=== PATIENT | female | born 1955 | race Caucasian/White ===

== ENCOUNTER 2020-05-01 12:24 | Day surgery (SDC) | payer OTHER, SELFPAY ==
--- NOTE | 2020-04-30 14:04 | HO.ANESPROP2 ---
Documented by User: Shagufta Balderas 04/30/20 14:28 HPI - Anesthesia Eval Consult details Narrative: 65yo F for EBUS: QIAN Small Cell Lung CA S/P Chemo/Rad PMFSH Past Medical History Medical History Arthritis COPD (chronic obstructive pulmonary disease) Depression Encounter for colonoscopy due to history of colonic polyp History of diverticulitis of colon History of hepatitis Hypertension Hypothyroidism Traumatic brain injury Surgical History Surgical History H/O section Hx of breast reduction, elective S/P bronchoscopy with biopsy Social History Social History Smoking Status: Former smoker Smoking Quit Date: 3yrs Use of substances other than those prescribed or required for medical reasons: Yes Substance Use Type Other:: edibles Substance Use Frequency: Daily Advance Directives: Yes Advance Directives on File: Yes Advance Directives Date on File: 05/01/20 Meds Allergies Allergy/AdvReac Type Severity Reaction Status Date / Time iodine [IODINE] Allergy Unknown ANAPHYLAXIS Verified 04/10/20 08:34 penicillin V Allergy Unknown Unknown Verified 04/10/20 08:34 Penicillins [PCN] Allergy Unknown HIVES Verified 04/10/20 08:34 shellfish derived Allergy Unknown UNKNOWN Verified 04/10/20 08:34 [SHELLFISH DERIVED] Home Medications Medication Instructions Recorded Confirmed Type Calcium + Vitamin D 250 mg PO DAILY 04/10/20 04/10/20 History albuterol sulfate 1.25 mg INHALATION Q4-6H PRN 04/10/20 04/10/20 History atenolol 25 mg PO DAILY 04/10/20 04/10/20 History budesonide-formoterol 2 puff INHALATION BID 04/10/20 04/10/20 History bupropion HCl 200 mg PO DAILY 04/10/20 04/11/20 History docusate sodium [Stool Softener] 100 mg PO DAILY 04/10/20 04/10/20 History duloxetine 30 mg PO DAILY 04/10/20 04/10/20 History levothyroxine 137 mcg PO DAILY 04/10/20 04/10/20 History levothyroxine 274 mcg PO DAILY 04/10/20 04/10/20 History meloxicam 15 mg PO BEDTIME 04/10/20 04/10/20 History multivitamin with minerals 1 tab PO DAILY 04/10/20 04/10/20 History nortriptyline 20 mg PO BEDTIME 04/10/20 04/10/20 History ondansetron 4 mg PO Q6H PRN 04/10/20 04/10/20 History tiotropium bromide 1 cap INHALATION DAILY 04/10/20 04/10/20 History omeprazole [Prilosec] 20 mg PO DAILY 05/01/20 05/01/20 History Exam Exam Date and Time: April 30, 2020 1404 Pertinent Lab Results Pertinent Lab Results: Laboratory Tests 04/11/20 04/11/20 12:17 12:17 WBC 5.8 Hgb 12.5 Hct 37.0 Plt Count 264 Sodium 140 Potassium 4.7 Chloride 104 Carbon Dioxide 31 H BUN 21 H Creatinine 1.09 Narrative Narrative: ECHO 04/2019: nml study Documented by User: Luis Tony 05/01/20 13:35 PMFSH Past Medical History Medical History Arthritis COPD (chronic obstructive pulmonary disease) Depression Encounter for colonoscopy due to history of colonic polyp History of diverticulitis of colon History of hepatitis Hypertension Hypothyroidism Traumatic brain injury Surgical History Surgical History H/O section Hx of breast reduction, elective S/P bronchoscopy with biopsy Social History Social History Smoking Status: Former smoker Smoking Quit Date: 3yrs Use of substances other than those prescribed or required for medical reasons: Yes Substance Use Type Other:: edibles Substance Use Frequency: Daily Advance Directives: Yes Advance Directives on File: Yes Advance Directives Date on File: 05/01/20 Meds Allergies Allergy/AdvReac Type Severity Reaction Status Date / Time iodine [IODINE] Allergy Unknown ANAPHYLAXIS Verified 04/10/20 08:34 penicillin V Allergy Unknown Unknown Verified 04/10/20 08:34 Penicillins [PCN] Allergy Unknown HIVES Verified 04/10/20 08:34 shellfish derived Allergy Unknown UNKNOWN Verified 04/10/20 08:34 [SHELLFISH DERIVED] Home Medications Medication Instructions Recorded Confirmed Type Calcium + Vitamin D 250 mg PO DAILY 04/10/20 04/10/20 History albuterol sulfate 1.25 mg INHALATION Q4-6H PRN 04/10/20 04/10/20 History atenolol 25 mg PO DAILY 04/10/20 04/10/20 History budesonide-formoterol 2 puff INHALATION BID 04/10/20 04/10/20 History bupropion HCl 200 mg PO DAILY 04/10/20 04/11/20 History docusate sodium [Stool Softener] 100 mg PO DAILY 04/10/20 04/10/20 History duloxetine 30 mg PO DAILY 04/10/20 04/10/20 History levothyroxine 137 mcg PO DAILY 04/10/20 04/10/20 History levothyroxine 274 mcg PO DAILY 04/10/20 04/10/20 History meloxicam 15 mg PO BEDTIME 04/10/20 04/10/20 History multivitamin with minerals 1 tab PO DAILY 04/10/20 04/10/20 History nortriptyline 20 mg PO BEDTIME 04/10/20 04/10/20 History ondansetron 4 mg PO Q6H PRN 04/10/20 04/10/20 History tiotropium bromide 1 cap INHALATION DAILY 04/10/20 04/10/20 History omeprazole [Prilosec] 20 mg PO DAILY 05/01/20 05/01/20 History Exam Airway Mallampati Class: II TM Dist: >3cm Neck ROM: Full Loose/Missing/Broken Teeth: Yes (Overbite) Heart: RRR Assessment and Plan Assessment Anesthesia Assessment: Anesthesia Plan Discussed Final Anesthetic Review NPO: Yes ASA Class: III Final Preanesthetic Review: Consent Obtained/Reviewed Anesthetic Plan Anesthetic Plan: GA Disposition: Standard PACU
--- NOTE | 2020-05-01 12:53 | MHC.SHP ---
Pre-Procedural Eval Section B Chief Complaint: endo bronch ultrasound Details of Present Illness: 65-year-old lady, former approximately 40+ pack-year smoker, quit 4 years prior with underlying history of COPD, small cell lung cancer under care of Dr. Saunders. Re-referred for evaluation of new left paramediastinal lesion with increased PET uptake in mediastinal lymph nodes. Patient has been using Symbicort and Spiriva to her underlying dyspnea with suboptimal control. Relevant Family History (Specify if Yes): No Relevant Social History: Tobacco Use Present Medications: see Short Stay Collaborative assessment Medical History: Significant History ( as per HPI) History of Previous Operations: No relevant previous surgery Allergies: Allergies Allergy/AdvReac Type Severity Reaction Status Date / Time iodine [IODINE] Allergy Unknown ANAPHYLAXIS Verified 04/10/20 08:34 penicillin V Allergy Unknown Unknown Verified 04/10/20 08:34 Penicillins [PCN] Allergy Unknown HIVES Verified 04/10/20 08:34 shellfish derived Allergy Unknown UNKNOWN Verified 04/10/20 08:34 [SHELLFISH DERIVED] Review of Systems Sugical H&P ROS: Negative: Constitution, Cardiovascular, Respiratory, Neurological, Psychiatric, Hem-Onc, Allergic/Immunologic, Gastrointestinal, Genitourinary, Musculoskeletal, Integumentary, Endocrine and Eyes/Ears/Nose/Throat Exam Surgical H&P Exam: Normal: HEENT, Normal: Heart, Normal: Lungs, Normal: Extremities, Normal: Abdomen, Normal: Skin and Normal: Neurological Plan Diagnosis/Plan: Unchanged Patient has been examined and remains a candidate for the planned procedure
[2020-05-01 13:03] VITALS: BP 154/75; PULSE 83; RESP 18; TEMP 36.5; O2SAT 97; BMI 46.3
[2020-05-01] MEDS: Lactated Ringers 1,000 ML 100 ML IVCONT (13:23)
[2020-05-01] MEDS: Albuterol Sulfate (0.083%) 2.5 MG/3 ML VIAL.NEB INHALE (13:43)
--- NOTE | 2020-05-01 15:10 | PM.OP ---
Brief Operative Note Date of procedure: 05/01/20 Pre-op diagnosis: lung cancer Post-op diagnosis: same Procedure: Initially, flexible bronchoscopy performed through the endotracheal tube with patient intubated for procedure with bronchoscope advanced through the tracheobronchial tree. Approximately 50% narrowing of left upper lobe apical segment bronchus noted. Also, left mainstem bronchus endobronchial nodule noted on the medial surface and biopsied with transbronchial needle with aspirated material sent for pathological review. Thereafter, bronchoscope was changed to endobronchial ultrasound 1 and station 7 lymph node aspirated under EBUS guidance with rapid on-site cytology showing cells consistent with small cell lung cancer. Aspirate material sent for further pathological review. No immediate complications of the procedure. Patient tolerated the procedure well. Patient returned to PACU extubated. Surgeon: Francois Casey MD Anesthesia: GETCarley Estimated blood loss (mL): 0 Condition: stable Disposition: PACU
[2020-05-01 15:15] VITALS: BP 111/52; PULSE 74; RESP 18; TEMP 36.4; O2SAT 99
[2020-05-01 15:20] VITALS: BP 108/77; PULSE 74; RESP 14; O2SAT 98
[2020-05-01 15:25] VITALS: BP 116/80; PULSE 72; RESP 14; O2SAT 98
[2020-05-01 15:30] VITALS: BP 122/73; PULSE 72; RESP 16; O2SAT 97
[2020-05-01 15:45] VITALS: BP 136/67; PULSE 70; RESP 16; TEMP 36; O2SAT 97
== END 2020-05-01 16:30 | disposition home or self-care (01) ==
PROVIDERS: PCP Family Medicine; Visit Provider Internal Medicine Pulmonary Disease
PROC: (CPT 31625; principal; 2020-05-01 14:00)
DX: C34.82 Malignant neoplasm of overlapping sites of left bronchus and lung (principal); C77.1 Secondary and unspecified malignant neoplasm of intrathoracic lymph nodes; J44.9 Chronic obstructive pulmonary disease, unspecified; I10 Essential (primary) hypertension; F32.9 Major depressive disorder, single episode, unspecified; Z87.891 Personal history of nicotine dependence; Z79.51 Long term (current) use of inhaled steroids; Z79.899 Other long term (current) drug therapy; Z87.820 Personal history of traumatic brain injury; Z88.0 Allergy status to penicillin
CPT/HCPCS: 31625; 31652; 88172; 88173; 88305; 88341; 88342; 94640; J0171; J0330; J1100; J2250; J2405

== ENCOUNTER 2020-05-09 10:43 | Outpatient (REF) | payer OTHER, SELFPAY | END 2020-05-09 10:44 | disposition home or self-care (01) | LOC: HO.XRAY 10:43 | PROVIDERS: Visit Provider Internal Medicine | DX: Z13.89 Encounter for screening for other disorder (principal) | CPT/HCPCS: Q9967 ==

== ENCOUNTER → 2020-06-02 10:48 | Outpatient (BNVA) | payer OTHER, SELFPAY | PROVIDERS: PCP Family Medicine; Referring Provider Family Medicine; Visit Provider Internal Medicine Pulmonary Disease | DX: J44.9 Chronic obstructive pulmonary disease, unspecified (principal); C34.90 Malignant neoplasm of unspecified part of unspecified bronchus or lung; Z99.81 Dependence on supplemental oxygen | CPT/HCPCS: 99212 ==

== ENCOUNTER 2020-06-08 19:00 | Inpatient (IN) | payer OTHER, SELFPAY ==
[2020-06-08] VITALS (7 sets, daily range): BP systolic 109–117; BP diastolic 58–84; PULSE 102–106; RESP 20–26; TEMP 36.7–37; O2SAT 90–97; BMI 44.9
--- NOTE | 2020-06-08 19:13 | ECG_ITS ---
Test Reason : ABDONMIAL PAIN Blood Pressure : / mmHG Vent. Rate : 103 BPM Atrial Rate : 103 BPM P-R Int : 128 ms QRS Dur : 082 ms QT Int : 340 ms P-R-T Axes : 078 055 089 degrees QTc Int : [address] & T wave abnormality, consider anterolateral ischemia Abnormal ECG When compared with ECG of 07-MAY-2019 14:04, Premature atrial complexes are no longer Present T wave inversion now evident in Anterior leads Referred By: Danelle Reyes Electronically Signed By:JOSE MANUEL MD
--- NOTE | 2020-06-08 19:13 | CT_ITS ---
EXAMINATION: CT ABDOMEN AND PELVIS WITHOUT CONTRAST CLINICAL INFORMATION: Lower abdominal pain. COMPARISON: Prior CT abdomen and pelvis April 2019. TECHNIQUE: Multidetector volumetric imaging was performed from the superior aspect of the liver through the pubic symphysis. Sagittal and coronal reformatted images were obtained on the technologist's workstation. This CT examination was performed using dose optimization techniques as appropriate, variously including the following: *Automated exposure control. *Adjustment of mA and/or kV according to patient size (this includes techniques or standardized protocols for targeted exams where dose is matched to indication/reason for exam; i.e. extremities or head). *Use of iterative reconstruction technique. DLP: 1180 mGy-cm FINDINGS: LUNG BASES: The visualized lung bases are unremarkable. LIVER, GALLBLADDER, AND BILIARY TREE: The liver is normal in size, shape, and attenuation. No focal hepatic lesion or biliary ductal dilatation is present. The gallbladder is unremarkable with no evidence of radiopaque gallstones, gallbladder wall thickening, or obvious pericholecystic inflammatory changes. PANCREAS: Unremarkable. SPLEEN: Unremarkable. ADRENAL GLANDS: Unremarkable. KIDNEYS AND URETERS: The kidneys are normal in size, shape, and attenuation. No hydronephrosis, hydroureter, or calculi seen. No perinephric stranding. BLADDER: Unremarkable. GASTROINTESTINAL TRACT: There is scattered diverticulosis most evident in the distal descending colon and sigmoid colon. Beginning at the splenic flexure there is bowel wall thickening and pericolonic stranding compatible with an inflammatory process of the bowel. This likely reflects colitis or diverticulitis. This extends over a length of approximately 10 cm. ABDOMINAL WALL: No significant hernia is appreciated. LYMPH NODES: Normal. VASCULAR: Moderate calcific atherosclerotic disease throughout. PELVIC VISCERA: There is calcification measuring approximately 12 mm in the posterior fundus compatible with partially calcified fibroid. This is unchanged. OSSEOUS STRUCTURES: Multilevel spondylosis of the lumbosacral spine with severe degenerative disc changes at L4-L5 and L5-S1. There is grade 1 anterolisthesis at L4-L5 secondary to degenerative changes. Severe bilateral facet arthrosis noted at this level. CT/CT abdomen pelvis wo con IMPRESSION: Inflammatory/infectious process of the proximal descending colon compatible with diverticulitis or colitis.
--- NOTE | 2020-06-08 19:13 | XR_ITS ---
EXAMINATION: XR CHEST CLINICAL INFORMATION: Possible sepsis COMPARISON: Chest CT March 2020. TECHNIQUE: Frontal view of the chest was obtained. FINDINGS: There is persistent increased opacity left AP window and hilar region unchanged. The lungs are otherwise clear. Central venous catheter is noted with the tip in the SVC region. Cardiac silhouette normal. Spondylosis of the dorsal spine. XR/XR chest 1V IMPRESSION: Soft tissue fullness in the left hilar region superior mediastinum probably not changed compared with recent CT. This could reflect posttreatment changes, pneumonia, or mass.
[2020-06-08] MEDS: 0.9 % Sodium Chloride 1,000 ML 999 ML IVCONT ×2 (19:48→22:07)
[2020-06-08] MEDS: Morphine Sulfate 4 MG/ML CARTRIDGE IVPUSH (20:08)
[2020-06-08 20:14] LABS: Alanine Aminotransferase 42 U/L (0-31); Albumin Level 3.8 g/dL (3.5-5.0); Alkaline Phosphatase 68 U/L (39-117); Anion Gap 16 (12-20); Aspartate Amino Transferase 35 U/L (5-31); Bilirubin Direct 0.3 mg/dL (0.0-0.5); Bilirubin Total 0.7 mg/dL (0.0-1.0); Blood Urea Nitrogen 12 mg/dL (9-16); Calcium 8.3 mg/dL (8.4-10.2); Carbon Dioxide 24 mmol/L (22-29); Chloride 98 mmol/L (96-108); Creatinine Clr Calc Pharmacy 85.5; Estimated Glomerular Filt Rate > 60; Glucose Random 120 mg/dL (60-115); Lipase 8 U/L (8-78); Potassium 3.7 mmol/l (3.3-5.1); Sodium 134 mmol/L (135-145); Total Protein 6.1 g/dL (6.5-8.0)
[2020-06-08 20:15] LABS: Lactic Acid 2.5 mmol/L (0.5-2.0)
[2020-06-08 20:18] LABS: Hematocrit 23.9 % (37-47); Hemoglobin 8.6 g/dl (12.0-16.0); Mean Corpuscular Hemoglobin 33.7 pg (27.0-33.0); Mean Corpuscular Volume 93.7 fL (80-98); Mean Platelet Volume 10.7 fL (9.4-12.3); Red Blood Count 2.55 X10*6/uL (4.20-5.50); Red Cell Distribution Width 11.6 % (11.0-16.0)
[2020-06-08 20:19] LABS: Troponin-I High Sensitivity 7.8 ng/L (<3.5-17.0)
[2020-06-08 20:40] LABS: NRBC Pct Auto 2.4 /100WBC (0.0-0.2); Platelet Count 44 X10*3/uL (160-400); WBC ABN SCTR FOR CBC 1
[2020-06-08 20:52] LABS: White Blood Count 0.8 X10*3/uL (4.8-10.8)
[2020-06-08] MEDS: HYDROmorphone HCl 1 MG/ML SYRINGE IVPUSH (21:40)
[2020-06-08] MEDS: levoFLOXacin/D5W 500 MG/100 ML PIGGYBACK 100 MG IV (21:41)
[2020-06-08 21:50] LABS: Reflex Lactate? Lactic Acid Added
[2020-06-08 22:04] LABS: Atypical Lymphs Percent Manual 2 % (0-6); Band Neutrophils Percent 9 % (3-5); Basophils Percent Manual 1 % (0-1); Lymphocytes Absolute Manual 0.4 X10*3/uL (0.6-4.8); Lymphocytes Percent Manual 45 % (20-40); Monocytes Absolute Manual 0.1 X10*3/uL (0.0-1.2); Monocytes Percent Manual 16 % (2-11); Neutrophils Absolute Manual 0.3 X10*3/uL (2.2-7.9); Neutrophils Percent Manual 27 % (45-73)
[2020-06-08 22:07] LABS: Hypochromasia 1+; Polychromasia 1+; RBC Morphology NOTED; Tear Drop Cells 1+
[2020-06-08 22:09] LABS: Large Platelet PRESENT; Platelet Estimate DECREASED (NORMAL); Platelet Morphology Comment NORMAL
[2020-06-08 22:12] LABS: Dohle Bodies PRESENT; Toxic Vacuolation PRESENT
[2020-06-08 22:51] LABS: Glucose Urine UA NEG (NEG); Leukocyte Esterase Urine NEG (NEG); Nitrite Urine NEG (NEG); PH 5.5 (5.0-8.0); Specific Gravity - Urine 1.015 (1.005-1.025); Urine Blood 2+ (NEG); Urine Ketones NEG (NEG); Urine Protein NEG (NEG-TRACE)
[2020-06-08 22:55] LABS: Appearance Urine CLEAR; Color Urine YELLOW
[2020-06-08 23:06] LABS: WBC Urine 0 /HPF (0-4)
[2020-06-08] MEDS: HYDROmorphone HCl 2 MG/ML VIAL IVPUSH (23:51)
--- NOTE | 2020-06-08 23:51 | ED_ITS ---
HPI - Abdominal Pain General Chief Complaint: Abdominal Pain Stated Complaint: dizzy, nausea Time Seen by Provider: 06/08/20 19:05 Source: patient Mode of arrival: EMS Limitations: no limitations History of Present Illness HPI narrative: patient comes emergency room complaining of diffuse abdominal pain. Patient states it started this morning. Patient has history of colitis and states it feels about the same. Patient also feeling weak, and lightheaded. Patient is known to have lung cancer, she is followed by Dr. Saunders, had chemotherapy 1 week ago MD elicited complaint: abdominal pain Related Data Home Medications Medication Instructions Recorded Confirmed Calcium + Vitamin D 250 mg PO DAILY 04/10/20 06/02/20 albuterol sulfate 1.25 mg INHALATION Q4-6H PRN 04/10/20 06/02/20 atenolol 25 mg PO DAILY 04/10/20 06/02/20 budesonide-formoterol 2 puff INHALATION BID 04/10/20 06/02/20 bupropion HCl 200 mg PO DAILY 04/10/20 06/02/20 docusate sodium [Stool Softener] 100 mg PO DAILY 04/10/20 06/02/20 duloxetine 30 mg PO DAILY 04/10/20 06/02/20 levothyroxine 137 mcg PO DAILY 04/10/20 06/02/20 levothyroxine 274 mcg PO DAILY 04/10/20 06/02/20 meloxicam 15 mg PO BEDTIME 04/10/20 06/02/20 multivitamin with minerals 1 tab PO DAILY 04/10/20 06/02/20 nortriptyline 20 mg PO BEDTIME 04/10/20 06/02/20 ondansetron 4 mg PO Q6H PRN 04/10/20 06/02/20 tiotropium bromide 1 cap INHALATION DAILY 04/10/20 06/02/20 omeprazole [Prilosec] 20 mg PO DAILY 05/01/20 06/02/20 Previous Rx's Medication Instructions Recorded dexamethasone 4 mg PO BID #30 tab 05/02/20 ondansetron HCl [Zofran] 4 mg PO Q6H PRN #30 tab 05/09/20 Allergies Allergy/AdvReac Type Severity Reaction Status Date / Time iodine [IODINE] Allergy Unknown ANAPHYLAXIS Verified 06/02/20 10:59 penicillin V Allergy Unknown Unknown Verified 06/02/20 10:59 Penicillins [PCN] Allergy Unknown HIVES Verified 06/02/20 10:59 shellfish derived Allergy Unknown UNKNOWN Verified 06/02/20 10:59 [SHELLFISH DERIVED] Review of Systems Review of Systems Constitutional : complaining of fatigue, weakness, no fever ENT/Mouth : No Hearing loss, No Ear Pain, No Nasal Congestion, No Sinus Pain, No Hoarseness, No sore throat, No Rhinorrhea, No Swallowing Difficulty Eyes: No Eye Pain, No Swelling, No Redness, No Foreign Body, No Discharge, No Vision Changes Cardiovascular : No Chest Pain, No SOB, No Dyspnea on Exertion, No Orthopnea, No Edema, No Palpitations Respiratory : No Cough, No Sputum, No Wheezing, No Smoke Exposure, No Dyspnea Gastrointestinal : patient complaining diffuse abdominal pain, no vomiting or diarrhea Genitourinary : no irregular bleeding, No Dysuria, No Urinary Frequency, No Hematuria, No Urinary Incontinence, No Urgency, No Flank Pain, No Urinary Flow Changes, No Hesitancy Musculoskeletal : No joint pain, No Myalgias, No Joint Swelling Skin : No Skin Lesions, No rash Neuro : No Weakness, No Numbness, No Paresthesias, No Loss of Consciousness, complaining of mild Dizziness, No Headache Psych : No Anxiety/Panic, No Depression, No SI/HI/AH/VH, No Social Issues, Heme/Lymph: No Bruising, No Bleeding,No Lymphadenopathy Endocrine : No Polyuria, No Polydipsia, No Temperature Intolerance Physical Exam Vital Signs: Vital Signs: Last Vital Signs Temp 98.2 F 06/08/20 23:33 Pulse 102 H 06/09/20 00:00 Resp 20 06/09/20 00:00 BP 108/76 06/09/20 00:00 Pulse Ox 97 06/09/20 00:00 Body Mass Index 44.9 Appearance: Alert. Oriented X3. No acute distress. Eyes: Pupils equal, round and reactive to light. ENT: Pharynx normal. Neck: Normal inspection. Neck supple. No lymph nodes noted. No crepitus CVS: Normal heart rate and rhythm. Pulses normal. Normal S1 and S2 Respiratory: No respiratory distress. Breath sounds normal. No Wheezing. No rales Abdomen: Soft tender to palpation in all quadrants, no rebound Skin: Skin warm and dry. pale color. Normal skin turgor. Extremities: No lower extremity edema. No lower extremity edema. No Lacerations. No Rash Neuro: Oriented X 3. No motor deficit. No sensory deficit. Moving all extermities. No slurred speech. Course Course Course Narrative: patient has colitis versus diverticulitis, and also neutropenic. I discussed the above-mentioned with the patient, patient being admitted. I discussed the patient with our hospitalist Dr. Duque, patient admitted patient's EKG showed some ST segment changes, due to system failure, prior EKGs are not available to be seen and for comparison MDM - Abdominal Pain Lab Data Result diagrams: 06/08/20 19:47 06/08/20 19:47 Labs: Lab Results 06/08/20 06/08/20 06/08/20 Range/Units 19:47 19:47 19:47 WBC 0.8 L* (4.8-10.8) X10*3/uL RBC 2.55 L D (4.20-5.50) X10*6/uL Hgb 8.6 L D (12.0-16.0) g/dl Hct 23.9 L D (37-47) % MCV 93.7 (80-98) fL MCH 33.7 H (27.0-33.0) pg MCHC 36.0 H (31.0-35.0) g/dl RDW 11.6 (11.0-16.0) % Plt Count 44 L D (160-400) X10*3/uL MPV 10.7 (9.4-12.3) fL Immature Gran % (Auto) Cancelled Neut % (Auto) Cancelled Lymph % (Auto) Cancelled Chambers % (Auto) Cancelled Eos % (Auto) Cancelled Baso % (Auto) Cancelled Lymph # (Auto) Cancelled Chambers # (Auto) Cancelled Eos # (Auto) Cancelled Baso # (Auto) Cancelled Abs Immat Gran (auto) Cancelled Absolute Neuts (auto) Cancelled Absolute Nucleated RBC 0.020 H (0.0-0.012) X10*3/uL Nucleated RBC % (auto) 2.4 H (0.0-0.2) /100WBC Neutrophils % (Manual) 27 L (45-73) % Band Neutrophils % 9 H (3-5) % Lymphocytes % (Manual) 45 H (20-40) % Atypical Lymphs % (Man) 2 (0-6) % Monocytes % (Manual) 16 H (2-11) % Basophils % (Manual) 1 (0-1) % Abs Neuts (Manual) 0.3 L (2.2-7.9) X10*3/uL Lymphocytes # (Manual) 0.4 L (0.6-4.8) X10*3/uL Monocytes # (Manual) 0.1 (0.0-1.2) X10*3/uL Toxic Vacuolation PRESENT Dohle Bodies PRESENT Platelet Estimate DECREASED (NORMAL) Large Platelets PRESENT Plt Morphology Comment NORMAL RBC Morphology NOTED Polychromasia 1+ Hypochromasia 1+ Tear Drop Cells 1+ Sodium 134 L (135-145) mmol/L Potassium 3.7 (3.3-5.1) mmol/l Chloride 98 (96-108) mmol/L Carbon Dioxide 24 (22-29) mmol/L Anion Gap 16 (12-20) BUN 12 (9-16) mg/dL Creatinine 0.82 (0.5-1.4) mg/dL Estim Creat Clear Calc 85.5 Estimated GFR > 60 Random Glucose 120 H (60-115) mg/dL Lactic Acid 2.5 H* (0.5-2.0) mmol/L Lactic Acid Fup @ 2Hr (0.5-2.0) mmol/L Calcium 8.3 L D (8.4-10.2) mg/dL Total Bilirubin 0.7 (0.0-1.0) mg/dL Direct Bilirubin 0.3 (0.0-0.5) mg/dL AST 35 H D (5-31) U/L ALT 42 H (0-31) U/L Alkaline Phosphatase 68 (39-117) U/L Troponin I High Sens (<3.5-17.0) ng/L Total Protein 6.1 L (6.5-8.0) g/dL Albumin 3.8 (3.5-5.0) g/dL Lipase 8 (8-78) U/L Urine Color Urine Appearance Urine pH (5.0-8.0) Ur Specific Blackstock (1.005-1.025) Urine Protein (NEG-TRACE) MG/DL Urine Glucose (UA) (NEG) MG/DL Urine Ketones (NEG) MG/DL Urine Blood (NEG) Urine Nitrite (NEG) Ur Leukocyte Esterase (NEG) Urine RBC (0) /HPF Urine WBC (0-4) /HPF Ur Squamous Epith Cells /LPF Urine Bacteria /LPF 06/08/20 06/08/20 06/08/20 Range/Units 19:47 22:40 23:29 WBC (4.8-10.8) X10*3/uL RBC (4.20-5.50) X10*6/uL Hgb (12.0-16.0) g/dl Hct (37-47) % MCV (80-98) fL MCH (27.0-33.0) pg MCHC (31.0-35.0) g/dl RDW (11.0-16.0) % Plt Count (160-400) X10*3/uL MPV (9.4-12.3) fL Immature Gran % (Auto) Neut % (Auto) Lymph % (Auto) Chambers % (Auto) Eos % (Auto) Baso % (Auto) Lymph # (Auto) Chambers # (Auto) Eos # (Auto) Baso # (Auto) Abs Immat Gran (auto) Absolute Neuts (auto) Absolute Nucleated RBC (0.0-0.012) X10*3/uL Nucleated RBC % (auto) (0.0-0.2) /100WBC Neutrophils % (Manual) (45-73) % Band Neutrophils % (3-5) % Lymphocytes % (Manual) (20-40) % Atypical Lymphs % (Man) (0-6) % Monocytes % (Manual) (2-11) % Basophils % (Manual) (0-1) % Abs Neuts (Manual) (2.2-7.9) X10*3/uL Lymphocytes # (Manual) (0.6-4.8) X10*3/uL Monocytes # (Manual) (0.0-1.2) X10*3/uL Toxic Vacuolation Dohle Bodies Platelet Estimate (NORMAL) Large Platelets Plt Morphology Comment RBC Morphology Polychromasia Hypochromasia Tear Drop Cells Sodium (135-145) mmol/L Potassium (3.3-5.1) mmol/l Chloride (96-108) mmol/L Carbon Dioxide (22-29) mmol/L Anion Gap (12-20) BUN (9-16) mg/dL Creatinine (0.5-1.4) mg/dL Estim Creat Clear Calc Estimated GFR Random Glucose (60-115) mg/dL Lactic Acid (0.5-2.0) mmol/L Lactic Acid Fup @ 2Hr 4.2 H* (0.5-2.0) mmol/L Calcium (8.4-10.2) mg/dL Total Bilirubin (0.0-1.0) mg/dL Direct Bilirubin (0.0-0.5) mg/dL AST (5-31) U/L ALT (0-31) U/L Alkaline Phosphatase (39-117) U/L Troponin I High Sens 7.8 (<3.5-17.0) ng/L Total Protein (6.5-8.0) g/dL Albumin (3.5-5.0) g/dL Lipase (8-78) U/L Urine Color YELLOW Urine Appearance CLEAR Urine pH 5.5 (5.0-8.0) Ur Specific Blackstock 1.015 (1.005-1.025) Urine Protein NEG (NEG-TRACE) MG/DL Urine Glucose (UA) NEG (NEG) MG/DL Urine Ketones NEG (NEG) MG/DL Urine Blood 2+ H (NEG) Urine Nitrite NEG (NEG) Ur Leukocyte Esterase NEG (NEG) Urine RBC 5-9 H (0) /HPF Urine WBC 0 (0-4) /HPF Ur Squamous Epith Cells NONE /LPF Urine Bacteria NONE /LPF Imaging Data CT scan - abdomen: Radiologist's impression: LUNG BASES: The visualized lung bases are unremarkable. LIVER, GALLBLADDER, AND BILIARY TREE: The liver is normal in size, shape, and attenuation. No focal hepatic lesion or biliary ductal dilatation is present. The gallbladder is unremarkable with no evidence of radiopaque gallstones, gallbladder wall thickening, or obvious pericholecystic inflammatory changes. PANCREAS: Unremarkable. SPLEEN: Unremarkable. ADRENAL GLANDS: Unremarkable. KIDNEYS AND URETERS: The kidneys are normal in size, shape, and attenuation. No hydronephrosis, hydroureter, or calculi seen. No perinephric stranding. BLADDER: Unremarkable. GASTROINTESTINAL TRACT: There is scattered diverticulosis most evident in the distal descending colon and sigmoid colon. Beginning at the splenic flexure there is bowel wall thickening and pericolonic stranding compatible with an inflammatory process of the bowel. This likely reflects colitis or diverticulitis. This extends over a length of approximately 10 cm. ABDOMINAL WALL: No significant hernia is appreciated. LYMPH NODES: Normal. VASCULAR: Moderate calcific atherosclerotic disease throughout. PELVIC VISCERA: There is calcification measuring approximately 12 mm in the posterior fundus compatible with partially calcified fibroid. This is unchanged. OSSEOUS STRUCTURES: Multilevel spondylosis of the lumbosacral spine with severe degenerative disc changes at L4-L5 and L5-S1. There is grade 1 anterolisthesis at L4-L5 secondary to degenerative changes. Severe bilateral facet arthrosis noted at this level. ECG Data Attestation: I personally reviewed and interpreted this ECG as follows: ( sinus rhythm, ST segment depression in leads V3 through V5, QTC 445) Discharge Plan Discharge Clinical Impression: Colitis, Acquired neutropenia Abdominal pain Qualifiers: Abdominal location: generalized Qualified Code(s): R10.84 - Generalized abdominal pain Patient Disposition: Admitted As Inpatient [facility] Past Medical History Medical History (Updated 06/09/20 @ 01:11 by Gilberto Wilson MD) Arthritis COPD (chronic obstructive pulmonary disease) Depression Encounter for colonoscopy due to history of colonic polyp History of diverticulitis of colon History of hepatitis Hypertension Hypothyroidism Traumatic brain injury Surgical History H/O section Hx of breast reduction, elective S/P bronchoscopy with biopsy Social History Social History Alcohol intake: never Smoking Status: Never smoker Packs Per Day: 1 Years Smoked: 53 Use of substances other than those prescribed or required for medical reasons: No Advance Directives: Yes Advance Directives on File: Yes Advance Directives Date on File: 05/01/20
[2020-06-08 23:55] LABS: ~Lactic Acid-LAB USE ONLY 4.2 mmol/L (0.5-2.0)
[2020-06-09] VITALS (10 sets, daily range): BP systolic 91–138; BP diastolic 56–90; PULSE 86–102; RESP 19–20; TEMP 36.5–37; O2SAT 92–100; BMI 44.9
--- NOTE | 2020-06-09 | US_ITS ---
EXAMINATION: US ABDOMEN COMPLETE CLINICAL INFORMATION: History of hepatitis and lung cancer. Abdominal pain.. COMPARISON: Previous CT of the abdomen and pelvis from yesterday TECHNIQUE: Real-time imaging of the abdominal viscera. Grayscale and color imaging of the portal and hepatic veins, splenic vein and hepatic artery including waveform spectral analysis. FINDINGS: PANCREAS: Not visualized due to bowel gas. ABDOMINAL AORTA: Not well visualized due to bowel gas. INFERIOR VENA CAVA: Visualized portions are normal. LIVER: Liver echotexture is increased probably representing fatty infiltration. No focal liver lesion is seen. There is no biliary duct dilatation. GALLBLADDER: Not well visualized but appears unremarkable. No gallstones are seen. COMMON BILE DUCT: Normal in caliber measuring 0.7 cm in diameter. RIGHT KIDNEY: Normal. No hydronephrosis. No renal calculi or focal parenchymal lesions. The kidney measures 9.5 cm in maximum dimension. LEFT KIDNEY: Normal. No hydronephrosis. No renal calculi or focal parenchymal lesions. The kidney measures 10.8 cm in maximum dimension. SPLEEN: Normal. The spleen measures 8.5 cm in maximum dimension. FREE FLUID: None. Doppler exam: The extrahepatic portal vein, main portal vein, and right and left portal veins are patent with appropriate hepatopedal flow. The hepatic veins are patent with normal waveform. The IVC is patent with normal waveform. The splenic vein is patent with hepatopedal flow. The main hepatic artery is patent. This demonstrates normal peak systolic velocity of 65 cm/s. The right hepatic artery is not seen. The left hepatic artery is patent. US/US abdomen complete IMPRESSION: Limited exam. Echogenic liver probably representing fatty infiltration. Limited visualization of the pancreas, gallbladder, aorta and IVC. Normal Doppler exam.
[2020-06-09] MEDS: Clindamycin Phosphate/D5W 600 MG/50 ML PIGGYBACK 100 MG IV (00:18)
[2020-06-09] MEDS: metroNIDAZOLE/NS 500 MG/100 ML PIGGYBACK 100 MG IV (00:19)
--- NOTE | 2020-06-09 00:55 | P.HPHOSP_ITS ---
History of Present Illness Date of Service: 06/09/20 Chief Complaint: abdominal pain 65 y/o female with an extensive PMHX who presented from home c/o abdominal pain. Patient is a very poor historian but reports that for the past week has been having constant pain in her abdomen, sharp like, diffuse but more located in the left quadrant, associated with nausea/vomiting but no episodes of diarrhea. Reports occasional blood in the stool one in a while. On presentation to the ED patient was noted to be tachycardic 102, tachypneic, BP stable. WBc of 0.8, Hgb of 8.6 (baseline of 10.8), platelet of 44, Lactate of 2.5 which worsened to 4.2, LFT's mildly increased. Patient received a total of 2 liters per ED, one dose of clinda, flagyl and levaquin. Imaging done of the abdomen is consistent with possible colitis vs diverticulitis of the descending colon. Imaging of the chest shows left hilar region fullness which may represent mass not changed from prior CT. Decision for admission given. Patient seen and examined at the bedside, laying down in bed in no acute distress. ROS as above otherwise negative. Physical exam positive for diffuse tenderness more prominent in LLQ, no masses palpated on exam. Patient has been following up with Dr Saunders for hx of small cell lung cancer on chemo. PAST MEDICAL HISTORY: 1. HTN (hypertension) 2. Hypothyroidism 3. Depression 4. Arthritis 5. TBI (traumatic brain injury) 6. Small Cell Lung Cancer PAST SURGICAL HISTORY: 1. 2. Breast reduction FAMILY HISTORY: Father-possible colon cancer Toxic habits: Quit smoking, denies alcohol or illicit drug use. Review of Systems Gastrointestinal: Gastrointestinal: Reports abdominal pain, Reports nausea and Reports vomiting [facility] Medical History (Updated 06/09/20 @ 01:54 by Gilberto Wilson MD) Arthritis COPD (chronic obstructive pulmonary disease) Depression Encounter for colonoscopy due to history of colonic polyp History of diverticulitis of colon History of hepatitis Hypertension Hypothyroidism Traumatic brain injury Surgical History H/O section Hx of breast reduction, elective S/P bronchoscopy with biopsy Social History Alcohol intake: never Smoking Status: Never smoker Packs Per Day: 1 Years Smoked: 53 Use of substances other than those prescribed or required for medical reasons: No Advance Directives: Yes Advance Directives on File: Yes Advance Directives Date on File: 05/01/20 Meds Allergies Allergy/AdvReac Type Severity Reaction Status Date / Time iodine [IODINE] Allergy Unknown ANAPHYLAXIS Verified 06/02/20 10:59 penicillin V Allergy Unknown Unknown Verified 06/02/20 10:59 Penicillins [PCN] Allergy Unknown HIVES Verified 06/02/20 10:59 shellfish derived Allergy Unknown UNKNOWN Verified 06/02/20 10:59 [SHELLFISH DERIVED] Home Medications Medication Instructions Recorded Confirmed Type Calcium + Vitamin D 250 mg PO DAILY 04/10/20 06/09/20 History albuterol sulfate 1.25 mg INHALATION Q4-6H PRN 04/10/20 06/09/20 History atenolol 25 mg PO DAILY 04/10/20 06/09/20 History budesonide-formoterol 2 puff INHALATION BID 04/10/20 06/09/20 History bupropion HCl 200 mg PO DAILY 04/10/20 06/09/20 History docusate sodium [Stool Softener] 100 mg PO DAILY 04/10/20 06/09/20 History duloxetine 30 mg PO DAILY 04/10/20 06/09/20 History levothyroxine 137 mcg PO DAILY 04/10/20 06/09/20 History levothyroxine 274 mcg PO DAILY 04/10/20 06/09/20 History meloxicam 15 mg PO BEDTIME 04/10/20 06/09/20 History multivitamin with minerals 1 tab PO DAILY 04/10/20 06/09/20 History nortriptyline 20 mg PO BEDTIME 04/10/20 06/09/20 History ondansetron 8 mg PO Q6H PRN 04/10/20 06/09/20 History tiotropium bromide 1 cap INHALATION DAILY 04/10/20 06/09/20 History omeprazole [Prilosec] 20 mg PO DAILY 05/01/20 06/09/20 History olodaterol 2 inh INHALATION Q24H 06/09/20 06/09/20 History Physical Exam Vital Signs and Narrative: Vital Signs: Last Vital Signs Temp 98.2 F 06/08/20 23:33 Pulse 102 H 06/09/20 00:00 Resp 20 06/09/20 00:00 BP 108/76 06/09/20 00:00 Pulse Ox 97 06/09/20 00:00 Body Mass Index 44.9 Const: General: cooperative, comfortable and no acute distress Orientation/consciousness: oriented to person, oriented to place and oriented to time HENMT: Head: Yes normal to inspection Eyes: General: appearance normal, both eyes and all related structures Neck: Yes normal visual inspection Chest: Chest palpation & inspection: normal inspection of the chest Resp: Effort & Inspection: normal respiratory effort Auscultation: clear to auscultation bilaterally Cardio: Jugular venous distension: no JVD Rate: regular rate Rhythm: regular rhythm Heart sounds: S1 normal heart sound present and S2 normal heart sound present GI: Inspection: Yes normal to inspection Palpation (GI): Other GI palpation findings present (tenderness mainly at the LLQ) Skin: General skin exam: no rashes or lesions noted Neuro: General: oriented to person, oriented to place and oriented to time Cognition (Neuro): normal cognition Psych: Appearance: grossly normal Results Labs CBC and Chem 7: 06/08/20 19:47 06/08/20 19:47 Labs: Laboratory Results - last 24 hr 06/08/20 06/08/20 06/08/20 19:47 19:47 19:47 MCV 93.7 MCH 33.7 H MCHC 36.0 H RDW 11.6 Plt Count 44 L D MPV 10.7 Immature Gran % (Auto) Cancelled Neut % (Auto) Cancelled Lymph % (Auto) Cancelled [place] % (Auto) Cancelled Eos % (Auto) Cancelled Baso % (Auto) Cancelled Lymph # (Auto) Cancelled [place] # (Auto) Cancelled Eos # (Auto) Cancelled Baso # (Auto) Cancelled Abs Immat Gran (auto) Cancelled Absolute Neuts (auto) Cancelled Absolute Nucleated RBC 0.020 H Nucleated RBC % (auto) 2.4 H Neutrophils % (Manual) 27 L Band Neutrophils % 9 H Lymphocytes % (Manual) 45 H Atypical Lymphs % (Man) 2 Monocytes % (Manual) 16 H Basophils % (Manual) 1 Abs Neuts (Manual) 0.3 L Lymphocytes # (Manual) 0.4 L Monocytes # (Manual) 0.1 Toxic Vacuolation PRESENT Dohle Bodies PRESENT Platelet Estimate DECREASED Large Platelets PRESENT Plt Morphology Comment NORMAL RBC Morphology NOTED Polychromasia 1+ Hypochromasia 1+ Tear Drop Cells 1+ Anion Gap 16 Estim Creat Clear Calc 85.5 Estimated GFR > 60 Random Glucose 120 H Lactic Acid 2.5 H* Lactic Acid Fup @ 2Hr Calcium 8.3 L D Total Bilirubin 0.7 Direct Bilirubin 0.3 AST 35 H D ALT 42 H Alkaline Phosphatase 68 Troponin I High Sens Total Protein 6.1 L Albumin 3.8 Lipase 8 Urine Color Urine Appearance Urine pH Ur Specific [place] Urine Protein Urine Glucose (UA) Urine Ketones Urine Blood Urine Nitrite Ur Leukocyte Esterase Urine RBC Urine WBC Ur Squamous Epith Cells Urine Bacteria 06/08/20 06/08/20 06/08/20 19:47 22:40 23:29 MCV MCH MCHC RDW Plt Count MPV Immature Gran % (Auto) Neut % (Auto) Lymph % (Auto) [place] % (Auto) Eos % (Auto) Baso % (Auto) Lymph # (Auto) [place] # (Auto) Eos # (Auto) Baso # (Auto) Abs Immat Gran (auto) Absolute Neuts (auto) Absolute Nucleated RBC Nucleated RBC % (auto) Neutrophils % (Manual) Band Neutrophils % Lymphocytes % (Manual) Atypical Lymphs % (Man) Monocytes % (Manual) Basophils % (Manual) Abs Neuts (Manual) Lymphocytes # (Manual) Monocytes # (Manual) Toxic Vacuolation Dohle Bodies Platelet Estimate Large Platelets Plt Morphology Comment RBC Morphology Polychromasia Hypochromasia Tear Drop Cells Anion Gap Estim Creat Clear Calc Estimated GFR Random Glucose Lactic Acid Lactic Acid Fup @ 2Hr 4.2 H* Calcium Total Bilirubin Direct Bilirubin AST ALT Alkaline Phosphatase Troponin I High Sens 7.8 Total Protein Albumin Lipase Urine Color YELLOW Urine Appearance CLEAR Urine pH 5.5 Ur Specific [place] 1.015 Urine Protein NEG Urine Glucose (UA) NEG Urine Ketones NEG Urine Blood 2+ H Urine Nitrite NEG Ur Leukocyte Esterase NEG Urine RBC 5-9 H Urine WBC 0 Ur Squamous Epith Cells NONE Urine Bacteria NONE Imaging Radiologist's Impressions: Impressions Abdomen/Pelvis CT 06/08/20 19:13 IMPRESSION: Inflammatory/infectious process of the proximal descending colon compatible with diverticulitis or colitis. Chest X-Ray 06/08/20 19:13 IMPRESSION: Soft tissue fullness in the left hilar region superior mediastinum probably not changed compared with recent CT. This could reflect posttreatment changes, pneumonia, or mass. Assessment and Plan (1) Sepsis: Status: Acute Continue with aggressive IV hydration Trend lactate until it normalizes Follow up BCx and Ucx Continue with Levaquin for gram neg coverage Continue with flagyl for anaerobic coverage Keep MAP >65 mmHg Monitor Hgb Q4-6 hrs. Transfuse if Hgb <7 Chronic steroid therapy? continue with current dexamethasone dose and call outpatient pharmacy in am / PCP Infectious disease consult in the am (2) Colitis: Status: Acute as above (3) Acquired neutropenia: Status: Acute Isolation given severe neutropenia which is likely secondary to chemo therapy (4) Small cell lung cancer: Status: Acute Hematology/Oncology Dr Saunders on chemo (5) Hypertension: Status: Acute continue with atenolol home dose (6) Hypothyroidism: Status: Acute continue with levothyroxine home dose (7) Psychotic disorder: Status: Acute continue with bupropion home dose continue with nortriptiline home dose (8) Constipation: Status: Acute continue with colace home dose (9) Peripheral neuropathy: Status: Acute continue with duloxetine home dose (10) GERD (gastroesophageal reflux disease): Status: Acute continue with PPI home dose
[2020-06-09 01:20] LABS: COVID-19 Test Negative (Negative); IDNOW Serial# 9DD0AD1C
[2020-06-09 01:34] LABS: Reflex Lactate? 2 Y
[2020-06-09] MEDS: HYDROmorphone HCl 1 MG/ML SYRINGE IVPUSH ×2 (02:21→12:33)
[2020-06-09] MEDS: 0.9 % Sodium Chloride 500 ML 999 ML IVCONT (02:22)
[2020-06-09 02:37] LABS: Hematocrit 22.7 % (37-47); Hemoglobin 8.1 g/dl (12.0-16.0); Mean Corpuscular HGB Conc 35.7 g/dl (31.0-35.0); Mean Corpuscular Hemoglobin 33.3 pg (27.0-33.0); Mean Corpuscular Volume 93.4 fL (80-98); Mean Platelet Volume 9.9 fL (9.4-12.3); Red Blood Count 2.43 X10*6/uL (4.20-5.50); Red Cell Distribution Width 11.6 % (11.0-16.0)
[2020-06-09 02:49] LABS: Immature Retic Fraction 14.5 % (3.0-15.9); Retic HGB Equivalent 41.2 pg (30.0-35.0); Reticulocyte Percent 0.5 % (0.5-1.8); Reticulocytes Absolute 0.012 X10*6/uL (0.026-0.095)
[2020-06-09 02:56] LABS: ~Lactic Acid-LAB USE ONLY 2.7 mmol/L (0.5-2.0)
[2020-06-09 02:58] LABS: Iron 73 mcg/dL (30-160); Percent Iron Saturation 40 % (15-50); Total Iron Binding Capacity 181 mcg/dL (228-428); Unsaturated Iron Binding 108 ug/dL
[2020-06-09 03:01] LABS: Platelet Count 35 X10*3/uL (160-400); WBC ABN SCTR FOR CBC 1
[2020-06-09 03:02] LABS: White Blood Count 1.4 X10*3/uL (4.8-10.8)
[2020-06-09 03:18] LABS: Band Neutrophils Percent 18 % (3-5); Lymphocytes Absolute Manual 0.6 X10*3/uL (0.6-4.8); Lymphocytes Percent Manual 44 % (20-40); Monocytes Absolute Manual 0.2 X10*3/uL (0.0-1.2); Monocytes Percent Manual 13 % (2-11); Neutrophils Absolute Manual 0.6 X10*3/uL (2.2-7.9); Neutrophils Percent Manual 25 % (45-73)
[2020-06-09 03:18] LABS: Ferritin 1011 ng/mL (10-250)
[2020-06-09 03:21] LABS: Macrocytosis 1+
[2020-06-09 03:22] LABS: Dohle Bodies PRESENT; Platelet Estimate DECREASED (NORMAL); Platelet Morphology Comment NORMAL; Polychromasia 1+; Tear Drop Cells 1+; Toxic Vacuolation PRESENT
[2020-06-09 03:52] LABS: RBC Morphology NOTED
[2020-06-09] MEDS: 0.9 % Sodium Chloride 1,000 ML 100 ML IVCONT (04:44)
[2020-06-09] MEDS: Morphine Sulfate 2 MG/ML CARTRIDGE 1 MG IVPUSH (05:47)
[2020-06-09] MEDS: Levothyroxine Sodium 112 MCG TABLET PO (05:50)
[2020-06-09] MEDS: Levothyroxine Sodium 25 MCG TABLET PO (05:51)
[2020-06-09 06:47] LABS: Hematocrit 23.3 % (37-47); Hemoglobin 8.1 g/dl (12.0-16.0); Mean Corpuscular HGB Conc 34.8 g/dl (31.0-35.0); Mean Corpuscular Hemoglobin 33.1 pg (27.0-33.0); Mean Corpuscular Volume 95.1 fL (80-98); Mean Platelet Volume 10.3 fL (9.4-12.3); Red Blood Count 2.45 X10*6/uL (4.20-5.50); Red Cell Distribution Width 11.7 % (11.0-16.0)
[2020-06-09 07:03] LABS: Platelet Count 40 X10*3/uL (160-400); WBC ABN SCTR FOR CBC 1
[2020-06-09 08:19] LABS: Band Neutrophils Percent 36 % (3-5); Lymphocytes Percent Manual 29 % (20-40); Monocytes Percent Manual 11 % (2-11); Neutrophils Percent Manual 24 % (45-73)
[2020-06-09 08:23] LABS: Dohle Bodies PRESENT; Hypochromasia 1+; Polychromasia 1+
[2020-06-09 08:24] LABS: Macrocytosis 1+; Platelet Estimate DECREASED (NORMAL); RBC Morphology NOTED; Tear Drop Cells 1+
[2020-06-09 08:25] LABS: Platelet Morphology Comment NORMAL
[2020-06-09 08:26] LABS: Lymphocytes Absolute Manual 0.6 X10*3/uL (0.6-4.8); Monocytes Absolute Manual 0.2 X10*3/uL (0.0-1.2); Neutrophils Absolute Manual 1.3 X10*3/uL (2.2-7.9); White Blood Count 2.1 X10*3/uL (4.8-10.8)
[2020-06-09 08:31] LABS: Blood Urea Nitrogen 15 mg/dL (9-16); Calcium 7.9 mg/dL (8.4-10.2); Creatinine Clr Calc Pharmacy 72.3; Estimated Glomerular Filt Rate 57; Glucose Random 85 mg/dL (60-115)
[2020-06-09] MEDS: buPROPion HCl XL 150 MG TAB.ER.24H PO (08:32)
[2020-06-09] MEDS: Calcium + Vitamin D 250 MG TABLET PO (08:32)
[2020-06-09] MEDS: Multivitamin TABLET 1 TAB PO (08:32)
[2020-06-09] MEDS: dexAMETHasone 4 MG TABLET PO ×2 (08:32→19:45)
[2020-06-09] MEDS: Docusate Sodium 100 MG CAPSULE PO (08:32)
[2020-06-09] MEDS: Omeprazole 20 MG CAPSULE.DR PO (08:32)
[2020-06-09] MEDS: DULoxetine HCl 30 MG CAPSULE.DR PO (08:32)
[2020-06-09 08:39] LABS: Anion Gap 18 (12-20); Carbon Dioxide 23 mmol/L (22-29); Chloride 100 mmol/L (96-108); Potassium 4.7 mmol/l (3.3-5.1); Sodium 136 mmol/L (135-145)
[2020-06-09 09:04] LABS: Lactic Acid 4.1 mmol/L (0.5-2.0)
[2020-06-09] MEDS: 0.9 % Sodium Chloride Flush 3 ML SYRINGE IVFLUSH ×2 (09:33→17:37)
[2020-06-09] MEDS: HYDROmorphone HCl 2 MG TABLET 1 MG PO (09:33)
[2020-06-09 10:33] LABS: Reflex Lactate? Lactic Acid Added
[2020-06-09] MEDS: cefEPime HCl 2 GM in 0.9 % Sodium Chloride 50 ML IV ×3 (10:33→23:50)
[2020-06-09] MEDS: HYDROmorphone HCl 0.5 MG/0.5 ML SYRINGE IVPUSH (10:34)
[2020-06-09] MEDS: vancomycin HCL 1,000 MG in 0.9 % Sodium Chloride 250 ML 270 MG IV (11:44)
[2020-06-09 11:46] LABS: ~Lactic Acid-LAB USE ONLY 2.2 mmol/L (0.5-2.0)
--- NOTE | 2020-06-09 11:54 | HO.PM.IMPN ---
Subjective Subjective Date of Service: 06/09/20 Interval History: see and examined this AM complaints of L sided abdominal pain denies n/v reports poor appetite General - no fevers or chills Cardiovascular - no chest pain Respiratory - no shortness of breath or cough Abdominal- +abdominal pain Physical Exam Vital Signs: Vital Signs: Last Vital Signs Temp 97.9 F 06/09/20 11:30 Pulse 94 06/09/20 11:30 Resp 20 06/09/20 11:30 BP 127/61 06/09/20 11:30 Pulse Ox 100 06/09/20 11:30 Body Mass Index 44.9 General - no acute distress, appears comfortable Cardiovascular - regular rate and rhythm, S1-S2 Lungs - normal respiratory effort, clear to auscultation bilaterally, no wheezing Abdomen - left sided abdominal pain without rebound or guarding Extremities - no edema bilaterally Neuro - awake and alert, no focal deficits Objective Data Current Medications Generic Name Dose Route Start Last Admin Trade Name Freq PRN Reason Stop Dose Admin Albuterol Sulfate 1.25 mg 06/09/20 01:48 Albuterol Sulfate (0.042%) 1.25 Mg/3 Ml Vial.Neb INHALE Q4H PRN Shortness Of Breath Or Wheezing Bupropion HCl 150 mg 06/09/20 09:00 06/09/20 08:32 Bupropion Hcl Xl 150 Mg Tab.Er.24h PO 150 mg DAILY SAM Administration Calcium Carbonate/Cholecalciferol 250 mg 06/09/20 09:00 06/09/20 08:32 Calcium + Vitamin D 250 Mg Tablet PO 250 mg DAILY SAM Administration Dexamethasone 4 mg 06/09/20 09:00 06/09/20 08:32 Dexamethasone 4 Mg Tablet PO 4 mg BID SAM Administration Docusate Sodium 100 mg 06/09/20 09:00 06/09/20 08:32 Docusate Sodium 100 Mg Capsule PO 100 mg DAILY SAM Administration Duloxetine HCl 30 mg 06/09/20 09:00 06/09/20 08:32 Duloxetine Hcl 30 Mg Capsule.Dr PO 30 mg DAILY SAM Administration Hydromorphone HCl 0.5 mg 06/09/20 08:12 06/09/20 10:34 Hydromorphone Hcl 0.5 Mg/0.5 Ml Syringe IVPUSH 0.5 mg Q4H PRN Administration Pain, Severe (Pain Scale 7-10) Sodium Chloride 1,000 mls @ 100 mls/hr 06/09/20 04:09 06/09/20 04:44 Ns IVCONT 100 mls/hr .Q10H SAM Administration Cefepime HCl 2 gm/ Sodium 50 mls @ 100 mls/hr 06/09/20 09:00 06/09/20 11:05 Chloride IV Infused Q8H SAM Infusion Vancomycin HCl 1,000 mg/ 270 mls @ 270 mls/hr 06/09/20 09:00 06/09/20 11:44 Sodium Chloride IV 270 mls/hr Q12H SAM Administration Levothyroxine Sodium 112 mcg 06/09/20 06:00 06/09/20 05:50 Levothyroxine Sodium 112 Mcg Tablet PO 112 mcg DAILY@0600 SAM Administration Levothyroxine Sodium 25 mcg 06/09/20 06:00 06/09/20 05:51 Levothyroxine Sodium 25 Mcg Tablet PO 25 mcg DAILY@0600 SAM Administration Multivitamins/Vitamin C 1 tab 06/09/20 09:00 06/09/20 08:32 Multivitamin Tablet PO 1 tab DAILY SAM Administration Nortriptyline HCl 20 mg 06/09/20 21:00 Nortriptyline Hcl 10 Mg Capsule PO BEDTIME SAM Omeprazole 20 mg 06/09/20 09:00 06/09/20 08:32 Omeprazole 20 Mg Capsule.Dr PO 20 mg DAILY [facility] Administration Pharmacy Consult 1 each 06/09/20 00:59 Consult Rx Perform Med Rec MISCELLANE ONCE PRN Consult order Sodium Chloride 3 ml 06/09/20 08:00 06/09/20 09:33 0.9 % Sodium Chloride Flush 3 Ml Syringe IVFLUSH 3 ml QSHIFT [facility] Administration Tiotropium [place] 1 puff 06/09/20 09:00 06/09/20 07:35 Tiotropium [place] 18 Mcg Cap.W.Dev INHALE Not Given DAILY [facility] Labs CBC & Chem 7: 06/09/20 05:49 06/09/20 05:49 Microbiology Microbiology Results: Microbiology 06/08/20 19:47 Blood - Venous Blood Culture - Preliminary 06/08/20 21:37 Blood - Venous Blood Culture - Preliminary Assessment and Plan (1) Sepsis: Status: Acute Assessment and Plan: This is a 65 yo F with a history of small cell lung Ca who is admitted for: 1. Severe sepsis, POA bacteremia - gram variable rods suspected GI source - colitis vs diverticulitis stop levaquin/flagyl -- changed to cefepime + vancomycin for the time being. Renal function/vancomycin trough while in vanco consult ID 2. Abdominal pain colitis vs diverticulitis evaluate for ischemic colitis. Has reported allergy to contrast d/w GI -- will start with abdominal doppler and may need MRA. Lactate downtrending -- reassuring 3. Neutropenia improved hematology consult to see if she can benefit from Neulasta 4. HTN hold antihypertensives continue her chronic meds Full Code DVT pptx, mechanical due to severe anemia/thrombocytopenia
[2020-06-09] MEDS: Lactated Ringers 1,000 ML 999 ML IVCONT (12:00)
[2020-06-09 13:16] LABS: Reflex Lactate? 2 Y
--- NOTE | 2020-06-09 13:32 | MHC.CM.PN ---
PT REPORTS SHE LIVES ALONE BUT HER DAUGHTER LIVES NEXT DOOR. PT REPORTS SHE IS INDEPENDENT WITH CARE AND DOES NOT WANT ANY HOME SERVICES. PT SEES DR KEN AT [facility] FOR [facility] AND HAS A HCP ON FILE. PT REPORTS SHE DOES HAVE MEDICARE A AND HER [facility] BENEFITS COVER EVERYTHING ELSE. CURRENT DC PLAN IS HOME WITH NO SERVICES PT WILL SELF ARRANGE TRANSPORTATION AT DC
--- NOTE | 2020-06-09 13:42 | P.CNGI_ITS ---
History of Present Illness Data of Consult Service Date: 06/09/20 Requesting physician: Bobby Phan Primary Care Provider: Unknown Physician HPI Reason for consult: colitis 65 y/o female with a hx of recurrent small cell lung cancer (on chemo incl carboplatin/etoposide and atezolizumab with Neulasta support), HTN, hypothyroidism, depression who I am seeing for assessment for colitis. She noted worsening left sided abdominal pain for last 7 days, with intermittent episodes of small amounts of blood in stool, associated with nausea, and non bloody emesis, but no diarrhea. Appetite is poor, weight is stable, she denies fevers or chils, no chest pain. On presentation to the ED patient was noted to be tachycardic 102, tachypneic, BP stable. WBc of 0.8, Hgb of 8.6 (baseline of 10.8), platelet of 44, Lactate of 2.5 which worsened to 4.2, LFT's mildly increased. Patient received a total of 2 liters per ED, one dose of clinda, flagyl and levaquin. blood cultures with gram variable rods growing. CT imaging with inflammation, stranding around proximal descending colon. Review of Systems Review of Systems: Constitutional : complaining of fatigue, weakness, no fever ENT/Mouth : No Hearing loss, No Ear Pain, No Nasal Congestion, No Sinus Pain, No Hoarseness, No sore throat, No Rhinorrhea, No Swallowing Difficulty Eyes: No Eye Pain, No Swelling, No Redness, No Foreign Body, No Discharge, No Vision Changes Cardiovascular : No Chest Pain, No SOB, No Dyspnea on Exertion, No Orthopnea, No Edema, No Palpitations Respiratory : No Cough, No Sputum, No Wheezing, No Smoke Exposure, No Dyspnea Gastrointestinal : patient complaining diffuse abdominal pain, no vomiting or diarrhea Genitourinary : no irregular bleeding, No Dysuria, No Urinary Frequency, No Hematuria, No Urinary Incontinence, No Urgency, No Flank Pain, No Urinary Flow Changes, No Hesitancy Musculoskeletal : No joint pain, No Myalgias, No Joint Swelling Skin : No Skin Lesions, No rash Neuro : No Weakness, No Numbness, No Paresthesias, No Loss of Consciousness, complaining of mild Dizziness, No Headache Psych : No Anxiety/Panic, No Depression, No SI/HI/AH/VH, No Social Issues, Heme/Lymph: No Bruising, No Bleeding,No Lymphadenopathy Endocrine : No Polyuria, No Polydipsia, No Temperature Intolerance Yes all other systems are reviewed and are negative [facility] Past Medical History Medical History (Updated 06/09/20 @ 01:54 by Gilberto Wilson MD) Arthritis COPD (chronic obstructive pulmonary disease) Depression Encounter for colonoscopy due to history of colonic polyp History of diverticulitis of colon History of hepatitis Hypertension Hypothyroidism Traumatic brain injury Surgical History Surgical History H/O section Hx of breast reduction, elective S/P bronchoscopy with biopsy Social History Social History Household Members: Other Housing: House Do you presently have visiting nurse or other home services: No Alcohol intake: never Smoking Status: Never smoker Packs Per Day: 1 Years Smoked: 53 Second Hand Smoke Exposure: No Use of substances other than those prescribed or required for medical reasons: No Substance Use Type Other:: MEDICAL MARIJUANA Substance Use Frequency: Weekly Last Used Substance: Days (ago) Currently Displaying Signs/Symptoms of Drug Intoxication Withdrawal: No Any prior treatment program specific to substance use: No Have you been hit, kicked, punched, or otherwise hurt by someone within the past year? If so, by whom?: No Do you feel safe in your current relationship?: Yes Is there a partner from a previous relationship who is making you feel unsafe now?: No Are you made to feel afraid or neglected: No Advance Directives: Yes Advance Directives on File: Yes Advance Directives Date on File: 05/01/20 Do you have thoughts of harming others: None Do you have a plan to hurt others: No Plan Recently lost weight without trying: No service: Yes Current occupational status: retired Meds Allergies Allergy/AdvReac Type Severity Reaction Status Date / Time iodine [IODINE] Allergy Unknown ANAPHYLAXIS Verified 06/02/20 10:59 penicillin V Allergy Unknown Unknown Verified 06/02/20 10:59 Penicillins [PCN] Allergy Unknown HIVES Verified 06/02/20 10:59 shellfish derived Allergy Unknown UNKNOWN Verified 06/02/20 10:59 [SHELLFISH DERIVED] Home Medications Medication Instructions Recorded Confirmed Type Calcium + Vitamin D 250 mg PO DAILY 04/10/20 06/09/20 History albuterol sulfate 1.25 mg INHALATION Q4-6H PRN 04/10/20 06/09/20 History atenolol 25 mg PO DAILY 04/10/20 06/09/20 History budesonide-formoterol 2 puff INHALATION BID 04/10/20 06/09/20 History bupropion HCl 200 mg PO DAILY 04/10/20 06/09/20 History docusate sodium [Stool Softener] 100 mg PO DAILY 04/10/20 06/09/20 History duloxetine 30 mg PO DAILY 04/10/20 06/09/20 History levothyroxine 137 mcg PO DAILY 04/10/20 06/09/20 History levothyroxine 274 mcg PO DAILY 04/10/20 06/09/20 History meloxicam 15 mg PO BEDTIME 04/10/20 06/09/20 History multivitamin with minerals 1 tab PO DAILY 04/10/20 06/09/20 History nortriptyline 20 mg PO BEDTIME 04/10/20 06/09/20 History ondansetron 8 mg PO Q6H PRN 04/10/20 06/09/20 History tiotropium bromide 1 cap INHALATION DAILY 04/10/20 06/09/20 History omeprazole [Prilosec] 20 mg PO DAILY 05/01/20 06/09/20 History olodaterol 2 inh INHALATION Q24H 06/09/20 06/09/20 History Physical Exam Vital Signs: Vital Signs: Last Vital Signs Temp 97.9 F 06/09/20 11:30 Pulse 94 06/09/20 11:30 Resp 20 06/09/20 11:30 BP 127/61 06/09/20 11:30 Pulse Ox 100 06/09/20 11:30 Body Mass Index 44.9 Const: General: cooperative, comfortable and no acute distress Orientation/consciousness: oriented to person, oriented to place and oriented to time HENMT: Head: Yes normal to inspection Eyes: General: appearance normal, both eyes and all related structures Neck: Neck: Yes normal visual inspection Chest: Chest palpation & inspection: normal inspection of the chest Resp: Effort & Inspection: normal respiratory effort Auscultation: no wheezes and bronchial breath sounds Cardio: Jugular venous distension: no JVD Rate: regular rate Rhythm: regular rhythm Heart sounds: S1 normal heart sound present and S2 normal heart sound present GI: Inspection: Yes normal to inspection Palpation (GI): Other GI palpation findings present (tenderness mainly at the LLQ) Skin: General skin exam: no rashes or lesions noted Neuro: General: oriented to person, oriented to place and oriented to time Cognition (Neuro): normal cognition Psych: Appearance: grossly normal Results Labs CBC & Chem 7: 06/09/20 05:49 06/09/20 05:49 Labs: Short CBC 06/08/20 06/09/20 06/09/20 Range/Units 19:47 02:28 05:49 WBC 0.8 L* 1.4 L 2.1 L (4.8-10.8) X10*3/uL Hgb 8.6 L D 8.1 L 8.1 L (12.0-16.0) g/dl Hct 23.9 L D 22.7 L 23.3 L (37-47) % Plt Count 44 L D 35 L 40 L (160-400) X10*3/uL BMP 06/08/20 06/09/20 19:47 05:49 Sodium 134 L 136 Potassium 3.7 4.7 D Chloride 98 100 Carbon Dioxide 24 23 BUN 12 15 Creatinine 0.82 0.97 Calcium 8.3 L D 7.9 L Liver Function 06/08/20 Range/Units 19:47 Total Bilirubin 0.7 (0.0-1.0) mg/dL Direct Bilirubin 0.3 (0.0-0.5) mg/dL AST 35 H D (5-31) U/L ALT 42 H (0-31) U/L Alkaline Phosphatase 68 (39-117) U/L Albumin 3.8 (3.5-5.0) g/dL Urine 06/08/20 Range/Units 22:40 Urine Color YELLOW Urine Appearance CLEAR Urine pH 5.5 (5.0-8.0) Ur Specific [place] 1.015 (1.005-1.025) Urine Protein NEG (NEG-TRACE) MG/DL Urine Glucose (UA) NEG (NEG) MG/DL Microbiology Microbiology Results: Microbiology 06/08/20 19:47 Blood - Venous Blood Culture - Preliminary 06/08/20 21:37 Blood - Venous Blood Culture - Preliminary Assessment and Plan (1) Sepsis: Status: Acute (2) Abdominal pain: Qualifiers: Abdominal location: generalized Qualified Code(s): R10.84 - Generalized abdominal pain Status: Acute (3) Colitis: Status: Acute 1/ Abdominal pain with sigsn of sepsis syndrome with raised lactate in course of chemotherapy for small cell lung cancer with leucopenia. clinically could be infectious colitis given growth on cultures, vs diverticulitis or check point inhibitor related colitis with bacterial translocation or ischemic colitis. 2/ mild transaminase elevaton, prob 2/2 to meds, sepsis, prior pos hep C ab test pn file, dont; see PCR PLAN: 1/ agree with agressive treatment with antibiotics fluid resus for the meantime, await final culture results 2/ if worsening may need surgical input and repeat CT abdomen 3/ would hold on colonoscopy for the moment given she has bacteremia, but may be needed if no improvement alread receiving some steroid after getting chemo recently. 4/ recommed duplex to make sure blood flow is adequate to bowel and no ischemia 5/ check Hep C PCR if not been done elsewhere
[2020-06-09] MEDS: Lactated Ringers 1,000 ML 100 ML IVCONT ×2 (14:53→23:51)
--- NOTE | 2020-06-09 16:00 | W.PM.IDCN ---
History of Present Illness Data of Consult Service Date: 06/09/20 Requesting physician: Bobby Phan Primary Care Provider: Unknown Physician HPI Reason for consult: bacteremia She presents to hospital with discomfort lower abdomen for 2 days,02/17 to back She has had sepsis one year ago with diverticultis She has gram variable manjit in blood Review of Systems Review of Systems: Yes all other systems are reviewed and are negative PMFSH Past Medical History Medical History (Updated 06/09/20 @ 16:04 by Shantel Garrett MD) Arthritis COPD (chronic obstructive pulmonary disease) Depression Diverticulitis Encounter for colonoscopy due to history of colonic polyp History of diverticulitis of colon History of hepatitis Hypertension Hypothyroidism Traumatic brain injury Surgical History Surgical History H/O section Hx of breast reduction, elective S/P bronchoscopy with biopsy Social History Social History Household Members: Other Housing: House Do you presently have visiting nurse or other home services: No Alcohol intake: never Smoking Status: Never smoker Packs Per Day: 1 Years Smoked: 53 Second Hand Smoke Exposure: No Use of substances other than those prescribed or required for medical reasons: No Substance Use Type Other:: MEDICAL MARIJUANA Substance Use Frequency: Weekly Last Used Substance: Days (ago) Currently Displaying Signs/Symptoms of Drug Intoxication Withdrawal: No Any prior treatment program specific to substance use: No Have you been hit, kicked, punched, or otherwise hurt by someone within the past year? If so, by whom?: No Do you feel safe in your current relationship?: Yes Is there a partner from a previous relationship who is making you feel unsafe now?: No Are you made to feel afraid or neglected: No Advance Directives: Yes Advance Directives on File: Yes Advance Directives Date on File: 05/01/20 Do you have thoughts of harming others: None Do you have a plan to hurt others: No Plan Recently lost weight without trying: No service: Yes Current occupational status: retired Meds Allergies Allergy/AdvReac Type Severity Reaction Status Date / Time iodine [IODINE] Allergy Unknown ANAPHYLAXIS Verified 06/02/20 10:59 penicillin V Allergy Unknown Unknown Verified 06/02/20 10:59 Penicillins [PCN] Allergy Unknown HIVES Verified 06/02/20 10:59 shellfish derived Allergy Unknown UNKNOWN Verified 06/02/20 10:59 [SHELLFISH DERIVED] Home Medications Medication Instructions Recorded Confirmed Type Calcium + Vitamin D 250 mg PO DAILY 04/10/20 06/09/20 History albuterol sulfate 1.25 mg INHALATION Q4-6H PRN 04/10/20 06/09/20 History atenolol 25 mg PO DAILY 04/10/20 06/09/20 History budesonide-formoterol 2 puff INHALATION BID 04/10/20 06/09/20 History bupropion HCl 200 mg PO DAILY 04/10/20 06/09/20 History docusate sodium [Stool Softener] 100 mg PO DAILY 04/10/20 06/09/20 History duloxetine 30 mg PO DAILY 04/10/20 06/09/20 History levothyroxine 137 mcg PO DAILY 04/10/20 06/09/20 History levothyroxine 274 mcg PO DAILY 04/10/20 06/09/20 History meloxicam 15 mg PO BEDTIME 04/10/20 06/09/20 History multivitamin with minerals 1 tab PO DAILY 04/10/20 06/09/20 History nortriptyline 20 mg PO BEDTIME 04/10/20 06/09/20 History ondansetron 8 mg PO Q6H PRN 04/10/20 06/09/20 History tiotropium bromide 1 cap INHALATION DAILY 04/10/20 06/09/20 History omeprazole [Prilosec] 20 mg PO DAILY 05/01/20 06/09/20 History olodaterol 2 inh INHALATION Q24H 06/09/20 06/09/20 History Physical Exam Vital Signs: Vital Signs: Last Vital Signs Temp 97.7 F 06/09/20 15:52 Pulse 94 06/09/20 15:52 Resp 19 06/09/20 15:52 BP 133/90 H 06/09/20 15:52 Pulse Ox 92 06/09/20 15:52 Body Mass Index 44.9 Const: General: cooperative HENMT: Head: Yes normal to inspection Throat: Yes posterior oropharynx normal Resp: Effort & Inspection: normal respiratory effort Cardio: Rate: regular rate Rhythm: regular rhythm GI: Inspection: Yes normal to inspection Palpation (GI): Tenderness to palpation present (GI) in the LLQ : General: Yes no CVA tenderness Back/Spine/Pelvis: Back: no CVA tenderness Skin: General skin exam: no rashes or lesions noted Extrem: General: Yes normal to inspection Assessment and Plan (1) Diverticulitis: Problem details: She has bacteremia with diverticulitis She has been feeling better Status: Acute Would continue Cefepime alone Consider add Flagyl Await final blood cultures Results Labs CBC & Chem 7: 06/09/20 05:49 06/09/20 05:49 Labs: Short CBC 06/08/20 06/09/20 06/09/20 Range/Units 19:47 02:28 05:49 WBC 0.8 L* 1.4 L 2.1 L (4.8-10.8) X10*3/uL Hgb 8.6 L D 8.1 L 8.1 L (12.0-16.0) g/dl Hct 23.9 L D 22.7 L 23.3 L (37-47) % Plt Count 44 L D 35 L 40 L (160-400) X10*3/uL BMP 06/08/20 06/09/20 19:47 05:49 Sodium 134 L 136 Potassium 3.7 4.7 D Chloride 98 100 Carbon Dioxide 24 23 BUN 12 15 Creatinine 0.82 0.97 Calcium 8.3 L D 7.9 L Liver Function 06/08/20 Range/Units 19:47 Total Bilirubin 0.7 (0.0-1.0) mg/dL Direct Bilirubin 0.3 (0.0-0.5) mg/dL AST 35 H D (5-31) U/L ALT 42 H (0-31) U/L Alkaline Phosphatase 68 (39-117) U/L Albumin 3.8 (3.5-5.0) g/dL Urine 06/08/20 Range/Units 22:40 Urine Color YELLOW Urine Appearance CLEAR Urine pH 5.5 (5.0-8.0) Ur Specific [place] 1.015 (1.005-1.025) Urine Protein NEG (NEG-TRACE) MG/DL Urine Glucose (UA) NEG (NEG) MG/DL Microbiology Microbiology Results: Microbiology 06/08/20 19:47 Blood - Venous Blood Culture - Preliminary 06/08/20 21:37 Blood - Venous Blood Culture - Preliminary
[2020-06-09 16:14] LABS: ~Lactic Acid-LAB USE ONLY 3.5 mmol/L (0.5-2.0)
[2020-06-09] MEDS: HYDROmorphone HCl 0.5 MG/0.5 ML SYRINGE 1 MG IVPUSH ×2 (17:38→21:41)
--- NOTE | 2020-06-09 18:39 | PC.NURSE ---
Addendum entered by Camille Taylor RN 06/09/20 18:58: pt refusing high fall risk precautions and witnessed by staff turning bed alarm off. pt educated on the necessity to use call howell when she needs help. pt verbalized understanding of this conversation. Original Note: Pt A&O X 3, C/O 10/10 abdominal pain mostly in LUQ. Dilaudid 1 mg q4 hours prn effective for pain. lungs clear bilat. 100% on 2L 02 (wears at home). abd ultrasounds completed. lactic peaked at 4.1 this am, second set blood cultures positive. IV fluid bolus ordered, Cefepime and Vancomycin ordered. LR now running at 100 ml/hr as ordered. Appetite good, drinking fluids. Neutropenic precautions in place. SR on tele.
[2020-06-09] MEDS: Nortriptyline HCl 10 MG CAPSULE 20 MG PO (19:45)
--- NOTE | 2020-06-09 21:37 | MHC.PIE ---
Addendum entered by Abram Peña RN 06/09/20 21:49: p; voltaren only available in po i; pt notified; pt refusing unless cream e; will cont to monitor Original Note: p; pt asking for ticlofenac or voltaren for back pain i; dr mchugh notified e; will cont to monitor
[2020-06-10] VITALS (8 sets, daily range): BP systolic 110–155; BP diastolic 58–89; PULSE 89–101; RESP 18–20; TEMP 36.5–37.1; O2SAT 93–99
[2020-06-10] MEDS: Levothyroxine Sodium 25 MCG TABLET PO (05:07)
[2020-06-10] MEDS: Levothyroxine Sodium 112 MCG TABLET PO (05:07)
[2020-06-10 07:24] LABS: Hematocrit 23.7 % (37-47); Hemoglobin 8.1 g/dl (12.0-16.0); Mean Corpuscular HGB Conc 34.2 g/dl (31.0-35.0); Mean Corpuscular Hemoglobin 32.4 pg (27.0-33.0); Mean Corpuscular Volume 94.8 fL (80-98); Mean Platelet Volume 11.8 fL (9.4-12.3); Red Cell Distribution Width 12.1 % (11.0-16.0)
[2020-06-10 07:36] LABS: Platelet Count 24 X10*3/uL (160-400)
[2020-06-10 07:58] LABS: Anion Gap 16 (12-20); Blood Urea Nitrogen 19 mg/dL (9-16); Carbon Dioxide 22 mmol/L (22-29); Chloride 106 mmol/L (96-108); Creatinine Clr Calc Pharmacy 97.4; Estimated Glomerular Filt Rate > 60; Glucose Random 120 mg/dL (60-115); Potassium 4.4 mmol/l (3.3-5.1); Sodium 140 mmol/L (135-145)
[2020-06-10] MEDS: Omeprazole 20 MG CAPSULE.DR PO (08:21)
[2020-06-10] MEDS: dexAMETHasone 4 MG TABLET PO ×2 (08:21→22:18)
[2020-06-10] MEDS: 0.9 % Sodium Chloride Flush 3 ML SYRINGE IVFLUSH ×2 (08:21→22:17)
[2020-06-10] MEDS: DULoxetine HCl 30 MG CAPSULE.DR PO (08:21)
[2020-06-10] MEDS: Multivitamin TABLET 1 TAB PO (08:21)
[2020-06-10] MEDS: Calcium + Vitamin D 250 MG TABLET PO (08:21)
[2020-06-10] MEDS: buPROPion HCl XL 150 MG TAB.ER.24H PO (08:21)
[2020-06-10] MEDS: Docusate Sodium 100 MG CAPSULE PO (08:21)
[2020-06-10] MEDS: cefEPime HCl 2 GM in 0.9 % Sodium Chloride 50 ML IV ×2 (08:22→16:29)
[2020-06-10 09:26] LABS: Hematocrit 24.7 % (37-47); Hemoglobin 8.5 g/dl (12.0-16.0); Mean Corpuscular HGB Conc 34.4 g/dl (31.0-35.0); Mean Corpuscular Hemoglobin 32.8 pg (27.0-33.0); Mean Corpuscular Volume 95.4 fL (80-98); Mean Platelet Volume 10.8 fL (9.4-12.3); Red Blood Count 2.59 X10*6/uL (4.20-5.50); White Blood Count 5.3 X10*3/uL (4.8-10.8)
[2020-06-10 09:29] LABS: Platelet Count 25 X10*3/uL (160-400)
[2020-06-10] MEDS: HYDROmorphone HCl 0.5 MG/0.5 ML SYRINGE 1 MG IVPUSH ×3 (09:35→22:18)
[2020-06-10 09:48] LABS: Anion Gap 15 (12-20); Blood Urea Nitrogen 18 mg/dL (9-16); Calcium 8.3 mg/dL (8.4-10.2); Carbon Dioxide 23 mmol/L (22-29); Chloride 106 mmol/L (96-108); Creatinine Clr Calc Pharmacy 94.8; Estimated Glomerular Filt Rate > 60; Glucose Random 110 mg/dL (60-115); Potassium 3.8 mmol/l (3.3-5.1); Sodium 140 mmol/L (135-145)
[2020-06-10] MEDS: Lactated Ringers 1,000 ML 100 ML IVCONT ×2 (11:22→22:18)
--- NOTE | 2020-06-10 11:32 | PM.HEMONCCN ---
Subjective - Subjective Chief complaint: consult for small cell lung cancer. Consult date: 06/10/20 Requesting Physician: Sylvester. Primary Care Provider: Unknown Physician Medical Summary: DIAGNOSIS: SMALL CELL LUNG CANCER. HPI - Consult Narrative Reason for consult: CONSULT FOR NON-SMALL CELL LUNG CANCER Narrative: Maria Antonia Vazquez is a pleasant 65 year old lady, withh an extensive PMHX who presented with c/o abdominal pain. Patient is a very poor historian. She reported that for the past week has been having constant pain in her abdomen, sharp like, diffuse but more located in the left quadrant, associated with nausea/vomiting but no episodes of diarrhea. She reported occasional blood in the stool one in a while. On presentation, she was noted to be tachycardic 102, tachypneic, BP stable. WBC of 0.8, Hgb of 8.6 (baseline of 10.8), platelet of 44. Lactate of 2.5 which worsened to 4.2, LFT's mildly increased. Patient received a total of 2 liters, one dose of clinda, flagyl and levaquin. Imaging done of the abdomen is consistent with possible colitis vs diverticulitis of the descending colon. Imaging of the chest shows left hilar region fullness which may represent mass not changed from prior CT. Patient seen and examined at the bedside, laying down in bed in no acute distress. ROS as above otherwise negative. Physical exam positive for diffuse tenderness more prominent in LLQ, no masses palpated on exam. Patient has a hx of small cell lung cancer, currently on chemo. Review of Systems - Constitutional Reports system reviewed and no additional complaints, except as documented, Reports fatigue, Reports fever(s), Reports lack of energy - Eyes Reports system reviewed and no additional complaints, except as documented, Denies blurry vision - ENT Reports system reviewed and no additional complaints, except as documented - Cardiovascular Reports system reviewed and no additional complaints, except as documented, Denies chest pain at rest - Respiratory Reports no additional respiratory complaints, Denies change in phlegm color - Gastrointestinal Reports system reviewed and no additional complaints, except as documented, Reports change in bowel habits, Denies abdominal pain - Genitourinary Reports no additional female genitourinary complaints - Musculoskeletal Reports system reviewed and no additional complaints, except as documented - Integumentary/Breasts Skin/Breast: Reports no additional skin complaints - Neurologic Reports system reviewed and no additional complaints, except as documented - Psychiatric Reports system reviewed and no additional complaints, except as documented, Reports abnormal sleep pattern, Reports anxiety - Endocrine Reports no additional endocrine complaints, Reports excessive sweating, Denies rapid, pounding, or irregular heartbeat - Hematologic/Lymphatic Reports system reviewed and no additional complaints, except as documented, Denies easy bleeding - Allergic/Immunologic Reports system reviewed and no additional complaints, except as documented [facility] Medical History: Medical History (Last Updated 06/11/20 @ 14:54 by Bobby Phan MD) Arthritis COPD (chronic obstructive pulmonary disease) Depression Diverticulitis Encounter for colonoscopy due to history of colonic polyp History of diverticulitis of colon History of hepatitis Hypertension Hypothyroidism Traumatic brain injury Functional capacity: uses cane/walker Patient : No Surgical History: Surgical History (Last Reviewed 06/09/20 @ 16:02 by Shantel Garrett MD) H/O section Hx of breast reduction, elective S/P bronchoscopy with biopsy Smoking status: Never smoker Home Medications and Allergies Current Medications: Current Medications Generic Name Dose Route Start Last Admin Trade Name Freq PRN Reason Stop Dose Admin Albuterol Sulfate 1.25 mg 06/09/20 01:48 Albuterol Sulfate (0.042%) 1.25 Mg/3 Ml Vial.Neb INHALE Q4H PRN Shortness Of Breath Or Wheezing Bupropion HCl 150 mg 06/09/20 09:00 06/10/20 08:21 Bupropion Hcl Xl 150 Mg Tab.Er.24h PO 150 mg DAILY SAM Administration Calcium Carbonate/Cholecalciferol 250 mg 06/09/20 09:00 06/10/20 08:21 Calcium + Vitamin D 250 Mg Tablet PO 250 mg DAILY SAM Administration Dexamethasone 4 mg 06/09/20 09:00 06/10/20 08:21 Dexamethasone 4 Mg Tablet PO 4 mg BID SAM Administration Docusate Sodium 100 mg 06/09/20 09:00 06/10/20 08:21 Docusate Sodium 100 Mg Capsule PO 100 mg DAILY SAM Administration Duloxetine HCl 30 mg 06/09/20 09:00 06/10/20 08:21 Duloxetine Hcl 30 Mg Capsule.Dr PO 30 mg DAILY SAM Administration Hydromorphone HCl 1 mg 06/09/20 14:08 06/10/20 09:35 Hydromorphone Hcl 0.5 Mg/0.5 Ml Syringe IVPUSH 1 mg Q4H PRN Administration Pain, Severe (Pain Scale 7-10) Cefepime HCl 2 gm/ Sodium 50 mls @ 100 mls/hr 06/09/20 09:00 06/10/20 09:06 Chloride IV Infused Q8H SAM Infusion Lactated Ringer's 1,000 mls @ 100 mls/hr 06/09/20 12:15 06/10/20 11:22 Lr IVCONT 100 mls/hr .Q10H SAM Administration Levothyroxine Sodium 112 mcg 06/09/20 06:00 06/10/20 05:07 Levothyroxine Sodium 112 Mcg Tablet PO 112 mcg DAILY@0600 SAM Administration Levothyroxine Sodium 25 mcg 06/09/20 06:00 06/10/20 05:07 Levothyroxine Sodium 25 Mcg Tablet PO 25 mcg DAILY@0600 SAM Administration Multivitamins/Vitamin C 1 tab 06/09/20 09:00 06/10/20 08:21 Multivitamin Tablet PO 1 tab DAILY SAM Administration Nortriptyline HCl 20 mg 06/09/20 21:00 06/09/20 19:45 Nortriptyline Hcl 10 Mg Capsule PO 20 mg BEDTIME SAM Administration Omeprazole 20 mg 06/09/20 09:00 06/10/20 08:21 Omeprazole 20 Mg Capsule. PO 20 mg DAILY [facility] Administration Pharmacy Consult 1 each 06/09/20 00:59 Consult Rx Perform Med Rec MISCELLANE ONCE PRN Consult order Sodium Chloride 3 ml 06/09/20 08:00 06/10/20 08:21 0.9 % Sodium Chloride Flush 3 Ml Syringe IVFLUSH 3 ml QSHIFT [facility] Administration Tiotropium [place] 1 puff 06/09/20 09:00 06/10/20 09:26 Tiotropium [place] 18 Mcg Cap.W.Dev INHALE 1 puff DAILY [facility] Administration Home Medications Medication Instructions Recorded Confirmed Type Calcium + Vitamin D 250 mg PO DAILY 04/10/20 06/09/20 History albuterol sulfate 1.25 mg INHALATION Q4-6H PRN 04/10/20 06/09/20 History atenolol 25 mg PO DAILY 04/10/20 06/09/20 History budesonide-formoterol 2 puff INHALATION BID 04/10/20 06/09/20 History bupropion HCl 200 mg PO DAILY 04/10/20 06/09/20 History docusate sodium [Stool Softener] 100 mg PO DAILY 04/10/20 06/09/20 History duloxetine 30 mg PO DAILY 04/10/20 06/09/20 History levothyroxine 137 mcg PO DAILY 04/10/20 06/09/20 History levothyroxine 274 mcg PO DAILY 04/10/20 06/09/20 History meloxicam 15 mg PO BEDTIME 04/10/20 06/09/20 History multivitamin with minerals 1 tab PO DAILY 04/10/20 06/09/20 History nortriptyline 20 mg PO BEDTIME 04/10/20 06/09/20 History ondansetron 8 mg PO Q6H PRN 04/10/20 06/09/20 History tiotropium bromide 1 cap INHALATION DAILY 04/10/20 06/09/20 History omeprazole 20 mg PO DAILY 05/01/20 06/09/20 History olodaterol 2 inh INHALATION Q24H 06/09/20 06/09/20 History Allergies Allergy/AdvReac Type Severity Reaction Status Date / Time iodine [IODINE] Allergy Unknown ANAPHYLAXIS Verified 06/02/20 10:59 penicillin V Allergy Unknown Unknown Verified 06/02/20 10:59 Penicillins [PCN] Allergy Unknown HIVES Verified 06/02/20 10:59 shellfish derived Allergy Unknown UNKNOWN Verified 06/02/20 10:59 [SHELLFISH DERIVED] Physical Exam Vital signs: Vital Signs Temp 98.6 F 06/10/20 11:11 Pulse 91 06/10/20 11:11 Resp 20 06/10/20 11:11 BP 122/76 06/10/20 11:11 Pulse Ox 97 06/10/20 11:11 Intake & Output 06/09/20 06/10/20 06/10/20 18:59 06:59 18:59 Intake Total 1646.667 / 3015.001 1368.334 / 3015.001 1288.333 / 1288.333 Output Total 600 / 600 Balance 1046.667 / 2415.001 1368.334 / 2415.001 1288.333 / 1288.333 Urine Output (Average ml/kg/hr) 0.42 0.42 0.42 Intake: Intake, Oral Amount 420 / 420 240 / 240 Intake, IV Amount 1646.667 / 2595.001 948.334 / 2595.001 1048.333 / 1048.333 cefEPime HCl 2 gm In 0.9 % 100 / 150 50 / 150 50 / 50 Sodium Chloride 50 ml @ 100 mls /hr IV Q8H SAM Rx#:[id number] vancomycin HCL 1,000 mg In 0.9 270 / 270 % Sodium Chloride 250 ml @ 270 mls/hr IV Q12H SAM Rx#: [id number] 0.9 % Sodium Chloride 1,000 ml 276.667 / 276.667 @ 100 mls/hr IVCONT .Q10H SAM Rx#:[id number] Lactated Ringers 1,000 ml @ 100 1000 / 1898.334 898.334 / 1898.334 998.333 / 998.333 mls/hr IVCONT .Q10H SAM Rx#: [id number] Output: Output, Urine Amount 600 / 600 Other: Breakfast % Eaten 100% 100% Lunch % Eaten 100% Number of Unmeasured Voids 1 Urine Bathroom Weight 118.8 kg Weight 118.8 kg - Constitutional Present: mild distress - Routine HEENT Exam Head: Present: normal inspection ENT: Present: mucous membranes moist - Routine Neck Exam Present: supple - Routine Respiratory Exam Present: decreased breath sounds - Routine Cardiovascular Exam Cardiovascular: Present: RRR, S2 - Routine Abdominal Exam Present: tenderness - Routine Rectal Exam Patient deferred: digital exam - Routine Skin Exam Present: intact - Routine Neurological Exam Present: alert, oriented X3 - Detailed Neurological Exam: Coma Scale Eye Opening: Spontaneous (4) Verbal Response: Oriented (5) Motor Response: Obeys commands (6) Kathy Coma Scale Total: 15 - Routine Psychiatric Exam Present: depressed Hem/Onc Consult Result - Labs CBC & Chem 7: 06/11/20 09:25 06/10/20 09:14 Labs: Short CBC 06/10/20 06/10/20 Range/Units 06:10 09:14 WBC 4.0 L 5.3 (4.8-10.8) X10*3/uL Hgb 8.1 L 8.5 L (12.0-16.0) g/dl Hct 23.7 L 24.7 L (37-47) % Plt Count 24 L D 25 L (160-400) X10*3/uL BMP 06/10/20 06/10/20 06:10 09:14 Sodium 140 140 Potassium 4.4 3.8 Chloride 106 106 Carbon Dioxide 22 23 BUN 19 H 18 H Creatinine 0.72 0.74 Calcium 8.0 L 8.3 L Assessment and Plan (1) Small cell carcinoma of lung Status: Acute This is a pleasant 65-year-old lady with small-cell cancer of the Lung originating in the left upper lobe. Clinical stage T4 N0 M0, limited stage small cell cancer of the left upper lobe. Patient started systemic therapy with carboplatin/etoposide from 03/06/2019. She received concurrent adjuvant radiation therapy from 05/14/2019 to 07/23/19. She underwent prophylactic brain radiation at [facility], completed 11/26/2019. Unfortunately surveillance CT chest with contrast in February 2020 revealed new consolidation in the left upper lobe measuring 7.4 x 2.8 cm abutting aortic arch and extending into left superior pulmonary hilum. PET scan performed at [facility] on 04/01/2020 revealed hypermetabolic mass in the left upper lobe measuring 5.5 x 3.7 cm, SUV 11.7, increased size and hypermetabolism of 3 AP window lymph nodes measuring 1.1 cm, SUV 7.4 and 4.4, 5.2. No pleural effusion. No FDG avid malignancy outside the chest. It appeared that patient has had a local recurrence. No role of surgery or radiation. She was deemed a candidate for adjuvant systemic therapy. Recurrence occurred more than 6 months after completion of chemoradiation. She therefore was felt to have [place] sensitive disease. She was started on treatment with Carboplatin/Etoposide along with Atezolizumab, started on May 07. She received cycle 2 on May 28. She presented with c/o abdominal pain. She reported that for the past week has been having constant pain in her abdomen, sharp like, diffuse but more located in the left quadrant, associated with nausea/vomiting but no episodes of diarrhea. Reports occasional blood in the stool one in a while. On presentation she was noted to be tachycardic 102, tachypneic, BP stable. DATA BASE: WBC of 0.8, Hgb of 8.6 (baseline of 10.8), platelet of 44, Lactate of 2.5 which worsened to 4.2, LFT's mildly increased. She received a total of 2 liters of fluid, one dose of clinda, flagyl and levaquin, in the ER. Imaging done of the abdomen: consistent with possible colitis vs diverticulitis of the descending colon. Imaging of the chest shows left hilar region fullness which may represent mass not changed from prior CT. Physical exam positive for diffuse tenderness more prominent in LLQ, no masses palpated on exam. Impression: Severe sepsis secondary to diverticulitis/colitis. She has been started on broad spectrum IV antibiotics. Blood cultures: Positive for Clostridium septicum. Infectious Disease consultation: recommended continuation IV antibiotics. She has presented with neutropenic sepsis. She is on broad-spectrum antibiotics to cover enteric tram negative bugs. PLAN: To continue her on antibiotics. Will tailor treatment based upon C/S results. Continue supportive care. Can nudge WBC recovery with G-CSF. Once her cultures finalized and her condition improved patient was transitioned to oral cefuroxime and Flagyl to complete a 2 week course of antibiotics for her bacteremia. Thanks, Will follow, CC: Dr. Phan.
--- NOTE | 2020-06-10 13:37 | P.PNIM_ITS ---
Subjective Subjective Date of Service: 06/10/20 Interval History: see and examined this AM reports feeling much better today, pain still present in the LLQ but much less complaining of chronic back pain, would like something for that tolerated diet ROS General - no fevers or chills Cardiovascular - no chest pain Respiratory - no shortness of breath or cough Abdominal- +abdominal pain Physical Exam Vital Signs: Vital Signs: Last Vital Signs Temp 98.6 F 06/10/20 11:11 Pulse 91 06/10/20 11:11 Resp 20 06/10/20 11:11 BP 122/76 06/10/20 11:11 Pulse Ox 97 06/10/20 11:11 Body Mass Index 44.9 Const: Other: General - no acute distress, appears comfortable Cardiovascular - regular rate and rhythm, S1-S2 Lungs - normal respiratory effort, clear to auscultation bilaterally, no wheezing Abdomen - left sided abdominal pain without rebound or guarding Extremities - no edema bilaterally Neuro - awake and alert, no focal deficits Objective Data Current Medications Generic Name Dose Route Start Last Admin Trade Name Miladys PRN Reason Stop Dose Admin Albuterol Sulfate 1.25 mg 06/09/20 01:48 Albuterol Sulfate (0.042%) 1.25 Mg/3 Ml Vial.Neb INHALE Q4H PRN Shortness Of Breath Or Wheezing Bupropion HCl 150 mg 06/09/20 09:00 06/10/20 08:21 Bupropion Hcl Xl 150 Mg Tab.Er.24h PO 150 mg DAILY SAM Administration Calcium Carbonate/Cholecalciferol 250 mg 06/09/20 09:00 06/10/20 08:21 Calcium + Vitamin D 250 Mg Tablet PO 250 mg DAILY SAM Administration Dexamethasone 4 mg 06/09/20 09:00 06/10/20 08:21 Dexamethasone 4 Mg Tablet PO 4 mg BID SAM Administration Docusate Sodium 100 mg 06/09/20 09:00 06/10/20 08:21 Docusate Sodium 100 Mg Capsule PO 100 mg DAILY SAM Administration Duloxetine HCl 30 mg 06/09/20 09:00 06/10/20 08:21 Duloxetine Hcl 30 Mg Capsule.Dr PO 30 mg DAILY SAM Administration Hydromorphone HCl 1 mg 06/09/20 14:08 06/10/20 09:35 Hydromorphone Hcl 0.5 Mg/0.5 Ml Syringe IVPUSH 1 mg Q4H PRN Administration Pain, Severe (Pain Scale 7-10) Cefepime HCl 2 gm/ Sodium 50 mls @ 100 mls/hr 06/09/20 09:00 06/10/20 09:06 Chloride IV Infused Q8H SAM Infusion Lactated Ringer's 1,000 mls @ 100 mls/hr 06/09/20 12:15 06/10/20 11:22 Lr IVCONT 100 mls/hr .Q10H SAM Administration Levothyroxine Sodium 112 mcg 06/09/20 06:00 06/10/20 05:07 Levothyroxine Sodium 112 Mcg Tablet PO 112 mcg DAILY@0600 SAM Administration Levothyroxine Sodium 25 mcg 06/09/20 06:00 06/10/20 05:07 Levothyroxine Sodium 25 Mcg Tablet PO 25 mcg DAILY@0600 SAM Administration Multivitamins/Vitamin C 1 tab 06/09/20 09:00 06/10/20 08:21 Multivitamin Tablet PO 1 tab DAILY SAM Administration Nortriptyline HCl 20 mg 06/09/20 21:00 06/09/20 19:45 Nortriptyline Hcl 10 Mg Capsule PO 20 mg BEDTIME SAM Administration Omeprazole 20 mg 06/09/20 09:00 06/10/20 08:21 Omeprazole 20 Mg Capsule. PO 20 mg DAILY SAM Administration Pharmacy Consult 1 each 06/09/20 00:59 Consult Rx Perform Med Rec MISCELLANE ONCE PRN Consult order Sodium Chloride 3 ml 06/09/20 08:00 06/10/20 08:21 0.9 % Sodium Chloride Flush 3 Ml Syringe IVFLUSH 3 ml QSHIFT SAM Administration Tiotropium [place] 1 puff 06/09/20 09:00 06/10/20 09:26 Tiotropium [place] 18 Mcg Cap.W.Dev INHALE 1 puff DAILY SAM Administration Labs CBC & Chem 7: 06/10/20 09:14 06/10/20 09:14 Microbiology Microbiology Results: Microbiology 06/08/20 19:47 Blood - Venous Blood Culture - Preliminary 06/08/20 21:37 Blood - Venous Blood Culture - Preliminary Assessment and Plan (1) Small cell carcinoma of lung: Status: Acute Assessment and Plan: This is a 65 yo F with a history of small cell lung Ca who is admitted for: 1. Severe sepsis, POA sepsis resolving bacteremia - gram variable rods continue cefepime until cultures finalized ID consult appreciated 2. Abdominal pain improving colitis vs diverticulitis 3. Neutropenia likely 2/2 to sepsis improved as her sepsis improves 4. HTN continue holding antihypertensives 5. Thrombocytopenia 2/2 due to sepsis + ? cancer Rx continue her chronic meds Full Code DVT pptx, mechanical due to severe anemia/thrombocytopenia
[2020-06-10] MEDS: Lidocaine 4 % Patch ADH..PATCH 1 PATCH TRANSDERMA (14:17)
[2020-06-10] MEDS: Nortriptyline HCl 10 MG CAPSULE 20 MG PO (22:18)
[2020-06-11] MEDS: cefEPime HCl 2 GM in 0.9 % Sodium Chloride 50 ML IV ×2 (01:53→08:41)
[2020-06-11 03:47] VITALS: BP 115/71; PULSE 86; RESP 20; TEMP 36.7; O2SAT 96
[2020-06-11] MEDS: HYDROmorphone HCl 0.5 MG/0.5 ML SYRINGE 1 MG IVPUSH ×2 (04:03→08:52)
[2020-06-11] MEDS: Levothyroxine Sodium 112 MCG TABLET PO (05:26)
[2020-06-11] MEDS: Levothyroxine Sodium 25 MCG TABLET PO (05:26)
[2020-06-11 08:00] VITALS: BP 113/74; PULSE 88; RESP 18; TEMP 36.6; O2SAT 98
[2020-06-11] MEDS: Lidocaine 4 % Patch ADH..PATCH 1 PATCH TRANSDERMA (08:41)
[2020-06-11] MEDS: dexAMETHasone 4 MG TABLET PO (08:41)
[2020-06-11] MEDS: Calcium + Vitamin D 250 MG TABLET PO (08:41)
[2020-06-11] MEDS: Multivitamin TABLET 1 TAB PO (08:42)
[2020-06-11] MEDS: Omeprazole 20 MG CAPSULE.DR PO (08:42)
[2020-06-11] MEDS: 0.9 % Sodium Chloride Flush 3 ML SYRINGE IVFLUSH (08:42)
[2020-06-11] MEDS: Docusate Sodium 100 MG CAPSULE PO (08:42)
[2020-06-11] MEDS: DULoxetine HCl 30 MG CAPSULE.DR PO (08:42)
[2020-06-11] MEDS: buPROPion HCl XL 150 MG TAB.ER.24H PO (08:43)
[2020-06-11] MEDS: Lactated Ringers 1,000 ML 100 ML IVCONT (08:43)
[2020-06-11 09:32] VITALS: PULSE 99; O2SAT 96
[2020-06-11 09:50] LABS: Hematocrit 23.7 % (37-47); Hemoglobin 8.2 g/dl (12.0-16.0); Mean Corpuscular HGB Conc 34.6 g/dl (31.0-35.0); Mean Corpuscular Hemoglobin 33.1 pg (27.0-33.0); Mean Corpuscular Volume 95.6 fL (80-98); Red Blood Count 2.48 X10*6/uL (4.20-5.50); Red Cell Distribution Width 12.1 % (11.0-16.0); White Blood Count 8.5 X10*3/uL (4.8-10.8)
[2020-06-11 09:59] LABS: Platelet Count 27 X10*3/uL (160-400)
[2020-06-11 11:42] VITALS: BP 137/79; PULSE 88; RESP 18; TEMP 36.2; O2SAT 96
[2020-06-11] MEDS: metroNIDAZOLE 500 MG TABLET PO (13:45)
--- NOTE | 2020-06-11 14:19 | MHC.CM.PN ---
Patient is on IV Cefepime and IVF for colitis. Discharge plan is home no services. Patient will arrange own transport. CM will continue to follow for discharge needs.
--- NOTE | 2020-06-11 14:39 | MHC.CM.PN ---
Patient will be discharged home today no services. Patient will arrange own transport.
--- NOTE | 2020-06-11 14:47 | PM.DS ---
DS: Providers Provider Date of admission: 06/09/20 01:59 Primary care physician: Unknown Physician Consults: 06/09/20 02:01 Consult to Gastroenterology Routine Consulting Provider[place] [facility] Reason for consultation: GI bleed Has provider been notified: No 06/09/20 04:09 Consult to Infectious Diseases Routine Consulting Provider: Shantel Garrett Reason for consultation: sepsis Has provider been notified: No 06/09/20 08:09 Consult to Hematology / Oncology Routine Consulting Provider: Fernando Snell Reason for consultation: neutropenic sepsis/bacteremia, recent chemo, ? benefit from neulesta DS: Diagnosis Discharge Diagnosis (1) Severe sepsis: Status: Acute (2) Bacteremia: Status: Acute (3) Small cell carcinoma of lung: Status: Acute (4) Diverticulitis: Status: Acute DS: Medications Discharge Medications Home Medications: Home Medications Medication Instructions Recorded Confirmed Calcium + Vitamin D 250 mg PO DAILY 04/10/20 06/09/20 albuterol sulfate 1.25 mg INHALATION Q4-6H PRN 04/10/20 06/09/20 atenolol 25 mg PO DAILY 04/10/20 06/09/20 budesonide-formoterol 2 puff INHALATION BID 04/10/20 06/09/20 bupropion HCl 200 mg PO DAILY 04/10/20 06/09/20 docusate sodium [Stool Softener] 100 mg PO DAILY 04/10/20 06/09/20 duloxetine 30 mg PO DAILY 04/10/20 06/09/20 levothyroxine 137 mcg PO DAILY 04/10/20 06/09/20 levothyroxine 274 mcg PO DAILY 04/10/20 06/09/20 meloxicam 15 mg PO BEDTIME 04/10/20 06/09/20 multivitamin with minerals 1 tab PO DAILY 04/10/20 06/09/20 nortriptyline 20 mg PO BEDTIME 04/10/20 06/09/20 ondansetron 8 mg PO Q6H PRN 04/10/20 06/09/20 tiotropium bromide 1 cap INHALATION DAILY 04/10/20 06/09/20 omeprazole 20 mg PO DAILY 05/01/20 06/09/20 olodaterol 2 inh INHALATION Q24H 11/30/20 11/30/20 Previous Rx's Medication Instructions Recorded dexamethasone 4 mg PO BID #30 tab 05/02/20 cefuroxime axetil 500 mg PO Q12H #28 tab 06/11/20 hydromorphone [Dilaudid] 2 mg PO Q6H PRN #30 tab 06/11/20 metronidazole 500 mg PO Q8H #42 tab 06/11/20 DS: Summary Hospital Course Hospital Course: From the admission H&P: 65 y/o female with an extensive PMHX who presented from home c/o abdominal pain. Patient is a very poor historian but reports that for the past week has been having constant pain in her abdomen, sharp like, diffuse but more located in the left quadrant, associated with nausea/vomiting but no episodes of diarrhea. Reports occasional blood in the stool one in a while. On presentation to the ED patient was noted to be tachycardic 102, tachypneic, BP stable. WBc of 0.8, Hgb of 8.6 (baseline of 10.8), platelet of 44, Lactate of 2.5 which worsened to 4.2, LFT's mildly increased. Patient received a total of 2 liters per ED, one dose of clinda, flagyl and levaquin. Imaging done of the abdomen is consistent with possible colitis vs diverticulitis of the descending colon. Imaging of the chest shows left hilar region fullness which may represent mass not changed from prior CT. Decision for admission given. Patient seen and examined at the bedside, laying down in bed in no acute distress. ROS as above otherwise negative. Physical exam positive for diffuse tenderness more prominent in LLQ, no masses palpated on exam. Patient has been following up with Dr Saunders for hx of small cell lung cancer on chemo. HPI: Patient presented with abdominal pain and her workup in the ED was suggestive of severe sepsis secondary to diverticulitis/colitis. She was started on broad spectrum IV antibiotics. Patient's hospital course was further complicated by bacteremia which ultimately returned positive for Clostridium septicum. Infectious Disease was consulted and recommended continuation IV antibiotics. Once her cultures finalized and her condition improved patient was transitioned to oral cefuroxime and Flagyl to complete a 2 week course of antibiotics for her bacteremia. Time Spent with Patient Time attestation: Total time spent providing and/or coordinating discharge services: Physical Exam Vital Signs: Vital Signs: Last Vital Signs Temp 97.2 F 06/11/20 11:42 Pulse 88 06/11/20 11:42 Resp 18 06/11/20 11:42 BP 137/79 06/11/20 11:42 Pulse Ox 96 06/11/20 11:42 Body Mass Index 44.9 Const: Other: General - no acute distress, appears comfortable Cardiovascular - regular rate and rhythm, S1-S2 Lungs - normal respiratory effort, clear to auscultation bilaterally, no wheezing Abdomen - soft, nontender, no rebound or guarding Extremities - no edema bilaterally Neuro - awake and alert, no focal deficits DS: Data Data Completed and Pending Labs on day of discharge: Laboratory Last Values WBC 8.5 X10*3/uL (4.8-10.8) 06/11/20 09:25 RBC 2.48 X10*6/uL (4.20-5.50) L 06/11/20 09:25 Hgb 8.2 g/dl (12.0-16.0) L 06/11/20 09:25 Hct 23.7 % (37-47) L 06/11/20 09:25 MCV 95.6 fL (80-98) 06/11/20 09:25 MCH 33.1 pg (27.0-33.0) H 06/11/20 09:25 MCHC 34.6 g/dl (31.0-35.0) 06/11/20 09:25 RDW 12.1 % (11.0-16.0) 06/11/20 09:25 Plt Count 27 X10*3/uL (160-400) L 06/11/20 09:25 MPV 12.0 fL (9.4-12.3) 06/11/20 09:25 Immature Gran % (Auto) Cancelled 06/09/20 05:49 Neut % (Auto) Cancelled 06/09/20 05:49 Lymph % (Auto) Cancelled 06/09/20 05:49 [place] % (Auto) Cancelled 06/09/20 05:49 Eos % (Auto) Cancelled 06/09/20 05:49 Baso % (Auto) Cancelled 06/09/20 05:49 Lymph # (Auto) Cancelled 06/09/20 05:49 [place] # (Auto) Cancelled 06/09/20 05:49 Eos # (Auto) Cancelled 06/09/20 05:49 Baso # (Auto) Cancelled 06/09/20 05:49 Abs Immat Gran (auto) Cancelled 06/09/20 05:49 Absolute Neuts (auto) Cancelled 06/09/20 05:49 Absolute Nucleated RBC 0.000 X10*3/uL (0.0-0.012) 06/11/20 09:25 Nucleated RBC % (auto) 0.0 /100WBC (0.0-0.2) 06/11/20 09:25 Neutrophils % (Manual) 24 % (45-73) L 06/09/20 05:49 Band Neutrophils % 36 % (3-5) H 06/09/20 05:49 Lymphocytes % (Manual) 29 % (20-40) 06/09/20 05:49 Atypical Lymphs % (Man) 2 % (0-6) 06/08/20 19:47 Monocytes % (Manual) 11 % (2-11) 06/09/20 05:49 Basophils % (Manual) 1 % (0-1) 06/08/20 19:47 Abs Neuts (Manual) 1.3 X10*3/uL (2.2-7.9) L 06/09/20 05:49 Lymphocytes # (Manual) 0.6 X10*3/uL (0.6-4.8) 06/09/20 05:49 Monocytes # (Manual) 0.2 X10*3/uL (0.0-1.2) 06/09/20 05:49 Toxic Vacuolation PRESENT 06/09/20 02:28 Dohle Bodies PRESENT 06/09/20 05:49 Platelet Estimate DECREASED (NORMAL) 06/09/20 05:49 Large Platelets PRESENT 06/08/20 19:47 Plt Morphology Comment NORMAL 06/09/20 05:49 RBC Morphology NOTED 06/09/20 05:49 Polychromasia 1+ 06/09/20 05:49 Hypochromasia 1+ 06/09/20 05:49 Macrocytosis 1+ 06/09/20 05:49 Tear Drop Cells 1+ 06/09/20 05:49 Smear Path Review SEE NOTE 06/08/20 19:47 Absolute Retic 0.012 X10*6/uL (0.026-0.095) L 06/09/20 02:28 Percent Retic 0.5 % (0.5-1.8) 06/09/20 02:28 Immature Retic Fraction 14.5 % (3.0-15.9) 06/09/20 02:28 Retic Hgb Equivalent 41.2 pg (30.0-35.0) H 06/09/20 02:28 Sodium 140 mmol/L (135-145) 06/10/20 09:14 Potassium 3.8 mmol/l (3.3-5.1) 06/10/20 09:14 Chloride 106 mmol/L (96-108) 06/10/20 09:14 Carbon Dioxide 23 mmol/L (22-29) 06/10/20 09:14 Anion Gap 15 (-20) 06/10/20 09:14 BUN 18 mg/dL (9-16) H 06/10/20 09:14 Creatinine 0.74 mg/dL (0.5-1.4) 06/10/20 09:14 Estim Creat Clear Calc 94.8 06/10/20 09:14 Estimated GFR > 60 06/10/20 09:14 Random Glucose 110 mg/dL (60-115) 06/10/20 09:14 Lactic Acid 4.1 mmol/L (0.5-2.0) H* 06/09/20 08:29 Lactic Acid Fup @ 2Hr 2.2 mmol/L (0.5-2.0) H* 06/09/20 10:55 Lactic Acid Fup @ 4Hr 3.5 mmol/L (0.5-2.0) H* 06/09/20 15:10 Calcium 8.3 mg/dL (8.4-10.2) L 06/10/20 09:14 Iron 73 mcg/dL (30-160) 06/08/20 19:47 TIBC 181 mcg/dL (228-428) L 06/08/20 19:47 % Saturation 40 % (15-50) 06/08/20 19:47 Unsat Iron Binding 108 ug/dL 06/08/20 19:47 Ferritin 1011 ng/mL (10-250) H 06/08/20 19:47 Total Bilirubin 0.7 mg/dL (0.0-1.0) 06/08/20 19:47 Direct Bilirubin 0.3 mg/dL (0.0-0.5) 06/08/20 19:47 AST 35 U/L (5-31) H D 06/08/20 19:47 ALT 42 U/L (0-31) H 06/08/20 19:47 Alkaline Phosphatase 68 U/L (39-117) 06/08/20 19:47 Troponin I High Sens 7.8 ng/L (<3.5-17.0) 06/08/20 19:47 Total Protein 6.1 g/dL (6.5-8.0) L 06/08/20 19:47 Albumin 3.8 g/dL (3.5-5.0) 06/08/20 19:47 Lipase 8 U/L (8-78) 06/08/20 19:47 Urine Color YELLOW 06/08/20 22:40 Urine Appearance CLEAR 06/08/20 22:40 Urine pH 5.5 (5.0-8.0) 06/08/20 22:40 Ur Specific [place] 1.015 (1.005-1.025) 06/08/20 22:40 Urine Protein NEG MG/DL (NEG-TRACE) 06/08/20 22:40 Urine Glucose (UA) NEG MG/DL (NEG) 06/08/20 22:40 Urine Ketones NEG MG/DL (NEG) 06/08/20 22:40 Urine Blood 2+ (NEG) H 06/08/20 22:40 Urine Nitrite NEG (NEG) 06/08/20 22:40 Ur Leukocyte Esterase NEG (NEG) 06/08/20 22:40 Urine RBC 5-9 /HPF (0) H 06/08/20 22:40 Urine WBC 0 /HPF (0-4) 06/08/20 22:40 Ur Squamous Epith Cells NONE /LPF 06/08/20 22:40 Urine Bacteria NONE /LPF 06/08/20 22:40 COVID-19 (JANETT) Negative (Negative) 06/09/20 00:48 COVID-19 Clin Com See Note 06/09/20 00:48 Preliminary micro results at discharge 06/08/20 19:47 Blood Culture - Preliminary Blood - Venous Clostridium septicum 06/08/20 21:37 Blood Culture - Preliminary Blood - Venous Clostridium septicum Discharge Plan Discharge Patient Disposition: Home, Self-Care Referrals: Physician,Unknown [Primary Care Provider] - Discharge Medications: New cefuroxime axetil 500 mg tablet 500 mg PO Q12H Qty: 28 RF: 0 metronidazole 500 mg tablet 500 mg PO Q8H Qty: 42 RF: 0 hydromorphone [Dilaudid] 2 mg tablet 2 mg PO Q6H PRN (Reason: pain) Qty: 30 RF: 0 Continued ondansetron 4 mg Tablet,Disintegrating 8 mg PO Q6H PRN (Reason: Nausea) RF: 0 Calcium + Vitamin D 250 mg PO DAILY RF: 0 albuterol sulfate 1.25 mg/3 mL Solution For Nebulization 1.25 mg INHALATION Q4-6H PRN (Reason: Shortness Of Breath Or Wheezing) RF: 0 docusate sodium [Stool Softener] 100 mg Capsule 100 mg PO DAILY RF: 0 multivitamin with minerals Tablet 1 tab PO DAILY RF: 0 bupropion HCl 200 mg Tablet Sustained-Release 12 Hr 200 mg PO DAILY RF: 0 tiotropium bromide 18 mcg Capsule, W/Inhalation Device 1 cap INHALATION DAILY RF: 0 budesonide-formoterol 160-4.5 mcg/actuation Hfa Aerosol Inhaler 2 puff INHALATION BID RF: 0 levothyroxine 137 mcg Tablet 137 mcg PO DAILY RF: 0 levothyroxine 137 mcg Tablet 274 mcg PO DAILY RF: 0 meloxicam 15 mg Tablet 15 mg PO BEDTIME RF: 0 atenolol 25 mg Tablet 25 mg PO DAILY RF: 0 nortriptyline 10 mg Capsule 20 mg PO BEDTIME RF: 0 duloxetine 30 mg Capsule, Delayed Rel Sprinkle 30 mg PO DAILY RF: 0 omeprazole 20 mg Capsule,Delayed Release(Dr/Ec) 20 mg PO DAILY RF: 0 dexamethasone 4 mg Tablet 4 mg PO BID Qty: 30 RF: 3 olodaterol 2.5 mcg/actuation Mist 2 inh INHALATION Q24H RF: 0 Discharge Orders: Discharge Order (Routine); Ordered 06/11/20 Ordered By: Bobby Phan Diet: advance to usual diet and other Activity on Discharge: As tolerated Visit Report Forms: Patient Portal Discharge page Care Plan Goals: To stay healthy and out of the hospital. Health Concerns: Bacteremia / Diverticulitis Plan of Treatment: Take 2 weeks of Cefuroxime + Flagyl Follow up with primary care doctor.
== END 2020-06-11 15:44 | disposition home or self-care (01) | DRG 872 ==
LOC: HO.ED 23:56 → HO.IMC 06-09 03:23
PROVIDERS: Admitting Provider Internal Medicine; Emergency Provider Emergency Medicine; Visit Provider Family Medicine
DX: A41.4 Sepsis due to anaerobes (principal); C34.12 Malignant neoplasm of upper lobe, left bronchus or lung; K57.92 Diverticulitis of intestine, part unspecified, without perforation or abscess without bleeding; E03.9 Hypothyroidism, unspecified; F32.9 Major depressive disorder, single episode, unspecified; D70.1 Agranulocytosis secondary to cancer chemotherapy; T45.1X5A Adverse effect of antineoplastic and immunosuppressive drugs, initial encounter; Y92.9 Unspecified place or not applicable; F29 Unspecified psychosis not due to a substance or known physiological condition; G62.9 Polyneuropathy, unspecified; R65.20 Severe sepsis without septic shock; K59.00 Constipation, unspecified; K21.9 Gastro-esophageal reflux disease without esophagitis; Z20.828 Contact with and (suspected) exposure to other viral communicable diseases; Z87.820 Personal history of traumatic brain injury; Z88.0 Allergy status to penicillin; Z79.1 Long term (current) use of non-steroidal anti-inflammatories (NSAID); Z79.890 Hormone replacement therapy; Z79.899 Other long term (current) drug therapy
CPT/HCPCS: 36415; 71045; 74176; 76700; 80048; 80076; 81001; 82728; 83540; 83605; 83690; 84484; 85007; 85025; 85027; 85045; 85060; 87040; 87076; 87185; 87635; 93005; 94640; 96361; 96365; 96367; 96375; 96376; 99285; J0692; J1170; J1956; J2270; J3370; J8540

== ENCOUNTER 2020-06-23 12:39 | Outpatient (REF) | payer OTHER, SELFPAY ==
--- NOTE | 2020-06-23 12:42 | FL_ITS ---
EXAMINATION: FLUOROSCOPY-GUIDED PORT STUDY CLINICAL INFORMATION: No blood return. COMPARISON: Port placement 03/09/2019 TECHNIQUE: Following aseptic technique, the right chest wall port was accessed with a Baeza needle and contrast injected under fluoroscopy. FINDINGS: There is contrast visualized distal to the tip of of the port. There is soft tissue density irregularity seen along the distal catheter suggestive of thick fibrin tissue surrounding the catheter, hence no blood withdrawal seen. The catheter tip is otherwise in good position. The course of the catheter through the subcutaneous soft tissues is normal as well. There is slight craniad migration of catheter tip compared to exam 03/09/2019. FLUOROSCOPY TIME: 0.9 minutes DOSE AREA PRODUCT: 7.662 uGy-m2 (microgray-meter squared) FL/FL fluoroscopy <1hr IMPRESSION: The catheter tip appears slightly withdrawn from its original position from exam 03/09/2019. In addition, there is fibrin sheath surrounding the catheter tip which results in no blood withdraw. However, there is normal antegrade flow of contrast following injection through the port. No obstruction or kink seen in the catheter.
== END 2020-06-23 12:40 | disposition home or self-care (01) ==
LOC: HO.XRAY 12:39
PROVIDERS: Visit Provider Internal Medicine
DX: C34.90 Malignant neoplasm of unspecified part of unspecified bronchus or lung (principal)
CPT/HCPCS: 76000; J1642; Q9967

== ENCOUNTER 2020-09-10 22:30 | Emergency (ER) | payer OTHER, SELFPAY ==
[2020-09-10 22:48] VITALS: BP 120/80; PULSE 73; RESP 16; TEMP 36.6; O2SAT 97; BMI 45.4
[2020-09-11] MEDS: ondansetron HCL 4 MG/2 ML VIAL IVPUSH ×2 (01:53→03:21)
[2020-09-11] MEDS: 0.9 % Sodium Chloride 1,000 ML 999 ML IV (01:53)
[2020-09-11 02:07] LABS: Basophils Percent Auto 0.1 % (0-2); Eosinophils Percent Auto 0.1 % (0-4); Hematocrit 37.6 % (37-47); Hemoglobin 12.3 g/dl (12.0-16.0); Imm Gran Abs Auto 0.02 X10*3/uL (0.00-0.03); Imm Gran Pct Auto 0.2 % (0.0-0.4); Lymphocytes Percent Auto 11.3 % (20-40); MANUAL DIFF FLAG NO; Mean Corpuscular HGB Conc 32.7 g/dl (31.0-35.0); Mean Corpuscular Hemoglobin 34.5 pg (27.0-33.0); Mean Corpuscular Volume 105.3 fL (80-98); Mean Platelet Volume 9.3 fL (9.4-12.3); Monocytes Absolute Auto 0.5 X10*3/uL (0.1-1.2); Monocytes Percent Auto 5.6 % (2-11); Neutrophils Absolute Auto 7.6 X10*3/uL (2.0-8.3); Neutrophils Percent Auto 82.7 % (45-73); Platelet Count 219 X10*3/uL (160-400); Red Blood Count 3.57 X10*6/uL (4.20-5.50); Red Cell Distribution Width 12.9 % (11.0-16.0); White Blood Count 9.2 X10*3/uL (4.8-10.8)
--- NOTE | 2020-09-11 02:08 | ED_ITS ---
HPI - General Adult General Chief complaint: General Medical Stated complaint: AMS Time Seen by Provider: 09/11/20 01:18 Source: patient Mode of arrival: EMS Limitations: no limitations History of Present Illness HPI narrative: 65-year-old female who presents emergency department for evaluation altered level of consciousness and not feeling well. According to nursing notes, the daughter called EMS since the patient was complaining of not feeling well and she appeared to be altered. The patient does take nortri ptyline at night and takes edible marijuana as well as smokes marijuana at night to try to help her sleep. The patient tells me that she felt dizzy and had nausea. She states that these symptoms have been going on for 1 week. She states she gets intermittent headaches and intermittent chills. She states that she is chronically short of breath and takes home oxygen for her COPD. 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 According to the recent oncology progress note, the patient has had persistent dizziness with frequent falls and an MRI of the brain is ordered for this 09/13/2020 to evaluate for metastatic disease. Related Data Home Medications Medication Instructions Recorded Confirmed albuterol sulfate 1.25 mg INHALATION Q4-6H PRN 04/10/20 09/05/20 atenolol 25 mg PO DAILY 04/10/20 09/05/20 budesonide-formoterol 2 puff INHALATION BID 04/10/20 09/05/20 bupropion HCl 200 mg PO DAILY 04/10/20 09/05/20 docusate sodium [Stool Softener] 100 mg PO DAILY 04/10/20 09/05/20 duloxetine 30 mg PO DAILY 04/10/20 09/05/20 levothyroxine 137 mcg PO DAILY 04/10/20 09/05/20 levothyroxine 274 mcg PO DAILY 04/10/20 09/05/20 meloxicam 15 mg PO BEDTIME 04/10/20 09/05/20 multivitamin with minerals 1 tab PO DAILY 04/10/20 09/05/20 nortriptyline 20 mg PO BEDTIME 04/10/20 09/05/20 ondansetron 8 mg PO Q6H PRN 04/10/20 09/05/20 tiotropium bromide 1 cap INHALATION DAILY 04/10/20 09/05/20 omeprazole 20 mg PO DAILY 05/01/20 09/05/20 olodaterol 2 inh INHALATION Q24H 06/09/20 09/05/20 Allergies Allergy/AdvReac Type Severity Reaction Status Date / Time penicillin V Allergy Unknown Unknown Verified 06/02/20 10:59 Penicillins [PCN] Allergy Unknown HIVES Verified 06/02/20 10:59 shellfish derived Allergy Unknown UNKNOWN Verified 06/02/20 10:59 [SHELLFISH DERIVED] Review of Systems Review of Systems: Yes all other systems are reviewed and are negative Neurologic: Reports Abnormal speech present [facility] Past Medical History Medical History Arthritis COPD (chronic obstructive pulmonary disease) Depression Diverticulitis Encounter for colonoscopy due to history of colonic polyp History of diverticulitis of colon History of hepatitis Hypertension Hypothyroidism Traumatic brain injury Surgical History H/O section Hx of breast reduction, elective S/P bronchoscopy with biopsy Family History Family History Brother Diabetes Father Social History Social History Household Members: Other Housing: House Alcohol intake: never Smoking Status: Never smoker Packs Per Day: 1 Years Smoked: 53 Smoked in Last 30 Days: No Second Hand Smoke Exposure: No Advance Directives: Yes Advance Directives on File: Yes Advance Directives Date on File: 05/01/20 service: Yes Current occupational status: retired Physical Exam Vital Signs: Vital Signs: Last Vital Signs Temp 97.9 F 09/10/20 22:48 Pulse 74 09/11/20 03:02 Resp 16 09/11/20 03:02 BP 101/49 L 09/11/20 03:02 Pulse Ox 97 09/11/20 03:02 Body Mass Index 45.4 Const: General: cooperative Nutritional Appearance: overweight Orientation/consciousness: oriented to person and oriented to place Limitations: no limitations HENMT: Head: Yes normal to inspection, Yes normocephalic and Yes atraumatic Ears: external ears normal General nose exam: Normal external nose present Face and sinus: Yes normal facial exam Mouth: Normal oral and palatal mucosa present Throat: Yes posterior oropharynx normal Eyes: Periorbital: periorbital findings normal Eyelids: Yes eyelids normal Conjunctivae: conjunctivae normal Sclerae: sclerae normal Corneas: corneas normal Pupils: Equal, round and reactive pupils present Direct Ophthalmoscopy: normal light reflex Neck: Neck: Yes full ROM, Yes no lymphadenopathy, Yes no meningeal signs, Yes trachea midline and Yes supple Chest: Chest palpation & inspection: normal inspection of the chest and normal palpation of entire chest wall Resp: Effort & Inspection: normal respiratory effort and able to speak in complete sentences Auscultation: clear to auscultation bilaterally Cardio: Rate: regular rate Rhythm: regular rhythm Heart sounds: S1 normal heart sound present, S2 normal heart sound present and no murmurs GI: Inspection: Yes normal to inspection Palpation (GI): Soft to palpation, nontender, no guarding, not rigid and No hepatosplenomegaly present : General: Yes no CVA tenderness Back/Spine/Pelvis: Back: no CVA tenderness Cervical Spine: normal cervical lordosis Thoracic/Lumbar Spine: thoracic and lumbar spine normal to inspection Skin: Lesions: no lesions Rashes: no rashes Wounds: no wounds Neuro: General: oriented to person, oriented to place and no meningeal signs Cranial nerves: Yes CN's II-XII intact bilaterally and Yes Equal, round and reactive pupils present Cognition (Neuro): normal cognition Speech: Abnormal speech present Motor exam (neuro): 5/5 motor strength present throughout Extrem: General: Yes normal to inspection and Yes full ROM Psych: Appearance: well kempt Mental Status: mental status grossly normal Speech and movement: Normal speech and movement present Affect: normal affe ct Attitude: cooperative Thought process: Normal thought process present Thought content: Normal thought content present Course Course Course Narrative: 65-year-old female who presents emergency department for evaluation of altered level of consciousness, dizziness, nausea and general malaise. The patient states she is feeling better since she arrived in the emergency department but still has persistent nausea. Her examination was unremarkable. Did order laboratory evaluation on this patient. Patient was also ordered to get normal saline IV x1 L and Zofran 4 mg IV. The patient's oncologist is concerned about possible brain Mets and the patient is scheduled for an MRI in 3 days, therefore I do not think they need to get a CT scan of the brain at this time. 0447: Patient felt better after receiving the above treatment but her nausea did return and and she was given a 2nd dose of Zofran 4 mg IV. The patient's la boratory evaluation revealed a slight elevation of BUN of 21 with an elevated creatinine of 1.23. The patient's urinalysis revealed trace blood, negative nitrates and negative leukocyte esterase. The microscopic evaluation revealed 5-9 rbc's, 10-14 WBCs and 2+ bacteria. The patient is symptomatic with urinary frequency and fatigue therefore I will treat her for urinary tract infection with Macrobid b.i.d. x7 days. She was given her 1st dose here in the emergency department. She is feeling better after receiving 2 doses of Zofran IV. Medical Decision Making Lab Data Result diagrams: 09/11/20 02:03 09/11/20 02:03 Labs: Lab Results 09/11/20 09/11/20 09/11/20 Range/Units 02:03 02:03 03:11 WBC 9.2 (4.8-10.8) X10*3/uL RBC 3.57 L (4.20-5.50) X10*6/uL Hgb 12.3 (12.0-16.0) g/dl Hct 37.6 (37-47) % MCV 105.3 H (80-98) fL MCH 34.5 H (27.0-33.0) pg MCHC 32.7 (31.0-35.0) g/dl RDW 12.9 (11.0-16.0) % Plt Count 219 (160-400) X10*3/uL MPV 9.3 L (9.4-12.3) fL Immature Gran % (Auto) 0.2 (0.0-0.4) % Neut % (Auto) 82.7 H (45-73) % Lymph % (Auto) 11.3 L (20-40) % [place]min[place] % (Auto) 5.6 (2-11) % Eos % (Auto) 0.1 (0-4) % Baso % (Auto) 0.1 (0-2) % Lymph # (Auto) 1.0 L (1.2-4.9) X10*3/uL [place] # (Auto) 0.5 (0.1-1.2) X10*3/uL Eos # (Auto) 0.0 (0.0-0.4) X10*3/uL Baso # (Auto) 0.0 (0.0-0.2) X10*3/uL Abs Immat Gran (auto) 0.02 (0.00-0.03) X10*3/uL Absolute Neuts (auto) 7.6 (2.0-8.3) X10*3/uL Absolute Nucleated RBC 0.000 (0.0-0.012) X10*3/uL Nucleated RBC % (auto) 0.0 (0.0-0.2) /100WBC Sodium 139 (135-145) mmol/L Potassium 4.4 (3.3-5.1) mmol/L Chloride 105 (96-108) mmol/L Carbon Dioxide 23 (22-29) mmol/L Anion Gap 15 (12-20) BUN 21 H (9-16) mg/dL Creatinine 1.23 (0.5-1.4) mg/dL Estim Creat Clear Calc 57.5 Estimated GFR 44 Random Glucose 134 H (60-115) mg/dL Calcium 9.4 (8.4-10.2) mg/dL Total Bilirubin 0.5 (0.0-1.0) mg/dL AST 16 (5-31) U/L ALT 13 (0-31) U/L Alkaline Phosphatase 69 (39-117) U/L Total Protein 6.9 (6.5-8.0) g/dL Albumin 4.3 (3.5-5.0) g/dL Lipase 15 (8-78) U/L Urine Color DARK YELLOW Urine Appearance HAZY Urine pH 6.5 (5.0-8.0) Ur Specific [place] 1.025 (1.005-1.025) Urine Protein 1+ H (NEG-TRACE) MG/DL Urine Glucose (UA) NEG (NEG) MG/DL Urine Ketones 5 (NEG) MG/DL Urine Blood TRACE (NEG) Urine Nitrite NEG (NEG) Ur Leukocyte Esterase NEG (NEG) Urine RBC 5-9 H (0) /HPF Urine WBC 10-14 H (0-4) /HPF Ur Squamous Epith Cells 1+ /LPF Calcium Oxalate Crystal 1+ /LPF Urine Bacteria 2+ /LPF Hyaline Casts 15-29 /LPF Granular Casts 10-14 /LPF Urine Mucus 2+ /LPF Discharge Plan Discharge Clinical Impression: Urinary tract infection, Nausea, Fatigue Patient Disposition: Home, Self-Care Instructions: Urinary Tract Infection in Women (ED) Additional Instructions: Laboratory evaluation was unremarkable except for your urine which is consistent with a urinary tract infection. The urine will be cultured to see if we can grow bacteria on review urine as well. You were treated with Zofran 4 mg x 2, normal saline x1 L and Macrobid (an antibiotic). Take Macrobid 1 pill twice a day for 7 days. Make sure you keep your MRI appointment this Tuesday. Follow-up with your doctor in 2 days. Please return to the emergency department if your symptoms get worse or if you develop any symptoms that are concerning to you. Prescriptions: No Action ondansetron 4 mg Tablet,Disintegrating 8 mg PO Q6H PRN (Reason: Nausea) RF: 0 albuterol sulfate 1.25 mg/3 mL Solution For Nebulization 1.25 mg INHALATION Q4-6H PRN (Reason: Shortness Of Breath Or Wheezing) RF: 0 docusate sodium [Stool Softener] 100 mg Capsule 100 mg PO DAILY RF: 0 multivitamin with minerals Tablet 1 tab PO DAILY RF: 0 bupropion HCl 200 mg Tablet Sustained-Release 12 Hr 200 mg PO DAILY RF: 0 tiotropium bromide 18 mcg Capsule, W/Inhalation Device 1 cap INHALATION DAILY RF: 0 budesonide-formoterol 160-4.5 mcg/actuation Hfa Aerosol Inhaler 2 puff INHALATION BID RF: 0 levothyroxine 137 mcg Tablet 137 mcg PO DAILY RF: 0 levothyroxine 137 mcg Tablet 274 mcg PO DAILY RF: 0 meloxicam 15 mg Tablet 15 mg PO BEDTIME RF: 0 atenolol 25 mg Tablet 25 mg PO DAILY RF: 0 nortriptyline 10 mg Capsule 20 mg PO BEDTIME RF: 0 duloxetine 30 mg Capsule, Delayed Rel Sprinkle 30 mg PO DAILY RF: 0 omeprazole 20 mg Capsule,Delayed Release(Dr/Ec) 20 mg PO DAILY RF: 0 olodaterol 2.5 mcg/actuation Mist 2 inh INHALATION Q24H RF: 0
[2020-09-11 02:40] LABS: Alanine Aminotransferase 13 U/L (0-31); Albumin Level 4.3 g/dL (3.5-5.0); Alkaline Phosphatase 69 U/L (39-117); Anion Gap 15 (12-20); Aspartate Amino Transferase 16 U/L (5-31); Bilirubin Total 0.5 mg/dL (0.0-1.0); Blood Urea Nitrogen 21 mg/dL (9-16); Calcium 9.4 mg/dL (8.4-10.2); Carbon Dioxide 23 mmol/L (22-29); Chloride 105 mmol/L (96-108); Creatinine Clr Calc Pharmacy 57.5; Estimated Glomerular Filt Rate 44; Glucose Random 134 mg/dL (60-115); Lipase 15 U/L (8-78); Potassium 4.4 mmol/L (3.3-5.1); Sodium 139 mmol/L (135-145); Total Protein 6.9 g/dL (6.5-8.0)
[2020-09-11 03:02] VITALS: BP 101/49; PULSE 74; RESP 16; O2SAT 97
[2020-09-11 03:21] LABS: Appearance Urine HAZY; Color Urine DARK YELLOW; Glucose Urine UA NEG (NEG); Leukocyte Esterase Urine NEG (NEG); Nitrite Urine NEG (NEG); PH 6.5 (5.0-8.0); Specific Gravity - Urine 1.025 (1.005-1.025); Urine Blood TRACE (NEG); Urine Ketones 5 MG/DL (NEG); Urine Protein 1+ MG/DL (NEG-TRACE)
[2020-09-11 03:34] LABS: Bacteria Urine 2+ /LPF; Mucus Urine 2+ /LPF; Squamous Epithelial Cell Urine 1+ /LPF; UACC CULT YES
[2020-09-11 03:35] LABS: Calcium Oxalate Crystals Urine 1+ /LPF
[2020-09-11] MEDS: Nitrofurantoin Monohyd/M-Cryst 100 MG CAPSULE PO (05:54)
--- NOTE | 2020-09-12 14:35 | MHC.HEMONCSW ---
PATIENT SEEN IN ER YESTERDAY, DIAGNOSIS IS UTI. SPOKE WITH PATIENT VIA PHONE TODAY. [facility] WILL NOT ACCEPT SHAD CONTE RN [employer] AUTHORIZATION ALTHOUGH THEY HAVE A CONTRACT. I AM TRYING TO REACH SHAD. UPDATED DR. GUEVARA THAT UNTIL AUTH STRAIGHTENED OUT, BRAIN MRI IS ON HOLD.
== END 2020-09-11 07:50 | disposition home or self-care (01) ==
PROVIDERS: Emergency Provider Emergency Medicine Emergency Medical Services
DX: N39.0 Urinary tract infection, site not specified (principal); R11.0 Nausea; R53.83 Other fatigue; R29.6 Repeated falls; I10 Essential (primary) hypertension; Z87.820 Personal history of traumatic brain injury; F12.90 Cannabis use, unspecified, uncomplicated; C34.12 Malignant neoplasm of upper lobe, left bronchus or lung
CPT/HCPCS: 36415; 80053; 81001; 83690; 85025; 87086; 96360; 96361; 96374; 96375; 96376; 99284; J2405

== ENCOUNTER 2020-11-20 16:18 | Inpatient (IN) | payer OTHER, SELFPAY ==
--- NOTE | ~2020-11-20 | CT_ITS ---
EXAMINATION: CT CHEST, ABDOMEN AND PELVIS WITH CONTRAST. CLINICAL INFORMATION: Progressive cancer. COMPARISON: CT chest 03/18/[address] abdomen 06/08/2020. TECHNIQUE: 5 mm thin axial and reformatted 3 mm thin sagittal and coronal images of chest, abdomen and pelvis were obtained following IV 85 mL Omnipaque 350. DLP 806 mGy-cm. FINDINGS: CHEST: There is a large left upper lobe paramediastinal based mass which has increased in size. It measures 8.2 cm in AP length, 3.6 cm wide extending from the left hilar to suprahilar region to the medial apex. It measures 7.2 cm in craniocaudad length. No additional lung nodules or mass seen. There is a large right pretracheal lymph node measuring 3.6 x 2.10 cm. The mass insinuates between the left pulmonary artery and descending thoracic aorta to the left paratracheal space and left suprahilar region. There are small lymph nodes in the left para-aortic and prevascular space which are new since the previous study. There is subcarinal and left infrahilar lymphadenopathy as well. Thoracic aorta is of normal caliber. The pulmonary artery is well opacified with moderate narrowing of the left upper lobe pulmonary artery at the left hilum. It is best visualized on coronal image 66/5. No intraluminal filling defects seen. Small filling defects are seen in the left brachiocephalic vein on axial image 15/3 suspicious for clot. There is no pleural effusion, thickening or calcification. The axilla and chest wall appears unremarkable. There is a right central port with its tip proximal to SVC. ABDOMEN AND PELVIS: The liver is normal size, density and contour. No focal lesion or intrahepatic ductal dilatation seen. Visualized spleen and pancreas appear unremarkable. There are no radiopaque gallstones or wall thickening. The right adrenal gland appears normal. The left adrenal gland is enlarged. Both kidneys are normal size, shape and position. There are no radiopaque renal calculi, enhancing renal mass or hydronephrosis seen. An extrarenal right kidney pelvis is noted. Scattered gas and stool is seen in the colon without any distention. The small bowel loops are normal caliber. The stomach is distended with recently ingested food and oral contrast. Appendix is normal caliber. The abdominal wall appears unremarkable. Imaging through the pelvis reveals anteverted uterus with a calcified uterine fibroid in the posterior uterus. There is no free fluid. No abnormal pelvic or inguinal lymph nodes seen. Bone windows reveal degenerative disc changes with vacuum disc phenomena at L4-L5 and L5-S1 disc levels. There is grade 1 anterolisthesis L4 over L5. Moderate ventral spondylosis seen in lower dorsal spine. CT/CT abdomen pelvis w con IMPRESSION: Large left upper lobe para mediastinal mass with direct extension to the mediastinum involving the left hilum. There is moderate narrowing of upper lobe branch left pulmonary artery There is new large lymphadenopathy in the right pretracheal space, subcarinal space and infrahilar region. Small new lymph nodes are seen in the prevascular space as well. Mild filling defect in the left brachiocephalic vein suspicious of small thrombus. Right central port tip lies in the proximal SVC. Left adrenal enlargement suspicious for metastatic process. Mild constipation.
[2020-11-20 16:30] VITALS: BP 149/74; PULSE 83; RESP 18; TEMP 36.7; O2SAT 96; BMI 44.6
[2020-11-20 17:28] LABS: MANUAL DIFF FLAG NO
[2020-11-20 17:29] LABS: Basophils Percent Auto 0.3 % (0-2); Eosinophils Percent Auto 0.2 % (0-4); Hemoglobin 12.4 g/dl (12.0-16.0); Imm Gran Abs Auto 0.02 X10*3/uL (0.00-0.03); Imm Gran Pct Auto 0.3 % (0.0-0.4); Lymphocytes Percent Auto 30.7 % (20-40); Mean Corpuscular HGB Conc 33.5 g/dl (31.0-35.0); Mean Corpuscular Hemoglobin 31.6 pg (27.0-33.0); Mean Corpuscular Volume 94.4 fL (80-98); Mean Platelet Volume 9.2 fL (9.4-12.3); Monocytes Absolute Auto 0.6 X10*3/uL (0.1-1.2); Monocytes Percent Auto 9.4 % (2-11); Neutrophils Absolute Auto 3.8 X10*3/uL (2.0-8.3); Neutrophils Percent Auto 59.1 % (45-73); Platelet Count 238 X10*3/uL (160-400); Red Blood Count 3.92 X10*6/uL (4.20-5.50); Red Cell Distribution Width 13.3 % (11.0-16.0); White Blood Count 6.4 X10*3/uL (4.8-10.8)
[2020-11-20 17:36] LABS: INTERNATIONAL NORM RATIO 1.2 (0.9-1.1)
[2020-11-20 17:39] LABS: Partial Thromboplastin Time 27.1 SEC (24.1-38.0)
[2020-11-20 17:58] LABS: Alanine Aminotransferase 13 U/L (0-31); Albumin Level 4.1 g/dL (3.5-5.0); Alkaline Phosphatase 85 U/L (39-117); Anion Gap 14 (12-20); Aspartate Amino Transferase 22 U/L (5-31); Bilirubin Total 0.3 mg/dL (0.0-1.0); Blood Urea Nitrogen 15 mg/dL (9-16); COVID-19 Test Negative (Negative); Calcium 9.4 mg/dL (8.4-10.2); Carbon Dioxide 25 mmol/L (22-29); Chloride 103 mmol/L (96-108); Creatinine Clr Calc Pharmacy 86.3; Estimated Glomerular Filt Rate > 60; Glucose Random 100 mg/dL (60-115); Lipase 25 U/L (8-78); Sodium 138 mmol/L (135-145); Total Protein 6.9 g/dL (6.5-8.0)
[2020-11-20] MEDS: oxyCODONE HCl Immed Release 5 MG TABLET PO (19:06)
[2020-11-20 19:21] VITALS: BP 169/72; PULSE 85; RESP 15; TEMP 36.7; O2SAT 96
[2020-11-20 20:01] LABS: Appearance Urine CLEAR; Color Urine YELLOW; Glucose Urine UA NEG (NEG); Leukocyte Esterase Urine NEG (NEG); Nitrite Urine NEG (NEG); PH 7.5 (5.0-8.0); Specific Gravity - Urine 1.015 (1.005-1.025); Urine Blood 1+ (NEG); Urine Ketones NEG (NEG); Urine Protein NEG (NEG-TRACE)
[2020-11-20 20:05] LABS: UACC CULT NO
[2020-11-20 20:10] LABS: Calcium Oxalate Crystals Urine TRACE /LPF; Mucus Urine 1+ /LPF; Squamous Epithelial Cell Urine 1+ /LPF; WBC Urine 0 /HPF (0-4)
--- NOTE | 2020-11-20 20:24 | ED_ITS ---
HPI - General Adult General Chief complaint: General Medical Stated complaint: see stated Time Seen by Provider: 11/20/20 16:22 Source: patient and other Mode of arrival: ambulatory Limitations: no limitations History of Present Illness HPI narrative: 65-year-old female who was referred to the emergency department b y her oncologist, Dr. Snell for a new brain tumor with edema. 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 Patient states that she received chemotherapy and radiation to her lung and her brain. She states that over the last year she has been having intermittent headaches. She states the headache is located diffusely throughout her head, the headache as a pounding sensation which is worse at night and is 9/10. She states that she has also had persistent nausea. She states the headaches have gotten worse over the past month. The patient had an MRI of the brain today done at [facility] which revealed the following: There is a heterogeneous enhancing lobar mass in the left anterior frontal lobe measuring 3.0 x 1.9 x 1.7 cm. There is mild surrounding edema with minimal effacement of the left frontal horn and local sulcal effacement, but no midline shift or effacement of the basal cisterns. The lesion demonstrates internal restricted diffusion consistent with hyper cellularity. The mass is new from 2019. Related Data Home Medications Medication Instructions Recorded Confirmed budesonide-formoterol 2 puff INHALATION BID 04/10/20 11/20/20 bupropion HCl 200 mg PO DAILY 04/10/20 11/20/20 docusate sodium [Stool Softener] 100 mg PO DAILY 04/10/20 11/20/20 levothyroxine 137 mcg PO DAILY 04/10/20 11/20/20 nortriptyline 20 mg PO BEDTIME 04/10/20 11/20/20 omeprazole 20 mg PO DAILY 05/01/20 11/20/20 albuterol sulfate 2 puff INHALATION Q6H PRN 11/20/20 11/20/20 atenolol 25 mg PO DAILY 11/20/20 11/20/20 duloxetine 30 mg PO DAILY 11/20/20 11/20/20 meloxicam 15 mg PO BEDTIME 11/20/20 11/20/20 humxgnta-llk-umup-folic-vit K1 2 tab PO DAILY 11/20/20 11/20/20 [Centrum Chewables] tiotropium bromide [Spiriva 2 puff INHALATION DAILY 11/20/20 11/20/20 Respimat] Allergies Allergy/AdvReac Type Severity Reaction Status Date / Time penicillin V Allergy Unknown Unknown Verified 11/06/20 10:11 Penicillins [PCN] Allergy Unknown HIVES Verified 11/06/20 10:11 shellfish derived Allergy Unknown UNKNOWN Verified 11/06/20 10:11 [SHELLFISH DERIVED] Review of Systems Review of Systems: Yes all other systems are reviewed and are negative [facility] Past Medical History [facility] Narrative: The patient denies tobacco and alcohol use. She states that she uses marijuana edibles at night to help her sleep. Medical History Arthritis COPD (chronic obstructive pulmonary disease) Depression Diverticulitis Encounter for colonoscopy due to history of colonic polyp History of diverticulitis of colon History of hepatitis Hypertension Hypothyroidism Traumatic brain injury Surgical History H/O section Hx of breast reduction, elective S/P bronchoscopy with biopsy Family History Family History Brother Diabetes Father Social History Social History Household Members: Other Housing: House Alcohol intake: never Smoking Status: Former smoker Packs Per Day: 1 Years Smoked: 53 Smoked in Last 30 Days: No Second Hand Smoke Exposure: No Use of substances other than those prescribed or required for medical reasons: No Advance Directives: Yes Advance Directives on File: Yes Advance Directives Date on File: 05/01/20 service: Yes Current occupational status: retired Physical Exam Vital Signs: Vital Signs: Last Vital Signs Temp 98.1 F 11/20/20 19: Pulse 85 11/20/20 19: Resp 15 11/20/20 19:21 BP 169/72 H 11/20/20 19:21 Pulse Ox 96 11/20/20 19:21 Body Mass Index 44.6 Const: General: cooperative and healthy appearing Orientation/consciousness: oriented to person and oriented to place Limitations: no limitations HENMT: Head: Yes normal to inspection, Yes normocephalic and Yes atraumatic Ears: external ears normal General nose exam: Normal external nose present Face and sinus: Yes normal facial exam Mouth: Normal oral and palatal mucosa present Throat: Yes posterior oropharynx normal Eyes: Periorbital: periorbital findings normal Eyelids: Yes eyelids normal Conjunctivae: conjunctivae normal Sclerae: sclerae normal Corneas: corneas normal Pupils: Equal, round and reactive pupils present Direct Ophthalmoscopy: normal light reflex Neck: Neck: Yes full ROM, Yes no lymphadenopathy, Yes no meningeal signs, Yes trachea midline and Yes supple Chest: Chest palpation & inspection: normal inspection of the chest and normal palpation of entire chest wall Resp: Effort & Inspection: normal respiratory effort and able to speak in complete sentences Auscultation: clear to auscultation bilaterally Cardio: Rate: regular rate Rhythm: regular rhythm Heart sounds: S1 normal heart sound present, S2 normal heart sound present and no murmurs GI: Inspection: Yes normal to inspection Palpation (GI): Soft to palpation, nontender, no guarding, not rigid and No hepatosplenomegaly present : General: Yes no CVA tenderness Back/Spine/Pelvis: Back: no CVA tenderness Cervical Spine: normal cervical lordosis Thoracic/Lumbar Spine: thoracic and lumbar spine normal to inspection Skin: Lesions: no lesions Rashes: no rashes Wounds: no wounds Neuro: General: oriented to person, oriented to place and no meningeal signs Cranial nerves: Yes CN's II-XII intact bilaterally and Yes Equal, round and reactive pupils present Cognition (Neuro): normal cognition Motor exam (neuro): 5/5 motor strength present throughout Extrem: General: Yes normal to inspection and Yes full ROM Psych: Appearance: well kempt Mental Status: mental status grossly normal Speech and movement: Normal speech and movement present Affect: normal affect Attitude: cooperative Thought process: Normal thought process present Thought content: Normal thought content present Course Course Course Narrative: 65-year-old female who presents emergency department for evaluation a new brain lesion diagnosed on MRI which was done at [facility] on 11/18/2020. The masses in the left anterior frontal lobe measuring 3 0.0 x 1.9 x 1.7 cm with local edema and no evidence of midline shift. The patient's neurologic exam was unremarkable. Laboratory evaluation was unremarkable as well. I gave the patient dexamethasone 10 mg IV. I did discuss the patient's presentation with her oncologist, Dr. Snell. She recomme nded that the patient be admitted and that the patient that the patient received dexamethasone 4 mg every 6 hours. She states that she will arrange radiation treatment at [facility]. I did discuss the patient's presentation with the covering hospitalist, Dr. Alarcon who requested that the patient be placed on prophylactic anti epileptic medications. The patient was given Keppra 100 mg orally. The patient will be admitted for further management. Medical Decision Making Lab Data Result diagrams: 11/20/20 17:20 11/20/20 17:21 Labs: Lab Results 11/20/20 11/20/20 11/20/20 Range/Units 17: 17: 17:21 WBC 6.4 (4.8-10.8) X10*3/uL RBC 3.92 L (4.20-5.50) X10*6/uL Hgb 12.4 (12.0-16.0) g/dl Hct 37.0 (37-47) % MCV 94.4 (80-98) fL MCH 31.6 (27.0-33.0) pg MCHC 33.5 (31.0-35.0) g/dl RDW 13.3 (11.0-16.0) % Plt Count 238 (160-400) X10*3/uL MPV 9.2 L (9.4-12.3) fL Immature Gran % (Auto) 0.3 (0.0-0.4) % Neut % (Auto) 59.1 (45-73) % Lymph % (Auto) 30.7 (20-40) % [place] % (Auto) 9.4 (2-11) % Eos % (Auto) 0.2 (0-4) % Baso % (Auto) 0.3 (0-2) % Lymph # (Auto) 2.0 (1.2-4.9) X10*3/uL [place] # (Auto) 0.6 (0.1-1.2) X10*3/uL Eos # (Auto) 0.0 (0.0-0.4) X10*3/uL Baso # (Auto) 0.0 (0.0-0.2) X10*3/uL Abs Immat Gran (auto) 0.02 (0.00-0.03) X10*3/uL Absolute Neuts (auto) 3.8 (2.0-8.3) X10*3/uL Absolute Nucleated RBC 0.000 (0.0-0.012) X10*3/uL Nucleated RBC % (auto) 0.0 (0.0-0.2) /100WBC PT 14.0 H (10.8-13.0) SEC INR 1.2 H (0.9-1.1) APTT 27.1 (24.1-38.0) SEC Sodium 138 (135-145) mmol/L Potassium 4.0 (3.3-5.1) mmol/L Chloride 103 (96-108) mmol/L Carbon Dioxide 25 (22-29) mmol/L Anion Gap 14 (12-20) BUN 15 (9-16) mg/dL Creatinine 0.81 (0.5-1.4) mg/dL Estim Creat Clear Calc 86.3 Estimated GFR > 60 Random Glucose 100 (60-115) mg/dL Calcium 9.4 (8.4-10.2) mg/dL Total Bilirubin 0.3 (0.0-1.0) mg/dL AST 22 (5-31) U/L ALT 13 (0-31) U/L Alkaline Phosphatase 85 (39-117) U/L Total Protein 6.9 (6.5-8.0) g/dL Albumin 4.1 (3.5-5.0) g/dL Lipase 25 (8-78) U/L Urine Color Urine Appearance Urine pH (5.0-8.0) Ur Specific [place] (1.005-1.025) Urine Protein (NEG-TRACE) MG/DL Urine Glucose (UA) (NEG) MG/DL Urine Ketones (NEG) MG/DL Urine Blood (NEG) Urine Nitrite (NEG) Ur Leukocyte Esterase (NEG) Urine RBC (0) /HPF Urine WBC (0-4) /HPF Ur Squamous Epith Cells /LPF Calcium Oxalate Crystal /LPF Urine Bacteria /LPF Urine Mucus /LPF COVID-19 (JANETT) (Negative) COVID-19 Clin Com 11/20/20 11/20/20 Range/Units 17:21 19:54 WBC (4.8-10.8) X10*3/uL RBC (4.20-5.50) X10*6/uL Hgb (12.0-16.0) g/dl Hct (37-47) % MCV (80-98) fL MCH (27.0-33.0) pg MCHC (31.0-35.0) g/dl RDW (11.0-16.0) % Plt Count (160-400) X10*3/uL MPV (9.4-12.3) fL Immature Gran % (Auto) (0.0-0.4) % Neut % (Auto) (45-73) % Lymph % (Auto) (20-40) % [place] % (Auto) (2-11) % Eos % (Auto) (0-4) % Baso % (Auto) (0-2) % Lymph # (Auto) (1.2-4.9) X10*3/uL [place] # (Auto) (0.1-1.2) X10*3/uL Eos # (Auto) (0.0-0.4) X10*3/uL Baso # (Auto) (0.0-0.2) X10*3/uL Abs Immat Gran (auto) (0.00-0.03) X10*3/uL Absolute Neuts (auto) (2.0-8.3) X10*3/uL Absolute Nucleated RBC (0.0-0.012) X10*3/uL Nucleated RBC % (auto) (0.0-0.2) /100WBC PT (10.8-13.0) SEC INR (0.9-1.1) APTT (24.1-38.0) SEC Sodium (135-145) mmol/L Potassium (3.3-5.1) mmol/L Chloride (96-108) mmol/L Carbon Dioxide (22-29) mmol/L Anion Gap (12-20) BUN (9-16) mg/dL Creatinine (0.5-1.4) mg/dL Estim Creat Clear Calc Estimated GFR Random Glucose (60-115) mg/dL Calcium (8.4-10.2) mg/dL Total Bilirubin (0.0-1.0) mg/dL AST (5-31) U/L ALT (0-31) U/L Alkaline Phosphatase (39-117) U/L Total Protein (6.5-8.0) g/dL Albumin (3.5-5.0) g/dL Lipase (8-78) U/L Urine Color YELLOW Urine Appearance CLEAR Urine pH 7.5 (5.0-8.0) Ur Specific [place] 1.015 (1.005-1.025) Urine Protein NEG (NEG-TRACE) MG/DL Urine Glucose (UA) NEG (NEG) MG/DL Urine Ketones NEG (NEG) MG/DL Urine Blood 1+ H (NEG) Urine Nitrite NEG (NEG) Ur Leukocyte Esterase NEG (NEG) Urine RBC 5-9 H (0) /HPF Urine WBC 0 (0-4) /HPF Ur Squamous Epith Cells 1+ /LPF Calcium Oxalate Crystal TRACE /LPF Urine Bacteria NONE /LPF Urine Mucus 1+ /LPF COVID-19 (JANETT) Negative (Negative) COVID-19 Clin Com See Note Discharge Plan Discharge Clinical Impression: Brain malignant neoplasm Patient Disposition: Admitted As Inpatient Prescriptions: No Action docusate sodium [Stool Softener] 100 mg Capsule 100 mg PO DAILY RF: 0 bupropion HCl 200 mg Tablet Sustained-Release 12 Hr 200 mg PO DAILY RF: 0 budesonide-formoterol 160-4.5 mcg/actuation Hfa Aerosol Inhaler 2 puff INHALATION BID RF: 0 levothyroxine 137 mcg Tablet 137 mcg PO DAILY RF: 0 nortriptyline 10 mg Capsule 20 mg PO BEDTIME RF: 0 Spiriva Respimat 2.5 mcg/actuation Mist 2 puff INHALATION DAILY RF: 0 meloxicam 15 mg Tablet 15 mg PO BEDTIME RF: 0 atenolol 25 mg Tablet 25 mg PO DAILY RF: 0 duloxetine 30 mg Capsule,Delayed Release(Dr/Ec) 30 mg PO DAILY RF: 0 Centrum Chewables 8 mg-400 mcg- 10 mcg Tablet,Chewable 2 tab PO DAILY RF: 0 albuterol sulfate 90 mcg/actuation Hfa Aerosol Inhaler 2 puff INHALATION Q6H PRN (Reason: Shortness Of Breath) RF: 0 omeprazole 20 mg Capsule,Delayed Release(Dr/Ec) 20 mg PO DAILY RF: 0
[2020-11-20] MEDS: levETIRAcetam 1,000 MG TABLET 1000 MG PO (20:50)
--- NOTE | 2020-11-20 21:20 | PM.IMHP ---
History of Present Illness Date of Service: 11/20/20 Chief Complaint: Headache 65-year-old female with a past medical history of hypertension, hypothyroidism, depression, COPD, history of lung cancer diagnosed in 2019 status post chemotherapy radiotherapy and prophylactic brain radiotherapy presented to the hospital today with a chief complaint of headache. Patient reports he has been having headaches for some time but has been gradually worsening over the past 2 weeks. Associated with nausea. Denies any blurry vision. So patient had MRI of the brain done today at [facility]. Which showed brain Mets with edema. Sent to the ER by Dr. Willingham for admission. Patient denies any chest pain palpitations lightheadedness or dizziness. Patient denies any fever chills and cough. Review of all other systems is negative except mentioned above ER course: Per ER team patient's brain MRI showed heterogeneous enhancing liver mass in the left anterior frontal lobe measuring 3 in 2 1.9-1.7 cm. There is mild surrounding edema with minimal effacement of the left frontal horn and local sulcal effacement no midline shift or effacement of the basal cisterns. ER team spoke to Dr. Willingham who recommended Decadron and admission to the [facility]. [facility] Medical History Arthritis COPD (chronic obstructive pulmonary disease) Depression Diverticulitis Encounter for colonoscopy due to history of colonic polyp History of diverticulitis of colon History of hepatitis Hypertension Hypothyroidism Traumatic brain injury Family History Brother Diabetes Father Surgical History H/O section Hx of breast reduction, elective S/P bronchoscopy with biopsy Social History Household Members: None Housing: Apartment Do you presently have visiting nurse or other home services: No Alcohol intake: never Smoking Status: Former smoker Tobacco Type: Cigarette Packs Per Day: 1 Years Smoked: 53 Second Hand Smoke Exposure: No Substance Use Type: Marijuana Advance Directives Date on File: 05/01/20 service: Yes Current occupational status: retired Meds Allergies Allergy/AdvReac Type Severity Reaction Status Date / Time penicillin V Allergy Unknown Unknown Verified 11/06/20 10:11 Penicillins [PCN] Allergy Unknown HIVES Verified 11/06/20 10:11 shellfish derived Allergy Unknown UNKNOWN Verified 11/06/20 10:11 [SHELLFISH DERIVED] Active Medications: Current Medications Generic Name Dose Route Start Last Admin Trade Name Freq PRN Reason Stop Dose Admin Acetaminophen 650 mg 11/20/20 21:13 Acetaminophen 325 Mg Tablet PO Q6H PRN Pain, Mild (Pain Scale 1-3) Albuterol Sulfate 2 puff 11/20/20 21:16 Albuterol Sulfate 90 Mcg 8 Gm Inhaler INHALE Q6H PRN Shortness Of Breath Atenolol 25 mg 11/21/20 09:00 Atenolol 25 Mg Tablet PO DAILY [facility] Protocol Dexamethasone Sodium Phosphate 4 mg 11/21/20 09:00 Dexamethasone Sod Phosphate 4 Mg/Ml Vial IVPUSH QID [facility] Docusate Sodium 100 mg 11/21/20 09:00 Docusate Sodium 100 Mg Capsule PO BID [facility] Docusate Sodium 100 mg 11/21/20 09:00 Docusate Sodium 100 Mg Capsule PO DAILY [facility] Duloxetine HCl 30 mg 11/21/20 09:00 Duloxetine Hcl 30 Mg Capsule.Dr PO DAILY [facility] Famotidine 20 mg 11/21/20 09:00 Famotidine/Pf 20 Mg/2 Ml Vial IVPUSH BID [facility] Magnesium Hydroxide 30 ml 11/20/20 21:13 Milk Of Magnesia 30 Ml Oral.Susp PO DAILY PRN Constipation Non-Formulary Medication 2 puff 11/21/20 09:00 Budesonide-Formoterol INHALE BID [facility] Non-Formulary Medication 200 mg 11/21/20 09:00 Bupropion Hcl PO DAILY [facility] Non-Formulary Medication 137 mcg 11/21/20 09:00 Levothyroxine PO DAILY [facility] Nortriptyline HCl 20 mg 11/21/20 21:00 Nortriptyline Hcl 10 Mg Capsule PO BEDTIME [facility] Pharmacy Consult 1 each 11/20/20 18:11 Consult Rx Perform Med Rec MISCELLANE ONCE PRN Consult order Sodium Chloride 3 ml 11/21/20 00:00 0.9 % Sodium Chloride Flush 3 Ml Syringe IVFLUSH QSHIFT [facility] Home Medications Medication Instructions Recorded Confirmed Last Taken Type budesonide-formoterol 2 puff INHALATION BID 04/10/20 11/20/20 11/20/20 History bupropion HCl 200 mg PO DAILY 04/10/20 11/20/20 11/20/20 History docusate sodium [Stool Softener] 100 mg PO DAILY 04/10/20 11/20/20 11/20/20 History levothyroxine 137 mcg PO DAILY 04/10/20 11/20/20 11/20/20 History nortriptyline 20 mg PO BEDTIME 04/10/20 11/20/20 11/19/20 History omeprazole 20 mg PO DAILY 05/01/20 11/20/20 11/20/20 History Centrum Chewables 2 tab PO DAILY 11/20/20 11/20/20 11/20/20 History Spiriva Respimat 2 puff INHALATION DAILY 11/20/20 11/20/20 11/20/20 History albuterol sulfate 2 puff INHALATION Q6H PRN 11/20/20 11/20/20 Unknown History atenolol 25 mg PO DAILY 11/20/20 11/20/20 11/20/20 History duloxetine 30 mg PO DAILY 11/20/20 11/20/20 11/20/20 History meloxicam 15 mg PO BEDTIME 11/20/20 11/20/20 11/19/20 History Physical Exam Vital Signs and Narrative: Vital Signs: Last Vital Signs Temp 98.1 F 11/20/20 19: Pulse 85 11/20/20 19:21 Resp 15 11/20/20 19:21 BP 169/72 H 11/20/20 19:21 Pulse Ox 96 11/20/20 19:21 Body Mass Index 44.6 Gen: Appears be in no acute distress HEENT: NCAT, Moist mucosa. Pulmonary: Vesicular breath sounds, fair air entry CVS: Normal S1-S2 Abdomen: BS+, Soft, Nontender Extremities: Warm well perfused Neuro: Alert and awake. Grossly nonfocal Results Labs CBC and Chem 7: 11/21/20 05:53 11/21/20 05:53 Labs: Laboratory Results - last 24 hr 11/20/20 11/20/20 11/20/20 17:20 17:21 17:21 MCV 94.4 MCH 31.6 MCHC 33.5 RDW 13.3 Plt Count 238 MPV 9.2 L Immature Gran % (Auto) 0.3 Neut % (Auto) 59.1 Lymph % (Auto) 30.7 [place] % (Auto) 9.4 Eos % (Auto) 0.2 Baso % (Auto) 0.3 Lymph # (Auto) 2.0 [place] # (Auto) 0.6 Eos # (Auto) 0.0 Baso # (Auto) 0.0 Abs Immat Gran (auto) 0.02 Absolute Neuts (auto) 3.8 Absolute Nucleated RBC 0.000 Nucleated RBC % (auto) 0.0 PT 14.0 H INR 1.2 H APTT 27.1 Anion Gap 14 Estim Creat Clear Calc 86.3 Estimated GFR > 60 Random Glucose 100 Calcium 9.4 Total Bilirubin 0.3 AST 22 ALT 13 Alkaline Phosphatase 85 Total Protein 6.9 Albumin 4.1 Lipase 25 Urine Color Urine Appearance Urine pH Ur Specific [place] Urine Protein Urine Glucose (UA) Urine Ketones Urine Blood Urine Nitrite Ur Leukocyte Esterase Urine RBC Urine WBC Ur Squamous Epith Cells Calcium Oxalate Crystal Urine Bacteria Urine Mucus COVID-19 (JANETT) COVID-[employer] [place] 11/20/20 11/20/20 17:21 19:54 MCV MCH MCHC RDW Plt Count MPV Immature Gran % (Auto) Neut % (Auto) Lymph % (Auto) [place] % (Auto) Eos % (Auto) Baso % (Auto) Lymph # (Auto) [place] # (Auto) Eos # (Auto) Baso # (Auto) Abs Immat Gran (auto) Absolute Neuts (auto) Absolute Nucleated RBC Nucleated RBC % (auto) PT INR APTT Anion Gap Estim Creat Clear Calc Estimated GFR Random Glucose Calcium Total Bilirubin AST ALT Alkaline Phosphatase Total Protein Albumin Lipase Urine Color YELLOW Urine Appearance CLEAR Urine pH 7.5 Ur Specific [place] 1.015 Urine Protein NEG Urine Glucose (UA) NEG Urine Ketones NEG Urine Blood 1+ H Urine Nitrite NEG Ur Leukocyte Esterase NEG Urine RBC 5-9 H Urine WBC 0 Ur Squamous Epith Cells 1+ Calcium Oxalate Crystal TRACE Urine Bacteria NONE Urine Mucus 1+ COVID-19 (JANETT) Negative COVID-19 Clin Com See Note Assessment and Plan (1) Brain malignant neoplasm: Qualifiers: Malignant neoplasm of brain location: frontal lobe Qualified Code(s): C71.1 - Malignant neoplasm of frontal lobe Status: Acute 65-year-old female with a past medical history of COPD, hypothyroidism, depression, history of metastatic lung cancer status post chemotherapy, radiotherapy presented to the hospital today with a chief complaint of headache; MRI showed left frontal enhancing mass. Headache/lung cancer with brain metastasis: Neuro checks Neurology consult Continue Decadron 4 mg every 6 hours. Will keep the patient on Keppra prophylactically Spoke to Dr. Snell, as we do not have neurosurgery available; who recommended admission to the [facility] as patient is a less likely surgical candidate; mentioned that Dr. Dial will speak to [facility] for stereotactic radiotherapy. Aspiration precautions, seizure precautions COPD: Stable Hypertension/hyperlipidemia: Continue home medications DVT prophylaxis: SCD boots Code status: Full code
[2020-11-20 22:00] VITALS: BP 129/106; PULSE 86; RESP 20; TEMP 36.7; O2SAT 96
[2020-11-20 22:16] VITALS: BP 146/92; PULSE 97; RESP 16; TEMP 36; O2SAT 95
[2020-11-21] VITALS (9 sets, daily range): BP systolic 125–161; BP diastolic 60–78; PULSE 80–102; RESP 14–20; TEMP 35.8–36.6; O2SAT 94–99
--- NOTE | 2020-11-21 00:31 | PC.NURSE ---
pt upon admission to med surg floor is refusing bed alarms. Risk were explain to her, pt still does not want the alarms.
[2020-11-21] MEDS: 0.9 % Sodium Chloride Flush 3 ML SYRINGE IVFLUSH ×4 (01:08→21:38)
[2020-11-21] MEDS: oxyCODONE HCl Immed Release 5 MG TABLET PO ×3 (01:08→19:43)
[2020-11-21] MEDS: Levothyroxine Sodium 25 MCG TABLET 12.5 MCG PO (05:44)
[2020-11-21] MEDS: Levothyroxine Sodium 125 MCG TABLET PO (05:44)
[2020-11-21 06:25] LABS: MANUAL DIFF FLAG NO
[2020-11-21 06:38] LABS: Hematocrit 37.1 % (37-47); Hemoglobin 12.4 g/dl (12.0-16.0); Imm Gran Abs Auto 0.03 X10*3/uL (0.00-0.03); Imm Gran Pct Auto 0.5 % (0.0-0.4); Lymphocytes Percent Auto 14.7 % (20-40); Mean Corpuscular HGB Conc 33.4 g/dl (31.0-35.0); Mean Corpuscular Hemoglobin 31.6 pg (27.0-33.0); Mean Corpuscular Volume 94.6 fL (80-98); Mean Platelet Volume 9.5 fL (9.4-12.3); Monocytes Absolute Auto 0.3 X10*3/uL (0.1-1.2); Monocytes Percent Auto 4.2 % (2-11); Neutrophils Absolute Auto 5.2 X10*3/uL (2.0-8.3); Neutrophils Percent Auto 80.6 % (45-73); Platelet Count 261 X10*3/uL (160-400); Red Blood Count 3.92 X10*6/uL (4.20-5.50); White Blood Count 6.5 X10*3/uL (4.8-10.8)
[2020-11-21 07:29] LABS: Anion Gap 15 (12-20); Blood Urea Nitrogen 15 mg/dL (9-16); Calcium 9.4 mg/dL (8.4-10.2); Carbon Dioxide 24 mmol/L (22-29); Chloride 102 mmol/L (96-108); Creatinine Clr Calc Pharmacy 91.9; Estimated Glomerular Filt Rate > 60; Glucose Random 162 mg/dL (60-115); Potassium 4.4 mmol/L (3.3-5.1); Sodium 137 mmol/L (135-145)
[2020-11-21] MEDS: Fluticasone/Vilanterol 200/25 BLST.W.DEV 2 PUFF INHALE ×2 (08:47→20:04)
[2020-11-21] MEDS: atenoloL 25 MG TABLET PO (08:48)
[2020-11-21] MEDS: DULoxetine HCl 30 MG CAPSULE.DR PO (08:48)
[2020-11-21] MEDS: dexAMETHasone sod phosphate 4 MG/ML VIAL IVPUSH ×4 (08:49→21:38)
[2020-11-21] MEDS: buPROPion HCl XL 150 MG TAB.ER.24H PO (08:49)
[2020-11-21] MEDS: Famotidine/PF 20 MG/2 ML VIAL IVPUSH ×2 (08:49→21:38)
[2020-11-21] MEDS: Docusate Sodium 100 MG CAPSULE PO ×2 (08:49→21:37)
[2020-11-21] MEDS: levETIRAcetam 750 MG in 0.9 % Sodium Chloride 100 ML 400 MG IV ×2 (09:56→21:37)
--- NOTE | 2020-11-21 10:07 | P.PNIM_ITS ---
Subjective Subjective Date of Service: 11/21/20 Interval History: Patient complaining of persistent left-sided headache that is different from his chronic TBI headache, also complaining of mild nausea no vomiting denies fever chills.Is npo. General no fever, chills. CVS no chest pain, no palpitation. Respiratory no cough, no sob. Gastrointestinal + nausea, no vomiting, no abdominal pain Physical Exam Vital Signs: Vital Signs: Last Vital Signs Temp 97.5 F 11/21/20 07:43 Pulse 86 11/21/20 08:49 Resp 18 11/21/20 07:43 BP 161/78 H 11/21/20 08:48 Pulse Ox 97 11/21/20 07:43 Body Mass Index 44.6 General no acute distress. Neck supple no JVD. CVS regular rate rhythm, Respiratory lungs clear to auscultation, no respiratory distress, no wheeze, no rhonchi. Gastrointestinal abdomen soft, nontender, bowel sounds audible, no guarding , no rigidity. Extremities no clubbing cyanosis or edema. Neuro nonfocal ,speech clear. Skin no rash Objective Data Current Medications Generic Name Dose Route Start Last Admin Trade Name Freq PRN Reason Stop Dose Admin Acetaminophen 650 mg 11/20/20 21:13 Acetaminophen 325 Mg Tablet PO Q6H PRN Pain, Mild (Pain Scale 1-3) Albuterol Sulfate 2 puff 11/20/20 21:16 Albuterol Sulfate 90 Mcg 8 Gm Inhaler INHALE Q6H PRN Shortness Of Breath Atenolol 25 mg 11/21/20 09:00 11/21/20 08:48 Atenolol 25 Mg Tablet PO 25 mg DAILY SAM Administration Protocol Bupropion HCl 150 mg 11/21/20 09:00 11/21/20 08:49 Bupropion Hcl Xl 150 Mg Tab.Er.24h PO 150 mg DAILY SAM Administration Dexamethasone Sodium Phosphate 4 mg 11/21/20 09:00 11/21/20 08:49 Dexamethasone Sod Phosphate 4 Mg/Ml Vial IVPUSH 4 mg QID SAM Administration Docusate Sodium 100 mg 11/21/20 09:00 11/21/20 08:49 Docusate Sodium 100 Mg Capsule PO 100 mg BID SAM Administration Docusate Sodium 100 mg 11/21/20 09:00 11/21/20 08:49 Docusate Sodium 100 Mg Capsule PO Not Given DAILY SAM Duloxetine HCl 30 mg 11/21/20 09:00 11/21/20 08:48 Duloxetine Hcl 30 Mg Capsule.Dr PO 30 mg DAILY SAM Administration Famotidine 20 mg 11/21/20 09:00 11/21/20 08:49 Famotidine/Pf 20 Mg/2 Ml Vial IVPUSH 20 mg BID SAM Administration Fluticasone/Vilanterol 2 puff 11/21/20 09:00 11/21/20 08:47 Fluticasone/Vilanterol 200/25 Blst.W.Dev INHALE 2 puff BID SAM Administration Levetiracetam 750 mg/ Sodium 107.5 mls @ 400 mls/hr 11/21/20 09:30 11/21/20 09:56 Chloride IV 400 mls/hr Q12H SAM Administration Levothyroxine Sodium 12.5 mcg 11/21/20 06:00 11/21/20 05:44 Levothyroxine Sodium 25 Mcg Tablet PO 12.5 mcg DAILY@0600 SAM Administration Levothyroxine Sodium 125 mcg 11/21/20 06:00 11/21/20 05:44 Levothyroxine Sodium 125 Mcg Tablet PO 125 mcg DAILY@0600 [facility] Administration Magnesium Hydroxide 30 ml 11/20/20 21:13 Milk Of Magnesia 30 Ml Oral.Susp PO DAILY PRN Constipation Nortriptyline HCl 20 mg 11/21/20 21:00 Nortriptyline Hcl 10 Mg Capsule PO BEDTIME [facility] Oxycodone HCl 5 mg 11/21/20 00:28 11/21/20 10:06 Oxycodone Hcl Immed Release 5 Mg Tablet PO 5 mg Q6H PRN Administration [facility] Consult 1 each 11/20/20 18:11 Consult Rx Perform Med Rec MISCELLANE ONCE PRN Consult order Sodium Chloride 3 ml 11/21/20 00:00 11/21/20 08:49 0.9 % Sodium Chloride Flush 3 Ml Syringe IVFLUSH 3 ml QSHIFT SAM Administration Labs CBC & Chem 7: 11/21/20 05:53 11/21/20 05:53 Assessment and Plan (1) Headache: Status: Acute (2) Brain malignant neoplasm: Status: Acute (3) Small cell carcinoma of lung: Status: Acute (4) Hypertension: Status: Acute (5) Hypothyroidism: Status: Acute Assessment and Plan: 65-year-old female with a past medical history of COPD, hypothyroidism, depression, history of metastatic lung cancer status post chemotherapy, radiotherapy presented to the hospital today with a chief complaint of headache; MRI showed left frontal enhancing mass. Headache due to brain metastasis with underlying h/o small cell lung ca MRI done at [facility] for persistent headache worsening over last 2 weeks, MRI showed heterogeneous enhancing mass in the left anterior frontal lobe with mild surrounding edema with minimal effacement of the left frontal horn and local sulcal effacement no midline shift or effacement of the basal cisterns. Continue iv Decadron 4 mg every 6 hours. Will keep the patient on Keppra prophylactically, will change to by mouth Keppra 500 twice daily and will discuss with Neurology for further recommendation. Await Oncology input, patient primary oncologist is Dr. Saunders to decide about radiation treatment vs surgical options as outpatient. Continue seizure precautions. No neuro deficits noted Will place patient on regular diet since no procedure planned for today COPD: Stable Hypertension/hyperlipidemia: Continue home medications DVT prophylaxis: Add Lovenox Code status: Full code
--- NOTE | 2020-11-21 11:40 | P.CNHO_ITS ---
Subjective - Subjective Chief complaint: Chronic dizziness Patient: known to practice within the last 3 years Consult date: 11/21/20 Primary Care Provider: Unknown Physician HPI - Consult Narrative Reason for consult: New brain metastasis Narrative: Maria Antonia Vazquez is a 65 year old female with history of small cell lung cancer initially diagnosed in February 2019. She had a local recurrence in the chest for which she has been receiving chemo/immunotherapy. Her last PET-CT in October showed interval resolution of mediastinal disease and decrease in size of lung mass. She had received prophylactic whole-brain radiation therapy in November 2019. For the last few months she has been complaining of dizziness and a few falls. Brain MRI was ordered months ago, prior authorization from [place] where she has her medical insurance from, took several weeks to obtain. She finally had it done on 11/18/2020. Most of her symptoms are chronic. She has been started on Decadron. There is no midline shift, there is mild surrounding edema. Review of Systems - Constitutional Reports as per HPI, Reports no additional constitutional complaints - Cardiovascular Reports no additional cardiovascular complaints - Respiratory Reports no additional respiratory complaints - Gastrointestinal Reports no additional gastrointestinal complaints - Neurologic Denies abnormal speech, Reports vertigo, Reports dizziness, Reports frequent falls, Denies focal weakness PMFSH Medical History: Medical History (Last Reviewed 11/20/20 @ 20:27 by Richy Sams MD) Arthritis COPD (chronic obstructive pulmonary disease) Depression Diverticulitis Encounter for colonoscopy due to history of colonic polyp History of diverticulitis of colon History of hepatitis Hypertension Hypothyroidism Traumatic brain injury Family History: Family History (Last Reviewed 09/11/20 @ 02:24 by Richy Sams MD) Brother Diabetes Father Surgical History: Surgical History (Last Reviewed 11/20/20 @ 20:27 by Richy Sams MD) H/O section Hx of breast reduction, elective S/P bronchoscopy with biopsy Social History: Social History (Last Reviewed 09/11/20 @ 02:24 by Richy Sams MD) Living Situation History: Household Members: None Housing: Apartment Do you presently have visiting nurse or other home services: No Alcohol History: Alcohol intake: never Alcohol History Details: Alcohol intake frequency: does not drink Tobacco History: Smoking Status: Former smoker Tobacco Type: Cigarette Packs Per Day: 1 Smoked in Last 30 Days: No Patient Interested in Nicotine Replacement: No Patient Given Instructions on How to Stop Smoking: No Second Hand Smoke Exposure: No Substance Use History: Use of substances other than those prescribed or required for medical reasons : Yes Substance Use Type: Marijuana Substance Use Frequency: Occasionally Last Used Substance: Days (ago) Currently Displaying Signs/Symptoms of Drug Intoxication Withdrawal: No Any prior treatment program specific to substance use: No Domestic Abuse History: Have you been hit, kicked, punched, or otherwise hurt by someone within the past year? If so, by whom?: No Do you feel safe in your current relationship?: No Current Relationship Is there a partner from a previous relationship who is making you feel unsafe now?: No Are you made to feel afraid or neglected: No Advance Directives: Advance Directives: Yes Advance Directives on File: Yes Advance Directives Date on File: 05/01/20 Homicidal Assessment: Do you have thoughts of harming others: None Do you have a plan to hurt others: No Plan Nutrition Assessment: Recently lost weight without trying: No How much weight loss: Unsure Eating poorly because of decreased appetite: No Nutrition screen score: 2 Nutrition Risks: No Nutritional Risk Patient : No : No Poor oral hygiene: No Occupation Assessmet: service: Yes Current occupational status: retired Smoking status: Former smoker Home Medications and Allergies Current Medications: Current Medications Generic Name Dose Route Start Last Admin Trade Name Freq PRN Reason Stop Dose Admin Acetaminophen 650 mg 11/20/20 21:13 Acetaminophen 325 Mg Tablet PO Q6H PRN Pain, Mild (Pain Scale 1-3) Albuterol Sulfate 2 puff 11/20/20 21:16 Albuterol Sulfate 90 Mcg 8 Gm Inhaler INHALE Q6H PRN Shortness Of Breath Atenolol 25 mg 11/21/20 09:00 11/21/20 08:48 Atenolol 25 Mg Tablet PO 25 mg DAILY SAM Administration Protocol Bupropion HCl 150 mg 11/21/20 09:00 11/21/20 08:49 Bupropion Hcl Xl 150 Mg Tab.Er.24h PO 150 mg DAILY SAM Administration Dexamethasone Sodium Phosphate 4 mg 11/21/20 09:00 11/21/20 08:49 Dexamethasone Sod Phosphate 4 Mg/Ml Vial IVPUSH 4 mg QID SAM Administration Docusate Sodium 100 mg 11/21/20 09:00 11/21/20 08:49 Docusate Sodium 100 Mg Capsule PO 100 mg BID SAM Administration Docusate Sodium 100 mg 11/21/20 09:00 11/21/20 08:49 Docusate Sodium 100 Mg Capsule PO Not Given DAILY [facility] Duloxetine HCl 30 mg 11/21/20 09:00 11/21/20 08:48 Duloxetine Hcl 30 Mg Capsule.Dr PO 30 mg DAILY SAM Administration Famotidine 20 mg 11/21/20 09:00 11/21/20 08:49 Famotidine/Pf 20 Mg/2 Ml Vial IVPUSH 20 mg BID SAM Administration Fluticasone/Vilanterol 2 puff 11/21/20 09:00 11/21/20 08:47 Fluticasone/Vilanterol 200/25 Blst.W.Dev INHALE 2 puff BID SAM Administration Levetiracetam 750 mg/ Sodium 107.5 mls @ 400 mls/hr 11/21/20 09:30 11/21/20 10:37 Chloride IV Infused Q12H [facility] Infusion Levothyroxine Sodium 12.5 mcg 11/21/20 06:00 11/21/20 05:44 Levothyroxine Sodium 25 Mcg Tablet PO 12.5 mcg DAILY@0600 SAM Administration Levothyroxine Sodium 125 mcg 11/21/20 06:00 11/21/20 05:44 Levothyroxine Sodium 125 Mcg Tablet PO 125 mcg DAILY@0600 [facility] Administration Magnesium Hydroxide 30 ml 11/20/20 21:13 Milk Of Magnesia 30 Ml Oral.Susp PO DAILY PRN Constipation Nortriptyline HCl 20 mg 11/21/20 21:00 Nortriptyline Hcl 10 Mg Capsule PO BEDTIME [facility] Oxycodone HCl 5 mg 11/21/20 00:28 11/21/20 10:06 Oxycodone Hcl Immed Release 5 Mg Tablet PO 5 mg Q6H PRN Administration [facility] Consult 1 each 11/20/20 18:11 Consult Rx Perform Med Rec MISCELLANE ONCE PRN Consult order Sodium Chloride 3 ml 11/21/20 00:00 11/21/20 08:49 0.9 % Sodium Chloride Flush 3 Ml Syringe IVFLUSH 3 ml QSHIFT SAM Administration Home Medications Medication Instructions Recorded Confirmed Type budesonide-formoterol 2 puff INHALATION BID 04/10/20 11/20/20 History bupropion HCl 200 mg PO DAILY 04/10/20 11/20/20 History docusate sodium [Stool Softener] 100 mg PO DAILY 04/10/20 11/20/20 History levothyroxine 137 mcg PO DAILY 04/10/20 11/20/20 History nortriptyline 20 mg PO BEDTIME 04/10/20 11/20/20 History omeprazole 20 mg PO DAILY 05/01/20 11/20/20 History albuterol sulfate 2 puff INHALATION Q6H PRN 11/20/20 11/20/20 History atenolol 25 mg PO DAILY 11/20/20 11/20/20 History duloxetine 30 mg PO DAILY 11/20/20 11/20/20 History meloxicam 15 mg PO BEDTIME 11/20/20 11/20/20 History jkybrzru-[id number]-folic-vit K1 2 tab PO DAILY 11/20/20 11/20/20 History [Centrum Chewables] tiotropium bromide [Spiriva 2 puff INHALATION DAILY 11/20/20 11/20/20 History Respimat] Allergies Allergy/AdvReac Type Severity Reaction Status Date / Time penicillin V Allergy Unknown Unknown Verified 11/06/20 10:11 Penicillins [PCN] Allergy Unknown HIVES Verified 11/06/20 10:11 shellfish derived Allergy Unknown UNKNOWN Verified 11/06/20 10:11 [SHELLFISH DERIVED] Physical Exam Vital signs: Vital Signs Temp 97.5 F 11/21/20 07:43 Pulse 86 11/21/20 08:49 Resp 18 11/21/20 07:43 BP 161/78 H 11/21/20 08:48 Pulse Ox 97 11/21/20 07:43 Intake & Output 11/20/20 11/21/20 11/21/20 18:59 06:59 18:59 Intake Total 107.5 / 107.5 Balance 107.5 / 107.5 Intake: Intake, IV Amount 107.5 / 107.5 levETIRAcetam 750 mg In 0.9 % 107.5 / 107.5 Sodium Chloride 100 ml @ 400 mls/hr IV Q12H [facility] Rx#: [id number] Other: Number of Unmeasured Voids 1 Weight 117.934 kg Weight 117.934 kg - Constitutional Present: no acute distress - Routine HEENT Exam Head: Present: normal inspection Eye: Present: EOMI - Routine Neck Exam Present: supple. Absent: lymphadenopathy - Routine Respiratory Exam Present: CTAB - Routine Cardiovascular Exam Cardiovascular: Present: RRR, S1, S2 - Routine Extremities Exam Absent: pedal edema Hem/Onc Consult Result - Labs CBC & Chem 7: 11/21/20 05:53 11/21/20 05:53 Labs: Short CBC 11/20/20 11/21/20 Range/Units 17:20 05:53 WBC 6.4 6.5 (4.8-10.8) X10*3/uL Hgb 12.4 12.4 (12.0-16.0) g/dl Hct 37.0 37.1 (37-47) % Plt Count 238 261 (160-400) X10*3/uL BMP 11/20/20 11/21/20 17:21 05:53 Sodium 138 137 Potassium 4.0 4.4 Chloride 103 102 Carbon Dioxide 25 24 BUN 15 15 Creatinine 0.81 0.76 Calcium 9.4 9.4 Liver Function 11/20/20 Range/Units 17:21 Total Bilirubin 0.3 (0.0-1.0) mg/dL AST 22 (5-31) U/L ALT 13 (0-31) U/L Alkaline Phosphatase 85 (39-117) U/L Albumin 4.1 (3.5-5.0) g/dL Urine 11/20/20 Range/Units 19:54 Urine Color YELLOW Urine Appearance CLEAR Urine pH 7.5 (5.0-8.0) Ur Specific Enigma 1.015 (1.005-1.025) Urine Protein NEG (NEG-TRACE) MG/DL Urine Glucose (UA) NEG (NEG) MG/DL Assessment and Plan (1) Small cell carcinoma of lung Status: Acute 1. This is a 65-year-old woman with Small cell lung Cancer originating in the left upper lobe. Patient received systemic therapy with carboplatin/etoposide from 03/06/2019. Received concurrent adjuvant radiation therapy from 05/14/2019 to 07/23/19. She underwent prophylactic brain radiation in November 2019. She developed local recurrence in April 2020 and started back on systemic therapy /chemotherapy with carboplatin/etoposide and atezolizumab from 05/07/2020. PET-CT in August 2020 showed interval decrease in size of left upper lobe lung mass and resolution of disease in the mediastinum. Unfortunately she has now been diagnosed with new solitary brain metastasis in the left anterior frontal lobe measuring 3 x 1.9 x 1.7 cm. I have ordered CT chest/abdomen and pelvis with contrast to see if there is progressive cancer. Depending on that, recommendation for neuro surgical evaluation versus radiotherapy evaluation can be performed. Continue steroid, dexamethasone 4 mg p.o. b.i.d.. She can be discharged home. I will get in touch with neurosurgery and radiation oncologist at [facility]. I thank you for this consultation.
--- NOTE | 2020-11-21 11:55 | MHC.CM.PN ---
PT REPORTS SHE LIVES ALONE AND HER DAUGHTER LIVES NEARBY. PT REPORTS SHE DOES NOT HAVE ANY SERVICES AT HOME AND IS NOT INTERESTED IN [facility] SHE DOES NOT FEEL THEY ARE BENEFICIAL. PT REPORTS SHE HAS A CANE SHE USES FOR AMBULATING, SHE HAS OXYGEN AND A NEBULIZER SHE USES PRN. PT HAS A HCP ON FILE AND REPORTS HER PCP IS SCOTT TERRAZAS AT [facility]. PT CURRENT DC PLAN IS HOME WITH NO SERVICES PTS DAUGHTER WILL PROVIDE TRANSPORTATION PT WAS GIVEN BOTH [facility] AND MEDICARE RIGHTS.
--- NOTE | 2020-11-21 12:08 | P.CNNE_ITS ---
History of Present Illness Data of Consult Service Date: 11/21/20 Primary Care Provider: Unknown Physician 65 years old woman with underlying history of COPD and lung cancer diagnosed in 2019 treated with chemo surgery and whole brain radiation. She has been complaining of a headache for a while and that prompted imaging. Because of her insurance issues she could not have MRI in this hospital and that was done in [facility]. Consultation was requested after that. Review of Systems Review of Systems: She has been complaining of dizziness and headache. There was no recent cold or flu-like illness. No seizure-like episode was noted. [facility], [facility] Past Medical History Medical History Arthritis COPD (chronic obstructive pulmonary disease) Depression Diverticulitis Encounter for colonoscopy due to history of colonic polyp History of diverticulitis of colon History of hepatitis Hypertension Hypothyroidism Traumatic brain injury Family History Family History Brother Diabetes Father Surgical History Surgical History H/O section Hx of breast reduction, elective S/P bronchoscopy with biopsy Social History Social History Household Members: None Housing: Apartment Do you presently have visiting nurse or other home services: No Alcohol intake: never Smoking Status: Former smoker Tobacco Type: Cigarette Packs Per Day: 1 Years Smoked: 53 Smoked in Last 30 Days: No Patient Interested in Nicotine Replacement: No Patient Given Instructions on How to Stop Smoking: No Second Hand Smoke Exposure: No Use of substances other than those prescribed or required for medical reasons: Yes Substance Use Type: Marijuana Substance Use Frequency: Occasionally Last Used Substance: Days (ago) Currently Displaying Signs/Symptoms of Drug Intoxication Withdrawal: No Any prior treatment program specific to substance use: No Have you been hit, kicked, punched, or otherwise hurt by someone within the past year? If so, by whom?: No Do you feel safe in your current relationship?: No Current Relationship Is there a partner from a previous relationship who is making you feel unsafe now?: No Are you made to feel afraid or neglected: No Advance Directives: Yes Advance Directives on File: Yes Advance Directives Date on File: 05/01/20 Do you have thoughts of harming others: None Do you have a plan to hurt others: No Plan Recently lost weight without trying: No How much weight loss: Unsure Eating poorly because of decreased appetite: No Nutrition screen score: 2 Nutrition Risks: No Nutritional Risk Patient : No : No Poor oral hygiene: No service: Yes Current occupational status: retired Meds Allergies Allergy/AdvReac Type Severity Reaction Status Date / Time penicillin V Allergy Unknown Unknown Verified 11/06/20 10:11 Penicillins [PCN] Allergy Unknown HIVES Verified 11/06/20 10:11 shellfish derived Allergy Unknown UNKNOWN Verified 11/06/20 10:11 [SHELLFISH DERIVED] Active Medications: Current Medications Generic Name Dose Route Start Last Admin Trade Name Freq PRN Reason Stop Dose Admin Acetaminophen 650 mg 11/20/20 21:13 Acetaminophen 325 Mg Tablet PO Q6H PRN Pain, Mild (Pain Scale 1-3) Albuterol Sulfate 2 puff 11/20/20 21:16 Albuterol Sulfate 90 Mcg 8 Gm Inhaler INHALE Q6H PRN Shortness Of Breath Atenolol 25 mg 11/21/20 09:00 11/21/20 08:48 Atenolol 25 Mg Tablet PO 25 mg DAILY SAM Administration Protocol Bupropion HCl 150 mg 11/21/20 09:00 11/21/20 08:49 Bupropion Hcl Xl 150 Mg Tab.Er.24h PO 150 mg DAILY SAM Administration Dexamethasone Sodium Phosphate 4 mg 11/21/20 09:00 11/21/20 08:49 Dexamethasone Sod Phosphate 4 Mg/Ml Vial IVPUSH 4 mg QID SAM Administration Docusate Sodium 100 mg 11/21/20 09:00 11/21/20 08:49 Docusate Sodium 100 Mg Capsule PO 100 mg BID SAM Administration Docusate Sodium 100 mg 11/21/20 09:00 11/21/20 08:49 Docusate Sodium 100 Mg Capsule PO Not Given DAILY SAM Duloxetine HCl 30 mg 11/21/20 09:00 11/21/20 08:48 Duloxetine Hcl 30 Mg Capsule.Dr PO 30 mg DAILY SAM Administration Famotidine 20 mg 11/21/20 09:00 11/21/20 08:49 Famotidine/Pf 20 Mg/2 Ml Vial IVPUSH 20 mg BID SAM Administration Fluticasone/Vilanterol 2 puff 11/21/20 09:00 11/21/20 08:47 Fluticasone/Vilanterol 200/25 Blst.W.Dev INHALE 2 puff BID [facility] Administration Levetiracetam 750 mg/ Sodium 107.5 mls @ 400 mls/hr 11/21/20 09:30 11/21/20 10:37 Chloride IV Infused Q12H [facility] Infusion Levothyroxine Sodium 12.5 mcg 11/21/20 06:00 11/21/20 05:44 Levothyroxine Sodium 25 Mcg Tablet PO 12.5 mcg DAILY@0600 SAM Administration Levothyroxine Sodium 125 mcg 11/21/20 06:00 11/21/20 05:44 Levothyroxine Sodium 125 Mcg Tablet PO 125 mcg DAILY@0600 [facility] Administration Magnesium Hydroxide 30 ml 11/20/20 21:13 Milk Of Magnesia 30 Ml Oral.Susp PO DAILY PRN Constipation Nortriptyline HCl 20 mg 11/21/20 21:00 Nortriptyline Hcl 10 Mg Capsule PO BEDTIME [facility] Oxycodone HCl 5 mg 11/21/20 00:28 11/21/20 10:06 Oxycodone Hcl Immed Release 5 Mg Tablet PO 5 mg Q6H PRN Administration [facility] Consult 1 each 11/20/20 18:11 Consult Rx Perform Med Rec MISCELLANE ONCE PRN Consult order Sodium Chloride 3 ml 11/21/20 00:00 11/21/20 08:49 0.9 % Sodium Chloride Flush 3 Ml Syringe IVFLUSH 3 ml QSHIFT [facility] Administration Home Medications Medication Instructions Recorded Confirmed Last Taken Type budesonide-formoterol 2 puff INHALATION BID 04/10/20 11/20/20 11/20/20 History bupropion HCl 200 mg PO DAILY 04/10/20 11/20/20 11/20/20 History docusate sodium [Stool Softener] 100 mg PO DAILY 04/10/20 11/20/20 11/20/20 History levothyroxine 137 mcg PO DAILY 04/10/20 11/20/20 11/20/20 History nortriptyline 20 mg PO BEDTIME 04/10/20 11/20/20 11/19/20 History omeprazole 20 mg PO DAILY 05/01/20 11/20/2011/20/21 History albuterol sulfate 2 puff INHALATION Q6H PRN 11/20/20 11/20/20 Unknown History atenolol 25 mg PO DAILY 11/20/20 11/20/20 11/20/20 History duloxetine 30 mg PO DAILY 11/20/20 11/20/20 11/20/20 History meloxicam 15 mg PO BEDTIME 11/20/20 11/20/20 11/19/20 History vjqcmfsn-hnv-pcbb-folic-vit K1 2 tab PO DAILY 11/20/20 11/20/20 11/20/20 History [Centrum Chewables] tiotropium bromide [Spiriva 2 puff INHALATION DAILY 11/20/20 11/20/20 11/20/20 History Respimat] Physical Exam Vital Signs: Vital Signs: Last Vital Signs Temp 97.5 F 11/21/20 07:43 Pulse 86 11/21/20 08:49 Resp 18 11/21/20 07:43 BP 161/78 H 11/21/20 08:48 Pulse Ox 97 11/21/20 07:43 Body Mass Index 44.6 She was alert and awake with normal spontaneity of speech fluency comprehension and affect. Pupils were equal and reactive to light and extraocular muscles were intact. Visual hightower are full to confrontation. Face was symmetrical. There was no pronator drift. Fhtimd-cd-[id number] testing was normal. Deep tendon reflexes were trace to absent. Plantars were flexor. Results Labs CBC & Chem 7: 11/21/20 05:53 11/21/20 05:53 Labs: Short CBC 11/20/20 11/21/20 Range/Units 17:20 05:53 WBC 6.4 6.5 (4.8-10.8) X10*3/uL Hgb 12.4 12.4 (12.0-16.0) g/dl Hct 37.0 37.1 (37-47) % Plt Count 238 261 (160-400) X10*3/uL BMP 11/20/20 11/21/20 17:21 05:53 Sodium 138 137 Potassium 4.0 4.4 Chloride 103 102 Carbon Dioxide 25 24 BUN 15 15 Creatinine 0.81 0.76 Calcium 9.4 9.4 Liver Function 11/20/20 Range/Units 17:21 Total Bilirubin 0.3 (0.0-1.0) mg/dL AST 22 (5-31) U/L ALT 13 (0-31) U/L Alkaline Phosphatase 85 (39-117) U/L Albumin 4.1 (3.5-5.0) g/dL Urine 11/20/20 Range/Units 19:54 Urine Color YELLOW Urine Appearance CLEAR Urine pH 7.5 (5.0-8.0) Ur Specific Weinert 1.015 (1.005-1.025) Urine Protein NEG (NEG-TRACE) MG/DL Urine Glucose (UA) NEG (NEG) MG/DL She had a brain MRI done in [facility] that revealed a 3 cm left f rontal lesion that was suggestive of a metastatic lesion with surrounding edema. According to her oncologist a recent PET scan did not revealed worsening of disease but rather reveal resolution of previous lesions. Assessment and Plan (1) Brain malignant neoplasm: Qualifiers: Malignant neoplasm of brain location: frontal lobe Qualified Code(s): C71.1 - Malignant neoplasm of frontal lobe Status: Acute 65 years old woman with underlying history of lung cancer presented with a brain MRI revealing left frontal metastatic type lesion in complain of headache and dizziness. Her symptoms were going on for a while. There was no history of any seizure. At this time my recommendation is to not start her on antiepileptic, treat headache with p.r.n. Fioricet type of medicines, and consider a Neurooncology or neurosurgery consultation for possible surgical treatment of this lesion. In the meantime Decadron can also be tried.
[2020-11-21] MEDS: iohexoL 350 MG/ML 100 ML INFUS..BTL IV (17:11)
[2020-11-21] MEDS: Nortriptyline HCl 10 MG CAPSULE 20 MG PO (21:37)
[2020-11-22] VITALS (8 sets, daily range): BP systolic 142–183; BP diastolic 75–96; PULSE 60–84; RESP 18–20; TEMP 35.8–36.6; O2SAT 94–100
[2020-11-22] MEDS: Levothyroxine Sodium 125 MCG TABLET PO (06:02)
[2020-11-22] MEDS: Levothyroxine Sodium 25 MCG TABLET 12.5 MCG PO (06:02)
[2020-11-22] MEDS: Fluticasone/Vilanterol 200/25 BLST.W.DEV 2 PUFF INHALE (08:11)
[2020-11-22] MEDS: levETIRAcetam 750 MG in 0.9 % Sodium Chloride 100 ML 400 MG IV ×2 (10:01→20:52)
[2020-11-22] MEDS: Docusate Sodium 100 MG CAPSULE PO (10:02)
[2020-11-22] MEDS: dexAMETHasone sod phosphate 4 MG/ML VIAL IVPUSH ×4 (10:02→20:52)
[2020-11-22] MEDS: 0.9 % Sodium Chloride Flush 3 ML SYRINGE IVFLUSH ×3 (10:02→20:52)
[2020-11-22] MEDS: Famotidine/PF 20 MG/2 ML VIAL IVPUSH ×2 (10:02→20:52)
[2020-11-22] MEDS: DULoxetine HCl 30 MG CAPSULE.DR PO (10:02)
[2020-11-22] MEDS: atenoloL 25 MG TABLET PO (10:04)
[2020-11-22] MEDS: buPROPion HCl XL 150 MG TAB.ER.24H PO (10:04)
--- NOTE | 2020-11-22 12:41 | P.PNIM_ITS ---
Subjective Subjective Date of Service: 11/22/20 Interval History: She has no nause or vomiting and has no headache Review of Systems General no fever, chills. CVS no chest pain, no palpitation. Respiratory no cough, no sob. Gastrointestinal + nausea, no vomiting, no abdominal pain Neuro no focal finding Physical Exam Vital Signs: Vital Signs: Last Vital Signs Temp 97.8 F 11/22/20 11:47 Pulse 68 11/22/20 11:47 Resp 18 11/22/20 11:47 BP 183/92 H 11/22/20 11:47 Pulse Ox 100 11/22/20 11:47 Body Mass Index 44.6 Const: Other: General no acute distress. Neck supple no JVD. CVS regular rate rhythm, Respiratory lungs clear to auscultation, no respiratory distress, no wheeze, no rhonchi. Gastrointestinal abdomen soft, nontender, bowel sounds audible, no guarding , no rigidity. Extremities no clubbing cyanosis or edema. Neuro nonfocal ,speech clear. Skin no rash Objective Data Current Medications Generic Name Dose Route Start Last Admin Trade Name Freq PRN Reason Stop Dose Admin Acetaminophen 650 mg 11/20/20 21:13 Acetaminophen 325 Mg Tablet PO Q6H PRN Pain, Mild (Pain Scale 1-3) Albuterol Sulfate 2 puff 11/20/20 21:16 Albuterol Sulfate 90 Mcg 8 Gm Inhaler INHALE Q6H PRN Shortness Of Breath Atenolol 25 mg 11/21/20 09:00 11/22/20 10:04 Atenolol 25 Mg Tablet PO 25 mg DAILY SAM Administration Protocol Bupropion HCl 150 mg 11/21/20 09:00 11/22/20 10:04 Bupropion Hcl Xl 150 Mg Tab.Er.24h PO 150 mg DAILY SAM Administration Dexamethasone Sodium Phosphate 4 mg 11/21/20 09:00 11/22/20 10:02 Dexamethasone Sod Phosphate 4 Mg/Ml Vial IVPUSH 4 mg QID SAM Administration Docusate Sodium 100 mg 11/21/20 09:00 11/22/20 10:02 Docusate Sodium 100 Mg Capsule PO 100 mg BID SAM Administration Docusate Sodium 100 mg 11/21/20 09:00 11/22/20 10:03 Docusate Sodium 100 Mg Capsule PO Not Given DAILY SAM Duloxetine HCl 30 mg 11/21/20 09:00 11/22/20 10:02 Duloxetine Hcl 30 Mg Capsule.Dr PO 30 mg DAILY SAM Administration Famotidine 20 mg 11/21/20 09:00 11/22/20 10:02 Famotidine/Pf 20 Mg/2 Ml Vial IVPUSH 20 mg BID SAM Administration Fluticasone/Vilanterol 2 puff 11/21/20 09:00 11/22/20 08:11 Fluticasone/Vilanterol 200/25 Blst.W.Dev INHALE 2 puff BID SAM Administration Levetiracetam 750 mg/ Sodium 107.5 mls @ 400 mls/hr 11/21/20 09:30 11/22/20 10:27 Chloride IV Infused Q12H SAM Infusion Levothyroxine Sodium 12.5 mcg 11/21/20 06:00 11/22/20 06:02 Levothyroxine Sodium 25 Mcg Tablet PO 12.5 mcg DAILY@0600 SAM Administration Levothyroxine Sodium 125 mcg 11/21/20 06:00 11/22/20 06:02 Levothyroxine Sodium 125 Mcg Tablet PO 125 mcg DAILY@0600 SAM Administration Magnesium Hydroxide 30 ml 11/20/20 21:13 Milk Of Magnesia 30 Ml Oral.Susp PO DAILY PRN Constipation Nortriptyline HCl 20 mg 11/21/20 21:00 11/21/20 21:37 Nortriptyline Hcl 10 Mg Capsule PO 20 mg BEDTIME SAM Administration Oxycodone HCl 5 mg 11/21/20 00:28 11/21/20 19:43 Oxycodone Hcl Immed Release 5 Mg Tablet PO 5 mg Q6H PRN Administration [facility] Consult 1 each 11/20/20 18:11 Consult Rx Perform Med Rec MISCELLANE ONCE PRN Consult order Sodium Chloride 3 ml 11/21/20 00:00 11/22/20 10:02 0.9 % Sodium Chloride Flush 3 Ml Syringe IVFLUSH 3 ml QSHIFT SAM Administration Labs CBC & Chem 7: 11/21/20 05:53 11/21/20 05:53 Assessment and Plan (1) Headache: Status: Acute (2) Brain malignant neoplasm: Status: Acute (3) Small cell carcinoma of lung: Status: Acute (4) Hypertension: Status: Acute (5) Hypothyroidism: Status: Acute Assessment and Plan: 65-year-old female with a past medical history of COPD, hypothyroidism, depression, history of metastatic lung cancer status post chemotherapy, radiotherapy presented to the hospital today with a chief complaint of headache; MRI showed left frontal enhancing mass. Headache due to brain metastasis with underlying h/o small cell lung ca--better on decadron MRI done at [facility] for persistent headache worsening over last 2 weeks, MRI showed heterogeneous enhancing mass in the left anterior frontal lobe with mild surrounding edema with minimal effacement of the left frontal horn and local sulcal effacement no midline shift or effacement of the basal cisterns. Continue iv Decadron 4 mg every 6 hours. Will keep the patient on Keppra prophylactically, will change to by mouth Keppra 500 twice daily and will discuss with Neurology for further recommendation. Await Oncology input, patient primary oncologist is Dr. Saunders to arrange further management, outoatuebt XRT a Continue seizure precautions. No neuro deficits noted, neurology recommemend Keppra for seizure prophylaxis Lung CA--CT of abdomen and Pelvis, chest--shows extensive mediastinal disease--Oncology to decide on next step There is a question of clot left brachail cephalic vein will get US COPD: Stable Hypertension/hyperlipidemia: Continue home medications DVT prophylaxis: Add Lovenox Code status: Full code
[2020-11-22] MEDS: oxyCODONE HCl Immed Release 5 MG TABLET PO (19:47)
[2020-11-22] MEDS: Nortriptyline HCl 10 MG CAPSULE 20 MG PO (20:51)
[2020-11-23] MEDS: oxyCODONE HCl Immed Release 5 MG TABLET PO ×2 (01:06→10:21)
[2020-11-23 03:53] VITALS: RESP 18
[2020-11-23] MEDS: Levothyroxine Sodium 25 MCG TABLET 12.5 MCG PO (07:02)
[2020-11-23] MEDS: Levothyroxine Sodium 125 MCG TABLET PO (07:06)
[2020-11-23 07:38] VITALS: BP 144/81; PULSE 84; RESP 18; TEMP 36.2; O2SAT 98
--- NOTE | 2020-11-23 07:49 | P.EN_ITS ---
Images reviewed, she has progressive disease. She will be referred to radiation oncology at [facility] as out pt. Can LEONARD barone and send pt home on oral dexamethasone 2 mg bid. Thank you.
[2020-11-23] MEDS: Fluticasone/Vilanterol 200/25 BLST.W.DEV 2 PUFF INHALE (08:22)
[2020-11-23 08:23] VITALS: PULSE 92; O2SAT 97
--- NOTE | 2020-11-23 09:05 | PM.DS ---
DS: Providers Provider Date of Service: 11/23/20 Date of admission: 11/20/20 21:14 Primary care physician: Unknown Physician Consults: 11/20/20 21:19 Consult to Hematology / Oncology Routine Consulting Provider: Fernando Snell Reason for consultation: Lung ca with brain mets Consult to Neurology Routine Consulting Provider: [facility] Reason for consultation: brain mets; headache DS: Diagnosis Discharge Diagnosis (1) Headache: Status: Acute (2) Brain malignant neoplasm: Status: Acute (3) Small cell carcinoma of lung: Status: Acute (4) Hypertension: Status: Acute (5) Hypothyroidism: Status: Acute DS: Medications Discharge Medications Home Medications: Home Medications Medication Instructions Recorded Confirmed budesonide-formoterol 2 puff INHALATION BID 04/10/20 11/20/20 bupropion HCl 200 mg PO DAILY 04/10/20 11/20/20 docusate sodium [Stool Softener] 100 mg PO DAILY 04/10/20 11/20/20 levothyroxine 137 mcg PO DAILY 04/10/20 11/20/20 nortriptyline 20 mg PO BEDTIME 04/10/20 11/20/20 omeprazole 20 mg PO DAILY 05/01/20 11/20/20 Centrum Chewables 2 tab PO DAILY 11/20/20 11/20/20 Spiriva Respimat 2 puff INHALATION DAILY 11/20/20 11/20/20 albuterol sulfate 2 puff INHALATION Q6H PRN 11/20/20 11/20/20 atenolol 25 mg PO DAILY 11/20/20 11/20/20 duloxetine 30 mg PO DAILY 11/20/20 11/20/20 meloxicam 15 mg PO BEDTIME 11/20/20 11/20/20 Previous Rx's Medication Instructions Recorded dexamethasone [Decadron] 4 mg PO BID #20 tab 11/22/20 levetiracetam [Keppra] 750 mg PO Q12H #60 tab 11/22/20 oxycodone 5 mg PO Q6H PRN #28 tab 11/23/20 rivaroxaban [Xarelto] 15 mg PO BID 21 Days #41 tab 11/23/20 rivaroxaban [Xarelto] 20 mg PO QPM #30 tab 11/23/20 DS: Summary Hospital Course Hospital Course: 65-year-old female with a past medical history of COPD, hypothyroidism, depression, history of metastatic lung cancer status post chemotherapy, radiotherapy presented to the hospital today with a chief complaint of headache; MRI showed left frontal enhancing mass consistent with Mets that was seen on recent MRI that was done at [facility]. Paitient was admitted for pain control and dizziness--both symptoms are not new. She was evaluated by Neurology Dr. Barreto and started preventively on Keppra but at discharge discussed with Dr. Saunders and not indicated. Of Note she had CT of chest and abdomen which showed singificant disease progression in chest, addrenals as detailed below arge left upper lobe para mediastinal mass with direct extension to the mediastinum involving the left hilum. There is moderate narrowing of upper lobe branch left pulmonary artery There is new large lymphadenopathy in the right pretracheal space, subcarinal space and infrahilar region. Small new lymph nodes are seen in the prevascular space as well. Mild filling defect in the left brachiocephalic vein suspicious of small thrombus. Right central port tip lies in the proximal SVC. Left adrenal enlargement suspicious for metastatic process. As for possible brichiocephalic vein thrombus, patient says that this has been previously seen before and we discussed anticoagulation with Xarelto on oncology advised and she is agreable to take Xarelto. Dr. Saunders will arrange for outpatient follow-up for possible radiation therapy. COPD: Stable Hypertension/hyperlipidemia: Continue home medications Time Spent with Patient Time attestation: Total time spent providing and/or coordinating discharge services: Discharge coordination time: Greater than 30 minutes Quality: Stroke Does the patient have a stroke diagnosis?: No Physical Exam Vital Signs: Vital Signs: Last Vital Signs Temp 97.1 F 11/23/20 07:38 Pulse 92 11/23/20 08:23 Resp 18 11/23/20 07:38 BP 144/81 H 11/23/20 07:38 Pulse Ox 98 11/23/20 07:38 Body Mass Index 44.6 Discharge Plan Discharge Anticipated Discharge Date/Time: 11/22/20 10:51 Patient Disposition: Home, Self-Care Discharge Diagnosis: Brain met with headaches Referrals: Physician,Unknown [Primary Care Provider] - 1 Week Discharge Medications: New dexamethasone [Decadron] 4 mg tablet 4 mg PO BID Qty: 20 RF: 0 levetiracetam [Keppra] 750 mg tablet 750 mg PO Q12H Qty: 60 RF: 0 Xarelto 15 mg tablet 15 mg PO BID 21 Days Qty: 41 RF: 0 Xarelto 20 mg tablet 20 mg PO QPM Qty: 30 RF: 0 oxycodone 5 mg tablet 5 mg PO Q6H PRN (Reason: pain (scale score 7-10)) Qty: 28 RF: 0 Continued docusate sodium [Stool Softener] 100 mg Capsule 100 mg PO DAILY RF: 0 bupropion HCl 200 mg Tablet Sustained-Release 12 Hr 200 mg PO DAILY RF: 0 budesonide-formoterol 160-4.5 mcg/actuation Hfa Aerosol Inhaler 2 puff INHALATION BID RF: 0 levothyroxine 137 mcg Tablet 137 mcg PO DAILY RF: 0 nortriptyline 10 mg Capsule 20 mg PO BEDTIME RF: 0 Spiriva Respimat 2.5 mcg/actuation Mist 2 puff INHALATION DAILY RF: 0 meloxicam 15 mg Tablet 15 mg PO BEDTIME RF: 0 atenolol 25 mg Tablet 25 mg PO DAILY RF: 0 duloxetine 30 mg Capsule,Delayed Release(Dr/Ec) 30 mg PO DAILY RF: 0 Centrum Chewables 8 mg-400 mcg- 10 mcg Tablet,Chewable 2 tab PO DAILY RF: 0 albuterol sulfate 90 mcg/actuation Hfa Aerosol Inhaler 2 puff INHALATION Q6H PRN (Reason: Shortness Of Breath) RF: 0 omeprazole 20 mg Capsule,Delayed Release(Dr/Ec) 20 mg PO DAILY RF: 0 Discharge Orders: Discharge Order (Routine); Ordered 11/23/20 Ordered By: Bran Shoko Diet: advance to usual diet and low salt diet Activity on Discharge: As tolerated Stand Alone Forms: Patient Portal Discharge page Care Plan Goals: Headache from brain mets Health Concerns: Lung canceer with spread to brain Plan of Treatment: Take Decadron 4 mg twice a day and follow up with Dr. Saunders next week Take Xarelto as recommended (15 mg twice take a day for 21 days and then December 14, and start taking 20 mg of Xarelto daily starting December 15) Take oxycodone as directed for pain control Assessment: As above
[2020-11-23] MEDS: DULoxetine HCl 30 MG CAPSULE.DR PO (09:58)
[2020-11-23] MEDS: 0.9 % Sodium Chloride Flush 3 ML SYRINGE IVFLUSH (09:59)
[2020-11-23] MEDS: Docusate Sodium 100 MG CAPSULE PO (09:59)
[2020-11-23] MEDS: atenoloL 25 MG TABLET PO (09:59)
[2020-11-23] MEDS: buPROPion HCl XL 150 MG TAB.ER.24H PO (09:59)
[2020-11-23] MEDS: dexAMETHasone sod phosphate 4 MG/ML VIAL IVPUSH (09:59)
[2020-11-23] MEDS: Famotidine/PF 20 MG/2 ML VIAL IVPUSH (09:59)
[2020-11-23] MEDS: Rivaroxaban 15 MG TABLET PO (09:59)
[2020-11-25 23:16] LABS: Dexamethasone <20 ng/dL
== END 2020-11-23 10:30 | disposition home or self-care (01) | DRG 948 ==
LOC: HO.ED 20:33 → HO.EDOVER 21:30 → HO.S3 21:36
PROVIDERS: Admitting Provider Hospitalist; Emergency Provider Emergency Medicine Emergency Medical Services; Visit Provider Internal Medicine
DX: G89.3 Neoplasm related pain (acute) (chronic) (principal); C79.31 Secondary malignant neoplasm of brain; C34.12 Malignant neoplasm of upper lobe, left bronchus or lung; C78.1 Secondary malignant neoplasm of mediastinum; C79.72 Secondary malignant neoplasm of left adrenal gland; I82.291 Chronic embolism and thrombosis of other thoracic veins; E03.9 Hypothyroidism, unspecified; F32.9 Major depressive disorder, single episode, unspecified; I10 Essential (primary) hypertension; E78.5 Hyperlipidemia, unspecified; Z20.822 Contact with and (suspected) exposure to COVID-19; Z87.891 Personal history of nicotine dependence; Z88.0 Allergy status to penicillin; Z79.1 Long term (current) use of non-steroidal anti-inflammatories (NSAID); Z79.01 Long term (current) use of anticoagulants; Z79.890 Hormone replacement therapy; Z79.899 Other long term (current) drug therapy
CPT/HCPCS: 36415; 71260; 74177; 80048; 80053; 80299; 81001; 81003; 83690; 85025; 85610; 85730; 87635; 94640; 96374; 99285; J1100; J1953; Q9967

== ENCOUNTER 2021-01-25 12:18 | Inpatient (IN) | payer OTHER, SELFPAY ==
--- NOTE | ~2021-01-25 | XR_ITS ---
EXAMINATION: BILATERAL KNEE CLINICAL INFORMATION: Pain. COMPARISON: None TECHNIQUE: 3 views each knee. FINDINGS: RIGHT KNEE: There is moderate loss of medial and patellofemoral compartment joint space with periarticular spurring. There is moderate suprapatellar joint effusion. No loose bodies or bony erosive changes seen. No acute fracture or dislocation. LEFT KNEE: There is moderate loss of medial and patellofemoral compartment joint space with moderate periarticular spurring. Mild suprapatellar joint effusion seen. There is no loose bodies. No acute fracture or dislocation. XR/XR knee RT 3V IMPRESSION: Moderate degenerative arthritic changes with periarticular spurring medial and patellofemoral compartments of both knees. There is moderate right and mild left pleural effusion. No visible acute fracture or dislocation seen.
--- NOTE | ~2021-01-25 | XR_ITS ---
EXAMINATION: BILATERAL KNEE CLINICAL INFORMATION: Pain. COMPARISON: None TECHNIQUE: 3 views each knee. FINDINGS: RIGHT KNEE: There is moderate loss of medial and patellofemoral compartment joint space with periarticular spurring. There is moderate suprapatellar joint effusion. No loose bodies or bony erosive changes seen. No acute fracture or dislocation. LEFT KNEE: There is moderate loss of medial and patellofemoral compartment joint space with moderate periarticular spurring. Mild suprapatellar joint effusion seen. There is no loose bodies. No acute fracture or dislocation. XR/XR knee LT 3V IMPRESSION: Moderate degenerative arthritic changes with periarticular spurring medial and patellofemoral compartments of both knees. There is moderate right and mild left pleural effusion. No visible acute fracture or dislocation seen.
--- NOTE | ~2021-01-25 | CT_ITS ---
EXAMINATION: CT HEAD WITH CONTRAST CLINICAL INFORMATION: Frequent falls. Metastases. COMPARISON: MR brain dated 02/26/2019. TECHNIQUE: Contiguous axial imaging was performed from the skull base to vertex following the administration of 85 mL of Omnipaque [address] examination was performed using dose optimization techniques as appropriate, variously including the following: Automated exposure control. Adjustment of mA and/or kV according to patient size (this includes techniques or standardized protocols for targeted exams where dose is matched to indication/reason for exam; i.e. extremities or head). Use of iterative reconstruction technique. DLP: 753 mGy-cm FINDINGS: There is no evidence of acute intracranial hemorrhage or territorial infarction. No abnormal mass effect or midline shift is seen. León to white matter differentiation is well preserved. No extra-axial fluid collections are identified. There is no abnormal enhancement. The ventricles are normal in size. There is no abnormal attenuation within the brain parenchyma. The osseous structures and soft tissues are normal. The mastoid air cells and visualized portions of the paranasal sinuses are well aerated. CT/CT head/brain w con IMPRESSION: No acute intracranial hemorrhage or mass effect. No enhancing parenchymal lesion.
--- NOTE | ~2021-01-25 | XR_ITS ---
EXAMINATION: XR KNEE, RIGHT CLINICAL INFORMATION: Fall onto knees COMPARISON: 01/25/2021 TECHNIQUE: Four views of the right knee. FINDINGS: Osseous alignment is anatomic. There is tricompartmental joint space narrowing and spurring consistent with moderate to severe degenerative change, most prominently in the medial compartment. No acute fracture is seen. Small to moderate joint effusion is present. Patellar soft tissue swelling is noted. XR/XR knee RT 3V IMPRESSION: No fracture identified. Small to moderate effusion. Degenerative changes.
--- NOTE | ~2021-01-25 | CT_ITS ---
EXAMINATION: CT CHEST WITHOUT CONTRAST CLINICAL INFORMATION: Pleural effusion, shortness of breath COMPARISON: 11/21/2020 TECHNIQUE: Multidetector volumetric CT imaging of the chest was done. Axial MIP volume rendering provided. Sagittal and coronal reformatted images were obtained. This CT examination was performed using dose optimization techniques as appropriate, variously including the following: *Automated exposure control *Adjustment of mA and/or kV according to patient size (this includes techniques or standardized protocols for targeted exams where dose is matched to indication/reason for exam; i.e. extremities or head) *Use of iterative reconstruction technique DLP: 591 mGy-cm FINDINGS: LUNGS: Redemonstrated left upper lobe paramediastinal soft tissue mass which is not well delineated without intravenous contrast. Overall this appears grossly similar to 11/21/2020, extending for up to approximately 8 cm in AP direction in the axial plane. There is now surrounding mixed consolidation and groundglass opacity in the left upper lobe and adjacent lower lobe which is new from prior. There is moderate upper lobe predominant emphysema. Mild groundglass opacity is noted in the posterior right upper lobe. MEDIASTINUM: Suboptimally assessed without intravenous contrast. Enlarged right paratracheal lymph node measuring approximately 2.0 cm in short axis dimension is similar to prior. Subcarinal adenopathy may be increased from prior, though this is difficult to delineate without intravenous contrast. Cardiac size is within normal limits; no pericardial effusion. Scattered atherosclerotic calcifications are present. Mild coronary artery calcification. PLEURA: Small to moderate left pleural effusion, new from prior. No pneumothorax. AXILLA: No lymphadenopathy. UPPER ABDOMEN: Excreted contrast noted in the renal calyces. Somewhat thickened appearance of the left adrenal gland again noted. OSSEOUS STRUCTURES: There are degenerative changes in the bilateral glenohumeral joints. Degenerative changes are noted in the spine. CT/CT chest wo con IMPRESSION: 1. Redemonstrated left upper lobe paramediastinal mass. There is now adjacent consolidation and groundglass opacity in the left upper and lower lobes which is new from 11/21/2020. It is difficult to determine whether this represents tumor extension or superimposed pneumonia. In the proper clinical setting, posttreatment changes would also be a consideration. 2. Small to moderate left pleural effusion, new from 11/21/2020 3. Mild ground glass opacity in the posterior right upper lobe lobe, suggesting mild infectious/inflammatory etiology. 4. Subcarinal lymphadenopathy appears slightly increased since 11/21/2020. Stable right paratracheal lymphadenopathy.
--- NOTE | ~2021-01-25 | CT_ITS ---
EXAMINATION: NONCONTRAST HEAD CT NONCONTRAST CERVICAL SPINE CT INDICATION INFORMATION: Fall COMPARISON: 01/25/2021 TECHNIQUE: Separate noncontrast CT examinations of the head and cervical spine were performed. Coronal head CT images and coronal and sagittal cervical spine images were created at the technologist workstation. DLP: 2136 mGy-cm DOSE LOWERING TECHNIQUES: This CT examination was performed using dose optimization techniques as appropriate, variously including the following: - Automated exposure control - Adjustment of mA and/or kV according to patient size (this includes techniques or standardized protocols for targeted exams were dose is matched to indication/reason for exam; i.e. extremities or head) - Use of iterative reconstruction technique FINDINGS: Head: Partially limited evaluation in some regions due to motion artifact. There is no evidence of acute intracranial hemorrhage or territorial infarction. No abnormal mass-effect or midline shift is seen. León to white matter differentiation is well preserved. No extra-axial fluid collections are identified. The ventricles are normal in size. There is moderate periventricular white matter hypoattenuation consistent with chronic small vessel ischemic disease. Mild volume loss is noted. The osseous structures and soft tissues are normal. The mastoid air cells and visualized portions of the paranasal sinuses are well-aerated. Cervical spine: There is degenerative change at the atlantodens articulation. There is anatomic alignment of the vertebral bodies and posterior elements. Vertebral body heights are maintained. There is disc space narrowing most severe in the lower cervical spine. Extensive multilevel endplate osteophytes and facet arthropathy noted. No evidence of acute fracture. No prevertebral soft tissue swelling. There is partial visualization of left upper lobe paramediastinal mass and left pleural effusion. No apical pneumothorax. CT/CT cervical spine wo con IMPRESSION: 1. Head: No acute intracranial findings. Chronic small vessel ischemic disease and volume loss. 2. Cervical spine: No acute findings identified. Multilevel degenerative changes. 3. Partially visualized paramediastinal mass in the left upper lobe along with pleural effusion.
[2021-01-25 12:23] VITALS: BP 130/71; BP 160/80; PULSE 86; TEMP 37.2; O2SAT 95; BMI 46.8
--- NOTE | 2021-01-25 12:53 | ED.GENADULT ---
HPI - General Adult General Chief complaint: Fall Stated complaint: EARL KNEE PAIN,INCREASED LETHARGY,UNABLE AMBULATE Time Seen by Provider: 01/25/21 12:52 History of Present Illness HPI narrative: Patient undergoing treatment for lung cancer with metastases to the brain complains of frequent falls and loss of balance She fell yesterday onto both knees, could not get up and called her daughter who came right over and helped her back to bed, but today she is unable to bear weight on the knees She denies headache no shortness of breath no fever no loss of consciousness no fainting Related Data Home Medications Medication Instructions Recorded Confirmed budesonide-formoterol 2 puff INHALATION BID 04/10/20 01/22/21 bupropion HCl 200 mg PO DAILY 04/10/20 01/22/21 docusate sodium [Stool Softener] 100 mg PO DAILY 04/10/20 01/22/21 levothyroxine 137 mcg PO DAILY 04/10/20 01/22/21 nortriptyline 20 mg PO BEDTIME 04/10/20 01/22/21 omeprazole 20 mg PO DAILY 05/01/20 01/22/21 Centrum Chewables 2 tab PO DAILY 11/20/20 01/22/21 Spiriva Respimat 2 puff INHALATION DAILY 11/20/20 01/22/21 albuterol sulfate 2 puff INHALATION Q6H PRN 11/20/20 01/22/21 atenolol 25 mg PO DAILY 11/20/20 01/22/21 duloxetine 30 mg PO DAILY 11/20/20 01/22/21 Previous Rx's Medication Instructions Recorded oxycodone 5 mg PO Q6H PRN #28 tab 11/23/20 Hycamtin 4 mg PO DAILY #20 cap 01/13/21 oxycodone 10 mg PO Q4H PRN #120 cap 01/13/21 zolpidem [Ambien] 10 mg PO DAILY PRN #30 tab 01/23/21 Allergies Allergy/AdvReac Type Severity Reaction Status Date / Time penicillin V Allergy Unknown Unknown Verified 11/06/20 10:11 Penicillins [PCN] Allergy Unknown HIVES Verified 11/06/20 10:11 shellfish derived Allergy Unknown UNKNOWN Verified 11/06/20 10:11 [SHELLFISH DERIVED] Review of Systems Review of Systems: Positive for frequent falls and bilateral knee pain Negatives are no fever no chills no fainting no feeling faint no headache no neck pain no chest pain no shortness of breath no abdominal pain no nausea or vomiting no burning with urination no no skin rash Yes all other systems are reviewed and are negative [facility] Past Medical History Attestation statement: The following information was validated with the patient. [facility] Narrative: Patient had recent radiation for lung cancer metastases to the brain, she takes no last the for low white cells, she is undergoing chemotherapy, she had been on Xarelto but this was stopped out of concern for bleeding from the brain metastases Source: nursing notes reviewed Medical History Arthritis COPD (chronic obstructive pulmonary disease) Depression Diverticulitis Encounter for colonoscopy due to history of colonic polyp History of diverticulitis of colon History of hepatitis Hypertension Hypothyroidism Traumatic brain injury Surgical History H/O section Hx of breast reduction, elective S/P bronchoscopy with biopsy Family History Family History Brother Diabetes Father Social History Social History Household Members: None Housing: Apartment Do you presently have visiting nurse or other home services: No Alcohol intake: never Patient Tobacco Use Status: Former Tobacco user Cigarette Packs Per Day: 1 Years Smoked: 53 Second Hand Smoke Exposure: No Use of substances other than those prescribed or required for medical reasons: No Substance Use Type: Marijuana Advance Directives: Yes Advance Directives on File: Yes Advance Directives Date on File: 05/01/20 service: Yes Current occupational status: retired Physical Exam Vital Signs: Vital Signs: Last Vital Signs Temp 99 F 01/25/21 12:23 Pulse 83 01/25/21 15:44 BP 127/64 01/25/21 15:44 Pulse Ox 96 01/25/21 14:23 Oxygen Flow Rate 2 01/25/21 12:23 Body Mass Index 46.8 General appearance is no acute distress, patient is A&O x3 and interacts normally The head is normocephalic atraumatic pupils equal round reactive to light, extraocular motions are intact The neck is supple and nontender The chest had clear breath sounds, no adventitious sounds auscultated Heart no murmur Abdomen soft nontender Extremities the upper extremities have full range of motion The knee exam the right knee had tenderness over the patella, patient could do a straight leg raise there was no obvious swelling or deformity and neurovascular intact distal There was no calf swelling or tenderness, skin was intact The left knee had some tenderness less so than the right knee and tenderness again was over the patella, there is no laceration, skin was normal, no calf tenderness or swelling and neurovascular intact distal Skin no rash Neuro no gross motor or sensory deficit, patient is A&O x3, speech both expression and comprehension are normal Course Course Course Narrative: X-rays of both knees showed arthritis with small effusions but no evidence of fracture or any emergent traumatic condition No acute new lab abnormalities CT with IV contrast pending and case is signed out to physician pharmacist assistant bouchra to follow CT results and dispo patient who may be offered option of rehab placement if she cannot walk due to her knee pain Dr. Saunders also requested to be informed of results of today's workup Medical Decision Making Lab Data Lab results reviewed: Yes I reviewed the patient's lab results. Result diagrams: 01/25/21 13:22 01/25/21 13:22 Labs: Lab Results 01/25/21 01/25/21 01/25/21 Range/Units 13:22 13:22 14:52 WBC 1.4 L (4.8-10.8) X10*3/uL RBC 3.05 L (4.20-5.50) X10*6/uL Hgb 10.0 L (12.0-16.0) g/dl Hct 29.0 L (37-47) % MCV 95.1 (80-98) fL MCH 32.8 (27.0-33.0) pg MCHC 34.5 (31.0-35.0) g/dl RDW 12.6 (11.0-16.0) % Plt Count 83 L D (160-400) X10*3/uL MPV 9.5 (9.4-12.3) fL Immature Gran % (Auto) Cancelled Neut % (Auto) Cancelled Lymph % (Auto) Cancelled [place] % (Auto) Cancelled Eos % (Auto) Cancelled Baso % (Auto) Cancelled Lymph # (Auto) Cancelled [place] # (Auto) Cancelled Eos # (Auto) Cancelled Baso # (Auto) Cancelled Abs Immat Gran (auto) Cancelled Absolute Neuts (auto) Cancelled Absolute Nucleated RBC 0.000 (0.0-0.012) X10*3/uL Nucleated RBC % (auto) 0.0 (0.0-0.2) /100WBC Neutrophils % (Manual) 39 L (45-73) % Band Neutrophils % 8 H (3-5) % Lymphocytes % (Manual) 51 H (20-40) % Monocytes % (Manual) 2 (2-11) % Abs Neuts (Manual) 0.7 L (2.2-7.9) X10*3/uL Lymphocytes # (Manual) 0.7 (0.6-4.8) X10*3/uL Platelet Estimate SLIGHTLY DECREASED (NORMAL) Plt Morphology Comment NORMAL RBC Morphology NOTED Hypochromasia 1+ (5-14) /OIF Sodium 137 (135-145) mmol/L Potassium 3.8 (3.3-5.1) mmol/L Chloride 99 (96-108) mmol/L Carbon Dioxide 29 (22-29) mmol/L Anion Gap 13 (12-20) BUN 11 (9-16) mg/dL Creatinine 0.72 (0.5-1.4) mg/dL Estim Creat Clear Calc 99.9 Estimated GFR > 60 Random Glucose 121 H (60-115) mg/dL Calcium 9.0 (8.4-10.2) mg/dL Total Bilirubin 1.2 H (0.0-1.0) mg/dL Direct Bilirubin 0.4 (0.0-0.5) mg/dL AST 24 (5-31) U/L ALT 12 (0-31) U/L Alkaline Phosphatase 66 (39-117) U/L Total Protein 6.2 L (6.5-8.0) g/dL Albumin 3.8 (3.5-5.0) g/dL Urine Color YELLOW Urine Appearance CLEAR Urine pH 7.0 (5.0-8.0) Ur Specific Unity <= 1.005 (1.005-1.025) Urine Protein NEG (NEG-TRACE) MG/DL Urine Glucose (UA) NEG (NEG) MG/DL Urine Ketones NEG (NEG) MG/DL Urine Blood 1+ H (NEG) Urine Nitrite NEG (NEG) Ur Leukocyte Esterase NEG (NEG) Urine RBC 5-9 H (0) /HPF Urine WBC 0-2 (0-4) /HPF Ur Squamous Epith Cells 4+ /LPF Urine Bacteria 1+ /LPF Discharge Plan Discharge Prescriptions: No Action docusate sodium [Stool Softener] 100 mg Capsule 100 mg PO DAILY RF: 0 bupropion HCl 200 mg Tablet Sustained-Release 12 Hr 200 mg PO DAILY RF: 0 budesonide-formoterol 160-4.5 mcg/actuation Hfa Aerosol Inhaler 2 puff INHALATION BID RF: 0 levothyroxine 137 mcg Tablet 137 mcg PO DAILY RF: 0 nortriptyline 10 mg Capsule 20 mg PO BEDTIME RF: 0 oxycodone 5 mg Capsule 10 mg PO Q4H PRN (Reason: Chest Pain) Qty: 120 RF: 0 Hycamtin 1 mg Capsule 4 mg PO DAILY Qty: 20 RF: 3 zolpidem [Ambien] 10 mg Tablet 10 mg PO DAILY PRN (Reason: Insomnia) Qty: 30 RF: 0 Spiriva Respimat 2.5 mcg/actuation Mist 2 puff INHALATION DAILY RF: 0 atenolol 25 mg Tablet 25 mg PO DAILY RF: 0 duloxetine 30 mg Capsule,Delayed Release(Dr/Ec) 30 mg PO DAILY RF: 0 Centrum Chewables 8 mg-400 mcg- 10 mcg Tablet,Chewable 2 tab PO DAILY RF: 0 albuterol sulfate 90 mcg/actuation Hfa Aerosol Inhaler 2 puff INHALATION Q6H PRN (Reason: Shortness Of Breath) RF: 0 oxycodone 5 mg tablet 5 mg PO Q6H PRN (Reason: pain (scale score 7-10)) Qty: 28 RF: 0 omeprazole 20 mg Capsule,Delayed Release(Dr/Ec) 20 mg PO DAILY RF: 0
[2021-01-25 13:26] LABS: Mean Corpuscular HGB Conc 34.5 g/dl (31.0-35.0); Mean Corpuscular Hemoglobin 32.8 pg (27.0-33.0); Mean Corpuscular Volume 95.1 fL (80-98); Mean Platelet Volume 9.5 fL (9.4-12.3); Red Blood Count 3.05 X10*6/uL (4.20-5.50); Red Cell Distribution Width 12.6 % (11.0-16.0)
[2021-01-25] MEDS: dexAMETHasone sod phosphate 10 MG/ML VIAL IVPUSH (13:38)
[2021-01-25 13:44] LABS: WBC ABN SCTR FOR CBC 1
[2021-01-25 13:59] LABS: Band Neutrophils Percent 8 % (3-5); Lymphocytes Percent Manual 51 % (20-40); Monocytes Percent Manual 2 % (2-11); Neutrophils Percent Manual 39 % (45-73)
[2021-01-25 14:02] LABS: Hypochromasia 1+ (5-14) /OIF; RBC Morphology NOTED
[2021-01-25 14:03] LABS: Alanine Aminotransferase 12 U/L (0-31); Albumin Level 3.8 g/dL (3.5-5.0); Alkaline Phosphatase 66 U/L (39-117); Anion Gap 13 (12-20); Aspartate Amino Transferase 24 U/L (5-31); Bilirubin Direct 0.4 mg/dL (0.0-0.5); Bilirubin Total 1.2 mg/dL (0.0-1.0); Blood Urea Nitrogen 11 mg/dL (9-16); Carbon Dioxide 29 mmol/L (22-29); Chloride 99 mmol/L (96-108); Creatinine Clr Calc Pharmacy 99.9; Estimated Glomerular Filt Rate > 60; Glucose Random 121 mg/dL (60-115); Platelet Estimate SLIGHTLY DECREASED (NORMAL); Platelet Morphology Comment NORMAL; Potassium 3.8 mmol/L (3.3-5.1); Sodium 137 mmol/L (135-145); Total Protein 6.2 g/dL (6.5-8.0)
[2021-01-25 14:06] LABS: Lymphocytes Absolute Manual 0.7 X10*3/uL (0.6-4.8); Neutrophils Absolute Manual 0.7 X10*3/uL (2.2-7.9); Platelet Count 83 X10*3/uL (160-400); White Blood Count 1.4 X10*3/uL (4.8-10.8)
[2021-01-25 14:23] VITALS: PULSE 83; O2SAT 96
[2021-01-25 14:57] LABS: Glucose Urine UA NEG (NEG); Leukocyte Esterase Urine NEG (NEG); Nitrite Urine NEG (NEG); Specific Gravity - Urine <= 1.005 (1.005-1.025); Urine Blood 1+ (NEG); Urine Ketones NEG (NEG); Urine Protein NEG (NEG-TRACE)
[2021-01-25 14:59] LABS: Appearance Urine CLEAR; Color Urine YELLOW
[2021-01-25 15:16] LABS: Bacteria Urine 1+ /LPF; Squamous Epithelial Cell Urine 4+ /LPF; WBC Urine 0-2 /HPF (0-4)
[2021-01-25 15:44] VITALS: BP 127/64; PULSE 83
[2021-01-25] MEDS: oxyCODONE HCl Immed Release 5 MG TABLET PO (15:46)
[2021-01-25] MEDS: diphenhydrAMINE HCL 50 MG/ML VIAL 25 MG IVPUSH (16:40)
[2021-01-25] MEDS: iohexoL 350 MG/ML 100 ML INFUS..BTL IV (18:25)
--- NOTE | 2021-01-25 18:47 | PC.NURSE ---
patient was able to stand and pivot to commode with minimal assist from RN. stated she felt that the pain medication helped relieve her pain. waiting CT results.
[2021-01-25 19:54] VITALS: BP 144/70; PULSE 93; RESP 17; TEMP 37; O2SAT 98
--- NOTE | 2021-01-25 20:19 | PC.NURSE ---
Pt aaox4, resting on stretcher in NAD, breathing with ease on 2L NC which is baseline for pt 2/2 lung CA. Pt endorses moderate pain to Bilateral knees. Pt aware and agreeable to plan for CM/PT/[employer] eval. Zabrina DORANTES made aware of pt failing nursing bedside swallow, is aware pt is NPO. Pt also agreeable to plan for NPO status. Pt stretcher in low locked position, rails raised, call howell within reach
[2021-01-25 20:54] LABS: COVID-19 Test Negative (Negative)
--- NOTE | 2021-01-25 20:56 | PC.NURSE ---
This RN discussed NPO status vs nighttime meds with JAYNA Gerber. per Zabrina, ok to crush meds and give with applesauce as pt is only reporting/having difficulty with swallowing thin liquids.
[2021-01-25] MEDS: Nortriptyline HCl 10 MG CAPSULE 20 MG PO (21:33)
[2021-01-25] MEDS: Zolpidem Tartrate 5 MG TABLET 10 MG PO (21:34)
--- NOTE | 2021-01-25 21:34 | PC.NURSE ---
pt medicated with crushed meds/opened capsules into small amount of pudding per provider ok
[2021-01-25 22:00] VITALS: BP 122/76; PULSE 93; RESP 16; TEMP 36.4; O2SAT 96
[2021-01-25 23:40] VITALS: BP 134/76; PULSE 94; RESP 19; TEMP 37.2; O2SAT 96
--- NOTE | 2021-01-25 23:43 | PC.NURSE ---
Pt's ambien ineffective as pt is still awake, requesting meds for sleep. Pt failed swallow eval by this RN. To enable adequate rest and care, pt to be medicate with IM ativan per Mary [employer]
[2021-01-25] MEDS: LORazepam 2 MG/ML VIAL IM (23:44)
[2021-01-26] VITALS (13 sets, daily range): BP systolic 120–149; BP diastolic 65–95; PULSE 74–103; RESP 12–22; TEMP 36.7–36.9; O2SAT 93–97
--- NOTE | 2021-01-26 03:16 | PC.NURSE ---
At approximately 0155, JESSICA High yelled for help in the hallway just outside of room 22. This RN, Shalonda RN, Dr Dobson, Bhumika RN to bedside. Pt found lying prone on ground with head turned to the R, L side of face on floor. Cspine precautions initiated, maintained while pt log rolled into supine position. Pt without NC on. Pt agitated, shouting for nurses to remove hands from cspine precaution position. Pt placed back on O2 via NC at 3LPM and sat probe placed on pt's finger, noted to be satting 91%. Pt placed in ccollar. Pt log rolled onto back board, lifted onto stretcher. Pt VS assessed. Pt denies new onset pain/discomfort. Pt alert, pupils SHEYLA. Pt disoriented to place and situation, is oriented to year. Per Dr Dobson, head and neck CT ordered. Pt brought to CT, transferred to CT table while maintaining cpsine precautions, CT obtained, pt transferred to hospital bed while maintaining cspine precautions. Bed alarm active and audible, bed in low locked position, rails raised x 3, call howell remains in reach for patient. Provider made aware that pt appears to be having visual hallucinations as she is waving her arms into the air in attempt to grasp things that are not there. Pt begins speaking, asking nonsensical questions. This RN asks pt to repeat her question and she states I wasn't asking you; I was asking the young girl over there, pointing to the empty room. This RN informs pt that she appears to be having a visual hallucination. Pt states ya know, the ambien that I took last night was the first time I've ever taken it because it was ordered for me, but I hadn't picked it up yet. Dr Dobson made aware of pt receiving ambien for the first time last night.
[2021-01-26 04:41] LABS: Venous Blood Gas Refer to POC result
[2021-01-26 04:43] LABS: VBG Base Excess 6.8 mmol/L; VBG HCO3 31 mmol/L (22-26); VBG pCO2 42 mmHg; VBG pH 7.46 (7.32-7.43); VBG pO2 44 mmHg
--- NOTE | 2021-01-26 04:47 | PC.NURSE ---
Pt bladder scanned; 340cc in bladder. Dr Dobson made aware. Dr Dobson instructed this RN to straight cath pt only if pt is retaining 500cc or greater.
--- NOTE | 2021-01-26 04:52 | PC.NURSE ---
This PCT and ENRIKE Haque did a bladder scan for urinary retention. Pt has 340 ml of urine.
[2021-01-26 04:54] LABS: Lactic Acid 1.1 mmol/L (0.5-2.0)
--- NOTE | 2021-01-26 06:55 | PC.NURSE ---
Patient is asleep in bed on right side in no acute distress. Respirations are even and nonlabored
[2021-01-26] MEDS: Fluticasone/Vilanterol 200/25 BLST.W.DEV 1 PUFF INHALE (08:58)
[2021-01-26] MEDS: cefEPime HCl 2 GM in 0.9 % Sodium Chloride 50 ML IV ×2 (09:20→17:36)
--- NOTE | 2021-01-26 09:55 | PM.IMHP ---
History of Present Illness Date of Service: 01/26/21 Chief Complaint: Falls and weakness This 65-year-old female with a past medical history of metastatic small cell lung cancer (brain Mets) who presents to the hospital falls and generalized weakness. She was evaluated in the emergency room with the initial plan being PT evaluation and short-term rehabilitation placement. However upon further imaging of the chest there were findings concerning of consolidation near her known mass and so in conjunction with her leukopenia there was a concern for pneumonia and admission was requested. Patient is seen and examined in the emergency room on 01/26/2021 morning. She reports generalized weakness and fatigue. She does endorse a productive cough of yellowish and white sputum. She denies any pleuritic chest pain. She reports shortness of breath which has been unchanged. She denies any fevers or chills at home. ED workup revealed a white blood cell count of 1.4, absolute neutrophil count of 700. Platelet count 83. CT scan of the chest redemonstrated upper lobe paramediastinal mass with adjacent consolidation and ground-glass opacity in the left upper and lower lobes which was new from her previous CT scan. It is difficult to determine whether this represents tumor extension or superimposed pneumonia. She also has small to moderate left-sided pleural effusion which is new from her previous CT scan. Review of Systems Review of Systems: General - +weakness, fatigue HEENT -denies blurred vision, denies headache, denies sore throat Cardiovascular - denies chest pain or palpitations, denies edema Respiratory - +productive cough, no sob or pleuritic cp Gastrointestinal - denies abdominal pain, nausea, vomiting, diarrhea - denies flank pain, denies dysuria, denies frequency or urgency Musculoskeletal - denies back pain, denies hip pain, denies knee pain, denies shoulder pain Neurological - denies any focal weakness or numbness Skin, denies any bruising or redness Psychiatric - denies any suicidal ideation, hallucinations, homicidal ideation Endocrinology - denies intolerance to hot / cold temperatures [facility] Medical History Arthritis COPD (chronic obstructive pulmonary disease) Depression Diverticulitis Encounter for colonoscopy due to history of colonic polyp History of diverticulitis of colon History of hepatitis Hypertension Hypothyroidism Traumatic brain injury Family History Brother Diabetes Father Surgical History H/O section Hx of breast reduction, elective S/P bronchoscopy with biopsy Social History Household Members: None Housing: Apartment Do you presently have visiting nurse or other home services: No Alcohol intake: never Patient Tobacco Use Status: Former Tobacco user Cigarette Packs Per Day: 1 Years Smoked: 53 Second Hand Smoke Exposure: No Use of substances other than those prescribed or required for medical reasons: No Substance Use Type: Marijuana Advance Directives: Yes Advance Directives on File: Yes Advance Directives Date on File: 05/01/20 service: Yes Current occupational status: retired Meds Allergies Allergy/AdvReac Type Severity Reaction Status Date / Time penicillin V Allergy Unknown Unknown Verified 01/25/21 19:56 Penicillins [PCN] Allergy Unknown HIVES Verified 01/25/21 19:56 shellfish derived Allergy Unknown UNKNOWN Verified 01/25/21 19:56 [SHELLFISH DERIVED] Active Medications: Current Medications Generic Name Dose Route Start Last Admin Trade Name Freq PRN Reason Stop Dose Admin Acetaminophen 650 mg 01/26/21 09:44 Acetaminophen 325 Mg Tablet PO Q6H PRN Pain, Mild (Pain Scale 1-3) Albuterol Sulfate 2 puff 01/25/21 20:12 Albuterol Sulfate 90 Mcg 8 Gm Inhaler INHALE Q6H PRN Shortness Of Breath Atenolol 25 mg 01/26/21 09:00 Atenolol 25 Mg Tablet PO DAILY [facility] Protocol Docusate Sodium 100 mg 01/26/21 09:00 Docusate Sodium 100 Mg Capsule PO DAILY SAM Duloxetine HCl 30 mg 01/26/21 09:00 Duloxetine Hcl 30 Mg Capsule.Dr PO DAILY SAM Fluticasone/Vilanterol 1 puff 01/26/21 08:00 01/26/21 08:58 Fluticasone/Vilanterol 200/25 Blst.W.Dev INHALE 1 puff RDAILY SAM Administration Cefepime HCl 1 gm/ Sodium 50 mls @ 100 mls/hr 01/26/21 10:00 Chloride IV Q8H SAM Levothyroxine Sodium 112 mcg 01/26/21 06:00 Levothyroxine Sodium 112 Mcg Tablet PO DAILY@0600 [facility] Levothyroxine Sodium 25 mcg 01/26/21 06:00 Levothyroxine Sodium 25 Mcg Tablet PO DAILY@0600 [facility] Multivitamins/Vitamin C 1 tab 01/26/21 09:00 Multivitamin Tablet PO DAILY [facility] Non-Formulary Medication 200 mg 01/26/21 09:00 Bupropion Hcl PO DAILY [facility] Non-Formulary Medication 4 mg 01/26/21 09:00 Topotecan [Hycamtin] PO DAILY [facility] Nortriptyline HCl 20 mg 01/25/21 21:00 01/25/21 21:33 Nortriptyline Hcl 10 Mg Capsule PO 20 mg BEDTIME [facility] Administration Omeprazole 20 mg 01/26/21 06:30 Omeprazole 20 Mg Capsule.Dr PO DAILY@0630 [facility] Oxycodone HCl 10 mg 01/25/21 20:12 Oxycodone Hcl Immed Release 5 Mg Tablet PO Q4H PRN Chest Pain Oxycodone HCl 5 mg 01/25/21 20:12 Oxycodone Hcl Immed Release 5 Mg Tablet PO Q6H PRN pain (scale score 7-10) Sodium Chloride 3 ml 01/26/21 16:00 0.9 % Sodium Chloride Flush 3 Ml Syringe IVFLUSH QSHIFT [facility] Tiotropium Tsaile 2 puff 01/26/21 08:00 01/26/21 08:58 Tiotropium Tsaile 18 Mcg Cap.W.Dev INHALE 2 puff RDAILY [facility] Administration Zolpidem Tartrate 10 mg 01/25/21 20:12 01/25/21 21:34 Zolpidem Tartrate 5 Mg Tablet PO 10 mg DAILY PRN Administration Insomnia Home Medications Medication Instructions Recorded Confirmed Last Taken Type budesonide-formoterol 2 puff INHALATION BID 04/10/20 01/25/21 11/20/20 History bupropion HCl 200 mg PO DAILY 04/10/20 01/25/21 11/20/20 History docusate sodium [Stool Softener] 100 mg PO DAILY 04/10/20 01/25/21 11/20/20 History levothyroxine 137 mcg PO DAILY 04/10/20 01/25/21 11/20/20 History nortriptyline 20 mg PO BEDTIME 04/10/20 01/25/21 11/19/20 History omeprazole 20 mg PO DAILY 05/01/20 01/25/21 11/20/20 History Centrum Chewables 2 tab PO DAILY 11/20/20 01/25/21 11/20/20 History Spiriva Respimat 2 puff INHALATION DAILY 11/20/20 01/25/21 11/20/20 History albuterol sulfate 2 puff INHALATION Q6H PRN 11/20/20 01/25/21 Unknown History atenolol 25 mg PO DAILY 11/20/20 01/25/21 11/20/20 History duloxetine 30 mg PO DAILY 11/20/20 01/25/21 11/20/20 History Physical Exam Vital Signs and Narrative: Vital Signs: Last Vital Signs Temp 98.2 F 01/26/21 09:07 Pulse 94 01/26/21 09:17 Resp 19 01/26/21 09:07 BP 136/81 01/26/21 09:17 Pulse Ox 96 01/26/21 09:17 Oxygen Flow Rate 2 01/25/21 12:23 Body Mass Index 46.8 Const: Other: Constitutional - Awake and Alert, No apparent distress Eyes - PERRLA, EOMI Cardiovascular - S1S2, RRR, No edema Respiratory - mild left upper region wheezing Gastrointestinal - NT / ND; +BS; No rebound or guarding - No CVA tenderness Extremities - no calf tenderness bilaterally, no swelling Musculoskeletal - Normal inspection, normal ROM Skin - Warm/Dry Neurological - Alert & oriented x3, No focal deficit Psychological - Appropriate affect Results Labs CBC and Chem 7: 01/25/21 13:22 01/25/21 13:22 Labs: Laboratory Results - last 24 hr 01/25/21 01/25/21 01/25/21 13:22 13:22 14:52 MCV 95.1 MCH 32.8 MCHC 34.5 RDW 12.6 Plt Count 83 L D MPV 9.5 Immature Gran % (Auto) Cancelled Neut % (Auto) Cancelled Lymph % (Auto) Cancelled [place] % (Auto) Cancelled Eos % (Auto) Cancelled Baso % (Auto) Cancelled Lymph # (Auto) Cancelled [place] # (Auto) Cancelled Eos # (Auto) Cancelled Baso # (Auto) Cancelled Abs Immat Gran (auto) Cancelled Absolute Neuts (auto) Cancelled Absolute Nucleated RBC 0.000 Nucleated RBC % (auto) 0.0 Neutrophils % (Manual) 39 L Band Neutrophils % 8 H Lymphocytes % (Manual) 51 H Monocytes % (Manual) 2 Abs Neuts (Manual) 0.7 L Lymphocytes # (Manual) 0.7 Platelet Estimate SLIGHTLY DECREASED Plt Morphology Comment NORMAL RBC Morphology NOTED Hypochromasia 1+ (5-14) VBG pH VBG pCO2 VBG pO2 VBG HCO3 VBG O2 Saturation VBG Base Excess Anion Gap 13 Estim Creat Clear Calc 99.9 Estimated GFR > 60 Random Glucose 121 H Lactic Acid Calcium 9.0 Total Bilirubin 1.2 H Direct Bilirubin 0.4 AST 24 ALT 12 Alkaline Phosphatase 66 Total Protein 6.2 L Albumin 3.8 Urine Color YELLOW Urine Appearance CLEAR Urine pH 7.0 Ur Specific [place] <= 1.005 Urine Protein NEG Urine Glucose (UA) NEG Urine Ketones NEG Urine Blood 1+ H Urine Nitrite NEG Ur Leukocyte Esterase NEG Urine RBC 5-9 H Urine WBC 0-2 Ur Squamous Epith Cells 4+ Urine Bacteria 1+ COVID-19 ([facility]) COVID-19 Clin Com 01/25/21 01/26/21 01/26/21 20:17 04:34 04:35 MCV MCH MCHC RDW Plt Count MPV Immature Gran % (Auto) Neut % (Auto) Lymph % (Auto) [place] % (Auto) Eos % (Auto) Baso % (Auto) Lymph # (Auto) [place] # (Auto) Eos # (Auto) Baso # (Auto) Abs Immat Gran (auto) Absolute Neuts (auto) Absolute Nucleated RBC Nucleated RBC % (auto) Neutrophils % (Manual) Band Neutrophils % Lymphocytes % (Manual) Monocytes % (Manual) Abs Neuts (Manual) Lymphocytes # (Manual) Platelet Estimate Plt Morphology Comment RBC Morphology Hypochromasia VBG pH 7.46 H VBG pCO2 42 VBG pO2 44 VBG HCO3 31 H VBG O2 Saturation 69.0 VBG Base Excess 6.8 Anion Gap Estim Creat Clear Calc Estimated GFR Random Glucose Lactic Acid 1.1 Calcium Total Bilirubin Direct Bilirubin AST ALT Alkaline Phosphatase Total Protein Albumin Urine Color Urine Appearance Urine pH Ur Specific [place] Urine Protein Urine Glucose (UA) Urine Ketones Urine Blood Urine Nitrite Ur Leukocyte Esterase Urine RBC Urine WBC Ur Squamous Epith Cells Urine Bacteria COVID-19 ([facility]ANETT) Negative COVID-19 Clin Com See Note Imaging Radiologist's Impressions: Impressions Knee X-Ray 01/25/21 12:57 IMPRESSION: Moderate degenerative arthritic changes with periarticular spurring medial and patellofemoral compartments of both knees. There is moderate right and mild left pleural effusion. No visible acute fracture or dislocation seen. Knee X-Ray 01/25/21 12:57 IMPRESSION: Moderate degenerative arthritic changes with periarticular spurring medial and patellofemoral compartments of both knees. There is moderate right and mild left pleural effusion. No visible acute fracture or dislocation seen. Head CT 01/25/21 13:17 IMPRESSION: No acute intracranial hemorrhage or mass effect. No enhancing parenchymal lesion. Cervical Spine CT 01/26/21 02:38 IMPRESSION: 1. Head: No acute intracranial findings. Chronic small vessel ischemic disease and volume loss. 2. Cervical spine: No acute findings identified. Multilevel degenerative changes. 3. Partially visualized paramediastinal mass in the left upper lobe along with pleural effusion. Head CT 01/26/21 02:38 IMPRESSION: 1. Head: No acute intracranial findings. Chronic small vessel ischemic disease and volume loss. 2. Cervical spine: No acute findings identified. Multilevel degenerative changes. 3. Partially visualized paramediastinal mass in the left upper lobe along with pleural effusion. Chest CT 01/26/21 04:04 IMPRESSION: 1. Redemonstrated left upper lobe paramediastinal mass. There is now adjacent consolidation and groundglass opacity in the left upper and lower lobes which is new from 11/21/2020. It is difficult to determine whether this represents tumor extension or superimposed pneumonia. In the proper clinical setting, posttreatment changes would also be a consideration. 2. Small to moderate left pleural effusion, new from 11/21/2020 3. Mild ground glass opacity in the posterior right upper lobe lobe, suggesting mild infectious/inflammatory etiology. 4. Subcarinal lymphadenopathy appears slightly increased since 11/21/2020. Stable right paratracheal lymphadenopathy. Assessment and Plan (1) Pneumonia: Status: Acute This is a 65-year-old female with a known history of metastatic small cell lung cancer who presents to the hospital with generalized weakness and frequent falls. Her chest imaging is concerning for chica-mass pneumonia. She will be admitted for further work up 1. [place]ica-mass pneumonia given her immuncompromised status will use broad gram negative coverage - IV cefepime f/u cultures continue home oxygen 2. Leukopenia/thrombocytopenia likely due to recent chemo recheck stat labs now 3. Chronic Respiratory Failure with hypoxia continue baseline O2 4. COPD not in exacerbation continue her inhalers 5. Metastatic Small Cell Lung CA outpatient f/u with her oncology team. Dr. Saunders updated 6. Generalized weakness / frequent falls PT evaluation, suspect she will need STR d/w her daughter -- who is in agreement 7. Hypothyroidism synthroid Patient wishes to be full code Her daughter Rekha is her HCP DVT pptx - will use mechanical device due to her thrombocytopenia -- change to pharmacological as her thrombocytopenia improves Quality Stroke Does the patient have a stroke diagnosis?: No VTE Prior VTE?: No VTE Risk Level:: Medical - moderate - high VTE Device Contraindication: N/A - Device Ordered VTE Drug Contraindication: N/A - Med Ordered
--- NOTE | 2021-01-26 10:46 | PC.NURSE ---
Spoke with speech therapist who evaluated patient. It is reccomended that pt have regular soft food diet and medications be crushed and placed in applesauce.
--- NOTE | 2021-01-26 10:59 | MHC.SL.SWA ---
Speech Pathologist Impression: Risk of Aspiration Oralpharyngeal Dysphagia Dysphasia Diet Status: Upgrade Liquid Consistency and Strategies for Safe Swallow: Liquid Intake Recommendation: [place] Thick Liquid Intake Strategies: Small Sips No Straws Solid Food Consistency: Dietary Recommendations: Regular Oral Medication Intake: Crushed with Puree Compensatory Strategies and Precautions to be Taken for Safe Swallow: Sitting Upright (90 deg) No Straw Small Bites and Sips Alternate Liquids/Solids Rate of Ingestion Change Avoid Specific Foods Supervision While Eating and Drinking for Safe Swallow: Total Supervision (1:1) Foods to Avoid: Avoid tough/sticky foods. Swallowing Recommended Treatments: Compens. Strategy Educat. Recommendation for Speech: Inpatient Speech Therapy Comment: POLICY INTERN will continue to follow. Matrix Bath Operator Clinican/Clinical Fellow: No Supervisory Statement: I have reviewed and agree with the student/clinical fellow's documentation: N/A Speech Language Pathologist: Radha Valenzuela M.A., CCC-POLICY INTERN
[2021-01-26] MEDS: Docusate Sodium 100 MG CAPSULE PO (11:33)
[2021-01-26] MEDS: atenoloL 25 MG TABLET PO (11:33)
[2021-01-26] MEDS: DULoxetine HCl 30 MG CAPSULE.DR PO (11:36)
[2021-01-26] MEDS: Multivitamin TABLET 1 TAB PO (11:36)
[2021-01-26] MEDS: oxyCODONE HCl Immed Release 5 MG TABLET PO (11:41)
--- NOTE | 2021-01-26 11:45 | PC.NURSE ---
Pt has tolerated morning meds well without difficulty swallowing.
[2021-01-26 12:10] LABS: Hemoglobin 9.5 g/dl (12.0-16.0); Mean Corpuscular Hemoglobin 32.6 pg (27.0-33.0); Red Blood Count 2.91 X10*6/uL (4.20-5.50)
[2021-01-26 12:18] LABS: Hematocrit 27.5 % (37-47); Mean Corpuscular HGB Conc 34.5 g/dl (31.0-35.0); Mean Corpuscular Volume 94.5 fL (80-98); Mean Platelet Volume 9.5 fL (9.4-12.3); Red Cell Distribution Width 12.6 % (11.0-16.0)
[2021-01-26 12:20] LABS: Platelet Count 58 X10*3/uL (160-400); WBC ABN SCTR FOR CBC 1
[2021-01-26 12:31] LABS: Anion Gap 12 (12-20); Blood Urea Nitrogen 12 mg/dL (9-16); Calcium 9.3 mg/dL (8.4-10.2); Carbon Dioxide 28 mmol/L (22-29); Chloride 102 mmol/L (96-108); Creatinine Clr Calc Pharmacy 97.2; Estimated Glomerular Filt Rate > 60; Glucose Random 109 mg/dL (60-115); Potassium 3.3 mmol/L (3.3-5.1); Sodium 139 mmol/L (135-145)
[2021-01-26 13:26] LABS: Band Neutrophils Percent 3 % (3-5); Lymphocytes Percent Manual 57 % (20-40); Monocytes Percent Manual 7 % (2-11); Neutrophils Percent Manual 33 % (45-73); Platelet Estimate DECREASED (NORMAL); Platelet Morphology Comment NORMAL
[2021-01-26 13:27] LABS: RBC Morphology NOTED
[2021-01-26 13:28] LABS: Hypochromasia 1+ (5-14) /OIF; Rouleau PRESENT
[2021-01-26 14:33] LABS: Lymphocytes Absolute Manual 0.7 X10*3/uL (0.6-4.8); Monocytes Absolute Manual 0.1 X10*3/uL (0.0-1.2); Neutrophils Absolute Manual 0.5 X10*3/uL (2.2-7.9); White Blood Count 1.3 X10*3/uL (4.8-10.8)
--- NOTE | 2021-01-26 14:58 | PC.NURSE ---
Patient is resting quietly in bed in no distress. Patient denies any pain currently
[2021-01-26] MEDS: 0.9 % Sodium Chloride Flush 3 ML SYRINGE IVFLUSH (17:35)
[2021-01-26] MEDS: Nortriptyline HCl 10 MG CAPSULE 20 MG PO (23:00)
[2021-01-26] MEDS: Zolpidem Tartrate 5 MG TABLET 10 MG PO (23:02)
[2021-01-27] VITALS (8 sets, daily range): BP systolic 112–128; BP diastolic 57–74; PULSE 60–86; RESP 14–20; TEMP 36–36.9; O2SAT 94–96; BMI 46.8
[2021-01-27] MEDS: oxyCODONE HCl Immed Release 5 MG TABLET PO (01:01)
[2021-01-27] MEDS: cefEPime HCl 2 GM in 0.9 % Sodium Chloride 50 ML IV ×3 (01:02→18:53)
[2021-01-27] MEDS: 0.9 % Sodium Chloride Flush 3 ML SYRINGE IVFLUSH ×2 (01:05→09:04)
[2021-01-27 06:07] LABS: Hematocrit 27.8 % (37-47); Hemoglobin 9.4 g/dl (12.0-16.0); Mean Corpuscular HGB Conc 33.8 g/dl (31.0-35.0); Mean Corpuscular Hemoglobin 32.3 pg (27.0-33.0); Mean Corpuscular Volume 95.5 fL (80-98); Mean Platelet Volume 9.5 fL (9.4-12.3); Red Blood Count 2.91 X10*6/uL (4.20-5.50); Red Cell Distribution Width 12.4 % (11.0-16.0); White Blood Count 1.2 X10*3/uL (4.8-10.8)
[2021-01-27 06:20] LABS: Platelet Count 42 X10*3/uL (160-400)
[2021-01-27] MEDS: Levothyroxine Sodium 112 MCG TABLET PO (06:24)
[2021-01-27] MEDS: Levothyroxine Sodium 25 MCG TABLET PO (06:24)
[2021-01-27] MEDS: Omeprazole 20 MG CAPSULE.DR PO (06:24)
[2021-01-27 06:33] LABS: Anion Gap 11 (12-20); Blood Urea Nitrogen 15 mg/dL (9-16); Carbon Dioxide 30 mmol/L (22-29); Chloride 102 mmol/L (96-108); Creatinine Clr Calc Pharmacy 95.9; Estimated Glomerular Filt Rate > 60; Glucose Random 93 mg/dL (60-115); Potassium 3.7 mmol/L (3.3-5.1); Sodium 139 mmol/L (135-145)
[2021-01-27] MEDS: Fluticasone/Vilanterol 200/25 BLST.W.DEV 1 PUFF INHALE (08:21)
[2021-01-27] MEDS: oxyCODONE HCl Immed Release 5 MG TABLET 10 MG PO ×3 (09:03→20:33)
[2021-01-27] MEDS: Multivitamin TABLET 1 TAB PO (09:03)
[2021-01-27] MEDS: Docusate Sodium 100 MG CAPSULE PO (09:03)
[2021-01-27] MEDS: atenoloL 25 MG TABLET PO (09:03)
[2021-01-27] MEDS: DULoxetine HCl 30 MG CAPSULE.DR PO (09:04)
--- NOTE | 2021-01-27 09:26 | MHC.CM.PN ---
CM met with Patient at bedside. Patient lives in an apartment next door to her Daughter/HCP/Rekha and Rekha's family and her goal [facility] for [facility] (referrals have been made). CM has initiated and will follow for dc planning. PCP/WORK ADJUSTMENT INSTRUCTOR is Dana Leyva.Patient has both a cane and walker.
--- NOTE | 2021-01-27 10:35 | MHC.SL.DTX ---
Pre-Treatment Diet: REGULAR SOLIDS NECTAR THICK LIQUIDS WHOLE IN PUREE OR LIQUID Subjective: Changes made to current diet?: No Dysphasia Diet Status: Liquid Consistency and Strategies: Liquid Intake Recommendation: [place] Thick Compensatory Strategies for Safe Swallow: Small Sips Compensatory Strategies for Safe Swallow(b): Sitting Upright (90 deg) Liquids from Cup Small Bites and Sips Alternate Liquids/Solids Solid Food Consistency: Dietary Recommendations: Regular Additional Modifications to Solids: Oral Medication Intake: Crushed with Puree Strategies and Precautions to be Taken for Safe Swallow: Compensatory Swallowing Status: Sitting Upright (90 deg) Liquids from Cup Small Bites and Sips Alternate Liquids/Solids Supervision While Eating and/Drinking: Intermittent Supervision Foods to Avoid: Avoid tough/sticky foods. Swallowing Recommended Treatments: Compens. Strategy Educat. Level of Impact on: Daily activities: Mild Interpersonal interactions: None Education: None Employment: None Community: None Prognosis for Improvement: Fair Recommendation for Speech: Inpatient Speech Therapy Comment: BUILDING SERVICES COORDINATOR will continue to follow. Frequency/Duration: Date Range for Service Req: Timeline to reassess: Additional Comments: Treatment: Pt was seen this morning for dysphagia follow up. Per RN, pt tolerated breakfast this morning without difficulty. Pt reported that she does not like the thickened liquids. She stated it was too thick and she had to use a spoon to drink it. BUILDING SERVICES COORDINATOR educated pt on reasoning behind recommendation and how to determine the correct consistency for nectar thick liquids using the spoon test. BUILDING SERVICES COORDINATOR showed pt how to thin out using water or additional juice. Pt stated that this consistency was much more tolerable than the pudding she received. Pt accepted limited PO trials. When given a sip of water, a change in vocal quality was noted in addition to consistent throat clearing. Pt tolerated nectar thick liquids via cup sip with no overt s/s aspiration or change in vocal quality. Assessment: Transportation Services Representative Clinican/Clinical Fellow: No Supervisory Statement: I have reviewed and agree with the student/clinical fellow's documentation: N/A Speech Language Pathologist: Radha Baptiste M.A. [facility])-BUILDING SERVICES COORDINATOR
[2021-01-27] MEDS: vancomycin HCL 1,500 MG in 0.9 % Sodium Chloride 500 ML 333.33 MG IV (10:41)
--- NOTE | 2021-01-27 11:23 | MHC.CM.PN ---
CORRECTION!! PCP IS KATHY TERRAZAS AT [facility].
--- NOTE | 2021-01-27 12:10 | HO.PM.IMPN ---
Subjective Subjective Date of Service: 01/27/21 Interval History: seen and examined this AM appears to be in a good mood, smiling and more interactive tells me that she finally was able to sleep last night denies any sob this morning ROS General - no fevers or chills Cardiovascular - no chest pain Respiratory - no shortness of breath or cough Abdominal- no abdominal pain, nausea, vomiting, diarrhea Physical Exam Vital Signs: Vital Signs: Last Vital Signs Temp 97.4 F 01/27/21 11:22 Pulse 86 01/27/21 11:25 Resp 20 01/27/21 11:22 BP 119/70 01/27/21 11:25 Pulse Ox 96 01/27/21 11:25 Oxygen Flow Rate 2 01/25/21 12:23 Body Mass Index 46.8 Const: Other: Constitutional - Awake and Alert, No apparent distress Eyes - PERRLA, EOMI Cardiovascular - S1S2, RRR, No edema Respiratory - clear anteriorly and superiorly, not in distress Gastrointestinal - NT / ND; +BS; No rebound or guarding - No CVA tenderness Extremities - no calf tenderness bilaterally, no swelling Musculoskeletal - Normal inspection, normal ROM Skin - Warm/Dry Neurological - Alert & oriented x3, No focal deficit Psychological - Appropriate affect Objective Data Current Medications Generic Name Dose Route Start Last Admin Trade Name Freq PRN Reason Stop Dose Admin Acetaminophen 650 mg 01/26/21 09:44 Acetaminophen 325 Mg Tablet PO Q6H PRN Pain, Mild (Pain Scale 1-3) Albuterol Sulfate 2 puff 01/25/21 20:12 Albuterol Sulfate 90 Mcg 8 Gm Inhaler INHALE Q6H PRN Shortness Of Breath Atenolol 25 mg 01/26/21 09:00 01/27/21 09:03 Atenolol 25 Mg Tablet PO 25 mg DAILY SAM Administration Protocol Docusate Sodium 100 mg 01/26/21 09:00 01/27/21 09:03 Docusate Sodium 100 Mg Capsule PO 100 mg DAILY SAM Administration Duloxetine HCl 30 mg 01/26/21 09:00 01/27/21 09:04 Duloxetine Hcl 30 Mg Capsule. PO 30 mg DAILY SAM Administration Fluticasone/Vilanterol 1 puff 01/26/21 08:00 01/27/21 08:21 Fluticasone/Vilanterol 200/25 Blst.W.Dev INHALE 1 puff RDAILY SAM Administration Cefepime HCl 2 gm/ Sodium 50 mls @ 100 mls/hr 01/26/21 17:20 01/27/21 09:48 Chloride IV Infused Q8H [facility] Infusion Vancomycin HCl 1,000 mg/ 270 mls @ 270 mls/hr 01/27/21 22:00 Sodium Chloride IV Q12H SAM Levothyroxine Sodium 112 mcg 01/26/21 06:00 01/27/21 06:24 Levothyroxine Sodium 112 Mcg Tablet PO 112 mcg DAILY@0600 SAM Administration Levothyroxine Sodium 25 mcg 01/26/21 06:00 01/27/21 06:24 Levothyroxine Sodium 25 Mcg Tablet PO 25 mcg DAILY@0600 [facility] Administration Multivitamins/Vitamin C 1 tab 01/26/21 09:00 01/27/21 09:03 Multivitamin Tablet PO 1 tab DAILY [facility] Administration Non-Formulary Medication 200 mg 01/26/21 09:00 Bupropion Hcl PO DAILY [facility] Non-Formulary Medication 4 mg 01/26/21 09:00 Topotecan [Hycamtin] PO DAILY [facility] Nortriptyline HCl 20 mg 01/25/21 21:00 01/26/21 23:00 Nortriptyline Hcl 10 Mg Capsule PO 20 mg BEDTIME [facility] Administration Omeprazole 20 mg 01/26/21 06:30 01/27/21 06:24 Omeprazole 20 Mg Capsule.Dr PO 20 mg DAILY@0630 [facility] Administration Oxycodone HCl 10 mg 01/25/21 20:12 01/27/21 09:03 Oxycodone Hcl Immed Release 5 Mg Tablet PO 10 mg Q4H PRN Administration Chest Pain Oxycodone HCl 5 mg 01/25/21 20:12 01/27/21 01:01 Oxycodone Hcl Immed Release 5 Mg Tablet PO 5 mg Q6H PRN Administration pain (scale score 7-10) Pharmacy Consult 1 each 01/27/21 08:55 Consult Rx Vancomycin Dosing MISCELLANE DAILY PRN Consult order Sodium Chloride 3 ml 01/26/21 16:00 01/27/21 09:04 0.9 % Sodium Chloride Flush 3 Ml Syringe IVFLUSH 3 ml QSHIFT [facility] Administration Tiotropium [place] 2 puff 01/26/21 08:00 01/27/21 08:21 Tiotropium [place] 18 Mcg Cap.W.Dev INHALE 2 puff RDAILY SAM Administration Zolpidem Tartrate 10 mg 01/25/21 20:12 01/26/21 23:02 Zolpidem Tartrate 5 Mg Tablet PO 10 mg DAILY PRN Administration Insomnia Labs CBC & Chem 7: 01/27/21 05:38 01/27/21 05:38 Labs: Laboratory Results - last 24 hr 01/26/21 01/26/21 01/27/21 11:50 11:50 05:38 WBC 1.3 L 1.2 L RBC 2.91 L 2.91 L Hgb 9.5 L 9.4 L Hct 27.5 L 27.8 L MCV 94.5 95.5 MCH 32.6 32.3 MCHC 34.5 33.8 RDW 12.6 12.4 Plt Count 58 L D 42 L D MPV 9.5 9.5 Immature Gran % (Auto) Cancelled Neut % (Auto) Cancelled Lymph % (Auto) Cancelled [place] % (Auto) Cancelled Eos % (Auto) Cancelled Baso % (Auto) Cancelled Lymph # (Auto) Cancelled [place] # (Auto) Cancelled Eos # (Auto) Cancelled Baso # (Auto) Cancelled Abs Immat Gran (auto) Cancelled Absolute Neuts (auto) Cancelled Absolute Nucleated RBC 0.000 0.000 Nucleated RBC % (auto) 0.0 0.0 Neutrophils % (Manual) 33 L Band Neutrophils % 3 Lymphocytes % (Manual) 57 H Monocytes % (Manual) 7 Abs Neuts (Manual) 0.5 L Lymphocytes # (Manual) 0.7 Monocytes # (Manual) 0.1 Platelet Estimate DECREASED Plt Morphology Comment NORMAL RBC Morphology NOTED Hypochromasia 1+ (5-14) [place]leaux PRESENT Sodium 139 Potassium 3.3 Chloride 102 Carbon Dioxide 28 Anion Gap 12 BUN 12 Creatinine 0.74 Estim Creat Clear Calc 97.2 Estimated GFR > 60 Random Glucose 109 Calcium 9.3 01/27/21 05:38 WBC RBC Hgb Hct MCV MCH MCHC RDW Plt Count MPV Immature Gran % (Auto) Neut % (Auto) Lymph % (Auto) [place] % (Auto) Eos % (Auto) Baso % (Auto) Lymph # (Auto) [place] # (Auto) Eos # (Auto) Baso # (Auto) Abs Immat Gran (auto) Absolute Neuts (auto) Absolute Nucleated RBC Nucleated RBC % (auto) Neutrophils % (Manual) Band Neutrophils % Lymphocytes % (Manual) Monocytes % (Manual) Abs Neuts (Manual) Lymphocytes # (Manual) Monocytes # (Manual) Platelet Estimate Plt Morphology Comment RBC Morphology Hypochromasia [place] Sodium 139 Potassium 3.7 Chloride 102 Carbon Dioxide 30 H Anion Gap 11 L BUN 15 Creatinine 0.75 Estim Creat Clear Calc 95.9 Estimated GFR > 60 Random Glucose 93 Calcium 9.0 Microbiology Microbiology Results: Microbiology 01/26/21 04:35 Blood Culture - Preliminary Blood - Venous No growth after 24 hours. 01/26/21 04:35 Blood Culture - Preliminary Blood - Venous Prelim: GPC Gram Stain only 01/26/21 08:31 Blood Culture - Final Blood - Venous 01/26/21 08:31 Blood Culture - Final Blood - Venous Quality Stroke Does the patient have a stroke diagnosis?: No VTE Prior VTE?: No VTE Risk Level:: Medical - moderate - high VTE Device Contraindication: N/A - Device Ordered VTE Drug Contraindication: N/A - Med Ordered Assessment and Plan (1) Pneumonia: Status: Acute Assessment and Plan: This is a 65-year-old female with a known history of metastatic small cell lung cancer who presents to the hospital with generalized weakness and frequent falls. Her chest imaging is concerning for mariam-mass pneumonia. She will be admitted for further work up 1. Pneumonia 1a. GPC bacteremia - 1/2 bottles, possible contimination cefepime day #2; add vancomcyin day #1 for possible GPC bactermia, repeat blood cx today continue home oxygen follow vancomcyin trough per pharmacy protcol monitor renal function 2. Pancytopenia, neutropenia (on labs yesterday) multifactorial daily discussion with her automatic lathe setter Dr. Saunders ANC 500 yesterday, recheck tomorrow and daily; add neutropenic precautions 3. Chronic Respiratory Failure with hypoxia continue baseline O2 4. COPD not in exacerbation continue her inhalers 5. Metastatic Small Cell Lung CA outpatient f/u with her oncology team. 6. Generalized weakness / frequent falls PT evaluation, suspect she will need STR d/w her daughter -- who is in agreement 7. Hypothyroidism synthroid Patient wishes to be full code Her daughter Rekha is her HCP DVT pptx - will use mechanical device due to her thrombocytopenia -- change to pharmacological as her thrombocytopenia improves
[2021-01-27 13:28] LABS: Atypical Lymphs Percent Manual 1 % (0-6); Band Neutrophils Percent 1 % (3-5); Lymphocytes Absolute Manual 0.9 X10*3/uL (0.6-4.8); Lymphocytes Percent Manual 75 % (20-40); Monocytes Absolute Manual 0.1 X10*3/uL (0.0-1.2); Monocytes Percent Manual 9 % (2-11); Neutrophils Absolute Manual 0.2 X10*3/uL (2.2-7.9); Neutrophils Percent Manual 14 % (45-73)
[2021-01-27 13:30] LABS: RBC Morphology NOTED
[2021-01-27 13:31] LABS: Hypochromasia 1+ (5-14) /OIF; Platelet Estimate DECREASED (NORMAL); Platelet Morphology Comment NORMAL; Rouleau PRESENT
--- NOTE | 2021-01-27 14:10 | MHC.CLN ---
RE; CONSULT SEE CLINICAL NUTRITION ASSESSMENT
[2021-01-27] MEDS: Nortriptyline HCl 10 MG CAPSULE 20 MG PO (20:30)
[2021-01-27] MEDS: Zolpidem Tartrate 5 MG TABLET 10 MG PO (23:03)
[2021-01-27] MEDS: vancomycin HCL 1,000 MG in 0.9 % Sodium Chloride 250 ML 270 MG IV (23:39)
[2021-01-28] VITALS (7 sets, daily range): BP systolic 107–148; BP diastolic 57–65; PULSE 70–90; RESP 16–20; TEMP 36.7–36.9; O2SAT 94–97
[2021-01-28] MEDS: 0.9 % Sodium Chloride Flush 3 ML SYRINGE IVFLUSH ×3 (01:03→15:50)
[2021-01-28] MEDS: cefEPime HCl 2 GM in 0.9 % Sodium Chloride 50 ML IV (02:45)
[2021-01-28] MEDS: Levothyroxine Sodium 112 MCG TABLET PO (06:06)
[2021-01-28] MEDS: Omeprazole 20 MG CAPSULE.DR PO (06:06)
[2021-01-28] MEDS: Levothyroxine Sodium 25 MCG TABLET PO (06:06)
[2021-01-28 07:07] LABS: Hematocrit 26.9 % (37-47); Hemoglobin 9.1 g/dl (12.0-16.0); Mean Corpuscular HGB Conc 33.8 g/dl (31.0-35.0); Mean Corpuscular Hemoglobin 32.5 pg (27.0-33.0); Mean Corpuscular Volume 96.1 fL (80-98); Mean Platelet Volume 10.4 fL (9.4-12.3); Red Cell Distribution Width 12.7 % (11.0-16.0)
[2021-01-28 07:22] LABS: Platelet Count 27 X10*3/uL (160-400); WBC ABN SCTR FOR CBC 1
[2021-01-28 07:35] LABS: Anion Gap 11 (12-20); Blood Urea Nitrogen 17 mg/dL (9-16); Calcium 8.9 mg/dL (8.4-10.2); Carbon Dioxide 28 mmol/L (22-29); Chloride 106 mmol/L (96-108); Creatinine Clr Calc Pharmacy 94.6; Estimated Glomerular Filt Rate > 60; Glucose Random 97 mg/dL (60-115); Potassium 3.6 mmol/L (3.3-5.1); Sodium 141 mmol/L (135-145)
[2021-01-28 08:10] LABS: White Blood Count 1.2 X10*3/uL (4.8-10.8)
[2021-01-28 08:14] LABS: Atypical Lymphs Percent Manual 1 % (0-6); Band Neutrophils Percent 5 % (3-5); Lymphocytes Percent Manual 81 % (20-40); Monocytes Percent Manual 3 % (2-11); Neutrophils Absolute Manual 0.2 X10*3/uL (2.2-7.9); Neutrophils Percent Manual 10 % (45-73)
[2021-01-28 08:15] LABS: Hypochromasia 1+ (5-14) /OIF; Platelet Estimate DECREASED (NORMAL); RBC Morphology NOTED
[2021-01-28 08:16] LABS: Platelet Morphology Comment NORMAL
[2021-01-28] MEDS: Docusate Sodium 100 MG CAPSULE PO (09:52)
[2021-01-28] MEDS: Multivitamin TABLET 1 TAB PO (09:52)
[2021-01-28] MEDS: vancomycin HCL 1,000 MG in 0.9 % Sodium Chloride 250 ML 270 MG IV (09:52)
[2021-01-28] MEDS: atenoloL 25 MG TABLET PO (09:52)
[2021-01-28] MEDS: oxyCODONE HCl Immed Release 5 MG TABLET PO ×2 (09:52→15:50)
[2021-01-28] MEDS: DULoxetine HCl 30 MG CAPSULE.DR PO (09:52)
--- NOTE | 2021-01-28 11:53 | MHC.CM.PN ---
Per ROUNDS discussion, Patient is not yet medically cleared for dc (worsening Thrombocytopenia). STR is the goal for dc and CM will continue to follow for possible need to adjust the dc plan.
--- NOTE | 2021-01-28 14:26 | HO.PM.IMPN ---
Subjective Subjective Date of Service: 01/28/21 Interval History: Patient is sitting up comfortably, complain of generalized body ache, shoulder ,knee pain , refusing nectar thick liquids and asking for clear liquid. ROS General - no fevers or chills Cardiovascular - no chest pain Respiratory - no shortness of breath or cough Abdominal- no abdominal pain, nausea, vomiting, diarrhea Physical Exam Vital Signs: Vital Signs: Last Vital Signs Temp 98.3 F 01/28/21 10:56 Pulse 70 01/28/21 10:56 Resp 18 01/28/21 10:56 BP 148/65 H 01/28/21 10:56 Pulse Ox 95 01/28/21 10:56 Oxygen Flow Rate 2 01/25/21 12:23 Body Mass Index 46.8 Constitutional - Awake and Alert, No apparent distress Neck no jvd Cardiovascular - S1S2, RRR, No edema Respiratory - clear to auscultation, not in distress Gastrointestinal - non tender bowel sounds audible, No rebound or guarding Extremities - no calf tenderness bilaterally, no swelling Skin - Warm/Dry, no rash Neurological - Alert & oriented x3, No focal deficit Psychological - Appropriate affect Objective Data Current Medications Generic Name Dose Route Start Last Admin Trade Name Freq PRN Reason Stop Dose Admin Acetaminophen 650 mg 01/26/21 09:44 Acetaminophen 325 Mg Tablet PO Q6H PRN Pain, Mild (Pain Scale 1-3) Albuterol Sulfate 2 puff 01/25/21 20:12 Albuterol Sulfate 90 Mcg 8 Gm Inhaler INHALE Q6H PRN Shortness Of Breath Atenolol 25 mg 01/26/21 09:00 01/28/21 09:52 Atenolol 25 Mg Tablet PO 25 mg DAILY SAM Administration Protocol Bupropion HCl 150 mg 01/29/21 09:00 Bupropion Hcl Xl 150 Mg Tab.Er.24h PO DAILY SAM Docusate Sodium 100 mg 01/26/21 09:00 01/28/21 09:52 Docusate Sodium 100 Mg Capsule PO 100 mg DAILY SAM Administration Duloxetine HCl 30 mg 01/26/21 09:00 01/28/21 09:52 Duloxetine Hcl 30 Mg Capsule.Dr PO 30 mg DAILY SAM Administration Fluticasone/Vilanterol 1 puff 01/26/21 08:00 01/28/21 07:42 Fluticasone/Vilanterol 200/25 Blst.W.Dev INHALE Not Given RDAILY [facility] Vancomycin HCl 1,000 mg/ 270 mls @ 270 mls/hr 01/27/21 22:00 01/28/21 11:45 Sodium Chloride IV Infused Q12H [facility] Infusion Levothyroxine Sodium 112 mcg 01/26/21 06:00 01/28/21 06:06 Levothyroxine Sodium 112 Mcg Tablet PO 112 mcg DAILY@0600 SAM Administration Levothyroxine Sodium 25 mcg 01/26/21 06:00 01/28/21 06:06 Levothyroxine Sodium 25 Mcg Tablet PO 25 mcg DAILY@0600 [facility] Administration Multivitamins/Vitamin C 1 tab 01/26/21 09:00 01/28/21 09:52 Multivitamin Tablet PO 1 tab DAILY SAM Administration Nortriptyline HCl 20 mg 01/25/21 21:00 01/27/21 20:30 Nortriptyline Hcl 10 Mg Capsule PO 20 mg BEDTIME SAM Administration Omeprazole 20 mg 01/26/21 06:30 01/28/21 06:06 Omeprazole 20 Mg Capsule.Dr PO 20 mg DAILY@0630 [facility] Administration Oxycodone HCl 10 mg 01/25/21 20:12 01/27/21 20:33 Oxycodone Hcl Immed Release 5 Mg Tablet PO 10 mg Q4H PRN Administration Chest Pain Oxycodone HCl 5 mg 01/25/21 20:12 01/28/21 09:52 Oxycodone Hcl Immed Release 5 Mg Tablet PO 5 mg Q6H PRN Administration pain (scale score 7-10) Pharmacy Consult 1 each 01/27/21 08:55 Consult Rx Vancomycin Dosing MISCELLANE DAILY PRN Consult order Sodium Chloride 3 ml 01/26/21 16:00 01/28/21 09:52 0.9 % Sodium Chloride Flush 3 Ml Syringe IVFLUSH 3 ml QSHIFT [facility] Administration Tiotropium [place] 2 puff 01/26/21 08:00 01/28/21 07:42 Tiotropium [place] 18 Mcg Cap.W.Dev INHALE Not Given RDAILY [facility] Zolpidem Tartrate 10 mg 01/25/21 20:12 01/27/21 23:03 Zolpidem Tartrate 5 Mg Tablet PO 10 mg DAILY PRN Administration Insomnia Labs CBC & Chem 7: 01/28/21 05:56 01/28/21 05:56 Labs: Laboratory Results - last 24 hr 01/28/21 01/28/21 05:56 05:56 WBC 1.2 L RBC 2.80 L Hgb 9.1 L Hct 26.9 L MCV 96.1 MCH 32.5 MCHC 33.8 RDW 12.7 Plt Count 27 L D MPV 10.4 Immature Gran % (Auto) Cancelled Neut % (Auto) Cancelled Lymph % (Auto) Cancelled [place] % (Auto) Cancelled Eos % (Auto) Cancelled Baso % (Auto) Cancelled Lymph # (Auto) Cancelled [place] # (Auto) Cancelled Eos # (Auto) Cancelled Baso # (Auto) Cancelled Abs Immat Gran (auto) Cancelled Absolute Neuts (auto) Cancelled Absolute Nucleated RBC 0.000 Nucleated RBC % (auto) 0.0 Neutrophils % (Manual) 10 L Band Neutrophils % 5 Lymphocytes % (Manual) 81 H Atypical Lymphs % (Man) 1 Monocytes % (Manual) 3 Abs Neuts (Manual) 0.2 L Lymphocytes # (Manual) 1.0 Platelet Estimate DECREASED Plt Morphology Comment NORMAL RBC Morphology NOTED Hypochromasia 1+ (5-14) Sodium 141 Potassium 3.6 Chloride 106 Carbon Dioxide 28 Anion Gap 11 L BUN 17 H Creatinine 0.76 Estim Creat Clear Calc 94.6 Estimated GFR > 60 Random Glucose 97 Calcium 8.9 Microbiology Microbiology Results: Microbiology 01/26/21 04:35 Blood Culture - Final Blood - Venous Coag negative Staphylococcus 01/26/21 04:35 Blood Culture - Preliminary Blood - Venous No growth after 48 hours. Quality Stroke Does the patient have a stroke diagnosis?: No VTE Prior VTE?: No VTE Risk Level:: Medical - moderate - high VTE Device Contraindication: N/A - Device Ordered VTE Drug Contraindication: N/A - Med Ordered Assessment and Plan (1) Neutropenia: Status: Acute (2) COPD (chronic obstructive pulmonary disease): Status: Acute (3) Small cell lung cancer: Status: Chronic (4) Pneumonia: Status: Acute Assessment and Plan: 65-year-old female with a known history of metastatic small cell lung cancer who presents to the hospital with generalized weakness and frequent falls. Her chest imaging is concerning for mariam-mass pneumonia. She will be admitted for further work up 1. Pneumonia Patient asymptomatic no cough , no fever, no shortness of breath, blood culture 1/2 grew coagulase negative Staph unlikely pathogen will DC IV vancomycin continue home oxygen, follow clinical course Seen by speech therapy they recommended nectar thick liquid however patient declined and wishes to be placed on clear liquid diet patient is aware of risk of aspiration. 2. Pancytopenia, neutropenia multifactorial, will DC IV cefepime, spoke with Dr. Saunders, continue neutropenic precautions and repeat CBC no further intervention planned 3. Chronic Respiratory Failure with hypoxia continue baseline O2, no acute exacerbation 4. COPD not in exacerbation, continue home inhalers 5. Metastatic Small Cell Lung CA outpatient f/u with her oncology team. 6. Generalized weakness / frequent falls PT evaluation, will need STR d/w her daughter -- who is in agreement 7. Hypothyroidism synthroid Patient wishes to be full code Her daughter Rekha is her HCP DVT pptx - will use mechanical device due to her thrombocytopenia
[2021-01-28] MEDS: Nortriptyline HCl 10 MG CAPSULE 20 MG PO (20:32)
[2021-01-28] MEDS: Acetaminophen 325 MG TABLET 650 MG PO (20:32)
[2021-01-28 21:28] LABS: Vancomycin Trough 16.6 mcg/mL (10.0-20.0)
[2021-01-28] MEDS: Zolpidem Tartrate 5 MG TABLET 10 MG PO (21:54)
[2021-01-29] VITALS (13 sets, daily range): BP systolic 99–153; BP diastolic 61–92; PULSE 73–87; RESP 16–22; TEMP 36.4–37.1; O2SAT 95–98
[2021-01-29] MEDS: 0.9 % Sodium Chloride Flush 3 ML SYRINGE IVFLUSH ×3 (00:21→20:40)
[2021-01-29] MEDS: oxyCODONE HCl Immed Release 5 MG TABLET PO ×3 (03:32→20:44)
[2021-01-29] MEDS: Levothyroxine Sodium 25 MCG TABLET PO (06:47)
[2021-01-29] MEDS: Levothyroxine Sodium 112 MCG TABLET PO (06:47)
[2021-01-29 06:59] LABS: Hemoglobin 8.9 g/dl (12.0-16.0); Mean Corpuscular HGB Conc 34.2 g/dl (31.0-35.0); Mean Corpuscular Hemoglobin 32.4 pg (27.0-33.0); Mean Corpuscular Volume 94.5 fL (80-98); Mean Platelet Volume 10.6 fL (9.4-12.3); Red Blood Count 2.75 X10*6/uL (4.20-5.50); Red Cell Distribution Width 12.4 % (11.0-16.0)
[2021-01-29 08:09] LABS: WBC ABN SCTR FOR CBC 1
[2021-01-29 08:31] LABS: Platelet Count 16 X10*3/uL (160-400)
--- NOTE | 2021-01-29 08:50 | HO.PM.IMPN ---
Subjective Subjective Date of Service: 01/29/21 Interval History: pnaumonia, neutropenia and thrombocytopenia Review of Systems Shortness of breath seems improving, denies any new complaints No bleeding went Physical Exam Vital Signs: Vital Signs: Last Vital Signs Temp 98.7 F 01/29/21 07:16 Pulse 82 01/29/21 07:16 Resp 20 01/29/21 07:16 BP 121/73 01/29/21 07:16 Pulse Ox 98 01/29/21 07:16 Oxygen Flow Rate 2 01/25/21 12:23 Body Mass Index 46.8 General - Awake and Alert, No apparent distress Neck no jvd Cvs - S1S2, RRR. Res: Clear to auscultation bilaterally no rales no wheezing. Gastrointestinal - non tender bowel sounds audible, No rebound or guarding Extremities - no calf tenderness bilaterally, no swelling Skin - Warm/Dry, no rash Neurological - Alert & oriented x3, No focal deficit Psychological - Appropriate affect Objective Data Current Medications Generic Name Dose Route Start Last Admin Trade Name Freq PRN Reason Stop Dose Admin Acetaminophen 650 mg 01/26/21 09:44 01/28/21 20:32 Acetaminophen 325 Mg Tablet PO 650 mg Q6H PRN Administration Pain, Mild (Pain Scale 1-3) Albuterol Sulfate 2 puff 01/25/21 20:12 Albuterol Sulfate 90 Mcg 8 Gm Inhaler INHALE Q6H PRN Shortness Of Breath Atenolol 25 mg 01/26/21 09:00 01/28/21 09:52 Atenolol 25 Mg Tablet PO 25 mg DAILY SAM Administration Protocol Bupropion HCl 150 mg 01/29/21 09:00 Bupropion Hcl Xl 150 Mg Tab.Er.24h PO DAILY SAM Docusate Sodium 100 mg 01/26/21 09:00 01/28/21 09:52 Docusate Sodium 100 Mg Capsule PO 100 mg DAILY SAM Administration Duloxetine HCl 30 mg 01/26/21 09:00 01/28/21 09:52 Duloxetine Hcl 30 Mg Capsule.Dr PO 30 mg DAILY SAM Administration Fluticasone/Vilanterol 1 puff 01/26/21 08:00 01/28/21 07:42 Fluticasone/Vilanterol 200/25 Blst.W.Dev INHALE Not Given RDAILY SAM Levothyroxine Sodium 112 mcg 01/26/21 06:00 01/29/21 06:47 Levothyroxine Sodium 112 Mcg Tablet PO 112 mcg DAILY@0600 [facility] Administration Levothyroxine Sodium 25 mcg 01/26/21 06:00 01/29/21 06:47 Levothyroxine Sodium 25 Mcg Tablet PO 25 mcg DAILY@0600 [facility] Administration Multivitamins/Vitamin C 1 tab 01/26/21 09:00 01/28/21 09:52 Multivitamin Tablet PO 1 tab DAILY [facility] Administration Nortriptyline HCl 20 mg 01/25/21 21:00 01/28/21 20:32 Nortriptyline Hcl 10 Mg Capsule PO 20 mg BEDTIME SAM Administration Omeprazole 20 mg 01/26/21 06:30 01/28/21 06:06 Omeprazole 20 Mg Capsule.Dr PO 20 mg DAILY@0630 [facility] Administration Oxycodone HCl 5 mg 01/25/21 20:12 01/29/21 03:32 Oxycodone Hcl Immed Release 5 Mg Tablet PO 5 mg Q6H PRN Administration pain (scale score 7-10) Pharmacy Consult 1 each 01/27/21 08:55 Consult Rx Vancomycin Dosing MISCELLANE DAILY PRN Consult order Sodium Chloride 3 ml 01/26/21 16:00 01/29/21 00:21 0.9 % Sodium Chloride Flush 3 Ml Syringe IVFLUSH 3 ml QSHIFT [facility] Administration Tiotropium [place] 2 puff 01/26/21 08:00 01/28/21 07:42 Tiotropium [place] 18 Mcg Cap.W.Dev INHALE Not Given RDAILY [facility] Zolpidem Tartrate 10 mg 01/25/21 20:12 01/28/21 21:54 Zolpidem Tartrate 5 Mg Tablet PO 10 mg DAILY PRN Administration Insomnia Labs CBC & Chem 7: 01/29/21 05:32 01/28/21 05:56 Labs: Laboratory Results - last 24 hr 01/28/21 01/29/21 20:43 05:32 WBC 1.9 L RBC 2.75 L Hgb 8.9 L Hct 26.0 L MCV 94.5 MCH 32.4 MCHC 34.2 RDW 12.4 Plt Count 16 L* MPV 10.6 Immature Gran % (Auto) Cancelled Neut % (Auto) Cancelled Lymph % (Auto) Cancelled [place] % (Auto) Cancelled Eos % (Auto) Cancelled Baso % (Auto) Cancelled Lymph # (Auto) Cancelled [place] # (Auto) Cancelled Eos # (Auto) Cancelled Baso # (Auto) Cancelled Abs Immat Gran (auto) Cancelled Absolute Neuts (auto) Cancelled Absolute Nucleated RBC 0.000 Nucleated RBC % (auto) 0.0 Vancomycin Trough 16.6 Microbiology Microbiology Results: Microbiology 01/27/21 12:37 Blood Culture - Preliminary Blood - Venous No growth after 24 hours. 01/27/21 12:37 Blood Culture - Preliminary Blood - Venous No growth after 24 hours. 01/26/21 04:35 Blood Culture - Final Blood - Venous Coag negative Staphylococcus 01/26/21 04:35 Blood Culture - Preliminary Blood - Venous No growth after 48 hours. Quality Stroke Does the patient have a stroke diagnosis?: No VTE Prior VTE?: No VTE Risk Level:: Medical - moderate - high VTE Device Contraindication: N/A - Device Ordered VTE Drug Contraindication: N/A - Med Ordered Assessment and Plan (1) Neutropenia: Status: Acute (2) Pneumonia: Status: Acute Assessment and Plan: 65-year-old female with a known history of metastatic small cell lung cancer who presents to the hospital with generalized weakness and frequent falls. Her chest imaging is concerning for mariam-mass pneumonia. She will be admitted for further work up 1. Pneumonia Patient asymptomatic no cough , no fever, no shortness of breath, blood culture 1/2 grew coagulase negative Staph unlikely pathogen will DC IV vancomycin continue home oxygen, follow clinical course Seen by speech therapy they recommended nectar thick liquid however patient declined and wishes to be placed on clear liquid diet patient is aware of risk of aspiration. 2. Pancytopenia, neutropenia: Seems to be worsening thrombocytopenia [place] 16 ANC 0.2 WBC count 1.1 as per haem. lab multifactorial, off IV cefepime, spoke with Dr. Saunders, continue neutropenic precautions and repeat CBC no further intervention planned Discussed with Hematology: Will give platelets 1 unit He recheck labs in the morning. 3. Chronic Respiratory Failure with hypoxia continue baseline O2, no acute exacerbation 4. COPD not in exacerbation, continue home inhalers 5. Metastatic Small Cell Lung CA outpatient f/u with her oncology team. 6. Generalized weakness / frequent falls PT evaluation, will need STR d/w her daughter -- who is in agreement 7. Hypothyroidism synthroid
[2021-01-29 09:01] LABS: Band Neutrophils Percent 6 % (3-5); Lymphocytes Percent Manual 83 % (20-40); Monocytes Percent Manual 2 % (2-11); Neutrophils Percent Manual 9 % (45-73)
[2021-01-29 09:02] LABS: Dohle Bodies PRESENT; Hypochromasia 1+ (5-14) /OIF; Platelet Estimate DECREASED (NORMAL); RBC Morphology NOTED; Toxic Granulation PRESENT
[2021-01-29 09:03] LABS: Platelet Morphology Comment NORMAL
[2021-01-29] MEDS: Fluticasone/Vilanterol 200/25 BLST.W.DEV 1 PUFF INHALE (09:19)
[2021-01-29 10:29] LABS: Lymphocytes Absolute Manual 0.9 X10*3/uL (0.6-4.8); Neutrophils Absolute Manual 0.2 X10*3/uL (2.2-7.9)
[2021-01-29 10:59] LABS: White Blood Count 1.1 X10*3/uL (4.8-10.8)
[2021-01-29] MEDS: DULoxetine HCl 30 MG CAPSULE.DR PO (10:59)
[2021-01-29] MEDS: Multivitamin TABLET 1 TAB PO (10:59)
[2021-01-29] MEDS: atenoloL 25 MG TABLET PO (10:59)
[2021-01-29] MEDS: Docusate Sodium 100 MG CAPSULE PO (11:00)
[2021-01-29] MEDS: buPROPion HCl XL 150 MG TAB.ER.24H PO (11:00)
--- NOTE | 2021-01-29 11:17 | MHC.SLORD ---
Speech Language Pathology Order Status: Skilled dysphagia therapy is no longer warranted at this level of care. Please re-refer if pt's condition changes or if EDUCATION RESEARCH ANALYST can be of further assistance. EDUCATION RESEARCH ANALYST continues to recommend nectar thick liquids and regular solids with pills whole in puree or liquid depending on pt's preference. Pt has aversion to thickened liquids and chooses to forgo recommendation with understanding of risks associated with aspiration.
[2021-01-29] MEDS: polyethylene glycoL 3350 17 GM POWD.PACK PO (12:35)
[2021-01-29] MEDS: oxyCODONE HCl Immed Release 5 MG TABLET 10 MG PO (12:35)
[2021-01-29] MEDS: Lidocaine 4 % Patch ADH..PATCH 1 PATCH TRANSDERMA (12:39)
[2021-01-29] MEDS: Nortriptyline HCl 10 MG CAPSULE 20 MG PO (20:40)
[2021-01-29] MEDS: Zolpidem Tartrate 5 MG TABLET 10 MG PO (22:32)
[2021-01-30 04:00] VITALS: BP 109/59; PULSE 76; RESP 18; TEMP 37; O2SAT 97
[2021-01-30] MEDS: Omeprazole 20 MG CAPSULE.DR PO (05:27)
[2021-01-30] MEDS: Levothyroxine Sodium 112 MCG TABLET PO (05:27)
[2021-01-30] MEDS: Levothyroxine Sodium 25 MCG TABLET PO (05:27)
[2021-01-30 07:29] LABS: Hematocrit 23.3 % (37-47); Hemoglobin 8.1 g/dl (12.0-16.0); Mean Corpuscular HGB Conc 34.8 g/dl (31.0-35.0); Mean Corpuscular Hemoglobin 32.4 pg (27.0-33.0); Mean Corpuscular Volume 93.2 fL (80-98); Mean Platelet Volume 10.8 fL (9.4-12.3); Red Cell Distribution Width 12.2 % (11.0-16.0)
[2021-01-30 08:00] VITALS: BP 115/73; PULSE 81; RESP 20; TEMP 36.6; O2SAT 94
[2021-01-30 08:14] LABS: White Blood Count 1.4 X10*3/uL (4.8-10.8)
[2021-01-30 08:23] LABS: Platelet Count 17 X10*3/uL (160-400)
[2021-01-30] MEDS: polyethylene glycoL 3350 17 GM POWD.PACK PO (09:56)
[2021-01-30] MEDS: Lidocaine 4 % Patch ADH..PATCH 1 PATCH TRANSDERMA (09:56)
[2021-01-30] MEDS: Multivitamin TABLET 1 TAB PO (09:56)
[2021-01-30 09:57] VITALS: BP 115/73; PULSE 81
[2021-01-30] MEDS: atenoloL 25 MG TABLET PO (09:57)
[2021-01-30] MEDS: DULoxetine HCl 30 MG CAPSULE.DR PO (09:57)
[2021-01-30] MEDS: buPROPion HCl XL 150 MG TAB.ER.24H PO (09:57)
[2021-01-30] MEDS: oxyCODONE HCl Immed Release 5 MG TABLET PO ×2 (09:58→17:34)
[2021-01-30] MEDS: Docusate Sodium 100 MG CAPSULE PO (09:58)
[2021-01-30] MEDS: 0.9 % Sodium Chloride Flush 3 ML SYRINGE IVFLUSH ×2 (10:07→21:16)
[2021-01-30 12:00] VITALS: BP 140/71; PULSE 78; RESP 20; TEMP 36.4; O2SAT 98
--- NOTE | 2021-01-30 13:10 | MHC.CM.PN ---
CM met with Patient and her Daughter at bedside to further discuss dc planning. Patient's first choice is to go home but she is still considering SNF for STR. Per Patient's request, [facility] has asked [facility] to begin the auth process. CM will follow.
[2021-01-30 15:10] VITALS: BP 122/59; PULSE 72; RESP 20; TEMP 36.7; O2SAT 96
--- NOTE | 2021-01-30 17:44 | HO.PM.IMPN ---
Subjective Subjective Date of Service: 01/31/21 Interval History: Pancytopenia Review of Systems Denies any chest pain or shortness of breath Has chronic body pains Physical Exam Vital Signs: Vital Signs: Last Vital Signs Temp 98.0 F 01/30/21 15:10 Pulse 72 01/30/21 15:10 Resp 20 01/30/21 15:10 BP 122/59 L 01/30/21 15:10 Pulse Ox 96 01/30/21 15:10 Oxygen Flow Rate 2 01/25/21 12:23 Body Mass Index 46.8 Physical exam: Cvs: [id number], [id number] , no murmur res: clear to auscultation ,no rhonchii or wheezing abd: no rebound or guarding ,nt, bs present. ext pulses present , no cyanosis neuro: axo3 , nonfocal. Objective Data Current Medications Generic Name Dose Route Start Last Admin Trade Name Freq PRN Reason Stop Dose Admin Acetaminophen 650 mg 01/26/21 09:44 01/28/21 20:32 Acetaminophen 325 Mg Tablet PO 650 mg Q6H PRN Administration Pain, Mild (Pain Scale 1-3) Albuterol Sulfate 2 puff 01/25/21 20:12 Albuterol Sulfate 90 Mcg 8 Gm Inhaler INHALE Q6H PRN Shortness Of Breath Atenolol 25 mg 01/26/21 09:00 01/30/21 09:57 Atenolol 25 Mg Tablet PO 25 mg DAILY SAM Administration Protocol Bupropion HCl 150 mg 01/29/21 09:00 01/30/21 09:57 Bupropion Hcl Xl 150 Mg Tab.Er.24h PO 150 mg DAILY SAM Administration Docusate Sodium 100 mg 01/26/21 09:00 01/30/21 09:58 Docusate Sodium 100 Mg Capsule PO 100 mg DAILY SAM Administration Docusate Sodium 100 mg 01/29/21 21:00 01/29/21 20:40 Docusate Sodium 100 Mg Capsule PO Not Given BEDTIME SAM Duloxetine HCl 30 mg 01/26/21 09:00 01/30/21 09:57 Duloxetine Hcl 30 Mg Capsule.Dr PO 30 mg DAILY SAM Administration Fluticasone/Vilanterol 1 puff 01/26/21 08:00 01/30/21 07:42 Fluticasone/Vilanterol 200/25 Blst.W.Dev INHALE Not Given RDAILY SAM Levothyroxine Sodium 112 mcg 01/26/21 06:00 01/30/21 05:27 Levothyroxine Sodium 112 Mcg Tablet PO 112 mcg DAILY@0600 SAM Administration Levothyroxine Sodium 25 mcg 01/26/21 06:00 01/30/21 05:27 Levothyroxine Sodium 25 Mcg Tablet PO 25 mcg DAILY@0600 SAM Administration Lidocaine 1 patch 01/29/21 12:15 01/30/21 09:56 Lidocaine 4 % Patch Adh..Patch TRANSDERMA 1 patch DAILY SAM Administration Protocol Multivitamins/Vitamin C 1 tab 01/26/21 09:00 01/30/21 09:56 Multivitamin Tablet PO 1 tab DAILY SAM Administration Nortriptyline HCl 20 mg 01/25/21 21:00 01/29/21 20:40 Nortriptyline Hcl 10 Mg Capsule PO 20 mg BEDTIME SAM Administration Omeprazole 20 mg 01/26/21 06:30 01/30/21 05:27 Omeprazole 20 Mg Capsule.Dr PO 20 mg DAILY@0630 [facility] Administration Oxycodone HCl 5 mg 01/25/21 20:12 01/30/21 17:34 Oxycodone Hcl Immed Release 5 Mg Tablet PO 5 mg Q6H PRN Administration pain (scale score 7-10) Pharmacy Consult 1 each 01/27/21 08:55 Consult Rx Vancomycin Dosing MISCELLANE DAILY PRN Consult order Polyethylene Glycol 17 gm 01/29/21 12:15 01/30/21 09:56 Polyethylene Glycol 3350 17 Gm Powd.Pack PO 17 gm DAILY SAM Administration Sodium Chloride 3 ml 01/26/21 16:00 01/30/21 15:06 0.9 % Sodium Chloride Flush 3 Ml Syringe IVFLUSH Not Given QSHIFT [facility] Tiotropium [place] 2 puff 01/26/21 08:00 01/30/21 07:42 Tiotropium [place] 18 Mcg Cap.W.Dev INHALE Not Given RDAILY [facility] Zolpidem Tartrate 10 mg 01/25/21 20:12 01/29/21 22:32 Zolpidem Tartrate 5 Mg Tablet PO 10 mg DAILY PRN Administration Insomnia Labs CBC & Chem 7: 01/31/21 07:43 01/28/21 05:56 Labs: Laboratory Results - last 24 hr 01/30/21 06:08 WBC 1.4 L RBC 2.50 L Hgb 8.1 L Hct 23.3 L MCV 93.2 MCH 32.4 MCHC 34.8 RDW 12.2 Plt Count 17 L* MPV 10.8 Absolute Nucleated RBC 0.000 Nucleated RBC % (auto) 0.0 Microbiology Microbiology Results: Microbiology 01/27/21 12:37 Blood Culture - Preliminary Blood - Venous No growth after 48 hours. 01/27/21 12:37 Blood Culture - Preliminary Blood - Venous No growth after 48 hours. Quality Stroke Does the patient have a stroke diagnosis?: No VTE Prior VTE?: No VTE Risk Level:: Medical - moderate - high VTE Device Contraindication: N/A - Device Ordered VTE Drug Contraindication: N/A - Med Ordered Assessment and Plan (1) Neutropenia: Status: Acute (2) Thrombocytopenia: Status: Acute Assessment and Plan: 65-year-old female with a known history of metastatic small cell lung cancer who presents to the hospital with generalized weakness and frequent falls. Her chest imaging is concerning for mariam-mass pneumonia. She will be admitted for further work up 1. Pneumonia Patient asymptomatic no cough , no fever, no shortness of breath, blood culture 1/2 grew coagulase negative Staph unlikely pathogen will DC IV vancomycin continue home oxygen, follow clinical course, plan is to observe her defer antibiotic for now. Seen by speech therapy they recommended nectar thick liquid however patient declined and wishes to be placed on clear liquid diet patient is aware of risk of aspiration. 2. Pancytopenia, neutropenia: Seems to be worsening thrombocytopenia [place] 16 anc WBC count 1.4 as per haem. lab multifactorial, off IV cefepime, spoke with Dr. Saunders, continue neutropenic precautions and repeat CBC no further intervention planned Discussed with Hematology: Given 1 unit platelets repeated platelet level is 17. He recheck labs in the morning. 3. Chronic Respiratory Failure with hypoxia continue baseline O2, no acute exacerbation 4. COPD not in exacerbation, continue home inhalers 5. Metastatic Small Cell Lung CA outpatient f/u with her oncology team. 6. Generalized weakness / frequent falls PT evaluation, will need STR d/w her daughter -- who is in agreement 7. Hypothyroidism synthroid
[2021-01-30 19:12] VITALS: BP 111/76; PULSE 75; RESP 18; TEMP 36.2; O2SAT 97
[2021-01-30] MEDS: Nortriptyline HCl 10 MG CAPSULE 20 MG PO (21:15)
[2021-01-31] VITALS (11 sets, daily range): BP systolic 93–121; BP diastolic 49–89; PULSE 73–105; RESP 18–20; TEMP 36–36.7; O2SAT 94–100
[2021-01-31] MEDS: oxyCODONE HCl Immed Release 5 MG TABLET 10 MG PO ×4 (00:05→21:19)
--- NOTE | 2021-01-31 04:04 | P.EN_ITS ---
Event Note Date of Service: 01/31/21 Event Note: Unwitnessed fall: Around 4:00 a.m. in the morning patient had an unwitnessed fall in the bathroom. Patient reported that she went to the bathroom and when she turned around she lost her balance and landed on her knees; denies any head strike grade denies any hip pain back pain or neck pain. Patient is mentating well Patient says she has chronic bilateral knee pains; no new change in her pain. Exam: Patient not in distress; Musculoskeletal exam-neck is supple, no focal tenderness on the spine, shoulder exam with normal limits, hip exams within normal limits bilaterally, left knee within the normal limits, range of motion intact; right knee range of motion l imited secondary to the pain. Grossly nonfocal exam Plan: Spoke to the RN for fall precautions. Will obtain right knee x-rays;
--- NOTE | 2021-01-31 04:15 | PC.NURSE ---
Pt was walked to the bathroom by nurse. Pt was given privacy in the bathroom to use. Pt was instructed to ring when done with bathroom. While walking, nurse heard patient fall. Pt was found on her knees. Pt explains that she fell while trying to turn herself. Vitals were taken, all within normal limits. Md was notified. Pt is alert and orientated x4. Pt rings appropriately for bathroom. Pt denies any new pain
[2021-01-31] MEDS: Levothyroxine Sodium 112 MCG TABLET PO (06:03)
[2021-01-31] MEDS: Levothyroxine Sodium 25 MCG TABLET PO (06:03)
[2021-01-31] MEDS: Omeprazole 20 MG CAPSULE.DR PO (06:03)
[2021-01-31 08:08] LABS: Red Cell Distribution Width 12.3 % (11.0-16.0)
[2021-01-31 08:10] LABS: Hematocrit 24.4 % (37-47); Hemoglobin 8.3 g/dl (12.0-16.0); Mean Corpuscular Hemoglobin 31.8 pg (27.0-33.0); Mean Corpuscular Volume 93.5 fL (80-98); Mean Platelet Volume 12.6 fL (9.4-12.3); Red Blood Count 2.61 X10*6/uL (4.20-5.50)
[2021-01-31 08:12] LABS: White Blood Count 1.1 X10*3/uL (4.8-10.8)
[2021-01-31 08:36] LABS: Platelet Count 7 X10*3/uL (160-400)
[2021-01-31] MEDS: Lidocaine 4 % Patch ADH..PATCH 1 PATCH TRANSDERMA (10:05)
[2021-01-31] MEDS: buPROPion HCl XL 150 MG TAB.ER.24H PO (10:05)
[2021-01-31] MEDS: polyethylene glycoL 3350 17 GM POWD.PACK PO (10:05)
[2021-01-31] MEDS: DULoxetine HCl 30 MG CAPSULE.DR PO (10:05)
[2021-01-31] MEDS: Multivitamin TABLET 1 TAB PO (10:05)
[2021-01-31] MEDS: Docusate Sodium 100 MG CAPSULE PO (10:05)
[2021-01-31] MEDS: atenoloL 25 MG TABLET PO (10:07)
[2021-01-31] MEDS: 0.9 % Sodium Chloride Flush 3 ML SYRINGE IVFLUSH ×2 (10:07→15:55)
--- NOTE | 2021-01-31 10:28 | MHC.CM.PN ---
THIS DOUBLE END PRODUCTION GRINDER SPOKE WITH PATIENT WHO VERBALIZED WANTING ARNALDO MILLER, AND NOT RENEE JARA. FACILITY LIAISON MADE AWARE PATIENT WILL STAY TODAY AND RECEIVE BLOOD. [facility] NOT [facility] ON THE WEEKENDS, SO ARNALDO MILLER CANNOT ATTEMPT AUTH UNTIL Tuesday02/02/21. PATIENT AND HOSPITALIST AWARE.
[2021-01-31] MEDS: Fluticasone/Vilanterol 200/25 BLST.W.DEV 1 PUFF INHALE (10:39)
[2021-01-31 11:09] LABS: WBC ABN SCTR FOR CBC 1
[2021-01-31 11:26] LABS: Band Neutrophils Percent 4 % (3-5); Eosinophils Percent Manual 2 % (0-4); Lymphocytes Absolute Manual 0.9 X10*3/uL (0.6-4.8); Lymphocytes Percent Manual 80 % (20-40); Monocytes Percent Manual 4 % (2-11); Neutrophils Absolute Manual 0.2 X10*3/uL (2.2-7.9); Neutrophils Percent Manual 10 % (45-73)
[2021-01-31 11:28] LABS: Hypochromasia 1+ (5-14) /OIF; RBC Morphology NOTED
[2021-01-31 11:29] LABS: Dohle Bodies PRESENT; Toxic Granulation PRESENT
[2021-01-31 11:30] LABS: Large Platelet PRESENT; Platelet Estimate DECREASED (NORMAL); Platelet Morphology Comment NOTED
--- NOTE | 2021-01-31 12:35 | HO.PM.IMPN ---
Subjective Subjective Date of Service: 01/31/21 Interval History: Pancytopenia Review of Systems Denies any chest pain or shortness of breath or abdominal pain or fever chills or cough or phlegm.. Had fall overnight mechanical. Moving her all extremities well Has little bit swelling over the left knee. Denies any significant pain in knee area. Physical Exam Vital Signs: Vital Signs: Last Vital Signs Temp 97.8 F 01/31/21 12:16 Pulse 88 01/31/21 12:16 Resp 18 01/31/21 12:16 BP 114/76 01/31/21 12:16 Pulse Ox 97 01/31/21 12:16 Oxygen Flow Rate 2 01/25/21 12:23 Body Mass Index 46.8 Physical exam: Constitutional: Not in acute distress. Cvs: [id number], [id number] , no murmur res: clear to auscultation ,no rhonchii or wheezing abd: no rebound or guarding ,nt, bs present. ext pulses present , no cyanosis left knee-mild swelling /bruise neuro: axo3 , nonfocal. Objective Data Current Medications Generic Name Dose Route Start Last Admin Trade Name Freq PRN Reason Stop Dose Admin Acetaminophen 650 mg 01/26/21 09:44 01/28/21 20:32 Acetaminophen 325 Mg Tablet PO 650 mg Q6H PRN Administration Pain, Mild (Pain Scale 1-3) Albuterol Sulfate 2 puff 01/25/21 20:12 Albuterol Sulfate 90 Mcg 8 Gm Inhaler INHALE Q6H PRN Shortness Of Breath Atenolol 25 mg 01/26/21 09:00 01/31/21 10:07 Atenolol 25 Mg Tablet PO 25 mg DAILY SAM Administration Protocol Bupropion HCl 150 mg 01/29/21 09:00 01/31/21 10:05 Bupropion Hcl Xl 150 Mg Tab.Er.24h PO 150 mg DAILY SAM Administration Docusate Sodium 100 mg 01/26/21 09:00 01/31/21 10:05 Docusate Sodium 100 Mg Capsule PO 100 mg DAILY SAM Administration Docusate Sodium 100 mg 01/29/21 21:00 01/30/21 21:16 Docusate Sodium 100 Mg Capsule PO Not Given BEDTIME SAM Duloxetine HCl 30 mg 01/26/21 09:00 01/31/21 10:05 Duloxetine Hcl 30 Mg Capsule. PO 30 mg DAILY SAM Administration Fluticasone/Vilanterol 1 puff 01/26/21 08:00 01/31/21 10:39 Fluticasone/Vilanterol 200/25 Blst.W.Dev INHALE 1 puff RDAILY SAM Administration Levothyroxine Sodium 112 mcg 01/26/21 06:00 01/31/21 06:03 Levothyroxine Sodium 112 Mcg Tablet PO 112 mcg DAILY@0600 SAM Administration Levothyroxine Sodium 25 mcg 01/26/21 06:00 01/31/21 06:03 Levothyroxine Sodium 25 Mcg Tablet PO 25 mcg DAILY@0600 SAM Administration Lidocaine 1 patch 01/29/21 12:15 01/31/21 10:05 Lidocaine 4 % Patch Adh..Patch TRANSDERMA 1 patch DAILY SAM Administration Protocol Multivitamins/Vitamin C 1 tab 01/26/21 09:00 01/31/21 10:05 Multivitamin Tablet PO 1 tab DAILY SAM Administration Nortriptyline HCl 20 mg 01/25/21 21:00 01/30/21 21:15 Nortriptyline Hcl 10 Mg Capsule PO 20 mg BEDTIME SAM Administration Omeprazole 20 mg 01/26/21 06:30 01/31/21 06:03 Omeprazole 20 Mg Capsule. PO 20 mg DAILY@0630 SAM Administration Oxycodone HCl 10 mg 01/30/21 20:43 01/31/21 08:28 Oxycodone Hcl Immed Release 5 Mg Tablet PO 10 mg Q6H PRN Administration [facility] Consult 1 each 01/27/21 08:55 Consult Rx Vancomycin Dosing MISCELLANE DAILY PRN Consult order Polyethylene Glycol 17 gm 01/29/21 12:15 01/31/21 10:05 Polyethylene Glycol 3350 17 Gm Powd.Pack PO 17 gm DAILY SAM Administration Sodium Chloride 3 ml 01/26/21 16:00 01/31/21 10:07 0.9 % Sodium Chloride Flush 3 Ml Syringe IVFLUSH 3 ml QSHIFT SAM Administration Tiotropium [place] 2 puff 01/26/21 08:00 01/31/21 10:39 Tiotropium [place] 18 Mcg Cap.W.Dev INHALE 2 puff RDAILY SAM Administration Labs CBC & Chem 7: 01/31/21 07:43 01/28/21 05:56 Labs: Laboratory Results - last 24 hr 01/31/21 07:43 WBC 1.1 L RBC 2.61 L Hgb 8.3 L Hct 24.4 L MCV 93.5 MCH 31.8 MCHC 34.0 RDW 12.3 Plt Count 7 L* D MPV 12.6 H Immature Gran % (Auto) Cancelled Neut % (Auto) Cancelled Lymph % (Auto) Cancelled [place] % (Auto) Cancelled Eos % (Auto) Cancelled Baso % (Auto) Cancelled Lymph # (Auto) Cancelled [place] # (Auto) Cancelled Eos # (Auto) Cancelled Baso # (Auto) Cancelled Abs Immat Gran (auto) Cancelled Absolute Neuts (auto) Cancelled Absolute Nucleated RBC 0.000 Nucleated RBC % (auto) 0.0 Neutrophils % (Manual) 10 L Band Neutrophils % 4 Lymphocytes % (Manual) 80 H Monocytes % (Manual) 4 Eosinophils % (Manual) 2 Abs Neuts (Manual) 0.2 L Lymphocytes # (Manual) 0.9 Toxic Granulation PRESENT Dohle Bodies PRESENT Platelet Estimate DECREASED Large Platelets PRESENT Plt Morphology Comment NOTED RBC Morphology NOTED Hypochromasia 1+ (5-14) Microbiology Microbiology Results: Microbiology 01/26/21 04:35 Blood Culture - Final Blood - Venous No growth after 5 days. Quality Stroke Does the patient have a stroke diagnosis?: No VTE Prior VTE?: No VTE Risk Level:: Medical - moderate - high VTE Device Contraindication: N/A - Device Ordered VTE Drug Contraindication: N/A - Med Ordered Assessment and Plan (1) Thrombocytopenia: Status: Acute Assessment and Plan: 65-year-old female with a known history of metastatic small cell lung cancer who presents to the hospital with generalized weakness and frequent falls. Her chest imaging is concerning for mariam-mass pneumonia. She will be admitted for further work up 1. Pneumonia Patient asymptomatic no cough , no fever, no shortness of breath, blood culture 1/2 grew coagulase negative Staph unlikely pathogen will DC IV vancomycin continue home oxygen, follow clinical course, plan is to observe her defer antibiotic for now. Seen by speech therapy they recommended nectar thick liquid however patient declined and wishes to be placed on clear liquid diet patient is aware of risk of aspiration. 2. Pancytopenia, neutropenia: Seems to be worsening thrombocytopenia [place] 7 anc 0.2 WBC count 1.1 as per haem. lab multifactorial, off IV cefepime, spoke with Dr. Saunders, continue neutropenic precautions and repeat CBC no further intervention planned Discussed with Hematology: Given 1 unit platelets 2 days back , another unit ordered today. He recheck labs in the morning. 3. Chronic Respiratory Failure with hypoxia continue baseline O2, no acute exacerbation 4. COPD not in exacerbation, continue home inhalers 5. Metastatic Small Cell Lung CA outpatient f/u with her oncology team. 6. Generalized weakness / frequent falls PT evaluation, will need STR d/w her daughter -- who is in agreement 7. Hypothyroidism synthroid 8. [facility] fall: xray knee -knee swelling /mild effusion, possible OA range of motion intact Has bruising than front of the knee left-sided Fall precautions
[2021-01-31] MEDS: Melatonin 3 MG TABLET 6 MG PO (21:18)
[2021-01-31] MEDS: Nortriptyline HCl 10 MG CAPSULE 20 MG PO (21:18)
[2021-02-01] VITALS (11 sets, daily range): BP systolic 94–124; BP diastolic 54–76; PULSE 77–87; RESP 16–20; TEMP 36–36.8; O2SAT 96–100
[2021-02-01] MEDS: 0.9 % Sodium Chloride Flush 3 ML SYRINGE IVFLUSH ×4 (00:47→20:23)
[2021-02-01] MEDS: Omeprazole 20 MG CAPSULE.DR PO (06:32)
[2021-02-01] MEDS: Levothyroxine Sodium 112 MCG TABLET PO (06:32)
[2021-02-01] MEDS: Levothyroxine Sodium 25 MCG TABLET PO (06:32)
[2021-02-01 07:03] LABS: Hematocrit 22.8 % (37-47); Mean Corpuscular HGB Conc 35.1 g/dl (31.0-35.0); Mean Corpuscular Hemoglobin 32.4 pg (27.0-33.0); Mean Corpuscular Volume 92.3 fL (80-98); Mean Platelet Volume 12.3 fL (9.4-12.3); Red Blood Count 2.47 X10*6/uL (4.20-5.50); Red Cell Distribution Width 12.1 % (11.0-16.0)
[2021-02-01 07:31] LABS: Anion Gap 11 (12-20); Blood Urea Nitrogen 11 mg/dL (9-16); Calcium 8.9 mg/dL (8.4-10.2); Carbon Dioxide 31 mmol/L (22-29); Chloride 101 mmol/L (96-108); Creatinine Clr Calc Pharmacy 101.3; Estimated Glomerular Filt Rate > 60; Glucose Random 115 mg/dL (60-115); Potassium 4.1 mmol/L (3.3-5.1); Sodium 139 mmol/L (135-145)
[2021-02-01] MEDS: Fluticasone/Vilanterol 200/25 BLST.W.DEV 1 PUFF INHALE (07:44)
[2021-02-01 07:57] LABS: WBC ABN SCTR FOR CBC 1
[2021-02-01 08:01] LABS: White Blood Count 0.4 X10*3/uL (4.8-10.8)
[2021-02-01 08:02] LABS: Platelet Count 6 X10*3/uL (160-400)
[2021-02-01] MEDS: DULoxetine HCl 30 MG CAPSULE.DR PO (08:59)
[2021-02-01] MEDS: Docusate Sodium 100 MG CAPSULE PO ×2 (09:00→20:24)
[2021-02-01] MEDS: buPROPion HCl XL 150 MG TAB.ER.24H PO (09:00)
[2021-02-01] MEDS: Lidocaine 4 % Patch ADH..PATCH 1 PATCH TRANSDERMA (09:00)
[2021-02-01] MEDS: oxyCODONE HCl Immed Release 5 MG TABLET 10 MG PO ×2 (09:01→17:44)
[2021-02-01] MEDS: Multivitamin TABLET 1 TAB PO (09:01)
--- NOTE | 2021-02-01 10:13 | HO.PM.IMPN ---
Subjective Subjective Date of Service: 02/01/21 Interval History: seen and examined some abdominal discomfort ealry this AM, but now resolved no [place], no bleeding ROS General - no fevers or chills Cardiovascular - no chest pain Respiratory - no shortness of breath or cough Abdominal- no abdominal pain, nausea, vomiting, diarrhea Physical Exam Vital Signs: Vital Signs: Last Vital Signs Temp 97.4 F 02/01/21 08:00 Pulse 85 02/01/21 09:01 Resp 18 02/01/21 08:00 BP 102/67 02/01/21 09:01 Pulse Ox 100 02/01/21 08:00 Oxygen Flow Rate 2 01/25/21 12:23 Body Mass Index 46.8 Const: Other: General - no acute distress, appears comfortable Cardiovascular - regular rate and rhythm, S1-S2 Lungs - normal respiratory effort, clear to auscultation bilaterally, no wheezing Abdomen - soft, nontender, no rebound or guarding Extremities - no edema bilaterally Neuro - awake and alert, no focal deficits Objective Data Current Medications Generic Name Dose Route Start Last Admin Trade Name Romelq PRN Reason Stop Dose Admin Acetaminophen 650 mg 01/26/21 09:44 01/28/21 20:32 Acetaminophen 325 Mg Tablet PO 650 mg Q6H PRN Administration Pain, Mild (Pain Scale 1-3) Albuterol Sulfate 2 puff 01/25/21 20:12 Albuterol Sulfate 90 Mcg 8 Gm Inhaler INHALE Q6H PRN Shortness Of Breath Atenolol 25 mg 01/26/21 09:00 02/01/21 09:01 Atenolol 25 Mg Tablet PO Not Given DAILY [facility] Protocol Bupropion HCl 150 mg 01/29/21 09:00 02/01/21 09:00 Bupropion Hcl Xl 150 Mg Tab.Er.24h PO 150 mg DAILY SAM Administration Docusate Sodium 100 mg 01/26/21 09:00 02/01/21 09:00 Docusate Sodium 100 Mg Capsule PO 100 mg DAILY SAM Administration Docusate Sodium 100 mg 01/29/21 21:00 01/31/21 21:25 Docusate Sodium 100 Mg Capsule PO Not Given BEDTIME SAM Duloxetine HCl 30 mg 01/26/21 09:00 02/01/21 08:59 Duloxetine Hcl 30 Mg Capsule.Dr PO 30 mg DAILY SAM Administration Fluticasone/Vilanterol 1 puff 01/26/21 08:00 02/01/21 07:44 Fluticasone/Vilanterol 200/25 Blst.W.Dev INHALE 1 puff RDAILY SAM Administration Levothyroxine Sodium 112 mcg 01/26/21 06:00 02/01/21 06:32 Levothyroxine Sodium 112 Mcg Tablet PO 112 mcg DAILY@0600 SAM Administration Levothyroxine Sodium 25 mcg 01/26/21 06:00 02/01/21 06:32 Levothyroxine Sodium 25 Mcg Tablet PO 25 mcg DAILY@0600 SAM Administration Lidocaine 1 patch 01/29/21 12:15 02/01/21 09:00 Lidocaine 4 % Patch Adh..Patch TRANSDERMA 1 patch DAILY SAM Administration Protocol Melatonin 6 mg 01/31/21 20:58 01/31/21 21:18 Melatonin 3 Mg Tablet PO 6 mg BEDTIME PRN Administration Insomnia Multivitamins/Vitamin C 1 tab 01/26/21 09:00 02/01/21 09:01 Multivitamin Tablet PO 1 tab DAILY SAM Administration Nortriptyline HCl 20 mg 01/25/21 21:00 01/31/21 21:18 Nortriptyline Hcl 10 Mg Capsule PO 20 mg BEDTIME SAM Administration Omeprazole 20 mg 01/26/21 06:30 02/01/21 06:32 Omeprazole 20 Mg Capsule.Dr PO 20 mg DAILY@0630 [facility] Administration Oxycodone HCl 10 mg 01/30/21 20:43 02/01/21 09:01 Oxycodone Hcl Immed Release 5 Mg Tablet PO 10 mg Q6H PRN Administration [facility] Consult 1 each 01/27/21 08:55 Consult Rx Vancomycin Dosing MISCELLANE DAILY PRN Consult order Polyethylene Glycol 17 gm 01/29/21 12:15 02/01/21 09:02 Polyethylene Glycol 3350 17 Gm Powd.Pack PO Not Given DAILY SAM Sodium Chloride 3 ml 01/26/21 16:00 02/01/21 09:02 0.9 % Sodium Chloride Flush 3 Ml Syringe IVFLUSH 3 ml QSHIFT SAM Administration Tiotropium [place] 2 puff 01/26/21 08:00 02/01/21 07:44 Tiotropium [place] 18 Mcg Cap.W.Dev INHALE 2 puff RDAILY [facility] Administration Labs CBC & Chem 7: 02/01/21 06:32 02/01/21 06:32 Labs: Laboratory Results - last 24 hr 01/29/21 01/31/21 02/01/21 09:16 07:43 06:32 WBC 1.1 L 0.4 L* RBC 2.61 L 2.47 L Hgb 8.3 L 8.0 L Hct 24.4 L 22.8 L MCV 93.5 92.3 MCH 31.8 32.4 MCHC 34.0 35.1 H RDW 12.3 12.1 Plt Count 7 L* D 6 L* MPV 12.6 H 12.3 Immature Gran % (Auto) Cancelled Neut % (Auto) Cancelled Lymph % (Auto) Cancelled [place] % (Auto) Cancelled Eos % (Auto) Cancelled Baso % (Auto) Cancelled Lymph # (Auto) Cancelled [place] # (Auto) Cancelled Eos # (Auto) Cancelled Baso # (Auto) Cancelled Abs Immat Gran (auto) Cancelled Absolute Neuts (auto) Cancelled Absolute Nucleated RBC 0.000 0.000 Nucleated RBC % (auto) 0.0 0.0 Neutrophils % (Manual) 10 L Band Neutrophils % 4 Lymphocytes % (Manual) 80 H Monocytes % (Manual) 4 Eosinophils % (Manual) 2 Abs Neuts (Manual) 0.2 L Lymphocytes # (Manual) 0.9 Toxic Granulation PRESENT Dohle Bodies PRESENT Platelet Estimate DECREASED Large Platelets PRESENT Plt Morphology Comment NOTED RBC Morphology NOTED Hypochromasia 1+ (5-14) Sodium Potassium Chloride Carbon Dioxide Anion Gap BUN Creatinine Estim Creat Clear Calc Estimated GFR Random Glucose Calcium Blood Type O Positive Antibody Screen NEGATIVE 02/01/21 06:32 WBC RBC Hgb Hct MCV MCH MCHC RDW Plt Count MPV Immature Gran % (Auto) Neut % (Auto) Lymph % (Auto) [place] % (Auto) Eos % (Auto) Baso % (Auto) Lymph # (Auto) [place] # (Auto) Eos # (Auto) Baso # (Auto) Abs Immat Gran (auto) Absolute Neuts (auto) Absolute Nucleated RBC Nucleated RBC % (auto) Neutrophils % (Manual) Band Neutrophils % Lymphocytes % (Manual) Monocytes % (Manual) Eosinophils % (Manual) Abs Neuts (Manual) Lymphocytes # (Manual) Toxic Granulation Dohle Bodies Platelet Estimate Large Platelets Plt Morphology Comment RBC Morphology Hypochromasia Sodium 139 Potassium 4.1 Chloride 101 Carbon Dioxide 31 H Anion Gap 11 L BUN 11 Creatinine 0.71 Estim Creat Clear Calc 101.3 Estimated GFR > 60 Random Glucose 115 Calcium 8.9 Blood Type Antibody Screen Microbiology Microbiology Results: Microbiology 01/26/21 04:35 Blood Culture - Final Blood - Venous No growth after 5 days. Quality Stroke Does the patient have a stroke diagnosis?: No VTE Prior VTE?: No VTE Risk Level:: Medical - moderate - high VTE Device Contraindication: N/A - Device Ordered VTE Drug Contraindication: N/A - Med Ordered Assessment and Plan (1) Pancytopenia: Status: Acute Assessment and Plan: 65 yo F admitted initially for possible pneumonia 1. Pancytopenia initially felt to be secondary to recent chemo, possible infection platelets continue to drop -- will transfuse today will get formal hematology consult maintain neutropenic precautions 2. Possible pneumonia CT scan showing changes consistent with recent treatment vs pneumonia. Was treated with vancomcyin/zosyn -- discontinued given no major symptoms and worsening cell counts. clinically remains without any changes in her respiratory status 3. COPD / Chronic Hypoxic resp. failure continue baseline meds 4. Metastatic small cell lung Ca outpatient f/u 5. Weakness/falls ultimately will need rehab 6. Hypothryoidism synthroid 7. Knee effusion symptomatic treatment h/h stable, doubt hemarthrosis Full Code DVT pptx, Mechanical
--- NOTE | 2021-02-01 16:54 | P.CNHO_ITS ---
Subjective - Subjective Chief complaint: Consult for: Metastatic small-cell carcinoma with brain metastases. Patient: new to practice Consult date: 02/01/21 Requesting Physician: Sylvester. Primary Care Provider: Nohemy Matt NP Medical Summary: DIAGNOSIS: SMALL CELL CARCINOMA. BRAIN METS. CHEMORADIATION THERAPY. PANCYTOPENIA. HPI - Consult Narrative Reason for consult: Consult for pancytopenia. Small cell ca of the lung with brain mets,s/p Rx Narrative: Maria Antonia Vazquez is a pleasant 65 year old lady, who presented to the hospital falls and generalized weakness. She was evaluated in the emergency room with the initial plan being PT evaluation and short-term rehabilitation placement. However upon imaging of the chest: There were findings concerning of consolidation near her known mass and so in conjunction with her leukopenia there was a concern for pneumonia, she was admitted to the hospital. In addition, she reported generalized weakness and fatigue. She also complained of a productive cough of yellowish sputum. She denied any pleuritic chest pain. She reported shortness of breath. She denies any fevers or chills at home. ED workup revealed a white blood cell count of 1.4, absolute neutrophil count of 700. Platelet count 83. CT scan of the chest redemonstrated upper lobe paramediastinal mass with adjacent consolidation and ground-glass opacity in the left upper and lower lobes which was new from her previous CT scan. It is difficult to determine whether this represents tumor extension or superimposed pneumonia. She also has small to moderate left-sided pleural effusion which is new from her previous CT scan. Past medical history of: 1. Metastatic small cell lung cancer (brain Mets). Review of Systems - Constitutional Reports system reviewed and no additional complaints, except as documented, Reports fatigue, Reports lack of energy, Reports malaise, Reports poor appetite, Reports weight loss, Denies fever(s) - Eyes Reports system reviewed and no additional complaints, except as documented, Denies blurry vision - ENT Reports system reviewed and no additional complaints, except as documented, Reports hearing normal - Cardiovascular Reports system reviewed and no additional complaints, except as documented - Respiratory Reports no additional respiratory complaints - Gastrointestinal Reports system reviewed and no additional complaints, except as documented - Genitourinary Reports no additional female genitourinary complaints - Musculoskeletal Reports system reviewed and no additional complaints, except as documented - Integumentary/Breasts Skin/Breast: Reports no additional skin complaints - Neurologic Reports system reviewed and no additional complaints, except as documented - Psychiatric Reports system reviewed and no additional complaints, except as documented - Endocrine Reports no additional endocrine complaints - Hematologic/Lymphatic Reports system reviewed and no additional complaints, except as documented - Allergic/Immunologic Reports system reviewed and no additional complaints, except as documented Oncology Screenings - ECOG Performance Status E[facility]G Performance Status: [facility] Medical History: Medical History (Last Reviewed 01/13/21 @ 11:37 by Shyann Paiz) Arthritis COPD (chronic obstructive pulmonary disease) Depression Diverticulitis Encounter for colonoscopy due to history of colonic polyp History of diverticulitis of colon History of hepatitis Hypertension Hypothyroidism Traumatic brain injury Functional capacity: wheelchair bound Patient : No Family History: Family History (Last Reviewed 01/13/21 @ 11:37 by Shyann Paiz) Brother Diabetes Father Surgical History: Surgical History (Last Reviewed 01/13/21 @ 11:37 by Shyann Paiz) H/O section Hx of breast reduction, elective S/P bronchoscopy with biopsy Social History: Social History (Last Reviewed 01/13/21 @ 11:38 by Shyann Paiz) Living Situation History: Household Members: None Housing: Apartment Do you presently have visiting nurse or other home services: No Do you presently have visiting nurse or other home services comment: would like to have visiting services to help with house keeping/adl Alcohol History: Alcohol intake: never Alcohol History Details: Alcohol intake frequency: does not drink Tobacco History: Patient Tobacco Use Status: Former Tobacco user Tobacco use type: Cigarette Cigarette Packs Per Day: 1 Years Smoked: 53 Smoke Quit Date: 4 years ago Second Hand Smoke Exposure: No Substance Use History: Substance Use Type: Marijuana Advance Directives: Advance Directives Date on File: 05/01/20 Occupation Assessmet: service: Yes Current occupational status: disabled Home Medications and Allergies Current Medications: Current Medications Generic Name Dose Route Start Last Admin Trade Name Freq PRN Reason Stop Dose Admin Acetaminophen 650 mg 01/26/21 09:44 01/28/21 20:32 Acetaminophen 325 Mg Tablet PO 650 mg Q6H PRN Administration Pain, Mild (Pain Scale 1-3) Albuterol Sulfate 2 puff 01/25/21 20:12 Albuterol Sulfate 90 Mcg 8 Gm Inhaler INHALE Q6H PRN Shortness Of Breath Atenolol 25 mg 01/26/21 09:00 02/01/21 09:01 Atenolol 25 Mg Tablet PO Not Given DAILY SAM Protocol Bupropion HCl 150 mg 01/29/21 09:00 02/01/21 09:00 Bupropion Hcl Xl 150 Mg Tab.Er.24h PO 150 mg DAILY SAM Administration Docusate Sodium 100 mg 01/26/21 09:00 02/01/21 09:00 Docusate Sodium 100 Mg Capsule PO 100 mg DAILY SAM Administration Docusate Sodium 100 mg 01/29/21 21:00 01/31/21 21:25 Docusate Sodium 100 Mg Capsule PO Not Given BEDTIME SAM Duloxetine HCl 30 mg 01/26/21 09:00 02/01/21 08:59 Duloxetine Hcl 30 Mg Capsule. PO 30 mg DAILY SAM Administration Fluticasone/Vilanterol 1 puff 01/26/21 08:00 02/01/21 07:44 Fluticasone/Vilanterol 200/25 Blst.W.Dev INHALE 1 puff RDAILY SAM Administration Levothyroxine Sodium 112 mcg 01/26/21 06:00 02/01/21 06:32 Levothyroxine Sodium 112 Mcg Tablet PO 112 mcg DAILY@0600 SAM Administration Levothyroxine Sodium 25 mcg 01/26/21 06:00 02/01/21 06:32 Levothyroxine Sodium 25 Mcg Tablet PO 25 mcg DAILY@0600 SAM Administration Lidocaine 1 patch 01/29/21 12:15 02/01/21 09:00 Lidocaine 4 % Patch Adh..Patch TRANSDERMA 1 patch DAILY SAM Administration Protocol Melatonin 6 mg 01/31/21 20:58 01/31/21 21:18 Melatonin 3 Mg Tablet PO 6 mg BEDTIME PRN Administration Insomnia Multivitamins/Vitamin C 1 tab 01/26/21 09:00 02/01/21 09:01 Multivitamin Tablet PO 1 tab DAILY SAM Administration Nortriptyline HCl 20 mg 01/25/21 21:00 01/31/21 21:18 Nortriptyline Hcl 10 Mg Capsule PO 20 mg BEDTIME SAM Administration Omeprazole 20 mg 01/26/21 06:30 02/01/21 06:32 Omeprazole 20 Mg Capsule. PO 20 mg DAILY@0630 SAM Administration Oxycodone HCl 10 mg 01/30/21 20:43 02/01/21 09:01 Oxycodone Hcl Immed Release 5 Mg Tablet PO 10 mg Q6H PRN Administration [facility] Consult 1 each 01/27/21 08:55 Consult Rx Vancomycin Dosing MISCELLANE DAILY PRN Consult order Polyethylene Glycol 17 gm 01/29/21 12:15 02/01/21 09:02 Polyethylene Glycol 3350 17 Gm Powd.Pack PO Not Given DAILY [facility] Sodium Chloride 3 ml 01/26/21 16:00 02/01/21 16:26 0.9 % Sodium Chloride Flush 3 Ml Syringe IVFLUSH 3 ml QSHIFT [facility] Administration Tiotropium [place] 2 puff 01/26/21 08:00 02/01/21 07:44 Tiotropium [place] 18 Mcg Cap.W.Dev INHALE 2 puff RDAILY [facility] Administration Home Medications Medication Instructions Recorded Confirmed Type budesonide-formoterol HFA 160 2 puff INHALATION BID 04/10/20 01/25/21 History mcg-4.5 mcg/actuation aerosol inhaler bupropion HCl 200 mg tablet,12 hr 200 mg PO DAILY 04/10/20 01/25/21 History sustained-release docusate sodium 100 mg capsule 100 mg PO DAILY 04/10/20 01/25/21 History (Stool Softener) levothyroxine 137 mcg tablet 137 mcg PO DAILY 04/10/20 01/25/21 History nortriptyline 10 mg capsule 20 mg PO BEDTIME 04/10/20 01/25/21 History omeprazole 20 mg capsule,delayed 20 mg PO DAILY 05/01/20 01/25/21 History release albuterol sulfate 90 mcg/actuation 2 puff INHALATION Q6H PRN 11/20/20 01/25/21 History aerosol inhaler atenolol 25 mg tablet 25 mg PO DAILY 11/20/20 01/25/21 History duloxetine 30 mg capsule,delayed 30 mg PO DAILY 11/20/20 01/25/21 History release [id number]-drbx 8 mg-folic 2 tab PO DAILY 11/20/20 01/25/21 History ac 400 mcg-vit K 10 mcg chew tablet (Centrum Chewables) tiotropium bromide 2.5 2 puff INHALATION DAILY 11/20/20 01/25/21 History mcg/actuation mist for inhalation (Spiriva Respimat) Allergies Allergy/AdvReac Type Severity Reaction Status Date / Time penicillin V Allergy Unknown Unknown Verified 01/25/21 19:56 Penicillins [PCN] Allergy Unknown HIVES Verified 01/25/21 19:56 shellfish derived Allergy Unknown UNKNOWN Verified 01/25/21 19:56 [SHELLFISH DERIVED] Physical Exam Vital signs: Vital Signs Temp 97 F 02/01/21 15:54 Pulse 86 02/01/21 15:54 Resp 20 02/01/21 15:54 BP 108/59 L 02/01/21 15:54 Pulse Ox 98 02/01/21 15:54 Intake & Output 01/31/21 02/01/21 02/01/21 18:59 06:59 18:59 Intake Total 720 / 1345 625 / 1345 720 / 720 Output Total 400 / 400 Balance 720 / 1345 625 / 1345 320 / 320 Urine Output (Average ml/kg/hr) 0.27 Intake: Intake, Oral Amount 720 / 1020 300 / 1020 720 / 720 Intake (Blood Product) Amount 0 / 325 325 / 325 0 / 0 Plt Aph Pas Pathreduced(E8341) 0 / 0 Unit [id number] Plt Aph Pas Pathreduced(E8341) 0 / 325 325 / 325 Unit [id number] Output: Output, Urine Amount 400 / 400 Other: Meal Refused No NPO No Breakfast % Eaten 75% 50% Lunch % Eaten 75% 50% Dinner % Eaten 50% Number of Incontinent Voids 2 Number of Unmeasured Voids 1 Number of Bowel Movements 1 1 Urine Bedside Commode Bedside Commode Bedside Commode Urine Color Yellow Stool Bedside Commode Bedside Commode Stool Amount Moderate Moderate Stool Color Brown Brown Weight 123.831 kg - Constitutional Present: moderate distress - Routine HEENT Exam Head: Present: normal inspection ENT: Present: mucous membranes moist - Routine Neck Exam Present: supple, JVD - Routine Respiratory Exam Present: decreased breath sounds - Routine Cardiovascular Exam Cardiovascular: Present: RRR, S1, S2 - Routine Abdominal Exam Present: normal bowel sounds, nontender Hem/Onc Consult Result - Labs CBC & Chem 7: 02/05/21 06:09 02/01/21 06:32 Labs: Short CBC 02/01/21 Range/Units 06:32 WBC 0.4 L* (4.8-10.8) X10*3/uL Hgb 8.0 L (12.0-16.0) g/dl Hct 22.8 L (37-47) % Plt Count 6 L* (160-400) X10*3/uL BMP 02/01/21 06:32 Sodium 139 Potassium 4.1 Chloride 101 Carbon Dioxide 31 H BUN 11 Creatinine 0.71 Calcium 8.9 Assessment and Plan (1) Small cell lung cancer Status: Chronic This is an unfortunate 65-year-old lady who has presented with generalized weakness. She was noted to be pancytopenic. CT scan raise concern for a pneumonia. Was admitted and started on antibiotics in view of her being neutropenic. Initial history: Admitted in February 2019 with shortness of breath and cough. CT chest showed left suprahilar mass measuring 5.5 x 6.1 x 8.5 cm, medial aspect of left upper lobe. This encircles and occludes the superior bronchus and lingular bronchus. Invades the mediastinum with slight mass effect. Peripherally, interstitial thickening postobstructive atelectasis versus lymphangitic carcinomatosis. Underwent bronchoscopy/biopsy on 02/27/2019, left upper lung mass pathology small cell carcinoma. IHC positive for cytokeratin, synaptophysin, chromogranin, TTF 1 rare cells and negative for CK 7, P40, Napsin, CD 20 and CD 45. Ki 67 markedly increased proliferation rate. PET scan performed at [facility] on 03/08/2019 showed intensely FDG avid left upperlobe/suprahilar mass measuring 7.7 x 8.1 x 10.3 cm, SUV 20.4 with direct invasion of the mediastinum compatible with malignancy. Mild FDG uptake with irregular ground-glass and consolidative opacity in the left upper lobe peripheral to the mass likely obstructive pneumonia. No evidence of FDG avid malignancy outside of the left chest. Left vocal cord paralysis. 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 Staging brain MRI with and without contrast showed scattered small vessel ischemic changes. No evidence of metastasis. Therapy: Carbo etoposide started 03/17/2019 Hospitalized with sepsis/neutropenia after cycle 2. E coli bacteremia that resolved with antibiotics. She completed 4 cycles. Received adjuvant radiation therapy from 05/14/2019 to 07/23/19. Patient started systemic therapy with carboplatin/etoposide from 03/06/2019. Received concurrent adjuvant radiation therapy from 05/14/2019 to 07/23/19. There were a few treatment delays with radiation because of poor performance status and side effects of treatment. She received 2 cycles of chemotherapy without radiation, 2 cycles during radiation. PET scan performed on 10/22/2019 at [facility] reported as: dramatic improvement in small cell carcinoma involving left upper lobe. Size of lesion decreased to 3.4 compared to 7.8 cm and SUV presently 4.5, previously 20.4. No new lesion or metastatic disease. She underwent prophylactic brain radiation at [facility], completed 11/26/2019. CT chest with contrast in February 2020 revealed new consolidation in the left upper lobe measuring 7.4 x 2.8 cm abutting aortic arch and extending into left superior pulmonary hilum. PET scan performed at [facility] on 04/01/2020 revealed hypermetabolic mass in the left upper lobe measuring 5.5 x 3.7 cm, SUV 11.7, increased size and hypermetabolism of 3 AP window lymph nodes measuring 1.1 cm, SUV 7.4 and 4.4, 5.2. No pleural effusion. No FDG avid malignancy outside the chest. PET scan, [facility] on 08/25/2020 showed interval decrease in size and FDG avidity of left upper lobe mass. Now measuring 3.8 x 2.3 cm, previously 7.3 x 4 cm. SUV previously 11.7, now 4.92. Mediastinal adenopathy has resolved. No signs of distal metastatic disease. She completed 4 cycles of treatment with chemotherapy. She started atezolizumab maintenance from 09/05/20. Unfortunately she developed brain metastasis, imaging in November 2020 showed new solitary brain metastasis in the left anterior frontal lobe measuring 3 x 1.9 x 1.[address] chest /abdomen and pelvis on 11/21/2020 showed; Large left upper lobe para mediastinal mass with direct extension to the mediastinum involving the left hilum.. Moderate narrowing of upper lobe branch left pulmonary artery, new large lymphadenopathy in the right pretracheal space,subcarinal space and infrahilar region. Mild filling defect in the left brachiocephalic vein alex picious of small thrombus. adrenal metastasis. She recently completed radiation therapy to the solitary brain metastasis at [facility]. For progressive disease a discussion was held regarding starting her on topotecan 1.9 mg/ meter sq day 1-5 Q 21 days given orally. Possible side effects such as neutropenia, diarrhea both and risk of infection/sepsis was discussed. She wanted to try treatment. It is unclear to me if she took a few doses at home, however I think she did, especially in view of the fact that she is pancytopenic. Significantly thrombocytopenic. She is very weak. Platelets are 6 however she does not have any easy bruising nor systemic bleeding. She did receive platelets yesterday, and today. PLAN: To continue supportive care. Will give time for the blood count to recover after chemo. She is on antibiotic for suspected pneumonia. Discussed with Dr. Phan. Thanks, CC: Dr. Saunders, Addendum: Discharge Summary: Patient was initially treated with broad-spectrum IV antibiotics, cefepime and vancomycin for was felt to be pneumonia on the CT scan. However patient's blood counts including WBC, H&H and platelets all started to decrease and given that she had no symptoms of pneumonia, antibiotics were discontinued as a potential cause of her pancytopenia. Patient's cell counts continue to drop and her case was discussed with Hematology daily. She did require multiple platelet transfusions and at the time of discharge her platelet count ansley 18. She received 1 total unit of packed red cells. Remained Neutropenic. She should maintain neutropenic precautions at residential facility. She will have a repeat CBC completed early next week possibly on 02/09/2021 the results of which will be sent to Dr. Saunders, in oncology.
[2021-02-01] MEDS: Nortriptyline HCl 10 MG CAPSULE 20 MG PO (20:23)
[2021-02-01] MEDS: Zolpidem Tartrate 5 MG TABLET 10 MG PO (22:32)
[2021-02-02] VITALS (8 sets, daily range): BP systolic 95–142; BP diastolic 52–74; PULSE 77–106; RESP 16–18; TEMP 36–37.1; O2SAT 91–99
[2021-02-02] MEDS: Omeprazole 20 MG CAPSULE.DR PO (06:33)
[2021-02-02] MEDS: Levothyroxine Sodium 112 MCG TABLET PO (06:33)
[2021-02-02] MEDS: Levothyroxine Sodium 25 MCG TABLET PO (06:33)
[2021-02-02] MEDS: Fluticasone/Vilanterol 200/25 BLST.W.DEV 1 PUFF INHALE (08:28)
[2021-02-02] MEDS: Docusate Sodium 100 MG CAPSULE PO ×2 (08:52→20:16)
[2021-02-02] MEDS: buPROPion HCl XL 150 MG TAB.ER.24H PO (08:52)
[2021-02-02] MEDS: 0.9 % Sodium Chloride Flush 3 ML SYRINGE IVFLUSH ×3 (08:52→20:16)
[2021-02-02] MEDS: Multivitamin TABLET 1 TAB PO (08:52)
[2021-02-02] MEDS: oxyCODONE HCl Immed Release 5 MG TABLET 10 MG PO ×2 (08:52→14:59)
[2021-02-02] MEDS: DULoxetine HCl 30 MG CAPSULE.DR PO (08:53)
[2021-02-02] MEDS: Lidocaine 4 % Patch ADH..PATCH 1 PATCH TRANSDERMA (08:53)
--- NOTE | 2021-02-02 09:10 | P.PNIM_ITS ---
Subjective Subjective Date of Service: 02/02/21 Interval History: seen and examined this AM no new complaints no bleeding/bruising ROS General - no fevers or chills Cardiovascular - no chest pain Respiratory - no shortness of breath or cough Abdominal- no abdominal pain, nausea, vomiting, diarrhea Physical Exam Vital Signs: Vital Signs: Last Vital Signs Temp 97.0 F 02/02/21 08:00 Pulse 88 02/02/21 08:00 Resp 17 02/02/21 08:00 BP 99/65 02/02/21 08:00 Pulse Ox 97 02/02/21 08:00 Oxygen Flow Rate 2 01/25/21 12:23 Body Mass Index 46.8 Const: Other: General - no acute distress, appears comfortable Cardiovascular - regular rate and rhythm, S1-S2 Lungs - normal respiratory effort, clear to auscultation bilaterally, no wheezing Abdomen - soft, nontender, no rebound or guarding Extremities - no edema bilaterally Neuro - awake and alert, no focal deficits Objective Data Current Medications Generic Name Dose Route Start Last Admin Trade Name Romelq PRN Reason Stop Dose Admin Acetaminophen 650 mg 01/26/21 09:44 01/28/21 20:32 Acetaminophen 325 Mg Tablet PO 650 mg Q6H PRN Administration Pain, Mild (Pain Scale 1-3) Albuterol Sulfate 2 puff 01/25/21 20:12 Albuterol Sulfate 90 Mcg 8 Gm Inhaler INHALE Q6H PRN Shortness Of Breath Atenolol 25 mg 01/26/21 09:00 02/02/21 08:47 Atenolol 25 Mg Tablet PO Not Given DAILY SAM Protocol Bupropion HCl 150 mg 01/29/21 09:00 02/02/21 08:52 Bupropion Hcl Xl 150 Mg Tab.Er.24h PO 150 mg DAILY SAM Administration Docusate Sodium 100 mg 01/26/21 09:00 02/02/21 08:52 Docusate Sodium 100 Mg Capsule PO 100 mg DAILY SAM Administration Docusate Sodium 100 mg 01/29/21 21:00 02/01/21 20:24 Docusate Sodium 100 Mg Capsule PO 100 mg BEDTIME SAM Administration Duloxetine HCl 30 mg 01/26/21 09:00 02/02/21 08:53 Duloxetine Hcl 30 Mg Capsule.Dr PO 30 mg DAILY SAM Administration Fluticasone/Vilanterol 1 puff 01/26/21 08:00 02/02/21 08:28 Fluticasone/Vilanterol 200/25 Blst.W.Dev INHALE 1 puff RDAILY SAM Administration Levothyroxine Sodium 112 mcg 01/26/21 06:00 02/02/21 06:33 Levothyroxine Sodium 112 Mcg Tablet PO 112 mcg DAILY@0600 SAM Administration Levothyroxine Sodium 25 mcg 01/26/21 06:00 02/02/21 06:33 Levothyroxine Sodium 25 Mcg Tablet PO 25 mcg DAILY@0600 SAM Administration Lidocaine 1 patch 01/29/21 12:15 02/02/21 08:53 Lidocaine 4 % Patch Adh..Patch TRANSDERMA 1 patch DAILY SAM Administration Protocol Melatonin 6 mg 01/31/21 20:58 01/31/21 21:18 Melatonin 3 Mg Tablet PO 6 mg BEDTIME PRN Administration Insomnia Multivitamins/Vitamin C 1 tab 01/26/21 09:00 02/02/21 08:52 Multivitamin Tablet PO 1 tab DAILY SAM Administration Nortriptyline HCl 20 mg 01/25/21 21:00 02/01/21 20:23 Nortriptyline Hcl 10 Mg Capsule PO 20 mg BEDTIME SAM Administration Omeprazole 20 mg 01/26/21 06:30 02/02/21 06:33 Omeprazole 20 Mg Capsule.Dr PO 20 mg DAILY@0630 [facility] Administration Oxycodone HCl 10 mg 01/30/21 20:43 02/02/21 08:52 Oxycodone Hcl Immed Release 5 Mg Tablet PO 10 mg Q6H PRN Administration [facility] Consult 1 each 01/27/21 08:55 Consult Rx Vancomycin Dosing MISCELLANE DAILY PRN Consult order Polyethylene Glycol 17 gm 01/29/21 12:15 02/02/21 08:47 Polyethylene Glycol 3350 17 Gm Powd.Pack PO Not Given DAILY [facility] Sodium Chloride 3 ml 01/26/21 16:00 02/02/21 08:52 0.9 % Sodium Chloride Flush 3 Ml Syringe IVFLUSH 3 ml QSHIFT [facility] Administration Tiotropium [place] 2 puff 01/26/21 08:00 02/02/21 08:28 Tiotropium [place] 18 Mcg Cap.W.Dev INHALE 2 puff RDAILY [facility] Administration Zolpidem Tartrate 10 mg 02/01/21 18:01 02/01/21 22:32 Zolpidem Tartrate 5 Mg Tablet PO 10 mg BEDTIME PRN Administration Insomnia Labs CBC & Chem 7: 02/01/21 06:32 02/01/21 06:32 Labs: Laboratory Results - last 24 hr 02/01/21 10:22 Blood Type O Positive Antibody Screen NEGATIVE Microbiology Microbiology Results: Microbiology 01/27/21 12:37 Blood Culture - Final Blood - Venous No growth after 5 days. 01/27/21 12:37 Blood Culture - Final Blood - Venous No growth after 5 days. Quality Stroke Does the patient have a stroke diagnosis?: No VTE Prior VTE?: No VTE Risk Level:: Medical - moderate - high VTE Device Contraindication: N/A - Device Ordered VTE Drug Contraindication: N/A - Med Ordered Assessment and Plan (1) Pancytopenia: Status: Acute Assessment and Plan: 65 yo F admitted initially for possible pneumonia 1. Pancytopenia likely related to recent chemo transfused platelets yesterday await counts today 2. Possible pneumonia CT scan showing changes consistent with recent treatment vs pneumonia. Was treated with vancomcyin/zosyn -- discontinued given no major symptoms and worsening cell counts. clinically remains without any changes in her respiratory status 3. COPD / Chronic Hypoxic resp. failure continue baseline meds 4. Metastatic small cell lung Ca outpatient f/u 5. Weakness/falls ultimately will need rehab 6. Hypothryoidism synthroid 7. Knee effusion symptomatic treatment h/h stable, doubt hemarthrosis Full Code DVT pptx, Mechanical
[2021-02-02 09:23] LABS: Hematocrit 22.6 % (37-47); Hemoglobin 7.9 g/dl (12.0-16.0); Mean Corpuscular Hemoglobin 32.5 pg (27.0-33.0); Mean Platelet Volume 9.9 fL (9.4-12.3); Red Blood Count 2.43 X10*6/uL (4.20-5.50); Red Cell Distribution Width 12.2 % (11.0-16.0)
--- NOTE | 2021-02-02 09:42 | MHC.HEMONC ---
Dr Saunders informed pt PLT today 18. Will notify RN on 3rd floor.
[2021-02-02 10:04] LABS: Atypical Lymphs Percent Manual 1 % (0-6); Band Neutrophils Percent 6 % (3-5); Eosinophils Percent Manual 1 % (0-4); Lymphocytes Absolute Manual 0.8 X10*3/uL (0.6-4.8); Lymphocytes Percent Manual 76 % (20-40); Monocytes Percent Manual 3 % (2-11); Neutrophils Absolute Manual 0.2 X10*3/uL (2.2-7.9); Neutrophils Percent Manual 13 % (45-73)
[2021-02-02 10:05] LABS: Hypochromasia 1+ (5-14) /OIF; RBC Morphology NOTED
[2021-02-02 10:06] LABS: Dohle Bodies PRESENT; Platelet Estimate DECREASED (NORMAL); Platelet Morphology Comment NORMAL; Toxic Vacuolation PRESENT
--- NOTE | 2021-02-02 11:26 | MHC.CLN ---
FOLLOW UP DIET=REGULAR WITH NEUTROPENIC PRECAUTIONS; ENSURE BID. SEE INVOICE CONTROL CLERK NOTE ABOUT LIQUID CONSISTENCY. REVIEW OF INTAKE SHOWS MOST MEALS 50-75%. SKIN: NO OPEN AREAS. FOLLOWING.
[2021-02-02 13:29] LABS: Platelet Count 18 X10*3/uL (160-400)
[2021-02-02] MEDS: Acetaminophen 325 MG TABLET 650 MG PO ×2 (14:59→22:46)
[2021-02-02] MEDS: Nortriptyline HCl 10 MG CAPSULE 20 MG PO (20:15)
[2021-02-02] MEDS: Zolpidem Tartrate 5 MG TABLET 10 MG PO (21:38)
[2021-02-03] VITALS (9 sets, daily range): BP systolic 121–163; BP diastolic 55–75; PULSE 82–92; RESP 16–19; TEMP 36.3–37.1; O2SAT 94–98
[2021-02-03] MEDS: Omeprazole 20 MG CAPSULE.DR PO (05:42)
[2021-02-03] MEDS: Levothyroxine Sodium 25 MCG TABLET PO (05:42)
[2021-02-03] MEDS: Levothyroxine Sodium 112 MCG TABLET PO (05:42)
[2021-02-03 06:55] LABS: Hematocrit 22.5 % (37-47); Hemoglobin 7.7 g/dl (12.0-16.0); Mean Corpuscular HGB Conc 34.2 g/dl (31.0-35.0); Mean Corpuscular Hemoglobin 31.6 pg (27.0-33.0); Mean Corpuscular Volume 92.2 fL (80-98); Red Blood Count 2.44 X10*6/uL (4.20-5.50); Red Cell Distribution Width 12.1 % (11.0-16.0)
[2021-02-03 07:28] LABS: White Blood Count 1.2 X10*3/uL (4.8-10.8)
[2021-02-03] MEDS: Fluticasone/Vilanterol 200/25 BLST.W.DEV 1 PUFF INHALE (08:02)
[2021-02-03 08:17] LABS: Mean Platelet Volume 11.2 fL (9.4-12.3)
[2021-02-03 08:20] LABS: Platelet Count 8 X10*3/uL (160-400)
[2021-02-03] MEDS: DULoxetine HCl 30 MG CAPSULE.DR PO (09:30)
[2021-02-03] MEDS: oxyCODONE HCl Immed Release 5 MG TABLET 10 MG PO ×3 (09:30→23:13)
[2021-02-03] MEDS: Docusate Sodium 100 MG CAPSULE PO ×2 (09:30→21:28)
[2021-02-03] MEDS: buPROPion HCl XL 150 MG TAB.ER.24H PO (09:31)
[2021-02-03] MEDS: Multivitamin TABLET 1 TAB PO (09:31)
[2021-02-03] MEDS: atenoloL 25 MG TABLET PO (09:31)
[2021-02-03] MEDS: 0.9 % Sodium Chloride Flush 3 ML SYRINGE IVFLUSH ×2 (09:31→23:28)
--- NOTE | 2021-02-03 10:03 | PM.HEMONCPN ---
Medical Summary - Medical Summary Date of Service: 02/03/21 Chief complaint: none reported today Medical Summary: DIAGNOSIS: SMALL CELL CARCINOMA. BRAIN METS. CHEMORADIATION THERAPY. PANCYTOPENIA. Interval History Interval history: Patient feels okay. No headache or dizziness. She is eating well. No diarrhea or abdominal discomfort. No dysuria or urgency. She has not walked since admission to the hospital. She is awaiting placement at a rehab. Review of Systems - Constitutional Reports fatigue, Reports malaise - ENT Denies dysphagia, Denies vertigo, Denies dizziness - Cardiovascular Denies chest pain - Respiratory Denies cough, Denies dyspnea - Gastrointestinal Denies abdominal pain, Denies change in bowel habits - Neurologic Reports no additional neurologic complaints, Denies confusion PMFSH Medical History: Medical History (Last Reviewed 01/13/21 @ 11:37 by Shyann Paiz) Arthritis COPD (chronic obstructive pulmonary disease) Depression Diverticulitis Encounter for colonoscopy due to history of colonic polyp History of diverticulitis of colon History of hepatitis Hypertension Hypothyroidism Traumatic brain injury Functional capacity: wheelchair bound Family History: Family History (Last Reviewed 01/13/21 @ 11:37 by Shyann Paiz) Brother Diabetes Father Surgical History: Surgical History (Last Reviewed 01/13/21 @ 11:37 by Shyann Paiz) H/O section Hx of breast reduction, elective S/P bronchoscopy with biopsy Social History: Social History (Last Reviewed 01/13/21 @ 11:38 by Shyann Paiz) Living Situation History: Household Members: None Housing: Apartment Do you presently have visiting nurse or other home services: No Do you presently have visiting nurse or other home services comment: would like to have visiting services to help with house keeping/adl Alcohol History: Alcohol intake: never Alcohol History Details: Alcohol intake frequency: does not drink Tobacco History: Patient Tobacco Use Status: Former Tobacco user Tobacco use type: Cigarette Cigarette Packs Per Day: 1 Years Smoked: 53 Smoke Quit Date: 4 years ago Second Hand Smoke Exposure: No Substance Use History: Use of substances other than those prescribed or required for medical reasons: Yes Substance Use Type: Marijuana Substance Use Frequency: Weekly Last Used Substance: Weeks (ago) Currently Displaying Signs/Symptoms of Drug Intoxication Withdrawal: No Any prior treatment program specific to substance use: No Domestic Abuse History: Have you been hit, kicked, punched, or otherwise hurt by someone within the past year? If so, by whom?: No Do you feel safe in your current relationship?: No Current Relationship Is there a partner from a previous relationship who is making you feel unsafe now?: No Are you made to feel afraid or neglected: No Advance Directives: Advance Directives: Yes Advance Directives on File: Yes Advance Directives Date on File: 05/01/20 Homicidal Assessment: Do you have thoughts of harming others: None Do you have a plan to hurt others: No Plan Nutrition Assessment: Recently lost weight without trying: Yes How much weight loss: 2-13 pounds Eating poorly because of decreased appetite: No Nutrition screen score: 3 Nutrition Risks: Difficulty swallowing Nutrition Risks: On aspiration precautions Patient : No : No Poor oral hygiene: No Occupation Assessmet: service: Yes Current occupational status: disabled Oncology Screenings - ECOG Performance Status ECOG Performance Status: 4 Home Medications and Allergies Current Medications: Current Medications Generic Name Dose Route Start Last Admin Trade Name Freq PRN Reason Stop Dose Admin Acetaminophen 650 mg 01/26/21 09:44 02/02/21 22:46 Acetaminophen 325 Mg Tablet PO 650 mg Q6H PRN Administration Pain, Mild (Pain Scale 1-3) Acetaminophen 650 mg 02/03/21 05:42 Acetaminophen 325 Mg Tablet PO Q6H PRN Pain, Mild (Pain Scale 1-3) Albuterol Sulfate 2 puff 01/25/21 20:12 Albuterol Sulfate 90 Mcg 8 Gm Inhaler INHALE Q6H PRN Shortness Of Breath Atenolol 25 mg 01/26/21 09:00 02/03/21 09:31 Atenolol 25 Mg Tablet PO 25 mg DAILY SAM Administration Protocol Bupropion HCl 150 mg 01/29/21 09:00 02/03/21 09:31 Bupropion Hcl Xl 150 Mg Tab.Er.24h PO 150 mg DAILY SAM Administration Docusate Sodium 100 mg 01/26/21 09:00 02/03/21 09:30 Docusate Sodium 100 Mg Capsule PO 100 mg DAILY SAM Administration Docusate Sodium 100 mg 01/29/21 21:00 02/02/21 20:16 Docusate Sodium 100 Mg Capsule PO 100 mg BEDTIME SAM Administration Duloxetine HCl 30 mg 01/26/21 09:00 02/03/21 09:30 Duloxetine Hcl 30 Mg Capsule. PO 30 mg DAILY SAM Administration Fluticasone/Vilanterol 1 puff 01/26/21 08:00 02/03/21 08:02 Fluticasone/Vilanterol 200/25 Blst.W.Dev INHALE 1 puff RDAILY SAM Administration Levothyroxine Sodium 112 mcg 01/26/21 06:00 02/03/21 05:42 Levothyroxine Sodium 112 Mcg Tablet PO 112 mcg DAILY@0600 SAM Administration Levothyroxine Sodium 25 mcg 01/26/21 06:00 02/03/21 05:42 Levothyroxine Sodium 25 Mcg Tablet PO 25 mcg DAILY@0600 SAM Administration Lidocaine 1 patch 01/29/21 12:15 02/03/21 09:32 Lidocaine 4 % Patch Adh..Patch TRANSDERMA Not Given DAILY [facility] Protocol Melatonin 6 mg 01/31/21 20:58 01/31/21 21:18 Melatonin 3 Mg Tablet PO 6 mg BEDTIME PRN Administration Insomnia Multivitamins/Vitamin C 1 tab 01/26/21 09:00 02/03/21 09:31 Multivitamin Tablet PO 1 tab DAILY SAM Administration Nortriptyline HCl 20 mg 01/25/21 21:00 02/02/21 20:15 Nortriptyline Hcl 10 Mg Capsule PO 20 mg BEDTIME SAM Administration Omeprazole 20 mg 01/26/21 06:30 02/03/21 05:42 Omeprazole 20 Mg Capsule. PO 20 mg DAILY@0630 SAM Administration Oxycodone HCl 10 mg 01/30/21 20:43 02/03/21 09:30 Oxycodone Hcl Immed Release 5 Mg Tablet PO 10 mg Q6H PRN Administration Breakthrough Pain Polyethylene Glycol 17 gm 01/29/21 12:15 02/03/21 09:32 Polyethylene Glycol 3350 17 Gm Powd.Pack PO Not Given DAILY [facility] Sodium Chloride 3 ml 01/26/21 16:00 02/03/21 09:31 0.9 % Sodium Chloride Flush 3 Ml Syringe IVFLUSH 3 ml QSHIFT SAM Administration Tiotropium [place] 2 puff 01/26/21 08:00 02/03/21 08:03 Tiotropium [place] 18 Mcg Cap.W.Dev INHALE 2 puff RDAILY SAM Administration Zolpidem Tartrate 10 mg 02/01/21 18:01 02/02/21 21:38 Zolpidem Tartrate 5 Mg Tablet PO 10 mg BEDTIME PRN Administration Insomnia Home Medications Medication Instructions Recorded Confirmed Type budesonide-formoterol 2 puff INHALATION BID 04/10/20 01/25/21 History bupropion HCl 200 mg PO DAILY 04/10/20 01/25/21 History docusate sodium [Stool Softener] 100 mg PO DAILY 04/10/20 01/25/21 History levothyroxine 137 mcg PO DAILY 04/10/20 01/25/21 History nortriptyline 20 mg PO BEDTIME 04/10/20 01/25/21 History omeprazole 20 mg PO DAILY 05/01/20 01/25/21 History Centrum Chewables 2 tab PO DAILY 11/20/20 01/25/21 History Spiriva Respimat 2 puff INHALATION DAILY 11/20/20 01/25/21 History albuterol sulfate 2 puff INHALATION Q6H PRN 11/20/20 01/25/21 History atenolol 25 mg PO DAILY 11/20/20 01/25/21 History duloxetine 30 mg PO DAILY 11/20/20 01/25/21 History Allergies Allergy/AdvReac Type Severity Reaction Status Date / Time penicillin V Allergy Unknown Unknown Verified 01/25/21 19:56 Penicillins [PCN] Allergy Unknown HIVES Verified 01/25/21 19:56 shellfish derived Allergy Unknown UNKNOWN Verified 01/25/21 19:56 [SHELLFISH DERIVED] Exam Vital signs: Vital Signs Temp 97.3 F 02/03/21 07:58 Pulse 92 02/03/21 07:58 Resp 19 02/03/21 07:58 BP 121/71 02/03/21 07:58 Pulse Ox 96 02/03/21 07:58 Intake & Output 02/02/21 02/03/21 02/03/21 18:59 06:59 18:59 Intake Total 680 / 680 Output Total 700 / 1100 400 / 1100 Balance -20 / -420 -400 / -420 Urine Output (Average ml/kg/hr) 0.47 0.27 Intake: Intake, Oral Amount 680 / 680 Output: Output, Urine Amount 700 / 1100 400 / 1100 Other: Breakfast % Eaten 100% Lunch % Eaten 100% Number of Unmeasured Voids 3 Urine Bedside Commode Bedside Commode Urine Color Yellow Stool Bedside Commode Weight 123.831 kg Body Mass Index 46.8 - Constitutional Present: moderate distress - Routine HEENT Exam Head: Present: normal inspection - Routine Neck Exam Absent: lymphadenopathy - Routine Respiratory Exam Present: decreased breath sounds - Routine Cardiovascular Exam Cardiovascular: Present: RRR, S1, S2 - Routine Abdominal Exam Present: normal bowel sounds, nontender - Routine Extremities Exam Absent: calf tenderness, pedal edema - Routine Skin Exam Present: intact. Absent: cyanosis, erythema - Routine Neurological Exam Present: alert, oriented X3 Data - Labs CBC & Chem 7: 02/03/21 06:27 02/01/21 06:32 Labs: 01/25/21 12:57 XR knee LT 3V Stat XR knee RT 3V Stat 01/25/21 13:17 CT head/brain w con Stat dexAMETHasone sod phosphate [Decadron] 10 mg IVPUSH ONCE ONE 01/25/21 13:22 Basic Metabolic Panel Stat Complete Blood Count Man Dif Stat Liver Panel Stat 01/25/21 15:16 oxyCODONE HCl Immed Release [Roxicodone] 5 mg PO ONCE ONE 01/25/21 16:28 diphenhydrAMINE HCL [Benadryl] 25 mg IVPUSH ONCE ONE 01/25/21 18:25 iohexoL 350 MG/ML [Omnipaque 350 MG/ML] 100 ml IV ONCE ONE 01/25/21 20:12 Zolpidem Tartrate [Ambien] 10 mg PO DAILY PRN oxyCODONE HCl Immed Release [Roxicodone] 10 mg PO Q4H PRN oxyCODONE HCl Immed Release [Roxicodone] 5 mg PO Q6H PRN 01/25/21 20:17 COVID-19 ID NOW ([place]) Stat 01/25/21 23:28 LORazepam [Ativan] 2 mg IM ONCE ONE 01/26/21 02:38 CT cervical spine wo con Stat CT head/brain wo con Stat 01/26/21 04:04 CT chest wo con Stat 01/26/21 04:31 Venous Blood Gas Stat 01/26/21 04:34 Venous Blood Gases - POC Routine 01/26/21 04:35 Lactic Acid Stat Blood Culture X2 [BC] Stat 01/26/21 06:35 cefEPime HCl [Maxipime] 2 gm 0.9 % Sodium Chloride [Ns] 50 ml IV ONCE 01/26/21 08:31 Blood Culture X2 [BC] Stat 01/26/21 09:12 cefEPime HCl [Maxipime] 2 gm IV .STK-MED ONE 01/26/21 09:45 NPO Diet 01/26/21 10:00 cefEPime HCl [Maxipime] 1 gm 0.9 % Sodium Chloride [Ns] 50 ml IV Q8H 01/26/21 10:49 Regular Diet 01/26/21 11:50 Basic Metabolic Panel Stat Complete Blood Count Man Dif Stat 01/26/21 17:20 cefEPime HCl [Maxipime] 2 gm 0.9 % Sodium Chloride [Ns] 50 ml IV Q8H 01/26/21 17:32 cefEPime HCl [Maxipime] 2 gm IV .STK-MED ONE 01/27/21 00:58 cefEPime HCl [Maxipime] 2 gm IV .STK-MED ONE 01/27/21 05:38 Basic Metabolic Panel AM Complete Blood Count Man Dif Routine 01/27/21 08:50 cefEPime HCl [Maxipime] 2 gm IV .STK-MED ONE 01/27/21 08:55 Consult Rx Vancomycin Dosing 1 each MISCELLANE DAILY PRN 01/27/21 10:10 vancomycin HCL 1,500 mg 0.9 % Sodium Chloride [Ns] 500 ml IV ONCE 01/27/21 10:25 vancomycin HCL 1,500 mg IV .STK-MED ONE 01/27/21 12:10 Add Laboratory Test Stat 01/27/21 12:37 Blood Culture X2 [BC] Routine 01/27/21 15:44 cefEPime HCl [Maxipime] 2 gm IV .STK-MED ONE 01/27/21 22:00 vancomycin HCL 1,000 mg 0.9 % Sodium Chloride [Ns] 250 ml IV Q12H 01/27/21 23:30 vancomycin HCL 1,000 mg .ROUTE .STK-MED ONE 01/28/21 02:40 cefEPime HCl [Maxipime] 2 gm IV .STK-MED ONE 01/28/21 05:56 Basic Metabolic Panel AM Complete Blood Count Man Dif Routine 01/28/21 09:44 vancomycin HCL 1,000 mg .ROUTE .STK-MED ONE 01/28/21 20:43 Vancomycin Trough Stat 01/29/21 05:32 Complete Blood Count Man Dif Routine 01/29/21 09:16 Pheresis Platelets Urgent Type and Screen Urgent 01/29/21 12:05 oxyCODONE HCl Immed Release [Roxicodone] 10 mg PO ONCE ONE 01/30/21 06:08 Complete Blood Count no Diff AM 01/31/21 XR knee RT 3V Stat 01/31/21 07:43 Complete Blood Count Man Dif Routine 02/01/21 06:32 Basic Metabolic Panel AM Complete Blood Count no Diff AM 02/01/21 10:22 Pheresis Platelets Stat Type and Screen Stat 02/02/21 08:56 Complete Blood Count Man Dif Stat 02/03/21 06:27 Complete Blood Count no Diff AM Laboratory Last Values WBC 1.2 X10*3/uL (4.8-10.8) L 02/03/21 06:27 RBC 2.44 X10*6/uL (4.20-5.50) L 02/03/21 06:27 Hgb 7.7 g/dl (12.0-16.0) L 02/03/21 06:27 Hct 22.5 % (37-47) L 02/03/21 06:27 MCV 92.2 fL (80-98) 02/03/21 06:27 MCH 31.6 pg (27.0-33.0) 02/03/21 06:27 MCHC 34.2 g/dl (31.0-35.0) 02/03/21 06:27 RDW 12.1 % (11.0-16.0) 02/03/21 06:27 Plt Count 8 X10*3/uL (160-400) L* D 02/03/21 06:27 MPV 11.2 fL (9.4-12.3) 02/03/21 06:27 Immature Gran % (Auto) Cancelled 02/02/21 08:56 Neut % (Auto) Cancelled 02/02/21 08:56 Lymph % (Auto) Cancelled 02/02/21 08:56 [place] % (Auto) Cancelled 02/02/21 08:56 Eos % (Auto) Cancelled 02/02/21 08:56 Baso % (Auto) Cancelled 02/02/21 08:56 Lymph # (Auto) Cancelled 02/02/21 08:56 [place] # (Auto) Cancelled 02/02/21 08:56 Eos # (Auto) Cancelled 02/02/21 08:56 Baso # (Auto) Cancelled 02/02/21 08:56 Abs Immat Gran (auto) Cancelled 02/02/21 08:56 Absolute Neuts (auto) Cancelled 02/02/21 08:56 Absolute Nucleated RBC 0.000 X10*3/uL (0.0-0.012) 02/03/21 06:27 Nucleated RBC % (auto) 0.0 /100WBC (0.0-0.2) 02/03/21 06:27 Neutrophils % (Manual) 13 % (45-73) L 02/02/21 08:56 Band Neutrophils % 6 % (3-5) H 02/02/21 08:56 Lymphocytes % (Manual) 76 % (20-40) H 02/02/21 08:56 Atypical Lymphs % (Man) 1 % (0-6) 02/02/21 08:56 Monocytes % (Manual) 3 % (2-11) 02/02/21 08:56 Eosinophils % (Manual) 1 % (0-4) 02/02/21 08:56 Abs Neuts (Manual) 0.2 X10*3/uL (2.2-7.9) L 02/02/21 08:56 Lymphocytes # (Manual) 0.8 X10*3/uL (0.6-4.8) 02/02/21 08:56 Monocytes # (Manual) 0.1 X10*3/uL (0.0-1.2) 01/27/21 05:38 Toxic Granulation PRESENT 01/31/21 07:43 Toxic Vacuolation PRESENT 02/02/21 08:56 Dohle Bodies PRESENT 02/02/21 08:56 Platelet Estimate DECREASED (NORMAL) 02/02/21 08:56 Large Platelets PRESENT 01/31/21 07:43 Plt Morphology Comment NORMAL 02/02/21 08:56 RBC Morphology NOTED 02/02/21 08:56 Hypochromasia 1+ (5-14) /OIF 02/02/21 08:56 Rouleaux PRESENT 01/27/21 05:38 VBG pH 7.46 (7.32-7.43) H 01/26/21 04:34 VBG pCO2 42 mmHg 01/26/21 04:34 VBG pO2 44 mmHg 01/26/21 04:34 VBG HCO3 31 mmol/L (22-26) H 01/26/21 04:34 VBG O2 Saturation 69.0 % 01/26/21 04:34 VBG Base Excess 6.8 mmol/L 01/26/21 04:34 Sodium 139 mmol/L (135-145) 02/01/21 06:32 Potassium 4.1 mmol/L (3.3-5.1) 02/01/21 06:32 Chloride 101 mmol/L (96-108) 02/01/21 06:32 Carbon Dioxide 31 mmol/L (22-29) H 02/01/21 06:32 Anion Gap 11 (12-20) L 02/01/21 06:32 BUN 11 mg/dL (9-16) 02/01/21 06:32 Creatinine 0.71 mg/dL (0.5-1.4) 02/01/21 06:32 Estim Creat Clear Calc 101.3 02/01/21 06:32 Estimated GFR > 60 02/01/21 06:32 Random Glucose 115 mg/dL (60-115) 02/01/21 06:32 Lactic Acid 1.1 mmol/L (0.5-2.0) 01/26/21 04:35 Calcium 8.9 mg/dL (8.4-10.2) 02/01/21 06:32 Total Bilirubin 1.2 mg/dL (0.0-1.0) H 01/25/21 13:22 Direct Bilirubin 0.4 mg/dL (0.0-0.5) 01/25/21 13:22 AST 24 U/L (5-31) 01/25/21 13:22 ALT 12 U/L (0-31) 01/25/21 13:22 Alkaline Phosphatase 66 U/L (39-117) 01/25/21 13:22 Total Protein 6.2 g/dL (6.5-8.0) L 01/25/21 13:22 Albumin 3.8 g/dL (3.5-5.0) 01/25/21 13:22 Urine Color YELLOW 01/25/21 14:52 Urine Appearance CLEAR 01/25/21 14:52 Urine pH 7.0 (5.0-8.0) 01/25/21 14:52 Ur Specific [place] <= 1.005 (1.005-1.025) 01/25/21 14:52 Urine Protein NEG MG/DL (NEG-TRACE) 01/25/21 14:52 Urine Glucose (UA) NEG MG/DL (NEG) 01/25/21 14:52 Urine Ketones NEG MG/DL (NEG) 01/25/21 14:52 Urine Blood 1+ (NEG) H 01/25/21 14:52 Urine Nitrite NEG (NEG) 01/25/21 14:52 Ur Leukocyte Esterase NEG (NEG) 01/25/21 14:52 Urine RBC 5-9 /HPF (0) H 01/25/21 14:52 Urine WBC 0-2 /HPF (0-4) 01/25/21 14:52 Ur Squamous Epith Cells 4+ /LPF 01/25/21 14:52 Urine Bacteria 1+ /LPF 01/25/21 14:52 Vancomycin Trough 16.6 mcg/mL (10.0-20.0) 01/28/21 20:43 COVID-19 (JANETT) Negative (Negative) 01/25/21 20:17 COVID-19 Clin Com See Note 01/25/21 20:17 Blood Type O Positive 02/01/21 10:22 Antibody Screen NEGATIVE 02/01/21 10:22 - Imaging Radiologist's impression: ITS Impressions Knee X-Ray 01/25/21 12:57 IMPRESSION: Moderate degenerative arthritic changes with periarticular spurring medial and patellofemoral compartments of both knees. There is moderate right and mild left pleural effusion. No visible acute fracture or dislocation seen. Knee X-Ray 01/25/21 12:57 IMPRESSION: Moderate degenerative arthritic changes with periarticular spurring medial and patellofemoral compartments of both knees. There is moderate right and mild left pleural effusion. No visible acute fracture or dislocation seen. Head CT 01/25/21 13:17 IMPRESSION: No acute intracranial hemorrhage or mass effect. No enhancing parenchymal lesion. Cervical Spine CT 01/26/21 02:38 IMPRESSION: 1. Head: No acute intracranial findings. Chronic small vessel ischemic disease and volume loss. 2. Cervical spine: No acute findings identified. Multilevel degenerative changes. 3. Partially visualized paramediastinal mass in the left upper lobe along with pleural effusion. Head CT 01/26/21 02:38 IMPRESSION: 1. Head: No acute intracranial findings. Chronic small vessel ischemic disease and volume loss. 2. Cervical spine: No acute findings identified. Multilevel degenerative changes. 3. Partially visualized paramediastinal mass in the left upper lobe along with pleural effusion. Chest CT 01/26/21 04:04 IMPRESSION: 1. Redemonstrated left upper lobe paramediastinal mass. There is now adjacent consolidation and groundglass opacity in the left upper and lower lobes which is new from 11/21/2020. It is difficult to determine whether this represents tumor extension or superimposed pneumonia. In the proper clinical setting, posttreatment changes would also be a consideration. 2. Small to moderate left pleural effusion, new from 11/21/2020 3. Mild ground glass opacity in the posterior right upper lobe lobe, suggesting mild infectious/inflammatory etiology. 4. Subcarinal lymphadenopathy appears slightly increased since 11/21/2020. Stable right paratracheal lymphadenopathy. Knee X-Ray 01/31/21 06:30 IMPRESSION: No fracture identified. Small to moderate effusion. Degenerative changes. Progress Note: A/P (1) Pancytopenia Status: Acute Assessment and plan: 1. This is a 65-year-old woman with metastatic small cell lung cancer. She is currently admitted after a fall and found to be severely pancytopenic. She received chemotherapy with etoposide at the beginning of January, she received Neulasta after treatment. Unfortunately her counts drop significantly requiring blood and platelet transfusion. Her white count is slowly recovering. Transfuse 1 unit PRBC today. Transfuse platelets if below 5 K. 2. Metastatic lung cancer with recent brain metastasis. She received palliative radiotherapy at [facility] in December 2020. She does not have significant mental status changes but has balance issues and frequent falls. He is awaiting placement at rehabilitation center. - Time Spent With Patient Time Spent with Patient (in minutes): 15
--- NOTE | 2021-02-03 10:08 | P.PNIM_ITS ---
Subjective Subjective Date of Service: 02/03/21 Interval History: seen and examined this AM no new complaints no new bleeding/bruising ROS General - no fevers or chills Cardiovascular - no chest pain Respiratory - no shortness of breath or cough Abdominal- no abdominal pain, nausea, vomiting, diarrhea Physical Exam Vital Signs: Vital Signs: Last Vital Signs Temp 97.3 F 02/03/21 07:58 Pulse 92 02/03/21 07:58 Resp 19 02/03/21 07:58 BP 121/71 02/03/21 07:58 Pulse Ox 96 02/03/21 07:58 Oxygen Flow Rate 2 01/25/21 12:23 Body Mass Index 46.8 Const: Other: General - no acute distress, appears comfortable Cardiovascular - regular rate and rhythm, S1-S2 Lungs - normal respiratory effort, clear to auscultation bilaterally, no wheezing Abdomen - soft, nontender, no rebound or guarding Extremities - no edema bilaterally Neuro - awake and alert, no focal deficits Objective Data Current Medications Generic Name Dose Route Start Last Admin Trade Name Miladys PRN Reason Stop Dose Admin Acetaminophen 650 mg 01/26/21 09:44 02/02/21 22:46 Acetaminophen 325 Mg Tablet PO 650 mg Q6H PRN Administration Pain, Mild (Pain Scale 1-3) Acetaminophen 650 mg 02/03/21 05:42 Acetaminophen 325 Mg Tablet PO Q6H PRN Pain, Mild (Pain Scale 1-3) Albuterol Sulfate 2 puff 01/25/21 20:12 Albuterol Sulfate 90 Mcg 8 Gm Inhaler INHALE Q6H PRN Shortness Of Breath Atenolol 25 mg 01/26/21 09:00 02/03/21 09:31 Atenolol 25 Mg Tablet PO 25 mg DAILY SAM Administration Protocol Bupropion HCl 150 mg 01/29/21 09:00 02/03/21 09:31 Bupropion Hcl Xl 150 Mg Tab.Er.24h PO 150 mg DAILY SAM Administration Docusate Sodium 100 mg 01/26/21 09:00 02/03/21 09:30 Docusate Sodium 100 Mg Capsule PO 100 mg DAILY SAM Administration Docusate Sodium 100 mg 01/29/21 21:00 02/02/21 20:16 Docusate Sodium 100 Mg Capsule PO 100 mg BEDTIME SMA Administration Duloxetine HCl 30 mg 01/26/21 09:00 02/03/21 09:30 Duloxetine Hcl 30 Mg Capsule. PO 30 mg DAILY SAM Administration Fluticasone/Vilanterol 1 puff 01/26/21 08:00 02/03/21 08:02 Fluticasone/Vilanterol 200/25 Blst.W.Dev INHALE 1 puff RDAILY SAM Administration Levothyroxine Sodium 112 mcg 01/26/21 06:00 02/03/21 05:42 Levothyroxine Sodium 112 Mcg Tablet PO 112 mcg DAILY@0600 SAM Administration Levothyroxine Sodium 25 mcg 01/26/21 06:00 02/03/21 05:42 Levothyroxine Sodium 25 Mcg Tablet PO 25 mcg DAILY@0600 SAM Administration Lidocaine 1 patch 01/29/21 12:15 02/03/21 09:32 Lidocaine 4 % Patch Adh..Patch TRANSDERMA Not Given DAILY [facility] Protocol Melatonin 6 mg 01/31/21 20:58 01/31/21 21:18 Melatonin 3 Mg Tablet PO 6 mg BEDTIME PRN Administration Insomnia Multivitamins/Vitamin C 1 tab 01/26/21 09:00 02/03/21 09:31 Multivitamin Tablet PO 1 tab DAILY SAM Administration Nortriptyline HCl 20 mg 01/25/21 21:00 02/02/21 20:15 Nortriptyline Hcl 10 Mg Capsule PO 20 mg BEDTIME SAM Administration Omeprazole 20 mg 01/26/21 06:30 02/03/21 05:42 Omeprazole 20 Mg Capsule. PO 20 mg DAILY@0630 SAM Administration Oxycodone HCl 10 mg 01/30/21 20:43 02/03/21 09:30 Oxycodone Hcl Immed Release 5 Mg Tablet PO 10 mg Q6H PRN Administration Breakthrough Pain Polyethylene Glycol 17 gm 01/29/21 12:15 02/03/21 09:32 Polyethylene Glycol 3350 17 Gm Powd.Pack PO Not Given DAILY SAM Sodium Chloride 3 ml 01/26/21 16:00 02/03/21 09:31 0.9 % Sodium Chloride Flush 3 Ml Syringe IVFLUSH 3 ml QSHIFT SAM Administration Tiotropium [place] 2 puff 01/26/21 08:00 02/03/21 08:03 Tiotropium [place] 18 Mcg Cap.W.Dev INHALE 2 puff RDAILY SAM Administration Zolpidem Tartrate 10 mg 02/01/21 18:01 02/02/21 21:38 Zolpidem Tartrate 5 Mg Tablet PO 10 mg BEDTIME PRN Administration Insomnia Labs CBC & Chem 7: 02/03/21 06:27 02/01/21 06:32 Labs: Laboratory Results - last 24 hr 02/02/21 02/03/21 08:56 06:27 WBC 1.2 L RBC 2.44 L Hgb 7.7 L Hct 22.5 L MCV 92.2 MCH 31.6 MCHC 34.2 RDW 12.1 Plt Count 18 L* D 8 L* D MPV 11.2 Absolute Nucleated RBC 0.000 Nucleated RBC % (auto) 0.0 Assessment and Plan (1) Pancytopenia: Status: Acute Assessment and Plan: 65 yo F admitted initially for possible pneumonia 1. Pancytopenia s/p 3 units of platelets -- last one 02/01 will give 1 unit PRBC today daily d/w Dr. Saunders 2. Pneumonia ruled out CT scan showing changes consistent with recent treatment vs pneumonia. Was treated with vancomcyin/zosyn -- discontinued given no major symptoms and worsening cell counts. clinically remains without any changes in her respiratory status 3. COPD / Chronic Hypoxic resp. failure continue baseline meds 4. Metastatic small cell lung Ca outpatient f/u 5. Weakness/falls ultimately will need rehab 6. Hypothryoidism synthroid 7. Knee effusion symptomatic treatment h/h stable, doubt hemarthrosis Full Code DVT pptx, Mechanical dispo: home vs STR once blood counts stabilize Quality Stroke Does the patient have a stroke diagnosis?: No VTE Prior VTE?: No VTE Risk Level:: Medical - moderate - high VTE Device Contraindication: N/A - Device Ordered VTE Drug Contraindication: N/A - Med Ordered
[2021-02-03] MEDS: Ondansetron ODT 4 MG TAB.RAPDIS TRANSLINGU (16:54)
[2021-02-03] MEDS: Zolpidem Tartrate 5 MG TABLET 10 MG PO (21:28)
[2021-02-03] MEDS: Nortriptyline HCl 10 MG CAPSULE 20 MG PO (21:29)
[2021-02-03] MEDS: Acetaminophen 325 MG TABLET 650 MG PO (23:14)
[2021-02-04] VITALS (9 sets, daily range): BP systolic 98–118; BP diastolic 54–75; PULSE 80–98; RESP 16–18; TEMP 36.1–36.9; O2SAT 93–98
[2021-02-04] MEDS: Omeprazole 20 MG CAPSULE.DR PO (06:07)
[2021-02-04] MEDS: Levothyroxine Sodium 25 MCG TABLET PO (06:08)
[2021-02-04] MEDS: Levothyroxine Sodium 112 MCG TABLET PO (06:08)
[2021-02-04] MEDS: oxyCODONE HCl Immed Release 5 MG TABLET 10 MG PO ×3 (06:11→20:32)
[2021-02-04 06:36] LABS: Hematocrit 24.3 % (37-47); Hemoglobin 8.5 g/dl (12.0-16.0); Mean Corpuscular Hemoglobin 32.1 pg (27.0-33.0); Mean Corpuscular Volume 91.7 fL (80-98); Mean Platelet Volume 11.3 fL (9.4-12.3); Red Blood Count 2.65 X10*6/uL (4.20-5.50); Red Cell Distribution Width 13.1 % (11.0-16.0)
[2021-02-04 07:26] LABS: Platelet Count 10 X10*3/uL (160-400); White Blood Count 1.6 X10*3/uL (4.8-10.8)
[2021-02-04] MEDS: buPROPion HCl XL 150 MG TAB.ER.24H PO (08:24)
[2021-02-04] MEDS: DULoxetine HCl 30 MG CAPSULE.DR PO (08:24)
[2021-02-04] MEDS: Docusate Sodium 100 MG CAPSULE PO ×2 (08:24→20:31)
[2021-02-04] MEDS: Multivitamin TABLET 1 TAB PO (08:25)
[2021-02-04] MEDS: 0.9 % Sodium Chloride Flush 3 ML SYRINGE IVFLUSH ×2 (08:26→14:55)
[2021-02-04] MEDS: Fluticasone/Vilanterol 200/25 BLST.W.DEV 1 PUFF INHALE (09:04)
--- NOTE | 2021-02-04 10:06 | HO.PM.IMPN ---
Subjective Subjective Date of Service: 02/04/21 Interval History: seen and examined this AM no new complaints no new bleeding/bruising ROS General - no fevers or chills Cardiovascular - no chest pain Respiratory - no shortness of breath or cough Abdominal- no abdominal pain, nausea, vomiting, diarrhea Physical Exam Vital Signs: Vital Signs: Last Vital Signs Temp 97.4 F 02/04/21 07:47 Pulse 82 02/04/21 09:08 Resp 17 02/04/21 07:47 BP 98/73 02/04/21 08:29 Pulse Ox 95 02/04/21 07:47 Oxygen Flow Rate 2 01/25/21 12:23 Body Mass Index 46.8 Const: Other: General - no acute distress, appears comfortable Cardiovascular - regular rate and rhythm, S1-S2 Lungs - normal respiratory effort, clear to auscultation bilaterally, no wheezing Abdomen - soft, nontender, no rebound or guarding Extremities - no edema bilaterally Neuro - awake and alert, no focal deficits Objective Data Current Medications Generic Name Dose Route Start Last Admin Trade Name Miladys PRN Reason Stop Dose Admin Acetaminophen 650 mg 01/26/21 09:44 02/03/21 23:14 Acetaminophen 325 Mg Tablet PO 650 mg Q6H PRN Administration Pain, Mild (Pain Scale 1-3) Acetaminophen 650 mg 02/03/21 05:42 Acetaminophen 325 Mg Tablet PO Q6H PRN Pain, Mild (Pain Scale 1-3) Albuterol Sulfate 2 puff 01/25/21 20:12 Albuterol Sulfate 90 Mcg 8 Gm Inhaler INHALE Q6H PRN Shortness Of Breath Atenolol 25 mg 01/26/21 09:00 02/04/21 08:29 Atenolol 25 Mg Tablet PO Not Given DAILY SAM Protocol Bupropion HCl 150 mg 01/29/21 09:00 02/04/21 08:24 Bupropion Hcl Xl 150 Mg Tab.Er.24h PO 150 mg DAILY SAM Administration Docusate Sodium 100 mg 01/26/21 09:00 02/04/21 08:24 Docusate Sodium 100 Mg Capsule PO 100 mg DAILY SAM Administration Docusate Sodium 100 mg 01/29/21 21:00 02/03/21 21:28 Docusate Sodium 100 Mg Capsule PO 100 mg BEDTIME SAM Administration Duloxetine HCl 30 mg 01/26/21 09:00 02/04/21 08:24 Duloxetine Hcl 30 Mg Capsule. PO 30 mg DAILY SAM Administration Fluticasone/Vilanterol 1 puff 01/26/21 08:00 02/04/21 09:04 Fluticasone/Vilanterol 200/25 Blst.W.Dev INHALE 1 puff RDAILY SAM Administration Levothyroxine Sodium 112 mcg 01/26/21 06:00 02/04/21 06:08 Levothyroxine Sodium 112 Mcg Tablet PO 112 mcg DAILY@0600 SAM Administration Levothyroxine Sodium 25 mcg 01/26/21 06:00 02/04/21 06:08 Levothyroxine Sodium 25 Mcg Tablet PO 25 mcg DAILY@0600 SAM Administration Lidocaine 1 patch 01/29/21 12:15 02/04/21 08:25 Lidocaine 4 % Patch Adh..Patch TRANSDERMA Not Given DAILY [facility] Protocol Melatonin 6 mg 01/31/21 20:58 01/31/21 21:18 Melatonin 3 Mg Tablet PO 6 mg BEDTIME PRN Administration Insomnia Multivitamins/Vitamin C 1 tab 01/26/21 09:00 02/04/21 08:25 Multivitamin Tablet PO 1 tab DAILY SAM Administration Nortriptyline HCl 20 mg 01/25/21 21:00 02/03/21 21:29 Nortriptyline Hcl 10 Mg Capsule PO 20 mg BEDTIME SAM Administration Omeprazole 20 mg 01/26/21 06:30 02/04/21 06:07 Omeprazole 20 Mg Capsule. PO 20 mg DAILY@0630 SAM Administration Oxycodone HCl 10 mg 01/30/21 20:43 02/04/21 06:11 Oxycodone Hcl Immed Release 5 Mg Tablet PO 10 mg Q6H PRN Administration Breakthrough Pain Polyethylene Glycol 17 gm 01/29/21 12:15 02/04/21 08:29 Polyethylene Glycol 3350 17 Gm Powd.Pack PO Not Given DAILY SAM Sodium Chloride 3 ml 01/26/21 16:00 02/04/21 08:26 0.9 % Sodium Chloride Flush 3 Ml Syringe IVFLUSH 3 ml QSHIFT SAM Administration Tiotropium [place] 2 puff 01/26/21 08:00 02/04/21 09:04 Tiotropium [place] 18 Mcg Cap.W.Dev INHALE 2 puff RDAILY SAM Administration Zolpidem Tartrate 10 mg 02/01/21 18:01 02/03/21 21:28 Zolpidem Tartrate 5 Mg Tablet PO 10 mg BEDTIME PRN Administration Insomnia Labs CBC & Chem 7: 02/04/21 05:11 02/01/21 06:32 Labs: Laboratory Results - last 24 hr 02/01/21 02/04/21 10:22 05:11 WBC 1.6 L RBC 2.65 L Hgb 8.5 L Hct 24.3 L MCV 91.7 MCH 32.1 MCHC 35.0 RDW 13.1 Plt Count 10 L* MPV 11.3 Absolute Nucleated RBC 0.000 Nucleated RBC % (auto) 0.0 Blood Type O Positive Antibody Screen NEGATIVE Crossmatch See Detail Assessment and Plan (1) Pancytopenia: Status: Acute Assessment and Plan: 65 yo F admitted initially for possible pneumonia 1. Pancytopenia s/p 3 units of platelets -- last one 02/01 s/p 1 unit PRBC 02/03 - h/h improved approppriate post transfusion no signs of bleeding transfuse platelets below 5 (per Heme/onc recs) 2. Pneumonia ruled out CT scan showing changes consistent with recent treatment vs pneumonia. Was treated with vancomcyin/zosyn -- discontinued given no major symptoms and worsening cell counts. clinically remains without any changes in her respiratory status 3. COPD / Chronic Hypoxic resp. failure continue baseline meds 4. Metastatic small cell lung Ca outpatient f/u 5. Weakness/falls ultimately will need rehab 6. Hypothryoidism synthroid 7. Knee effusion symptomatic treatment h/h stable, doubt hemarthrosis Full Code DVT pptx, Mechanical dispo: home vs STR once blood counts stabilize Quality Stroke Does the patient have a stroke diagnosis?: No VTE Prior VTE?: No VTE Risk Level:: Medical - moderate - high VTE Device Contraindication: N/A - Device Ordered VTE Drug Contraindication: N/A - Med Ordered
--- NOTE | 2021-02-04 12:31 | MHC.CLN ---
FOLLOW UP DIET=REGULAR WITH NEUTROPENIC PRECAUTIONS; ENSURE 240 ML BID PROVIDES 700 KCAL, 40 G PROTEIN. REVIEW OF INTAKE SHOWS MOST MEALS 50-100%. SKIN: NO OPEN AREAS. FOLLOWING.
--- NOTE | 2021-02-04 12:48 | MHC.CM.PN ---
NURSE ATHLETIC COACH NOTE ELECTRONIC MEDICAL RECORD REVIEWED ALONG WITH CASE DISCUSSED WITH HOSPITALIST AND STAFF NURSE , PATIENT IS STRONGLY VOICING TO GO ONLY TO STR AT A [place] [facility] , THEY ARE CONTINUING TO FOLLOW BUT STILL OF 02/04 HAVE NO BED AVAILABILITY , PATIENTS GOAL FOR DISCHARGE IS PLATELETS >20 PER HOSPITALIST. Patient lives in an apartment next door to her Daughter/HCP/Rekha and Rekha's family PCP/RN CHRONIC is Dana Leyva.Patient has both a cane and walker.AND FOLLOWED BY DR CAMPOS HEM/ONC
--- NOTE | 2021-02-04 13:09 | MHC.CM.PN ---
NURSE DIGITAL COMPUTER OPERATOR NTOE ELECTRONIC MEDICAL RECORD REVIEWED ALONG WITH CASE DISCUSSED WITH STAFF GARCÍA AND NORMATILSIUmer , MET WITH PATIENT MEDICARE IMMM UPDATED, PATIENT STILL CONTINUES TO HAVE PAIN ISSUES RELATED TO HIS DIAGNOSIS AND STILL RECIVING IV ANXALGEICS, RENAL PHYSICIANS CONTINUE TO FOLLOW . PALM TO TRY TO CONVERT FROM IBV ANALGEICS TO ORAL ANALGEICS DISCHARGE PLAN IMM 02/04/21 HOME NO SERVICES PCP PATIENT TO FOLLOW UP[FOR POST HOSPITLAI DISCHARGE RACHELLE FAMILY
[2021-02-04] MEDS: Nortriptyline HCl 10 MG CAPSULE 20 MG PO (20:31)
[2021-02-04] MEDS: Zolpidem Tartrate 5 MG TABLET 10 MG PO (20:32)
[2021-02-05] VITALS (7 sets, daily range): BP systolic 106–115; BP diastolic 51–73; PULSE 78–89; RESP 17–20; TEMP 36.2–36.9; O2SAT 94–99
[2021-02-05] MEDS: 0.9 % Sodium Chloride Flush 3 ML SYRINGE IVFLUSH ×3 (01:35→16:48)
[2021-02-05] MEDS: Levothyroxine Sodium 112 MCG TABLET PO (06:31)
[2021-02-05] MEDS: Omeprazole 20 MG CAPSULE.DR PO (06:31)
[2021-02-05] MEDS: Levothyroxine Sodium 25 MCG TABLET PO (06:31)
[2021-02-05 06:43] LABS: Hematocrit 25.6 % (37-47); Hemoglobin 8.7 g/dl (12.0-16.0); Mean Corpuscular Hemoglobin 31.4 pg (27.0-33.0); Mean Corpuscular Volume 92.4 fL (80-98); Mean Platelet Volume 11.2 fL (9.4-12.3); Red Blood Count 2.77 X10*6/uL (4.20-5.50); Red Cell Distribution Width 12.9 % (11.0-16.0)
[2021-02-05 06:45] LABS: White Blood Count 2.1 X10*3/uL (4.8-10.8)
[2021-02-05 06:47] LABS: Platelet Count 18 X10*3/uL (160-400)
[2021-02-05] MEDS: Fluticasone/Vilanterol 200/25 BLST.W.DEV 1 PUFF INHALE (07:48)
[2021-02-05] MEDS: buPROPion HCl XL 150 MG TAB.ER.24H PO (09:45)
[2021-02-05] MEDS: Docusate Sodium 100 MG CAPSULE PO ×2 (09:45→20:04)
[2021-02-05] MEDS: atenoloL 25 MG TABLET PO (09:45)
[2021-02-05] MEDS: Multivitamin TABLET 1 TAB PO (09:45)
[2021-02-05] MEDS: DULoxetine HCl 30 MG CAPSULE.DR PO (09:45)
[2021-02-05] MEDS: oxyCODONE HCl Immed Release 5 MG TABLET 10 MG PO ×2 (11:43→20:05)
[2021-02-05 13:42] LABS: COVID-19 Test Negative (Negative); IDNOW Serial# 9DD0AD1C
--- NOTE | 2021-02-05 16:21 | HO.PM.IMPN ---
Subjective Subjective Date of Service: 02/05/21 Interval History: seen and examined this morning no overnight events no active bleeding platelets better this morning Review of Systems Review of Systems: Yes all other systems are reviewed and are negative Constitutional Constitutional: Denies chills and Denies fever(s) Cardiovascular Cardiovascular: Denies chest pain Respiratory Respiratory: Denies cough Gastrointestinal Gastrointestinal: Denies abdominal pain Physical Exam Vital Signs: Vital Signs: Last Vital Signs Temp 97.6 F 02/05/21 15:34 Pulse 78 02/05/21 15:34 Resp 20 02/05/21 15:34 BP 106/71 02/05/21 15:34 Pulse Ox 97 02/05/21 15:34 Oxygen Flow Rate 2 01/25/21 12:23 Body Mass Index 46.8 Const: General: comfortable, no acute distress, alert and awake Nutritional Appearance: well nourished Orientation/consciousness: patient oriented x3 HENMT: Head: Yes normocephalic and Yes atraumatic Eyes: Sclerae: sclerae normal Chest: Chest palpation & inspection: normal inspection of the chest Resp: Effort & Inspection: normal respiratory effort and no respiratory distress Cardio: Rate: regular rate Rhythm: regular rhythm GI: Palpation (GI): Soft to palpation and nontender Neuro: General: patient oriented x3 Cranial nerves: Yes CN's II-XII intact bilaterally and Yes Bilaterally intact EOM present Objective Data Current Medications Generic Name Dose Route Start Last Admin Trade Name Freq PRN Reason Stop Dose Admin Acetaminophen 650 mg 01/26/21 09:44 02/03/21 23:14 Acetaminophen 325 Mg Tablet PO 650 mg Q6H PRN Administration Pain, Mild (Pain Scale 1-3) Acetaminophen 650 mg 02/03/21 05:42 Acetaminophen 325 Mg Tablet PO Q6H PRN Pain, Mild (Pain Scale 1-3) Albuterol Sulfate 2 puff 01/25/21 20:12 Albuterol Sulfate 90 Mcg 8 Gm Inhaler INHALE Q6H PRN Shortness Of Breath Atenolol 25 mg 01/26/21 09:00 02/05/21 09:45 Atenolol 25 Mg Tablet PO 25 mg DAILY SAM Administration Protocol Bupropion HCl 150 mg 01/29/21 09:00 02/05/21 09:45 Bupropion Hcl Xl 150 Mg Tab.Er.24h PO 150 mg DAILY SAM Administration Docusate Sodium 100 mg 01/26/21 09:00 02/05/21 09:45 Docusate Sodium 100 Mg Capsule PO 100 mg DAILY SAM Administration Docusate Sodium 100 mg 01/29/21 21:00 02/04/21 20:31 Docusate Sodium 100 Mg Capsule PO 100 mg BEDTIME SAM Administration Duloxetine HCl 30 mg 01/26/21 09:00 02/05/21 09:45 Duloxetine Hcl 30 Mg Capsule. PO 30 mg DAILY SAM Administration Fluticasone/Vilanterol 1 puff 01/26/21 08:00 02/05/21 07:48 Fluticasone/Vilanterol 200/25 Blst.W.Dev INHALE 1 puff RDAILY SAM Administration Levothyroxine Sodium 112 mcg 01/26/21 06:00 02/05/21 06:31 Levothyroxine Sodium 112 Mcg Tablet PO 112 mcg DAILY@0600 SAM Administration Levothyroxine Sodium 25 mcg 01/26/21 06:00 02/05/21 06:31 Levothyroxine Sodium 25 Mcg Tablet PO 25 mcg DAILY@0600 SAM Administration Lidocaine 1 patch 01/29/21 12:15 02/05/21 09:43 Lidocaine 4 % Patch Adh..Patch TRANSDERMA Not Given DAILY [facility] Protocol Melatonin 6 mg 01/31/21 20:58 01/31/21 21:18 Melatonin 3 Mg Tablet PO 6 mg BEDTIME PRN Administration Insomnia Multivitamins/Vitamin C 1 tab 01/26/21 09:00 02/05/21 09:45 Multivitamin Tablet PO 1 tab DAILY SAM Administration Nortriptyline HCl 20 mg 01/25/21 21:00 02/04/21 20:31 Nortriptyline Hcl 10 Mg Capsule PO 20 mg BEDTIME SAM Administration Omeprazole 20 mg 01/26/21 06:30 02/05/21 06:31 Omeprazole 20 Mg Capsule. PO 20 mg DAILY@0630 SAM Administration Oxycodone HCl 10 mg 02/05/21 11:30 02/05/21 11:43 Oxycodone Hcl Immed Release 5 Mg Tablet PO 10 mg Q4H PRN Administration Pain, Moderate (Pain Scale 4-6 Polyethylene Glycol 17 gm 01/29/21 12:15 02/05/21 09:50 Polyethylene Glycol 3350 17 Gm Powd.Pack PO Not Given DAILY SAM Sodium Chloride 3 ml 01/26/21 16:00 02/05/21 09:46 0.9 % Sodium Chloride Flush 3 Ml Syringe IVFLUSH 3 ml QSHIFT SAM Administration Tiotropium [place] 2 puff 01/26/21 08:00 02/05/21 07:48 Tiotropium [place] 18 Mcg Cap.W.Dev INHALE 2 puff RDAILY SAM Administration Zolpidem Tartrate 10 mg 02/01/21 18:01 02/04/21 20:32 Zolpidem Tartrate 5 Mg Tablet PO 10 mg BEDTIME PRN Administration Insomnia Labs CBC & Chem 7: 02/05/21 06:09 02/01/21 06:32 Labs: Laboratory Results - last 24 hr 02/05/21 02/05/21 06:09 13:00 MCV 92.4 MCH 31.4 MCHC 34.0 RDW 12.9 Plt Count 18 L* D MPV 11.2 Absolute Nucleated RBC 0.000 Nucleated RBC % (auto) 0.0 COVID-19 (JANETT) Negative COVID-19 Clin Com See Note Assessment and Plan (1) Pancytopenia: Status: Acute (2) Thrombocytopenia: Status: Acute Assessment and Plan: 65 yo F admitted initially for possible pneumonia 1. Pancytopenia s/p 3 units of platelets -- last one 02/01 s/p 1 unit PRBC 02/03 - h/h improved approppriate post transfusion no signs of bleeding transfuse platelets below 5 (per Heme/onc recs) platelets improved, ok for d/c per hematology 2. Pneumonia ruled out CT scan showing changes consistent with recent treatment vs pneumonia. Was treated with vancomcyin/zosyn -- discontinued given no major symptoms and worsening cell counts. clinically remains without any changes in her respiratory status 3. COPD / Chronic Hypoxic resp. failure continue baseline meds 4. Metastatic small cell lung Ca outpatient f/u 5. Weakness/falls ultimately will need rehab 6. Hypothryoidism synthroid 7. Knee effusion symptomatic treatment h/h stable, doubt hemarthrosis Full Code DVT pptx, Mechanical attending: Dr. ortega dispo: to STR in am Quality Stroke Does the patient have a stroke diagnosis?: No VTE Prior VTE?: No VTE Risk Level:: Medical - moderate - high VTE Device Contraindication: N/A - Device Ordered VTE Drug Contraindication: N/A - Med Ordered
[2021-02-05] MEDS: Nortriptyline HCl 10 MG CAPSULE 20 MG PO (20:04)
[2021-02-05] MEDS: Zolpidem Tartrate 5 MG TABLET 10 MG PO (20:04)
[2021-02-06] VITALS: BP 92/64; PULSE 76; RESP 18; TEMP 36.3; O2SAT 96
[2021-02-06 00:15] VITALS: BP 116/64; PULSE 80
[2021-02-06] MEDS: 0.9 % Sodium Chloride Flush 3 ML SYRINGE IVFLUSH ×2 (00:15→08:29)
[2021-02-06 03:53] VITALS: BP 109/53; PULSE 86; RESP 18; TEMP 36.1; O2SAT 96
[2021-02-06] MEDS: Omeprazole 20 MG CAPSULE.DR PO (06:35)
[2021-02-06] MEDS: Levothyroxine Sodium 25 MCG TABLET PO (06:35)
[2021-02-06] MEDS: Levothyroxine Sodium 112 MCG TABLET PO (06:35)
[2021-02-06 07:40] VITALS: BP 124/62; PULSE 89; RESP 17; TEMP 36.3; O2SAT 98
[2021-02-06 07:43] VITALS: BP 124/62; PULSE 89; RESP 17; TEMP 36.4; O2SAT 98
[2021-02-06] MEDS: oxyCODONE HCl Immed Release 5 MG TABLET 10 MG PO ×2 (08:27→13:51)
[2021-02-06] MEDS: Acetaminophen 325 MG TABLET 650 MG PO (08:27)
[2021-02-06] MEDS: atenoloL 25 MG TABLET PO (08:28)
[2021-02-06] MEDS: DULoxetine HCl 30 MG CAPSULE.DR PO (08:28)
[2021-02-06] MEDS: Multivitamin TABLET 1 TAB PO (08:28)
[2021-02-06] MEDS: buPROPion HCl XL 150 MG TAB.ER.24H PO (08:28)
[2021-02-06] MEDS: Docusate Sodium 100 MG CAPSULE PO (08:28)
[2021-02-06] MEDS: Lidocaine 4 % Patch ADH..PATCH 1 PATCH TRANSDERMA (08:28)
--- NOTE | 2021-02-06 09:15 | P.DS_ITS ---
DS: Providers Provider Date of Service: 02/06/21 Date of admission: 01/26/21 09:44 Primary care physician: Nohemy Matt NP Consults: 02/01/21 10:11 Consult to Hematology / Oncology Routine Consulting Provider: Corazon Saunders Reason for consultation: pancytopenia DS: Diagnosis Discharge Diagnosis (1) Pancytopenia: Status: Acute (2) Thrombocytopenia: Status: Acute DS: Medications Discharge Medications Home Medications: Home Medications Medication Instructions Recorded Confirmed budesonide-formoterol HFA 160 2 puff INHALATION BID 04/10/20 01/25/21 mcg-4.5 mcg/actuation aerosol inhaler bupropion HCl 200 mg tablet,12 hr 200 mg PO DAILY 04/10/20 01/25/21 sustained-release docusate sodium 100 mg capsule 100 mg PO DAILY 04/10/20 01/25/21 (Stool Softener) levothyroxine 137 mcg tablet 137 mcg PO DAILY 04/10/20 01/25/21 nortriptyline 10 mg capsule 20 mg PO BEDTIME 04/10/20 01/25/21 omeprazole 20 mg capsule,delayed 20 mg PO DAILY 05/01/20 01/25/21 release albuterol sulfate 90 mcg/actuation 2 puff INHALATION Q6H PRN 11/20/20 01/25/21 aerosol inhaler atenolol 25 mg tablet 25 mg PO DAILY 11/20/20 01/25/21 duloxetine 30 mg capsule,delayed 30 mg PO DAILY 11/20/20 01/25/21 release [id number]-[id number] 8 mg-folic 2 tab PO DAILY 11/20/20 01/25/21 ac 400 mcg-vit K 10 mcg chew tablet (Centrum Chewables) tiotropium bromide 2.5 2 puff INHALATION DAILY 11/20/20 01/25/21 mcg/actuation mist for inhalation (Spiriva Respimat) Previous Rx's Medication Instructions Recorded oxycodone 5 mg tablet 5 mg PO Q6H PRN #28 tab 11/23/20 oxycodone 5 mg capsule 10 mg PO Q4H PRN #120 cap 01/13/21 topotecan 1 mg capsule (Hycamtin) 4 mg PO DAILY #20 cap 01/13/21 zolpidem 10 mg tablet (Ambien) 10 mg PO DAILY PRN #30 tab 01/23/21 DS: Summary Hospital Course Hospital Course: Final discharge diagnosis: 1. Pancytopenia 2. Pneumonia, ruled out 3. Metastatic Lung Ca 4. Chronic respiratory failure with hypoxia 5. COPD, no exacerbation 6. Generalized weakness 7. Hypothyroidism HPI: This 65-year-old female with a past medical history of metastatic small cell lung cancer (brain Mets) who presents to the hospital falls and generalized weak ness.? She was evaluated in the emergency room with the initial plan being PT evaluation and short-term rehabilitation placement.? However upon further imaging of the chest there were findings concerning of consolidation near her known mass and so in conjunction with her leukopenia there was a concern for pneumonia and admission was requested. Patient is seen and examined in the emergency room on 01/26/2021 morning.? She reports generalized weakness and fatigue.? She does endorse a productive cough of yellowish and white sputum.? She denies any pleuritic chest pain.? She reports shortness of breath which has been unchanged.? She denies any fevers or chills at home. ED workup revealed a white blood cell count of 1.4, absolute neutrophil count of 700. Platelet count 83. CT scan of the chest redemonstrated upper lobe paramediastinal mass with adjacent consolidation and ground-glass opacity in the left upper and lower lobes which was new from her previous CT scan.? It is difficult to determine whether this represents tumor extension or superimposed pneumonia.? She also has small to moderate left-sided pleural effusion which is new from her previous CT scan. Hospital Course: Patient was initially treated with broad-spectrum IV antibiotics, cefepime and vancomycin for was felt to be pneumonia on the CT scan. However patient's blood counts including WBC, H&H and platelets all started to decrease and given that she had no symptoms of pneumonia, antibiotics were discontinued as a potential cause of her pancytopenia. Patient's cell counts continue to drop and her case was discussed with Hematology daily. She did require multiple platelet transfusions and at the time of discharge her platelet counts are 18. She received 1 total unit of packed red cells. Neutropenic and remained so. She should maintain neutropenic precautions at care home facility. She can have a repeat CBC completed early next week possibly on 02/09/2021 the results of which can be sent to her career development manager Dr. Saunders [facility] oncology. Time Spent with Patient Time attestation: Total time spent providing and/or coordinating discharge services: Discharge coordination time: Greater than 30 minutes Quality: Stroke Does the patient have a stroke diagnosis?: No Physical Exam Vital Signs: Vital Signs: Last Vital Signs Temp 97.6 F 02/06/21 07:43 Pulse 89 02/06/21 07:43 Resp 17 02/06/21 07:43 BP 124/62 02/06/21 07:43 Pulse Ox 98 02/06/21 07:43 Oxygen Flow Rate 2 01/25/21 12:23 Body Mass Index 46.8 General - no acute distress, appears comfortable Cardiovascular - regular rate and rhythm, S1-S2 Lungs - normal respiratory effort, clear to auscultation bilaterally, no wheezing Abdomen - soft, nontender, no rebound or guarding Extremities - no edema bilaterally Neuro - awake and alert, no focal deficits DS: Data Data Completed and Pending Labs on day of discharge: Laboratory Results - last 24 hr 02/05/21 13:00 COVID-19 (JANETT) Negative COVID-19 Clin Com See Note Discharge Plan Discharge Patient Disposition: [facility] Discharge Diagnosis: Pancytopenia Metastatic small cell lung cancer Referrals: [facility] [Outside] - 1 Week Corazon Saunders MD [Physician] - 1 Week Nohemy Matt NP [Primary Care Provider] - 1 Week Discharge Medications: Continued docusate sodium [Stool Softener] 100 mg Capsule 100 mg PO DAILY RF: 0 bupropion HCl 200 mg Tablet Sustained-Release 12 Hr 200 mg PO DAILY RF: 0 budesonide-formoterol 160-4.5 mcg/actuation Hfa Aerosol Inhaler 2 puff INHALATION BID RF: 0 levothyroxine 137 mcg Tablet 137 mcg PO DAILY RF: 0 nortriptyline 10 mg Capsule 20 mg PO BEDTIME RF: 0 oxycodone 5 mg Capsule 10 mg PO Q4H PRN (Reason: Chest Pain) Qty: 120 RF: 0 Hycamtin 1 mg Capsule 4 mg PO DAILY Qty: 20 RF: 3 zolpidem [Ambien] 10 mg Tablet 10 mg PO DAILY PRN (Reason: Insomnia) Qty: 30 RF: 0 Spiriva Respimat 2.5 mcg/actuation Mist 2 puff INHALATION DAILY RF: 0 atenolol 25 mg Tablet 25 mg PO DAILY RF: 0 duloxetine 30 mg Capsule,Delayed Release(Dr/Ec) 30 mg PO DAILY RF: 0 Centrum Chewables 8 mg-400 mcg- 10 mcg Tablet,Chewable 2 tab PO DAILY RF: 0 albuterol sulfate 90 mcg/actuation Hfa Aerosol Inhaler 2 puff INHALATION Q6H PRN (Reason: Shortness Of Breath) RF: 0 oxycodone 5 mg tablet 5 mg PO Q6H PRN (Reason: pain (scale score 7-10)) Qty: 28 RF: 0 omeprazole 20 mg Capsule,Delayed Release(Dr/Ec) 20 mg PO DAILY RF: 0 Discharge Orders: Discharge Order (Routine); Ordered 02/06/21 Ordered By: Bobby Phan Diet: advance to usual diet Activity on Discharge: As tolerated Stand Alone Forms: Patient Portal Discharge page Care Plan Goals: See below Health Concerns: Metastatic lung cancer Pancytopenia Unsteady gait Plan of Treatment: Metastatic lung [id number] with Dr. Saunders Pancytopenia. Improving. Monitor for bleeding. follow-up with Dr. Saunders Assessment: See discharge summary
--- NOTE | 2021-02-06 11:03 | MHC.CM.PN ---
Addendum entered by Martha Noriega 02/06/21 13:36: recived insurance auth from michelle from the [place] , she will arrange for [facility] to provide transport to [facility] facility, patient and stadff nruse made aware all paper work completed, again alerted the ambulance and [facility] patient is on neutropenic precautions and contact precautions Addendum entered by Martha Noriega 02/06/21 12:04: T/C LEFT FOR VILMA HAWLEY AT [facility]. P HE ASKED IF I WOUL CALL MICHELLE AT THE [place], [employer] WAS REQUIRING ADDITION INFORMATION TO BE FAXED TO THEM , WHICH I Faxed to the #[phone] Original Note: nurse healthcare corporate account director note electronic medical record and discharge summary and instructions reviewed . met with patiwnt she is aware that we are still awaiting insurance authorirization from the [place], she was ckinically acceptwd at [facility] discharge plan [facility] for rehab to be transported [facility]
[2021-02-06 12:00] VITALS: BP 105/56; PULSE 77; RESP 17; TEMP 36.4; O2SAT 96
--- NOTE | 2021-02-06 12:06 | MHC.CM.PN ---
nurse hourly caregiver note electronic medical record and discharge instructions reviewed . met with patient wes his and dAUGHTER THROUGH POLISH INTERPERTER INFORMED HIM HE WOULD BE GOING DOWN TO [facility] FOR A MIDLINE IV. HE WILL THEN UPON RETURNING TO THE FLOOR HE WILL HAVE FIRST DOSE OF ERTAPENAM BE GIVEN , AFTER THIS INFUSION AND COMPLETION OF ALL DISCHARGE PAPER WORK HE CAN GO HOME, DISCHARGE PLAN HOME WITH WITH NEW IV ACESS HE WILL COME BACK [facility] FOR 10 AM APPOINTMENT TO THE DAYSTAY DISCHARGE FOR IV ANTIBIOTIC FOR THE NEXT 13 DAYS HE CAN HAVE ONE VISITOR WITH HIM PCP PATIENT TO CHOOSE AND MAKE APPOINTMENT FOR FOR PCP DR HORACE GARCIA ID THEIR OFFICE WILL CALL PATIENT AT HOME WITH APPOINTMENT TIME , I REVIEWED THIS WITH HIM X2 WITH HIS UNDERSTANDING MEDICARE IMM UPDATED
== END 2021-02-06 14:05 | disposition skilled nursing facility (03) | DRG 809 ==
LOC: HO.ED 01-26 08:27 → HO.EDOVER 01-26 10:20 → HO.IMC 01-26 19:06 → HO.S3 01-30 17:24
PROVIDERS: Hospitalist; Internal Medicine; Physician Assistant; Physician Assistant Medical; Admitting Provider Family Medicine; Emergency Provider Student in an Organized Health Care Education/Training Program; PCP Nurse Practitioner Family; Visit Provider Family Medicine
DX: D61.810 Antineoplastic chemotherapy induced pancytopenia (principal); C34.12 Malignant neoplasm of upper lobe, left bronchus or lung; J90 Pleural effusion, not elsewhere classified; C79.31 Secondary malignant neoplasm of brain; J96.11 Chronic respiratory failure with hypoxia; D70.1 Agranulocytosis secondary to cancer chemotherapy; E03.9 Hypothyroidism, unspecified; R29.6 Repeated falls; Z91.81 History of falling; D69.59 Other secondary thrombocytopenia; T45.1X5A Adverse effect of antineoplastic and immunosuppressive drugs, initial encounter; Y92.9 Unspecified place or not applicable; Z99.81 Dependence on supplemental oxygen; J44.9 Chronic obstructive pulmonary disease, unspecified; Z20.822 Contact with and (suspected) exposure to COVID-19; Z87.891 Personal history of nicotine dependence; Z88.0 Allergy status to penicillin; Z79.890 Hormone replacement therapy; Z79.899 Other long term (current) drug therapy
CPT/HCPCS: 36415; 70450; 70460; 71250; 72125; 73562; 80048; 80076; 80202; 81001; 82803; 83605; 85007; 85025; 85027; 86850; 86900; 86901; 86923; 87040; 87147; 87205; 87635; 92610; 94640; 97110; 97162; 99285; J0692; J1100; J1200; J2060; J3370; P9016; P9073; Q9967

== ENCOUNTER 2021-02-28 23:52 | Emergency (ER) | payer OTHER, SELFPAY ==
[2021-03-01] VITALS (10 sets, daily range): BP systolic 94–149; BP diastolic 41–95; PULSE 84–110; RESP 16–24; TEMP 37.1; O2SAT 94–98; BMI 32.5
--- NOTE | 2021-03-01 00:08 | PC.NURSE ---
update to prev note. pt did take her long acting morphine 30 mg just before bed. pt does this every night.
--- NOTE | 2021-03-01 00:46 | ED_ITS ---
HPI - General Adult General Chief complaint: Fall Stated complaint: ams multiple falls Time Seen by Provider: 03/01/21 00:33 Source: patient, family (Daughter Rekha phone number [phone]) and EMS Mode of arrival: EMS Limitations: no limitations History of Present Illness HPI narrative: 65-year-old female came in here for placement. 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 Because patient at high risk of recurrent falls patient will need to be placed in respite or long term for better care of the patient. Patient has decreased p.o. intake and dehydrated will need IV hydration. Related Data Home Medications Medication Instructions Recorded Confirmed budesonide-formoterol HFA 160 2 puff INHALATION BID 04/10/20 02/24/21 mcg-4.5 mcg/actuation aerosol inhaler bupropion HCl 200 mg tablet,12 hr 200 mg PO DAILY 04/10/20 02/24/21 sustained-release docusate sodium 100 mg capsule 100 mg PO DAILY 04/10/20 02/24/21 (Stool Softener) levothyroxine 137 mcg tablet 137 mcg PO DAILY 04/10/20 02/24/21 nortriptyline 10 mg capsule 20 mg PO BEDTIME 04/10/20 02/24/21 omeprazole 20 mg capsule,delayed 20 mg PO DAILY 05/01/20 02/24/21 release albuterol sulfate 90 mcg/actuation 2 puff INHALATION Q6H PRN 11/20/20 02/24/21 aerosol inhaler atenolol 25 mg tablet 25 mg PO DAILY 11/20/20 02/24/21 duloxetine 30 mg capsule,delayed 30 mg PO DAILY 11/20/20 02/24/21 release ccxfdtpt-jttnitfx-rlkx 8 mg-folic 2 tab PO DAILY 11/20/20 02/24/21 ac 400 mcg-vit K 10 mcg chew tablet (Centrum Chewables) tiotropium bromide 2.5 2 puff INHALATION DAILY 11/20/20 02/24/21 mcg/actuation mist for inhalation (Spiriva Respimat) Previous Rx's Medication Instructions Recorded oxycodone 5 mg capsule 10 mg PO Q4H PRN #120 cap 01/13/21 topotecan 1 mg capsule (Hycamtin) 4 mg PO DAILY #20 cap 01/13/21 zolpidem 10 mg tablet (Ambien) 10 mg PO DAILY PRN #30 tab 01/23/21 Allergies Allergy/AdvReac Type Severity Reaction Status Date / Time penicillin V Allergy Unknown Unknown Verified 01/25/21 19:56 Penicillins [PCN] Allergy Unknown HIVES Verified 01/25/21 19:56 shellfish derived Allergy Unknown UNKNOWN Verified 01/25/21 19:56 [SHELLFISH DERIVED] Review of Systems Review of Systems: All other systems are reviewed and are negative Constitutional: Reports as per HPI and Reports no additional constitutional complaints Eyes: Reports as per HPI and Reports no additional eye complaints Reports system reviewed and no additional complaints, except as documented Cardiovascular: Reports as per HPI and Reports no additional cardiovascular complaints Respiratory: Reports as per HPI and Reports no additional respiratory complaints Gastrointestinal: Reports as per HPI and Reports no additional gastrointestinal complaints Genitourinary: Reports no additional female genitourinary complaints Musculoskeletal: Reports no additional musculoskeletal complaints Skin/Breast: Reports system reviewed and no additional complaints, except as docu Psychiatric: Reports no additional psychiatric complaints Endocrine: Reports no additional endocrine complaints Hematologic/Lymphatic: Reports no additional hematologic/lymphatic complaints Allergic/Immunologic: Reports no additional allergic/immunologic complaints Reports system reviewed and no additional complaints, except as documented and Reports Abnormal speech present [facility] Past Medical History Medical History Arthritis COPD (chronic obstructive pulmonary disease) Depression Diverticulitis Encounter for colonoscopy due to history of colonic polyp History of diverticulitis of colon History of hepatitis Hypertension Hypothyroidism Traumatic brain injury Surgical History H/O section Hx of breast reduction, elective S/P bronchoscopy with biopsy Family History Family History Brother Diabetes Father Social History Social History Household Members: None Housing: Apartment Do you presently have visiting nurse or other home services: No (would like to have visiting services to help with house keeping/adl) Alcohol intake: never Patient Tobacco Use Status: Former Tobacco user Quit Date: 4 years ago Tobacco use type: Cigarette Cigarette Packs Per Day: 1 Years Smoked: 53 Second Hand Smoke Exposure: No Substance Use Type: Marijuana Advance Directives: No Advance Directives Date on File: 05/01/20 service: Yes Current occupational status: disabled Physical Exam Vital Signs: Vital Signs: Last Vital Signs Temp 98.7 F 03/01/21 00:13 Pulse 109 H 03/01/21 00:13 Resp 18 03/01/21 00:13 BP 149/41 H 03/01/21 00:13 Pulse Ox 98 03/01/21 00:13 Body Mass Index 32.5 Vital signs have been reviewed as appeared to be correct. Blood pressure normal. Heart rate elevated. Respiration rate normal. Temperature normal. Oxygen saturation normal. Appearance: Patient is incoherent as her baseline reportedly. acute distress. Head: Normal external exam. Normocephalic. Atraumatic. No Chand signs noted. No raccoon eyes noted Eyes: PERRLA. EOMI. Conjunctiva and sclera normal. Eyelids normal. ENT: TM's Normal. Pharynx normal. Uvula midline. Moist mucous membranes. No trismus noted. No drooling noted. No muffled voice noted. Neck: Normal inspection. Neck supple. FROM. No adenopathy. Thyroid Normal. No meningeal signs. No neck mass noted. CVS: Normal heart rate and rhythm. Heart sound normal. No murmurs noted. Pulses normal throughout. Respiratory: No respiratory distress. Painless inspiration. Breath sounds normal. No wheezes/rales/rhonchi noted. Chest nontender. No accessory muscle usage noted or decreased air movement noted. Abdomen: Soft and nontender. Bowel sounds normal in all 4 quadrants. No distention noted. No organomegaly noted. No visible injury noted. Back: No CVA tenderness. Full range of motion noted. Skin: Skin warm and dry. Normal skin color. Normal skin turgor. No rashes/lesions/lacerations noted. Extremities: No lower extremity edema. Extremities exhibit normal range of motion. Extremities nontender. Course Course Course Narrative: 65 years old female with history of metastatic small lung cancer with brain Mets, patient's mental status has been fluctuating as per hospice service, at time patient is confused. Patient is sustaining multiple falls lately. Patient is hospice and comfort measure only patient will need placement. Will keep the patient in the emergency department consult social work therapist to help with the placement. Patient has not been eating for the past 4 5 days slightly dehydrated will hydrate with IV fluid. Discharge Plan Discharge Clinical Impression: Lung cancer, Comfort measures only status Prescriptions: No Action docusate sodium [Stool Softener] 100 mg Capsule 100 mg PO DAILY RF: 0 bupropion HCl 200 mg Tablet Sustained-Release 12 Hr 200 mg PO DAILY RF: 0 budesonide-formoterol 160-4.5 mcg/actuation Hfa Aerosol Inhaler 2 puff INHALATION BID RF: 0 levothyroxine 137 mcg Tablet 137 mcg PO DAILY RF: 0 nortriptyline 10 mg Capsule 20 mg PO BEDTIME RF: 0 oxycodone 5 mg Capsule 10 mg PO Q4H PRN (Reason: Chest Pain) Qty: 120 RF: 0 Hycamtin 1 mg Capsule 4 mg PO DAILY Qty: 20 RF: 3 zolpidem [Ambien] 10 mg Tablet 10 mg PO DAILY PRN (Reason: Insomnia) Qty: 30 RF: 0 Spiriva Respimat 2.5 mcg/actuation Mist 2 puff INHALATION DAILY RF: 0 atenolol 25 mg Tablet 25 mg PO DAILY RF: 0 duloxetine 30 mg Capsule,Delayed Release(Dr/Ec) 30 mg PO DAILY RF: 0 Centrum Chewables 8 mg-400 mcg- 10 mcg Tablet,Chewable 2 tab PO DAILY RF: 0 albuterol sulfate 90 mcg/actuation Hfa Aerosol Inhaler 2 puff INHALATION Q6H PRN (Reason: Shortness Of Breath) RF: 0 omeprazole 20 mg Capsule,Delayed Release(Dr/Ec) 20 mg PO DAILY RF: 0
--- NOTE | 2021-03-01 00:59 | PC.NURSE ---
per dr quick after talking with the daughter the pt is still a hspic pt and a dnr/dni. pt is comfort measures only. pt mouth is dry, taking po liquids with no difficutly. pt even asked for somthing to drink.
[2021-03-01] MEDS: 0.9 % Sodium Chloride 1,000 ML 999 ML IVCONT (01:07)
--- NOTE | 2021-03-01 06:56 | PC.NURSE ---
pt was sitting on a bedside commode with the call howell at her side on the bed with instructions to ring when she was done. pt has met to the brain and states she just forgot and took a step forward and fell the the floor unwitness but heard. pt was found sitting up on the floor but the back of her head struck the suppy cart in the room. no open areas, dr devries at bedside.
--- NOTE | 2021-03-01 07:43 | PC.NURSE ---
dry house attendant called Lizette Garcia and notified of the fall and that the pt refused a ct of the head. pt states she has no injury other than her pride. no open area or redness noted. pt is back in bed side rales up and lock. next randell borja made aware. suggestion is to have the curtains open and a oob cord attached to the pt.
--- NOTE | 2021-03-01 07:51 | PC.NURSE ---
spoke with pt and she doesnt want her daughter to know that she fell. pt states she will tell her when she gets home. huong mejias made aware.
--- NOTE | 2021-03-01 09:08 | MHC.CM.ED ---
Addendum entered by Drea Bucio 03/01/21 16:00: Spoke at great length with pt who was awake, alert and oriented. Discussed her ED visit - I don't know why I was sent here. I'm fine, so I fell, big deal, people fall all the time. Reviewed her functional abilities at home and very bluntly discussed impending worsening of condition and ultimately dying. I understand all of that, what I can't understand is why I can't just return home Pt is aware that her dtr can no longer care for her but states she will change her mind, she's just tired and overwhelmed right now. Asked pt if she would be able to recruit friends and other family to care for her at home when she is no longer able to do for herself. Pt states she has a plan and is working on that. Discussed placement ([facility]% [facility] w[facility]) to which pt very, very strongly refuses and will not discuss further. Received call back from Patricia RN at [facility]. Pt has NOT been formally revoked as Rekha would not sign the revocation forms today and the RN from last evening did not ask for signature prior to arranging BLS transport to [facility] for eval. Patricia will speak with her supervisor chlorine liquefaction on 03/02 as this is an unusual occurrence and she isn't certain on how to proceed. Pt has agreed to board in ED this evening until services can be re-established on 03/02. At this time, there is no indication that pt requires activation of HCP - she is making choices that appear unsafe and not carefully thought out, however. Re: falling, pt fell in ED this am attempting to exit the ED bed. At this time, pt does not have a reasonably safe or finalized d/c plan. She is refusing STR and wants to return to home but without caregivers - other than [facility] (should they continue services) the potential for harm seems high. CM will follow with [facility] on 03/02. Addendum entered by Drea Bucio 03/01/21 14:53: No acceptance from SNF search: updated radius to include [facility] facilities in a 40 mile radius. No response from 2 [facility] messages - Call placed to dtr Rekha to update: Rekha very tearful admitting she cannot provide the constant and demanding care her mother is now requiring. I work and have 2 children - I just can't do this anymore: I haven't slept in days and my mental health is suffering. Per Rekha, pt does not have any other supports to assist and does not have any finances to privately pay for care. Original Note: Received consult for assessment of d/c needs: Attempted to meet with pt: slightly confused: states she's tired. Call placed to pt's dtr/HCP Rekha. Per Rekha, pt lives next door to her and has services with [facility] d/t lung cancer. Her MOLST (on file) does allow for hospitalization, IVF, NIPPV if needed as well as attempted resuscitation. Rekha states pt has been falling several times daily and her safety is at risk. I can't do anymore and she isn't safe to stay home. Call placed to [facility] to confirm services - waiting for callback. Rekha states pt has been to [facility] several times in the past and would like a referral placed for [facility]. Placed referral to [facility] as well since they are [facility]. (Pt's payor) Will await response from Hospice and SNF referrals.
[2021-03-01] MEDS: Morphine Sulfate ER 15 MG TABLET.ER 30 MG PO (14:05)
--- NOTE | 2021-03-01 17:30 | PC.NURSE ---
mat at hospice director of teacher education debra [phone]
--- NOTE | 2021-03-01 19:34 | PC.NURSE ---
Pt resting in bed, repositioned into POC. Pt reports generalized body pain, aware Morphine is q12 hours, next due @ 0200. VSS at this time. Call howell within reach, pt advised to not get OOB without assistance. This RN calling environmental for a hospital bed. Continue to monitor.
--- NOTE | 2021-03-01 20:22 | PC.NURSE ---
ED techs at bedside switching pt into a hospital bed.
--- NOTE | 2021-03-01 23:24 | PC.NURSE ---
Kiarra, daughter [phone]
[2021-03-01] MEDS: Albuterol Sulfate 90 MCG 8 GM INHALER 2 PUFF INHALE (23:29)
[2021-03-02] MEDS: Morphine Sulfate ER 15 MG TABLET.ER 30 MG PO ×2 (01:33→13:09)
[2021-03-02 06:11] VITALS: BP 116/60; PULSE 90; RESP 16; O2SAT 93
--- NOTE | 2021-03-02 12:32 | PHA.MEDREC ---
Pharmacy Consult ? Medication Reconciliation Pharmacy has completed the medication reconciliation.
[2021-03-02 14:51] VITALS: BP 144/65; PULSE 85
[2021-03-02] MEDS: Omeprazole 20 MG CAPSULE.DR PO (14:51)
[2021-03-02] MEDS: atenoloL 25 MG TABLET PO (14:51)
[2021-03-02] MEDS: DULoxetine HCl 30 MG CAPSULE.DR PO (14:51)
--- NOTE | 2021-03-02 15:27 | MHC.CM.ED ---
bed. 16? ms. orona- pt's HCP -? daughter , baltazar has been officially?invoked by PA in the e.d. as documented in the e.d. notes.?Hospice met c patient's daughter and revoked hosice service. a PT eval will be next which will most likely indicate patient would benefit from STR.? ?[facility] to [facility] already been made.? ?daughter wants patient to go to STR, which will most likely happen 03/03/21. cm to cont. to follow.
--- NOTE | 2021-03-02 16:04 | MHC.CM.ED ---
bed. 16? ms. orona- pt's HCP -? daughter , baltazar has been officially?invoked by PA in the e.d. as documented in the e.d. notes.?Hospice met c patient's daughter and revoked hosice service. a PT eval will be next which will most likely indicate patient would benefit from STR.? an order for a PT eval has been requested from PA. ?refs to [facility] sn[facility] have already been made.? ?daughter wants patient to go to STR, which will most likely happen 03/03/21. cm to cont. to follow.
--- NOTE | 2021-03-02 17:12 | PC.NURSE ---
Pt resting in bed calm and cooperative in NAD. States that she does not need anything at this time.
[2021-03-02 17:13] VITALS: BP 126/62; PULSE 75; RESP 18; O2SAT 98
[2021-03-02 19:33] VITALS: RESP 16
[2021-03-02] MEDS: Nortriptyline HCl 10 MG CAPSULE 20 MG PO (22:19)
[2021-03-02 22:22] VITALS: RESP 16
[2021-03-03] VITALS (8 sets, daily range): BP systolic 91–140; BP diastolic 44–72; PULSE 70–75; RESP 16–18; TEMP 36.6–37.1; O2SAT 94–98
[2021-03-03] MEDS: Morphine Sulfate ER 15 MG TABLET.ER 30 MG PO ×2 (02:25→15:56)
[2021-03-03] MEDS: Omeprazole 20 MG CAPSULE.DR PO (08:25)
[2021-03-03] MEDS: atenoloL 25 MG TABLET PO (09:36)
[2021-03-03] MEDS: DULoxetine HCl 30 MG CAPSULE.DR PO (09:36)
[2021-03-03] MEDS: Morphine Sulfate Oral Sol 10 MG/5 ML SOLUTION 5 MG PO (10:01)
--- NOTE | 2021-03-03 12:01 | MHC.CM.ED ---
Spoke with pt at length: she is receptive to go to a facility - requesting to stay local. Updated referrals and spoke with Son Barr at [facility]. He will reach out to area [facility] contracted facilities to assist with bed offer - He asks that clinical information be faxed to him at [phone]. office to do. CM to follow for [facility] contracted bed offer
--- NOTE | 2021-03-03 14:05 | MHC.CM.PN ---
Addendum entered by Dariana Haile 03/03/21 14:57: [facility] is hoping to secure a bed for patient to transfer by this week's end. [facility] [place] has no bed today but will follow. [facility] has no bed today. Original Note: ED DOCUMENTATION FAXED TO [facility] (UVALDO DAO) AT [phone] UVALDO IS AWARE THAT [facility] IS FOLLOWING FOR A BED OFFER.
--- NOTE | 2021-03-03 15:56 | PC.NURSE ---
Reviewed Morphine Sulfate ER with ENRIKE Bai. Bhumika reported earlier dose held as patients BP was reading low. 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 This telegraphic typewriter operator in agreement with plan.
[2021-03-03 19:19] LABS: MANUAL DIFF FLAG NO
[2021-03-03 19:20] LABS: Basophils Percent Auto 0.3 % (0-2); Eosinophils Percent Auto 0.3 % (0-4); Hematocrit 29.3 % (37-47); Hemoglobin 9.5 g/dl (12.0-16.0); Imm Gran Abs Auto 0.03 X10*3/uL (0.00-0.03); Imm Gran Pct Auto 0.5 % (0.0-0.4); Lymphocytes Absolute Auto 1.4 X10*3/uL (1.2-4.9); Lymphocytes Percent Auto 23.4 % (20-40); Mean Corpuscular HGB Conc 32.4 g/dl (31.0-35.0); Mean Corpuscular Hemoglobin 33.1 pg (27.0-33.0); Mean Corpuscular Volume 102.1 fL (80-98); Mean Platelet Volume 9.3 fL (9.4-12.3); Monocytes Absolute Auto 0.8 X10*3/uL (0.1-1.2); Monocytes Percent Auto 13.4 % (2-11); Neutrophils Absolute Auto 3.8 X10*3/uL (2.0-8.3); Neutrophils Percent Auto 62.1 % (45-73); Platelet Count 289 X10*3/uL (160-400); Red Blood Count 2.87 X10*6/uL (4.20-5.50); Red Cell Distribution Width 16.6 % (11.0-16.0); White Blood Count 6.1 X10*3/uL (4.8-10.8)
[2021-03-03] MEDS: Ondansetron ODT 4 MG TAB.RAPDIS TRANSLINGU (21:27)
[2021-03-03] MEDS: Zolpidem Tartrate 5 MG TABLET PO (21:27)
[2021-03-03] MEDS: Nortriptyline HCl 10 MG CAPSULE 20 MG PO (21:33)
--- NOTE | 2021-03-04 01:41 | PC.NURSE ---
nursing sup contacted for morphine dose
[2021-03-04] MEDS: Morphine Sulfate ER 15 MG TABLET.ER 30 MG PO ×2 (01:47→13:25)
[2021-03-04 06:04] VITALS: PULSE 62; RESP 16
[2021-03-04 06:46] VITALS: BP 140/67; PULSE 90; RESP 22; TEMP 36.6; O2SAT 92
[2021-03-04 07:04] VITALS: BP 136/65; PULSE 90; RESP 20; TEMP 36.6; O2SAT 98
[2021-03-04] MEDS: Omeprazole 20 MG CAPSULE.DR PO (07:09)
--- NOTE | 2021-03-04 07:17 | PC.NURSE ---
report taken from Jia CALVERT. patient awake in bed, assisted to use commode, and back to bed. patient set up for breakfast. vitals updated. patient offers no complaints at this time. is waiting on dispo to facility.
[2021-03-04 09:02] VITALS: BP 127/56; PULSE 85
[2021-03-04] MEDS: DULoxetine HCl 30 MG CAPSULE.DR PO (09:02)
[2021-03-04] MEDS: atenoloL 25 MG TABLET PO (09:02)
--- NOTE | 2021-03-04 13:44 | MHC.CM.ED ---
Addendum entered by Dariana Haile 03/05/21 08:30: SNF IS IN [place], [place] Original Note: Pt remains holding in the ED for STR placement. [facility] Pt and activated HCP dtr Rekha aware and in agreement of placement. [facility] will have a bed ready on 03/05. They are requesting pt arrive between 1pm and 3pm. Transportation will be coordinated by the [facility] (Son Johnson). [facility] is requesting all scripts especially narcotics, be e faxed to their pharmacy [facility] in [place]: please let ED provider know this.
[2021-03-04 15:01] VITALS: BP 115/70; PULSE 70; RESP 15; TEMP 36.4; O2SAT 95
[2021-03-04] MEDS: LORazepam 1 MG TABLET PO (20:01)
[2021-03-04] MEDS: Nortriptyline HCl 10 MG CAPSULE 20 MG PO (23:13)
[2021-03-05 03:10] VITALS: RESP 16
[2021-03-05] MEDS: Morphine Sulfate ER 15 MG TABLET.ER 30 MG PO (03:45)
--- NOTE | 2021-03-05 07:23 | PC.NURSE ---
report taken from dariel mejias pt here for case mgmt bed search, per previous shift rn, pt to be transferred out of ed sometime this afternoon for dc. pt resting in hospital bed w 2l nc on, rr even/unlabored. breakfast at bedside, pt pleasant in conversation. bed alarm on and in low position, call howell within reach. wctm for dc needs.
[2021-03-05] MEDS: Omeprazole 20 MG CAPSULE.DR PO (07:39)
[2021-03-05 07:44] VITALS: BP 133/76; PULSE 77; RESP 22; TEMP 36.6; O2SAT 96
[2021-03-05 08:28] VITALS: BP 133/76
[2021-03-05] MEDS: DULoxetine HCl 30 MG CAPSULE.DR PO (08:28)
[2021-03-05] MEDS: atenoloL 25 MG TABLET PO (08:28)
[2021-03-05 09:20] LABS: COVID-19 Test Negative (Negative); IDNOW Serial# 9DD0AD1C
--- NOTE | 2021-03-05 10:10 | MHC.CM.PN ---
[facility] ([phone]) IS ARRANGING FOR [facility] OT TRANSPORT PAITENT BETWEEN [phone] TODAY. AND UNIT AWARE
[2021-03-05 10:49] VITALS: BP 121/86; PULSE 79; RESP 15; TEMP 36.4; O2SAT 95
--- NOTE | 2021-03-05 11:16 | MHC.CM.PN ---
SCRIPTS AND ED DOCUMENTATION LIST OF MEDS FAXED TO [facility] @ [phone] CONTACT NUMBER FOR THIS CULLET CRUSHER AND WASHER ON FAX COVER SHEET IN THE EVENT PHARMACY HAS QUESTIONS OR COMMENTS
== END 2021-03-05 13:08 | disposition skilled nursing facility (03) ==
PROVIDERS: Physician Assistant; Emergency Provider Emergency Medicine
DX: Z51.5 Encounter for palliative care (principal); E86.0 Dehydration; C34.90 Malignant neoplasm of unspecified part of unspecified bronchus or lung; C79.31 Secondary malignant neoplasm of brain; I10 Essential (primary) hypertension; J44.9 Chronic obstructive pulmonary disease, unspecified; Z99.81 Dependence on supplemental oxygen; Z20.822 Contact with and (suspected) exposure to COVID-19; Z79.899 Other long term (current) drug therapy
CPT/HCPCS: 36415; 85025; 87635; 96360; 97162; 99285

== ENCOUNTER → 2024-03-20 10:13 | Outpatient (RCR) | payer OTHER, SELFPAY ==
[2020-04-10 10:59] VITALS: BP 126/80; PULSE 74; RESP 20; TEMP 36.4; O2SAT 95
[2020-04-10 11:01] VITALS: BMI 47.0
[2020-04-10] MEDS: Alteplase Cath Clear 2 MG VIAL INTRACATH (12:45)
--- NOTE | 2020-04-10 15:15 | MHC.HEMONCSW ---
PT WAS TOLD SHE HAS RECURRENT LUNG CANCER. FEELS BADLY AND FATIGUED. EDUCATION, GUIDANCE AND SUPPORT PROVIDED. PLAN IS FURTHER CHEMOTHERAPY TREATMENT. SUPPORTIVE COUNSELING PROVIDED.
--- NOTE | 2020-04-10 17:03 | MHC.HEMONC ---
port flushed, no blood return. Dr. Saunders notified. Cathflo administered, no blood return after one hour. Dr Saunders stated to return tomorrow with port accessed and reattempt.
[2020-04-11 12:22] LABS: MANUAL DIFF FLAG NO
[2020-04-11 12:38] LABS: Basophils Percent Auto 0.5 % (0-2); Eosinophils Percent Auto 0.3 % (0-4); Hemoglobin 12.5 g/dl (12.0-16.0); Imm Gran Abs Auto 0.02 X10*3/uL (0.00-0.03); Imm Gran Pct Auto 0.3 % (0.0-0.4); Lymphocytes Absolute Auto 1.5 X10*3/uL (1.2-4.9); Lymphocytes Percent Auto 25.9 % (20-40); Mean Corpuscular HGB Conc 33.8 g/dl (31.0-35.0); Mean Corpuscular Hemoglobin 33.5 pg (27.0-33.0); Mean Corpuscular Volume 99.2 fL (80-98); Mean Platelet Volume 9.3 fL (9.4-12.3); Monocytes Absolute Auto 0.6 X10*3/uL (0.1-1.2); Monocytes Percent Auto 9.7 % (2-11); Neutrophils Absolute Auto 3.6 X10*3/uL (2.0-8.3); Neutrophils Percent Auto 63.3 % (45-73); Platelet Count 264 X10*3/uL (160-400); Red Blood Count 3.73 X10*6/uL (4.20-5.50); Red Cell Distribution Width 12.1 % (11.0-16.0); White Blood Count 5.8 X10*3/uL (4.8-10.8)
[2020-04-11] MEDS: Alteplase Cath Clear 2 MG VIAL INTRACATH (12:41)
[2020-04-11 12:56] LABS: Alanine Aminotransferase 15 U/L (0-31); Alkaline Phosphatase 73 U/L (39-117); Anion Gap 10 (12-20); Aspartate Amino Transferase 16 U/L (5-31); Bilirubin Total 0.5 mg/dL (0.0-1.0); Blood Urea Nitrogen 21 mg/dL (9-16); Calcium 9.6 mg/dL (8.4-10.2); Carbon Dioxide 31 mmol/L (22-29); Chloride 104 mmol/L (96-108); Creatinine Clr Calc Pharmacy 66.1; Estimated Glomerular Filt Rate 50; Glucose Random 107 mg/dL (60-115); Lactate Dehydrogenase 167 U/L (122-220); Potassium 4.7 mmol/l (3.3-5.1); Sodium 140 mmol/L (135-145); Total Protein 6.5 g/dL (6.5-8.0)
--- NOTE | 2020-04-11 15:43 | MHC.HEMONC ---
Second dose of Cathflo administered per Dr. Snell with positive effect. Patient's port flushed with heparin per protocol and discharged.
[2020-04-11 15:50] VITALS: BP 136/63; PULSE 85; RESP 18; TEMP 36.3; O2SAT 98; BMI 47.4
[2020-04-28 11:34] VITALS: BP 178/86; PULSE 79; RESP 18; TEMP 36.5; O2SAT 95
[2020-04-28 11:37] VITALS: BMI 46.6
--- NOTE | 2020-04-28 13:42 | PM.HEMONCPN ---
Medical Summary - Medical Summary Chief complaint: Follow-up Medical Summary: Diagnosis: Small cell carcinoma of lung February 2019. Course: Admitted in February 2019 with shortness of breath and cough. CT chest showed left suprahilar mass measuring 5.5 x 6.1 x 8.5 cm, medial aspect of left upper lobe. This encircles and occludes the superior bronchus and lingular bronchus. Invades the mediastinum with slight mass effect. Peripherally, interstitial thickening postobstructive atelectasis versus lymphangitic carcinomatosis. Underwent bronchoscopy/biopsy on 02/27/2019, left upper lung mass pathology small cell carcinoma. IHC positive for cytokeratin, synaptophysin, chromogranin, TTF 1 rare cells and negative for CK 7, P 40, Napsin, CD 20 and CD 45. Ki 67 markedly increased proliferation rate. PET scan performed at [facility] on 03/08/2019 showed intensely FDG avid left upper lobe/suprahilar mass measuring 7.7 x 8.1 x 10.3 cm, SUV 20.4 with direct invasion of the mediastinum compatible with malignancy. Mild FDG uptake with irregular ground-glass and consolidative opacity in the left upper lobe peripheral to the mass likely obstructive pneumonia. No evidence of FDG avid malignancy outside of the left chest. Left vocal cord paralysis. 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 Staging brain MRI with and without contrast showed scattered small vessel ischemic changes. No evidence of metastasis. Therapy: Carbo etoposide started 03/17/2019 Hospitalized with sepsis/neutropenia after cycle 2. E coli bacteremia that resolved with antibiotics. She completed 4 cycles. Received adjuvant radiation therapy from 05/14/2019 to 07/23/19. There were a few treatment delays with radiation because of poor performance status and side effects of treatment. Patient started systemic therapy with carboplatin/etoposide from 03/06/2019. Received concurrent adjuvant radiation therapy from 05/14/2019 to 07/23/19. There were a few treatment delays with radiation because of poor performance status and side effects of treatment. She received 2 cycles of chemotherapy without radiation, 2 cycles during radiation. PET scan to be performed on 10/22/2019 at [facility] reported as: dramatic improvement in small cell carcinoma involving left upper lobe. Size of lesion decreased to 3.4 compared to 7.8 cm and SUV presently 4.5, previously 20.4. No new lesion or metastatic disease. She underwent prophylactic brain radiation at [facility], completed 11/26/2019. CT chest with contrast in February 2020 revealed new consolidation in the left upper lobe measuring 7.4 x 2.8 cm abutting aortic arch and extending into left superior pulmonary hilum. PET scan performed at [facility] on 04/01/2020 revealed hypermetabolic mass in the left upper lobe measuring 5.5 x 3.7 cm, SUV 11.7, increased size and hypermetabolism of 3 AP window lymph nodes measuring 1.1 cm, SUV 7.4 and 4.4, 5.2. No pleural effusion. No FDG avid malignancy outside the chest. Interval History Interval history: Patient is here in follow-up. She does report some fatigue and exertional shortness of breath. She is scheduled for bronchoscopy this . She denies any fever or chills. No loss of appetite or weight loss. No abdominal discomfort or change in bowel habits. No chest pain, palpitations or dizziness. Review of Systems - Constitutional Reports as per HPI, Reports no additional constitutional complaints [facility] Medical History: Medical History (Last Updated 04/28/20 @ 14:07 by Corazon Saunders MD) Arthritis COPD (chronic obstructive pulmonary disease) Depression Encounter for colonoscopy due to history of colonic polyp History of diverticulitis of colon History of hepatitis Hypertension Hypothyroidism Traumatic brain injury Surgical History: Surgical History (Last Updated 04/28/20 @ 14:07 by Corazon Saunders MD) H/O section Hx of breast reduction, elective S/P bronchoscopy with biopsy Oncology Screenings - ECOG Performance Status ECOG Performance Status: 2 Home Medications and Allergies Home Medications Medication Instructions Recorded Confirmed Type Calcium + Vitamin D 250 mg PO DAILY 04/10/20 04/10/20 History albuterol sulfate 1.25 mg INHALATION Q4-6H PRN 04/10/20 04/10/20 History atenolol 25 mg PO DAILY 04/10/20 04/10/20 History budesonide-formoterol 2 puff INHALATION BID 04/10/20 04/10/20 History bupropion HCl 200 mg PO DAILY 04/10/20 04/11/20 History docusate sodium [Stool Softener] 100 mg PO DAILY 04/10/20 04/10/20 History duloxetine 30 mg PO DAILY 04/10/20 04/10/20 History levothyroxine 137 mcg PO DAILY 04/10/20 04/10/20 History levothyroxine 274 mcg PO DAILY 04/10/20 04/10/20 History meloxicam 15 mg PO BEDTIME 04/10/20 04/10/20 History multivitamin with minerals 1 tab PO DAILY 04/10/20 04/10/20 History nortriptyline 20 mg PO BEDTIME 04/10/20 04/10/20 History ondansetron 4 mg PO Q6H PRN 04/10/20 04/10/20 History tiotropium bromide 1 cap INHALATION DAILY 04/10/20 04/10/20 History Allergies Allergy/AdvReac Type Severity Reaction Status Date / Time iodine [IODINE] Allergy Unknown ANAPHYLAXIS Verified 04/10/20 08:34 penicillin V Allergy Unknown Unknown Verified 04/10/20 08:34 Penicillins [PCN] Allergy Unknown HIVES Verified 04/10/20 08:34 shellfish derived Allergy Unknown UNKNOWN Verified 04/10/20 08:34 [SHELLFISH DERIVED] Exam Vital signs: Vital Signs Temp 97.7 F 04/28/20 11:34 Pulse 79 04/28/20 11:34 Resp 18 04/28/20 11:34 BP 178/86 H 04/28/20 11:34 Pulse Ox 95 04/28/20 11:34 Intake & Output 04/27/20 04/28/20 04/28/20 18:59 06:59 18:59 Other: Weight 123.3 kg Weight 123.3 kg Body Mass Index 46.6 - Constitutional Present: no acute distress - Routine HEENT Exam Head: Present: normal inspection Eye: Present: EOMI - Routine Neck Exam Present: full ROM - Routine Respiratory Exam Present: CTAB - Routine Cardiovascular Exam Cardiovascular: Present: RRR, S1, S2 - Routine Abdominal Exam Present: normal bowel sounds - Routine Extremities Exam Present: full ROM Data - Labs CBC & Chem 7: 04/11/20 12:17 04/11/20 12:17 Progress Note: A/P (1) Small cell lung cancer Status: Acute Assessment and plan: 1. This is a 65-year-old woman with Small cell lung Cancer originating in the left upper lobe. Clinical stage T4 N0 M0, limited stage small cell cancer of the left upper lobe. Patient started systemic therapy with carboplatin/etoposide from 03/06/2019. Received concurrent adjuvant radiation therapy from 05/14/2019 to 07/23/19. She underwent prophylactic brain radiation at [facility], completed 11/26/2019. It appears that patient has had a local recurrence based on CT chest in February and subsequent PET-CT. She is awaiting bronchoscopy and biopsy to confirm since post radiation changes was also raised as a possibility. If this is a recurrence, has occurred more than 6 months after completion of chemoradiation. She therefore has andreafski sensitive disease. She will be started on treatment with carboplatin/etoposide along with atezolizumab. She is scheduled for bronchoscopy/biopsy this Tuesday. Follow-up in 2 weeks. - Time Spent With Patient Total time spent is greater than 50% in coordination of care (as documented) at patient's floor/unit and/or counseling patient: 15 - 24 minutes
[2020-05-06 09:15] VITALS: BP 139/88; PULSE 85; RESP 18; TEMP 36.4; O2SAT 96
[2020-05-06 09:20] VITALS: BMI 46.0
[2020-05-06] MEDS: Alteplase Cath Clear 2 MG VIAL INTRACATH (11:06)
[2020-05-06 11:51] LABS: Thyroid Stimulating Hormone 0.38 mIU/mL (0.32-4.0)
[2020-05-06 12:41] LABS: Alanine Aminotransferase 13 U/L (0-31); Albumin Level 3.9 g/dL (3.5-5.0); Alkaline Phosphatase 73 U/L (39-117); Anion Gap 16 (12-20); Aspartate Amino Transferase 16 U/L (5-31); Bilirubin Total 0.7 mg/dL (0.0-1.0); Blood Urea Nitrogen 16 mg/dL (9-16); Calcium 9.3 mg/dL (8.4-10.2); Carbon Dioxide 26 mmol/L (22-29); Chloride 102 mmol/L (96-108); Creatinine Clr Calc Pharmacy 79.1; Estimated Glomerular Filt Rate > 60; Glucose Random 100 mg/dL (60-115); Potassium 4.4 mmol/l (3.3-5.1); Sodium 140 mmol/L (135-145); Total Protein 6.5 g/dL (6.5-8.0)
--- NOTE | 2020-05-06 12:48 | PM.HEMONCPN ---
Medical Summary - Medical Summary Medical Summary: Diagnosis: Small cell carcinoma of lung February 2019. Course: Admitted in February 2019 with shortness of breath and cough. CT chest showed left suprahilar mass measuring 5.5 x 6.1 x 8.5 cm, medial aspect of left upper lobe. This encircles and occludes the superior bronchus and lingular bronchus. Invades the mediastinum with slight mass effect. Peripherally, interstitial thickening postobstructive atelectasis versus lymphangitic carcinomatosis. Underwent bronchoscopy/biopsy on 02/27/2019, left upper lung mass pathology small cell carcinoma. IHC positive for cytokeratin, synaptophysin, chromogranin, TTF 1 rare cells and negative for CK 7, P 40, Napsin, CD 20 and CD 45. Ki 67 markedly increased proliferation rate. PET scan performed at [facility] on 03/08/2019 showed intensely FDG avid left upper lobe/suprahilar mass measuring 7.7 x 8.1 x 10.3 cm, SUV 20.4 with direct invasion of the mediastinum compatible with malignancy. Mild FDG uptake with irregular ground-glass and consolidative opacity in the left upper lobe peripheral to the mass likely obstructive pneumonia. No evidence of FDG avid malignancy outside of the left chest. Left vocal cord paralysis. 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 Staging brain MRI with and without contrast showed scattered small vessel ischemic changes. No evidence of metastasis. Therapy: Carbo etoposide started 03/17/2019 Hospitalized with sepsis/neutropenia after cycle 2. E coli bacteremia that resolved with antibiotics. She completed 4 cycles. Received adjuvant radiation therapy from 05/14/2019 to 07/23/19. There were a few treatment delays with radiation because of poor performance status and side effects of treatment. Patient started systemic therapy with carboplatin/etoposide from 03/06/2019. Received concurrent adjuvant radiation therapy from 05/14/2019 to 07/23/19. There were a few treatment delays with radiation because of poor performance status and side effects of treatment. She received 2 cycles of chemotherapy without radiation, 2 cycles during radiation. PET scan to be performed on 10/22/2019 at [facility] reported as: dramatic improvement in small cell carcinoma involving left upper lobe. Size of lesion decreased to 3.4 compared to 7.8 cm and SUV presently 4.5, previously 20.4. No new lesion or metastatic disease. She underwent prophylactic brain radiation at [facility], completed 11/26/2019. CT chest with contrast in February 2020 revealed new consolidation in the left upper lobe measuring 7.4 x 2.8 cm abutting aortic arch and extending into left superior pulmonary hilum. PET scan performed at [facility] on 04/01/2020 revealed hypermetabolic mass in the left upper lobe measuring 5.5 x 3.7 cm, SUV 11.7, increased size and hypermetabolism of 3 AP window lymph nodes measuring 1.1 cm, SUV 7.4 and 4.4, 5.2. No pleural effusion. No FDG avid malignancy outside the chest. [facility] Medical History: Medical History (Last Reviewed 04/30/20 @ 14:20 by Shagufta Balderas) Arthritis COPD (chronic obstructive pulmonary disease) Depression Encounter for colonoscopy due to history of colonic polyp History of diverticulitis of colon History of hepatitis Hypertension Hypothyroidism Traumatic brain injury Surgical History: Surgical History (Last Reviewed 04/30/20 @ 14:20 by Shagufta Balderas) H/O section Hx of breast reduction, elective S/P bronchoscopy with biopsy Home Medications and Allergies Home Medications Medication Instructions Recorded Confirmed Type Calcium + Vitamin D 250 mg PO DAILY 04/10/20 04/10/20 History albuterol sulfate 1.25 mg INHALATION Q4-6H PRN 04/10/20 04/10/20 History atenolol 25 mg PO DAILY 04/10/20 04/10/20 History budesonide-formoterol 2 puff INHALATION BID 04/10/20 04/10/20 History bupropion HCl 200 mg PO DAILY 04/10/20 04/11/20 History docusate sodium [Stool Softener] 100 mg PO DAILY 04/10/20 04/10/20 History duloxetine 30 mg PO DAILY 04/10/20 04/10/20 History levothyroxine 137 mcg PO DAILY 04/10/20 04/10/20 History levothyroxine 274 mcg PO DAILY 04/10/20 04/10/20 History meloxicam 15 mg PO BEDTIME 04/10/20 04/10/20 History multivitamin with minerals 1 tab PO DAILY 04/10/20 04/10/20 History nortriptyline 20 mg PO BEDTIME 04/10/20 04/10/20 History ondansetron 4 mg PO Q6H PRN 04/10/20 04/10/20 History tiotropium bromide 1 cap INHALATION DAILY 04/10/20 04/10/20 History omeprazole [Prilosec] 20 mg PO DAILY 05/01/20 05/01/20 History Allergies Allergy/AdvReac Type Severity Reaction Status Date / Time iodine [IODINE] Allergy Unknown ANAPHYLAXIS Verified 04/10/20 08:34 penicillin V Allergy Unknown Unknown Verified 04/10/20 08:34 Penicillins [PCN] Allergy Unknown HIVES Verified 04/10/20 08:34 shellfish derived Allergy Unknown UNKNOWN Verified 04/10/20 08:34 [SHELLFISH DERIVED] Exam Vital signs: Vital Signs Temp 97.6 F 05/06/20 09:15 Pulse 85 05/06/20 09:15 Resp 18 05/06/20 09:15 BP 139/88 05/06/20 09:15 Pulse Ox 96 05/06/20 09:15 Intake & Output 05/05/20 05/06/20 05/06/20 18:59 06:59 18:59 Other: Weight 121.8 kg Weight 121.8 kg Body Mass Index 46.0 Data - Labs CBC & Chem 7: 04/11/20 12:17 05/06/20 10:50 Labs: Laboratory Results - last 24 hr 05/06/20 05/06/20 10:50 10:50 Sodium 140 Potassium 4.4 Chloride 102 Carbon Dioxide 26 Anion Gap 16 BUN 16 Creatinine 0.90 Estim Creat Clear Calc 79.1 Estimated GFR > 60 Random Glucose 100 Calcium 9.3 Total Bilirubin 0.7 AST 16 ALT 13 Alkaline Phosphatase 73 Total Protein 6.5 Albumin 3.9 Carcinoembryonic Ag 3.70 D TSH 0.38 Progress Note: A/P (1) Small cell lung cancer Status: Acute - Time Spent With Patient Total time spent is greater than 50% in coordination of care (as documented) at patient's floor/unit and/or counseling patient:
--- NOTE | 2020-05-06 17:05 | MHC.HEMONC ---
pt here for chemo but she did not have blood return through her port. Labs drawn peripherally. She received CathFlo and this was left in until tomorrow as no blood aspirate yet. Dr Saunders wanted to delay day#1 chemo while path has not yet been signed off. Pt aware of all of this.
[2020-05-07 09:15] VITALS: BP 138/92; PULSE 86; RESP 20; TEMP 36.3; O2SAT 97; BMI 46.3
[2020-05-07] MEDS: Alteplase Cath Clear 2 MG VIAL INTRACATH (10:16)
[2020-05-07 11:07] LABS: Basophils Percent Auto 0.4 % (0-2); Eosinophils Percent Auto 0.3 % (0-4); Hematocrit 41.3 % (37-47); Hemoglobin 13.9 g/dl (12.0-16.0); Imm Gran Abs Auto 0.05 X10*3/uL (0.00-0.03); Imm Gran Pct Auto 0.7 % (0.0-0.4); Lymphocytes Absolute Auto 1.5 X10*3/uL (1.2-4.9); Lymphocytes Percent Auto 21.1 % (20-40); MANUAL DIFF FLAG NO; Mean Corpuscular HGB Conc 33.7 g/dl (31.0-35.0); Mean Corpuscular Hemoglobin 33.8 pg (27.0-33.0); Mean Corpuscular Volume 100.5 fL (80-98); Mean Platelet Volume 9.8 fL (9.4-12.3); Monocytes Absolute Auto 0.7 X10*3/uL (0.1-1.2); Monocytes Percent Auto 9.4 % (2-11); Neutrophils Absolute Auto 4.8 X10*3/uL (2.0-8.3); Neutrophils Percent Auto 68.1 % (45-73); Platelet Count 274 X10*3/uL (160-400); Red Blood Count 4.11 X10*6/uL (4.20-5.50); Red Cell Distribution Width 11.9 % (11.0-16.0); White Blood Count 7.1 X10*3/uL (4.8-10.8)
[2020-05-07] MEDS: Famotidine/PF 20 MG/2 ML VIAL IVPUSH (11:28)
[2020-05-07] MEDS: dexAMETHasone sod phosphate/NS 12 MG/50 ML PIGGYBACK 100 MG IV (11:28)
[2020-05-07] MEDS: diphenhydrAMINE HCL 25 MG TABLET PO (11:38)
[2020-05-07] MEDS: Acetaminophen 325 MG TABLET 650 MG PO (11:39)
[2020-05-07] MEDS: ondansetron HCL/NS 16 MG/50 ML PIGGYBACK 200 MG IV (12:09)
[2020-05-07] MEDS: Fosaprepitant Dimeglumine 150 MG in 0.9 % Sodium Chloride 145 ML 300 MG IV (12:45)
[2020-05-07] MEDS: Atezolizumab 1,200 MG in 0.9 % Sodium Chloride 250 ML 270 MG IV (13:33)
--- NOTE | 2020-05-07 15:31 | MHC.HEMONCSW ---
recurrent lung cancer feeling discouraged, much advocacy and support provided. discussed cancer and affects on her, daughter and grandaughter. does not feel counseling needed at this time. education and support continue to be provided.
[2020-05-07] MEDS: Heparin Sodium,Porcine Flush 500 UNIT/5 ML SYRINGE IVFLUSH (16:42)
[2020-05-08 10:54] VITALS: BP 190/99; PULSE 95; RESP 18; TEMP 36.4; O2SAT 99
[2020-05-08 10:57] VITALS: BMI 46.7
[2020-05-08 11:32] LABS: Basophils Percent Auto 0.1 % (0-2); MANUAL DIFF FLAG SCAN; PLT CLUMP 1; SCAN SMEAR FLAG 1
[2020-05-08 11:34] LABS: Hematocrit 38.7 % (37-47); Hemoglobin 13.1 g/dl (12.0-16.0); Imm Gran Abs Auto 0.05 X10*3/uL (0.00-0.03); Imm Gran Pct Auto 0.4 % (0.0-0.4); Lymphocytes Absolute Auto 1.1 X10*3/uL (1.2-4.9); Lymphocytes Percent Auto 9.1 % (20-40); Mean Corpuscular Hemoglobin 33.1 pg (27.0-33.0); Mean Corpuscular Volume 97.7 fL (80-98); Mean Platelet Volume 9.6 fL (9.4-12.3); Monocytes Absolute Auto 0.8 X10*3/uL (0.1-1.2); Monocytes Percent Auto 6.2 % (2-11); Neutrophils Absolute Auto 10.1 X10*3/uL (2.0-8.3); Neutrophils Percent Auto 84.2 % (45-73); Platelet Count 278 X10*3/uL (160-400); Red Blood Count 3.96 X10*6/uL (4.20-5.50); Red Cell Distribution Width 11.8 % (11.0-16.0)
[2020-05-08 11:42] LABS: Mean Corpuscular HGB Conc 33.9 g/dl (31.0-35.0)
[2020-05-08 11:58] LABS: Alanine Aminotransferase 18 U/L (0-31); Albumin Level 4.4 g/dL (3.5-5.0); Alkaline Phosphatase 74 U/L (39-117); Anion Gap 17 (12-20); Aspartate Amino Transferase 21 U/L (5-31); Blood Urea Nitrogen 19 mg/dL (9-16); Calcium 9.6 mg/dL (8.4-10.2); Carbon Dioxide 21 mmol/L (22-29); Chloride 105 mmol/L (96-108); Creatinine Clr Calc Pharmacy 82.5; Estimated Glomerular Filt Rate > 60; Glucose Random 96 mg/dL (60-115); Magnesium 2.1 mg/dL (1.6-2.6); Potassium 4.3 mmol/l (3.3-5.1); Sodium 139 mmol/L (135-145); Total Protein 7.2 g/dL (6.5-8.0)
[2020-05-08 12:26] LABS: SLIDE REVIEW VERIFIED
[2020-05-08 12:38] VITALS: BP 141/63
[2020-05-08] MEDS: dexAMETHasone sod phosphate/NS 12 MG/50 ML PIGGYBACK 200 MG IV (12:51)
[2020-05-08] MEDS: ondansetron HCL/NS 16 MG/50 ML PIGGYBACK 200 MG IV (13:14)
[2020-05-09 11:54] VITALS: BMI 46.9
[2020-05-09 11:56] VITALS: BP 150/78; PULSE 85; RESP 18; TEMP 36.2; O2SAT 97
[2020-05-09] MEDS: dexAMETHasone sod phosphate/NS 12 MG/50 ML PIGGYBACK 100 MG IV (12:54)
[2020-05-09] MEDS: ondansetron HCL/NS 16 MG/50 ML PIGGYBACK 200 MG IV (13:22)
[2020-05-09] MEDS: Pegfilgrastim Onpro 6 MG/0.6 ML SYR.W..INJ SUBCUT (15:11)
--- NOTE | 2020-05-09 15:18 | MHC.HEMONC ---
No blood return with port. Dr. Saunders aware, port study ordered however patient has allergy to Iodine. Dr. Saunders states ok to continue scheduled chemotherapy today. Port flushing without difficulty. No resistance or swelling.
[2020-05-22 10:29] LABS: Basophils Percent Auto 0.5 % (0-2); Eosinophils Percent Auto 0.5 % (0-4); Hematocrit 33.2 % (37-47); Hemoglobin 11.6 g/dl (12.0-16.0); Lymphocytes Absolute Auto 1.2 X10*3/uL (1.2-4.9); Lymphocytes Percent Auto 59.1 % (20-40); MANUAL DIFF FLAG SCAN; Mean Corpuscular HGB Conc 34.9 g/dl (31.0-35.0); Mean Corpuscular Hemoglobin 33.2 pg (27.0-33.0); Mean Corpuscular Volume 95.1 fL (80-98); Mean Platelet Volume 10.8 fL (9.4-12.3); Monocytes Absolute Auto 0.2 X10*3/uL (0.1-1.2); Monocytes Percent Auto 11.1 % (2-11); Neutrophils Absolute Auto 0.6 X10*3/uL (2.0-8.3); Neutrophils Percent Auto 28.8 % (45-73); Red Blood Count 3.49 X10*6/uL (4.20-5.50); SCAN SMEAR FLAG 1
[2020-05-22 10:31] LABS: Platelet Count 46 X10*3/uL (160-400); White Blood Count 2.1 X10*3/uL (4.8-10.8)
[2020-05-22 10:50] LABS: Alanine Aminotransferase 20 U/L (0-31); Alkaline Phosphatase 84 U/L (39-117); Anion Gap 14 (12-20); Aspartate Amino Transferase 18 U/L (5-31); Bilirubin Total 0.5 mg/dL (0.0-1.0); Blood Urea Nitrogen 11 mg/dL (9-16); Calcium 9.1 mg/dL (8.4-10.2); Carbon Dioxide 29 mmol/L (22-29); Chloride 103 mmol/L (96-108); Creatinine Clr Calc Pharmacy 78.2; Estimated Glomerular Filt Rate > 60; Glucose Random 111 mg/dL (60-115); Potassium 4.2 mmol/l (3.3-5.1); Sodium 142 mmol/L (135-145); Total Protein 6.6 g/dL (6.5-8.0)
[2020-05-22 11:27] LABS: SLIDE REVIEW VERIFIED
--- NOTE | 2020-05-22 12:27 | MHC.HEMONC ---
Labs reviewed: WBC-2.1, Plt:46. Patient educated on neutropenic precautions and to call if she develops bruising or bleeding. follow up in 1 week.
[2020-05-28 08:42] VITALS: BP 141/84; PULSE 65; RESP 18; TEMP 36.4; O2SAT 96; BMI 45.9
[2020-05-28 09:01] LABS: MANUAL DIFF FLAG NO
--- NOTE | 2020-05-28 09:04 | PM.HEMONCPN ---
Medical Summary - Medical Summary Chief complaint: Follow-up and scheduled chemotherapy Medical Summary: Diagnosis: Small cell carcinoma of lung February 2019. Course: Admitted in February 2019 with shortness of breath and cough. CT chest showed left suprahilar mass measuring 5.5 x 6.1 x 8.5 cm, medial aspect of left upper lobe. This encircles and occludes the superior bronchus and lingular bronchus. Invades the mediastinum with slight mass effect. Peripherally, interstitial thickening postobstructive atelectasis versus lymphangitic carcinomatosis. Underwent bronchoscopy/biopsy on 02/27/2019, left upper lung mass pathology small cell carcinoma. IHC positive for cytokeratin, synaptophysin, chromogranin, TTF 1 rare cells and negative for CK 7, P 40, Napsin, CD 20 and CD 45. Ki 67 markedly increased proliferation rate. PET scan performed at [facility] on 03/08/2019 showed intensely FDG avid left upper lobe/suprahilar mass measuring 7.7 x 8.1 x 10.3 cm, SUV 20.4 with direct invasion of the mediastinum compatible with malignancy. Mild FDG uptake with irregular ground-glass and consolidative opacity in the left upper lobe peripheral to the mass likely obstructive pneumonia. No evidence of FDG avid malignancy outside of the left chest. Left vocal cord paralysis. 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 Staging brain MRI with and without contrast showed scattered small vessel ischemic changes. No evidence of metastasis. Therapy: Carbo etoposide started 03/17/2019 Hospitalized with sepsis/neutropenia after cycle 2. E coli bacteremia that resolved with antibiotics. She completed 4 cycles. Received adjuvant radiation therapy from 05/14/2019 to 07/23/19. There were a few treatment delays with radiation because of poor performance status and side effects of treatment. Patient started systemic therapy with carboplatin/etoposide from 03/06/2019. Received concurrent adjuvant radiation therapy from 05/14/2019 to 07/23/19. There were a few treatment delays with radiation because of poor performance status and side effects of treatment. She received 2 cycles of chemotherapy without radiation, 2 cycles during radiation. PET scan performed on 10/22/2019 at [facility] reported as: dramatic improvement in small cell carcinoma involving left upper lobe. Size of lesion decreased to 3.4 compared to 7.8 cm and SUV presently 4.5, previously 20.4. No new lesion or metastatic disease. She underwent prophylactic brain radiation at [facility], completed 11/26/2019. CT chest with contrast in February 2020 revealed new consolidation in the left upper lobe measuring 7.4 x 2.8 cm abutting aortic arch and extending into left superior pulmonary hilum. PET scan performed at [facility] on 04/01/2020 revealed hypermetabolic mass in the left upper lobe measuring 5.5 x 3.7 cm, SUV 11.7, increased size and hypermetabolism of 3 AP window lymph nodes measuring 1.1 cm, SUV 7.4 and 4.4, 5.2. No pleural effusion. No FDG avid malignancy outside the chest. Interval History Interval history: Patient is here for cycle 2 as well as follow-up. Her main complaint is fatigue and shortness of breath with exertion. She is hardly able to walk a few steps before she gets tired and has difficulty breathing. She denies any chest pain. She has never been evaluated with ambulatory pulse oximeter. She denies any headache or dizziness. No nausea or emesis. No abdominal pain or diarrhea. No significant leg swelling. She has tolerated cycle 1 of treatment quite well. Review of Systems - Constitutional Reports no additional constitutional complaints - Cardiovascular Reports no additional cardiovascular complaints - Respiratory Reports no additional respiratory complaints - Gastrointestinal Reports no additional gastrointestinal complaints [facility] Medical History: Medical History (Last Reviewed 04/30/20 @ 14:20 by Shagufta Balderas) Arthritis COPD (chronic obstructive pulmonary disease) Depression Encounter for colonoscopy due to history of colonic polyp History of diverticulitis of colon History of hepatitis Hypertension Hypothyroidism Traumatic brain injury Surgical History: Surgical History (Last Reviewed 04/30/20 @ 14:20 by Shagufta Balderas) H/O section Hx of breast reduction, elective S/P bronchoscopy with biopsy Smoking status: Former smoker Oncology Screenings - ECOG Performance Status ECOG Performance Status: 2 Home Medications and Allergies Current Medications: Current Medications Generic Name Dose Route Start Last Admin Trade Name Freq PRN Reason Stop Dose Admin Diphenhydramine HCl 25 mg 05/28/20 00:00 Diphenhydramine Hcl 25 Mg Tablet PO 05/28/20 23:59 ONCE SAM Famotidine 20 mg 05/28/20 00:00 Famotidine/Pf 20 Mg/2 Ml Vial IVPUSH 05/28/20 23:59 ONCE SAM Heparin Sodium (Porcine) 500 unit 05/28/20 00:00 Heparin Sodium,Porcine Flush 500 Unit/5 Ml Syringe IVFLUSH 05/28/20 23:59 ONCE SAM Ondansetron HCl 16 mg in 50 mls @ 200 mls/hr 05/09/20 12:45 05/09/20 13:37 Zofran IV Infused ONCE SAM Infusion Dexamethasone Sodium Phosphate 12 mg in 50 mls @ 100 mls/hr 05/28/20 00:00 Decadron IV 05/28/20 23:59 ONCE SAM Ondansetron HCl 16 mg in 50 mls @ 200 mls/hr 05/28/20 00:00 Zofran IV 05/28/20 23:59 ONCE SAM Fosaprepitant 150 mg/ Sodium 150 mls @ 300 mls/hr 05/28/20 00:00 Chloride IV 05/28/20 23:59 ONCE [facility] Home Medications Medication Instructions Recorded Confirmed Type Calcium + Vitamin D 250 mg PO DAILY 04/10/20 04/10/20 History albuterol sulfate 1.25 mg INHALATION Q4-6H PRN 04/10/20 04/10/20 History atenolol 25 mg PO DAILY 04/10/20 04/10/20 History budesonide-formoterol 2 puff INHALATION BID 04/10/20 04/10/20 History bupropion HCl 200 mg PO DAILY 04/10/20 04/11/20 History docusate sodium [Stool Softener] 100 mg PO DAILY 04/10/20 04/10/20 History duloxetine 30 mg PO DAILY 04/10/20 04/10/20 History levothyroxine 137 mcg PO DAILY 04/10/20 04/10/20 History levothyroxine 274 mcg PO DAILY 04/10/20 04/10/20 History meloxicam 15 mg PO BEDTIME 04/10/20 04/10/20 History multivitamin with minerals 1 tab PO DAILY 04/10/20 04/10/20 History nortriptyline 20 mg PO BEDTIME 04/10/20 04/10/20 History ondansetron 4 mg PO Q6H PRN 04/10/20 04/10/20 History tiotropium bromide 1 cap INHALATION DAILY 04/10/20 04/10/20 History omeprazole [Prilosec] 20 mg PO DAILY 05/01/20 05/01/20 History Allergies Allergy/AdvReac Type Severity Reaction Status Date / Time iodine [IODINE] Allergy Unknown ANAPHYLAXIS Verified 04/10/20 08:34 penicillin V Allergy Unknown Unknown Verified 04/10/20 08:34 Penicillins [PCN] Allergy Unknown HIVES Verified 04/10/20 08:34 shellfish derived Allergy Unknown UNKNOWN Verified 04/10/20 08:34 [SHELLFISH DERIVED] Exam Vital signs: Vital Signs Temp 97.6 F 05/28/20 08:42 Pulse 65 05/28/20 08:42 Resp 18 05/28/20 08:42 BP 141/84 H 05/28/20 08:42 Pulse Ox 96 05/28/20 08:42 Intake & Output 05/27/20 05/28/20 05/28/20 18:59 06:59 18:59 Other: Weight 124 kg 121.4 kg Weight 121.4 kg Body Mass Index 45.9 - Constitutional Present: no acute distress - Routine HEENT Exam Head: Present: normal inspection - Routine Neck Exam Present: full ROM - Routine Respiratory Exam Present: CTAB - Routine Cardiovascular Exam Cardiovascular: Present: RRR, S1, S2 - Routine Abdominal Exam Present: normal bowel sounds - Routine Extremities Exam Present: full ROM Data - Labs CBC & Chem 7: 05/28/20 08:56 05/28/20 08:56 Labs: 04/10/20 10:44 Heparin Sodium,Porcine Flush 500 unit 0.9 % Sodium Chloride Flush [NS Flush] 5 ml IVFLUSH ONCE 04/10/20 11:07 Heparin Sodium,Porcine Flush 500 unit IVFLUSH .STK-MED ONE 04/10/20 12:16 Alteplase Cath Clear [Cathflo Activase] 2 mg INTRACATH ONCE ONE 04/11/20 11:37 Alteplase Cath Clear [Cathflo Activase] 2 mg INTRACATH ONCE PRN 04/11/20 12:17 Carcinoembryonic Antigen Routine Complete Blood Count Auto Diff Routine Comprehensive Met. Panel Routine LDH [Lactate Dehydrogenase] Routine 05/06/20 10:27 Alteplase Cath Clear [Cathflo Activase] 2 mg INTRACATH ONCE ONE 05/06/20 10:50 Carcinoembryonic Antigen Routine Complete Blood Count Auto Diff Routine Comprehensive Met. Panel Routine Thyroid Stimulating Hormone Routine 05/06/20 12:13 Add Laboratory Test Stat 05/07/20 00:00 Acetaminophen [Tylenol] 650 mg PO ONCE Atezolizumab [Tecentriq] 1,200 mg 0.9 % Sodium Chloride [Ns] 250 ml IV ONCE CARBOplatin [Paraplatin] 530 mg 0.9 % Sodium Chloride 250 ml IV ONCE Etoposide [Vepesid] 236 mg 0.9 % Sodium Chloride [Ns] 1,000 ml IV ONCE Famotidine/PF [Pepcid/PF] 20 mg IVPUSH ONCE Fosaprepitant Dimeglumine [Emend] 150 mg 0.9 % Sodium Chloride [Ns] 145 ml IV ONCE Heparin Sodium,Porcine Flush 500 unit IVFLUSH ONCE dexAMETHasone sod phosphate/NS [Decadron] 12 mg in 50 ml IV ONCE diphenhydrAMINE HCL [Benadryl] 25 mg PO ONCE ondansetron HCL/NS [Zofran] 16 mg in 50 ml IV ONCE 05/07/20 09:36 Alteplase Cath Clear [Cathflo Activase] 2 mg INTRACATH ONCE ONE 05/08/20 00:00 Etoposide [Vepesid] 236 mg 0.9 % Sodium Chloride [Ns] 1,000 ml IV ONCE Heparin Sodium,Porcine Flush 500 unit IVFLUSH ONCE 05/08/20 11:07 Complete Blood Count Auto Diff Routine Comprehensive Met. Panel Routine Magnesium Routine SLIDE REVIEW Routine 05/08/20 12:45 dexAMETHasone sod phosphate/NS [Decadron] 12 mg in 50 ml IV ONCE ondansetron HCL/NS [Zofran] 16 mg in 50 ml IV ONCE 05/09/20 00:00 Etoposide [Vepesid] 236 mg 0.9 % Sodium Chloride PVC Free [NS PVC Free] 1,000 ml IV ONCE Heparin Sodium,Porcine Flush 500 unit IVFLUSH ONCE 05/09/20 12:35 ondansetron HCL [Zofran] 16 mg IVPUSH ONCE ONE 05/09/20 12:37 Pegfilgrastim Onpro [Neulasta Onpro] 6 mg SUBCUT ONCE ONE 05/09/20 12:45 dexAMETHasone sod phosphate/NS [Decadron] 12 mg in 50 ml IV ONCE 05/09/20 15:09 Heparin Sodium,Porcine Flush 500 unit 0.9 % Sodium Chloride Flush [NS Flush] 5 ml IVFLUSH ONCE 05/22/20 10:05 Complete Blood Count Auto Diff Routine Profile w/ Glucose [place] [Comprehensive Met. Panel] Routine SLIDE REVIEW Routine Laboratory Last Values WBC 2.1 X10*3/uL (4.8-10.8) L 05/22/20 10:05 RBC 3.49 X10*6/uL (4.20-5.50) L 05/22/20 10:05 Hgb 11.6 g/dl (12.0-16.0) L 05/22/20 10:05 Hct 33.2 % (37-47) L 05/22/20 10:05 MCV 95.1 fL (80-98) 05/22/20 10:05 MCH 33.2 pg (27.0-33.0) H 05/22/20 10:05 MCHC 34.9 g/dl (31.0-35.0) 05/22/20 10:05 RDW 11.0 % (11.0-16.0) 05/22/20 10:05 Plt Count 46 X10*3/uL (160-400) L D 05/22/20 10:05 MPV 10.8 fL (9.4-12.3) 05/22/20 10:05 Immature Gran % (Auto) 0.0 % (0.0-0.4) 05/22/20 10:05 Neut % (Auto) 28.8 % (45-73) L 05/22/20 10:05 Lymph % (Auto) 59.1 % (20-40) H 05/22/20 10:05 Divide % (Auto) 11.1 % (2-11) H 05/22/20 10:05 Eos % (Auto) 0.5 % (0-4) 05/22/20 10:05 Baso % (Auto) 0.5 % (0-2) 05/22/20 10:05 Neut # (Auto) 3.6 X10*3/uL (2.0-8.3) 04/11/20 12:17 Lymph # (Auto) 1.2 X10*3/uL (1.2-4.9) 05/22/20 10:05 Divide # (Auto) 0.2 X10*3/uL (0.1-1.2) 05/22/20 10:05 Eos # (Auto) 0.0 X10*3/uL (0.0-0.4) 05/22/20 10:05 Baso # (Auto) 0.0 X10*3/uL (0.0-0.2) 05/22/20 10:05 Abs Immat Gran (auto) 0.00 X10*3/uL (0.00-0.03) 05/22/20 10:05 Absolute Neuts (auto) 0.6 X10*3/uL (2.0-8.3) L 05/22/20 10:05 Absolute Nucleated RBC 0.000 X10*3/uL (0.0-0.012) 05/22/20 10:05 Nucleated RBC % (auto) 0.0 /100WBC (0.0-0.2) 05/22/20 10:05 Smear Tech's Comments VERIFIED 05/22/20 10:05 Sodium 142 mmol/L (135-145) 05/22/20 10:05 Potassium 4.2 mmol/l (3.3-5.1) 05/22/20 10:05 Chloride 103 mmol/L (96-108) 05/22/20 10:05 Carbon Dioxide 29 mmol/L (22-29) 05/22/20 10:05 Anion Gap 14 (-20) 05/22/20 10:05 BUN 11 mg/dL (9-16) 05/22/20 10:05 Creatinine 0.92 mg/dL (0.5-1.4) 05/22/20 10:05 Estim Creat Clear Calc 78.2 05/22/20 10:05 Estimated GFR > 60 05/22/20 10:05 Random Glucose 111 mg/dL (60-115) 05/22/20 10:05 Calcium 9.1 mg/dL (8.4-10.2) 05/22/20 10:05 Magnesium 2.1 mg/dL (1.6-2.6) 05/08/20 11:07 Total Bilirubin 0.5 mg/dL (0.0-1.0) 05/22/20 10:05 AST 18 U/L (5-31) 05/22/20 10:05 ALT 20 U/L (0-31) 05/22/20 10:05 Alkaline Phosphatase 84 U/L (39-117) 05/22/20 10:05 Lactate Dehydrogenase 167 U/L (122-220) 04/11/20 12:17 Total Protein 6.6 g/dL (6.5-8.0) 05/22/20 10:05 Albumin 4.0 g/dL (3.5-5.0) 05/22/20 10:05 Carcinoembryonic Ag 3.70 mg/mL D 05/06/20 10:50 TSH 0.38 mIU/mL (0.32-4.0) 05/06/20 10:50 Progress Note: A/P (1) Small cell lung cancer Status: Acute Assessment and plan: 1. This is a 65-year-old woman with Small cell lung Cancer originating in the left upper lobe. Clinical stage T4 N0 M0, limited stage small cell cancer of the left upper lobe. Patient started systemic therapy with carboplatin/etoposide from 03/06/2019. Received concurrent adjuvant radiation therapy from 05/14/2019 to 07/23/19. She underwent prophylactic brain radiation at [facility]. She has had local recurrence as evidenced by PET-CT and subsequent bronchoscopy/biopsy. On 05/01/2020 biopsy revealed positive for small cell carcinoma on lymph node station 7. Left mainstem bronchial nodule biopsy, no malignancy identified. Patient started chemotherapy with carboplatin/etoposide and atezolizumab with Neulasta support from 05/07/2020. Proceed with cycle 2 today. 2. Patient has exertional shortness of breath. Ambulatory pulse ox dropped to 87%, pulmonary is arranging for home O2. Follow-up in 3 weeks. - Time Spent With Patient Total time spent is greater than 50% in coordination of care (as documented) at patient's floor/unit and/or counseling patient: 25 - 35 minutes
[2020-05-28 09:19] LABS: Basophils Percent Auto 0.6 % (0-2); Hematocrit 31.9 % (37-47); Hemoglobin 10.8 g/dl (12.0-16.0); Imm Gran Abs Auto 0.04 X10*3/uL (0.00-0.03); Imm Gran Pct Auto 1.2 % (0.0-0.4); Lymphocytes Absolute Auto 1.4 X10*3/uL (1.2-4.9); Lymphocytes Percent Auto 39.4 % (20-40); Mean Corpuscular HGB Conc 33.9 g/dl (31.0-35.0); Mean Corpuscular Hemoglobin 32.8 pg (27.0-33.0); Monocytes Absolute Auto 0.4 X10*3/uL (0.1-1.2); Monocytes Percent Auto 12.5 % (2-11); NRBC Pct Auto 0.6 /100WBC (0.0-0.2); Neutrophils Absolute Auto 1.6 X10*3/uL (2.0-8.3); Neutrophils Percent Auto 46.3 % (45-73); Platelet Count 175 X10*3/uL (160-400); Red Blood Count 3.29 X10*6/uL (4.20-5.50); Red Cell Distribution Width 11.4 % (11.0-16.0); White Blood Count 3.4 X10*3/uL (4.8-10.8)
--- NOTE | 2020-05-28 09:26 | PM.HEMONCPN ---
Interval History Interval history: Patient is here in follow-up. She does report some fatigue and exertional shortness of breath. She is scheduled for bronchoscopy this day. She denies any fever or chills. No loss of appetite or weight loss. No abdominal discomfort or change in bowel habits. No chest pain, palpitations or dizziness. [facility] Medical History: Medical History (Last Reviewed 04/30/20 @ 14:20 by Shagufta Balderas) Arthritis COPD (chronic obstructive pulmonary disease) Depression Encounter for colonoscopy due to history of colonic polyp History of diverticulitis of colon History of hepatitis Hypertension Hypothyroidism Traumatic brain injury Surgical History: Surgical History (Last Reviewed 04/30/20 @ 14:20 by Shagufta Balderas) H/O section Hx of breast reduction, elective S/P bronchoscopy with biopsy Smoking status: Former smoker Home Medications and Allergies Current Medications: Current Medications Generic Name Dose Route Start Last Admin Trade Name Freq PRN Reason Stop Dose Admin Diphenhydramine HCl 25 mg 05/28/20 00:00 Diphenhydramine Hcl 25 Mg Tablet PO 05/28/20 23:59 ONCE SAM Famotidine 20 mg 05/28/20 00:00 Famotidine/Pf 20 Mg/2 Ml Vial IVPUSH 05/28/20 23:59 ONCE [facility] Heparin Sodium (Porcine) 500 unit 05/28/20 00:00 Heparin Sodium,Porcine Flush 500 Unit/5 Ml Syringe IVFLUSH 05/28/20 23:59 ONCE [facility] Ondansetron HCl 16 mg in 50 mls @ 200 mls/hr 05/09/20 12:45 05/09/20 13:37 Zofran IV Infused ONCE SAM Infusion Dexamethasone Sodium Phosphate 12 mg in 50 mls @ 100 mls/hr 05/28/20 00:00 Decadron IV 05/28/20 23:59 ONCE SAM Ondansetron HCl 16 mg in 50 mls @ 200 mls/hr 05/28/20 00:00 Zofran IV 05/28/20 23:59 ONCE SAM Fosaprepitant 150 mg/ Sodium 150 mls @ 300 mls/hr 05/28/20 00:00 Chloride IV 05/28/20 23:59 ONCE [facility] Home Medications Medication Instructions Recorded Confirmed Type Calcium + Vitamin D 250 mg PO DAILY 04/10/20 04/10/20 History albuterol sulfate 1.25 mg INHALATION Q4-6H PRN 10/01/20 10/01/20 History atenolol 25 mg PO DAILY 04/10/20 04/10/20 History budesonide-formoterol 2 puff INHALATION BID 04/10/20 04/10/20 History bupropion HCl 200 mg PO DAILY 04/10/20 04/11/20 History docusate sodium [Stool Softener] 100 mg PO DAILY 04/10/20 04/10/20 History duloxetine 30 mg PO DAILY 04/10/20 04/10/20 History levothyroxine 137 mcg PO DAILY 04/10/20 04/10/20 History levothyroxine 274 mcg PO DAILY 04/10/20 04/10/20 History meloxicam 15 mg PO BEDTIME 04/10/20 04/10/20 History multivitamin with minerals 1 tab PO DAILY 04/10/20 04/10/20 History nortriptyline 20 mg PO BEDTIME 04/10/20 04/10/20 History ondansetron 4 mg PO Q6H PRN 04/10/20 04/10/20 History tiotropium bromide 1 cap INHALATION DAILY 04/10/20 04/10/20 History omeprazole [Prilosec] 20 mg PO DAILY 05/01/20 05/01/20 History Allergies Allergy/AdvReac Type Severity Reaction Status Date / Time iodine [IODINE] Allergy Unknown ANAPHYLAXIS Verified 04/10/20 08:34 penicillin V Allergy Unknown Unknown Verified 04/10/20 08:34 Penicillins [PCN] Allergy Unknown HIVES Verified 04/10/20 08:34 shellfish derived Allergy Unknown UNKNOWN Verified 04/10/20 08:34 [SHELLFISH DERIVED] Exam Vital signs: Vital Signs Temp 97.6 F 05/28/20 08:42 Pulse 65 05/28/20 08:42 Resp 18 05/28/20 08:42 BP 141/84 H 05/28/20 08:42 Pulse Ox 96 05/28/20 08:42 Intake & Output 05/27/20 05/28/20 05/28/20 18:59 06:59 18:59 Other: Weight 124 kg 121.4 kg Weight 121.4 kg Body Mass Index 45.9 - Constitutional Present: no acute distress - Routine HEENT Exam Head: Present: normal inspection - Routine Neck Exam Present: full ROM - Routine Respiratory Exam Present: CTAB - Routine Cardiovascular Exam Cardiovascular: Present: RRR, S1, S2 - Routine Abdominal Exam Present: normal bowel sounds - Routine Extremities Exam Present: full ROM Data - Labs CBC & Chem 7: 05/28/20 08:56 05/22/20 10:05 Labs: 04/10/20 10:44 Heparin Sodium,Porcine Flush 500 unit 0.9 % Sodium Chloride Flush [NS Flush] 5 ml IVFLUSH ONCE 04/10/20 11:07 Heparin Sodium,Porcine Flush 500 unit IVFLUSH .STK-MED ONE 04/10/20 12:16 Alteplase Cath Clear [Cathflo Activase] 2 mg INTRACATH ONCE ONE 04/11/20 11:37 Alteplase Cath Clear [Cathflo Activase] 2 mg INTRACATH ONCE PRN 04/11/20 12:17 Carcinoembryonic Antigen Routine Complete Blood Count Auto Diff Routine Comprehensive Met. Panel Routine LDH [Lactate Dehydrogenase] Routine 05/06/20 10:27 Alteplase Cath Clear [Cathflo Activase] 2 mg INTRACATH ONCE ONE 05/06/20 10:50 Carcinoembryonic Antigen Routine Complete Blood Count Auto Diff Routine Comprehensive Met. Panel Routine Thyroid Stimulating Hormone Routine 05/06/20 12:13 Add Laboratory Test Stat 05/07/20 00:00 Acetaminophen [Tylenol] 650 mg PO ONCE Atezolizumab [Tecentriq] 1,200 mg 0.9 % Sodium Chloride [Ns] 250 ml IV ONCE CARBOplatin [Paraplatin] 530 mg 0.9 % Sodium Chloride 250 ml IV ONCE Etoposide [Vepesid] 236 mg 0.9 % Sodium Chloride [Ns] 1,000 ml IV ONCE Famotidine/PF [Pepcid/PF] 20 mg IVPUSH ONCE Fosaprepitant Dimeglumine [Emend] 150 mg 0.9 % Sodium Chloride [Ns] 145 ml IV ONCE Heparin Sodium,Porcine Flush 500 unit IVFLUSH ONCE dexAMETHasone sod phosphate/NS [Decadron] 12 mg in 50 ml IV ONCE diphenhydrAMINE HCL [Benadryl] 25 mg PO ONCE ondansetron HCL/NS [Zofran] 16 mg in 50 ml IV ONCE 05/07/20 09:36 Alteplase Cath Clear [Cathflo Activase] 2 mg INTRACATH ONCE ONE 05/08/20 00:00 Etoposide [Vepesid] 236 mg 0.9 % Sodium Chloride [Ns] 1,000 ml IV ONCE Heparin Sodium,Porcine Flush 500 unit IVFLUSH ONCE 05/08/20 11:07 Complete Blood Count Auto Diff Routine Comprehensive Met. Panel Routine Magnesium Routine SLIDE REVIEW Routine 05/08/20 12:45 dexAMETHasone sod phosphate/NS [Decadron] 12 mg in 50 ml IV ONCE ondansetron HCL/NS [Zofran] 16 mg in 50 ml IV ONCE 05/09/20 00:00 Etoposide [Vepesid] 236 mg 0.9 % Sodium Chloride PVC Free [NS PVC Free] 1,000 ml IV ONCE Heparin Sodium,Porcine Flush 500 unit IVFLUSH ONCE 05/09/20 12:35 ondansetron HCL [Zofran] 16 mg IVPUSH ONCE ONE 05/09/20 12:37 Pegfilgrastim Onpro [Neulasta Onpro] 6 mg SUBCUT ONCE ONE 05/09/20 12:45 dexAMETHasone sod phosphate/NS [Decadron] 12 mg in 50 ml IV ONCE 05/09/20 15:09 Heparin Sodium,Porcine Flush 500 unit 0.9 % Sodium Chloride Flush [NS Flush] 5 ml IVFLUSH ONCE 05/22/20 10:05 Complete Blood Count Auto Diff Routine Profile w/ Glucose [place] [Comprehensive Met. Panel] Routine SLIDE REVIEW Routine 05/28/20 08:56 Complete Blood Count Auto Diff Routine Laboratory Last Values WBC 3.4 X10*3/uL (4.8-10.8) L 05/28/20 08:56 RBC 3.29 X10*6/uL (4.20-5.50) L 05/28/20 08:56 Hgb 10.8 g/dl (12.0-16.0) L 05/28/20 08:56 Hct 31.9 % (37-47) L 05/28/20 08:56 MCV 97.0 fL (80-98) 05/28/20 08:56 MCH 32.8 pg (27.0-33.0) 05/28/20 08:56 MCHC 33.9 g/dl (31.0-35.0) 05/28/20 08:56 RDW 11.4 % (11.0-16.0) 05/28/20 08:56 Plt Count 175 X10*3/uL (160-400) D 05/28/20 08:56 MPV 10.0 fL (9.4-12.3) 05/28/20 08:56 Immature Gran % (Auto) 1.2 % (0.0-0.4) H 05/28/20 08:56 Neut % (Auto) 46.3 % (45-73) 05/28/20 08:56 Lymph % (Auto) 39.4 % (20-40) 05/28/20 08:56 Gem % (Auto) 12.5 % (2-11) H 05/28/20 08:56 Eos % (Auto) 0.0 % (0-4) 05/28/20 08:56 Baso % (Auto) 0.6 % (0-2) 05/28/20 08:56 Neut # (Auto) 3.6 X10*3/uL (2.0-8.3) 04/11/20 12:17 Lymph # (Auto) 1.4 X10*3/uL (1.2-4.9) 05/28/20 08:56 Gem # (Auto) 0.4 X10*3/uL (0.1-1.2) 05/28/20 08:56 Eos # (Auto) 0.0 X10*3/uL (0.0-0.4) 05/28/20 08:56 Baso # (Auto) 0.0 X10*3/uL (0.0-0.2) 05/28/20 08:56 Abs Immat Gran (auto) 0.04 X10*3/uL (0.00-0.03) H 05/28/20 08:56 Absolute Neuts (auto) 1.6 X10*3/uL (2.0-8.3) L 05/28/20 08:56 Absolute Nucleated RBC 0.020 X10*3/uL (0.0-0.012) H 05/28/20 08:56 Nucleated RBC % (auto) 0.6 /100WBC (0.0-0.2) H 05/28/20 08:56 Smear Tech's Comments VERIFIED 05/22/20 10:05 Sodium 142 mmol/L (135-145) 05/22/20 10:05 Potassium 4.2 mmol/l (3.3-5.1) 05/22/20 10:05 Chloride 103 mmol/L (96-108) 05/22/20 10:05 Carbon Dioxide 29 mmol/L (22-29) 05/22/20 10:05 Anion Gap 14 (12-20) 05/22/20 10:05 BUN 11 mg/dL (9-16) 05/22/20 10:05 Creatinine 0.92 mg/dL (0.5-1.4) 05/22/20 10:05 Estim Creat Clear Calc 78.2 05/22/20 10:05 Estimated GFR > 60 05/22/20 10:05 Random Glucose 111 mg/dL (60-115) 05/22/20 10:05 Calcium 9.1 mg/dL (8.4-10.2) 05/22/20 10:05 Magnesium 2.1 mg/dL (1.6-2.6) 05/08/20 11:07 Total Bilirubin 0.5 mg/dL (0.0-1.0) 05/22/20 10:05 AST 18 U/L (5-31) 05/22/20 10:05 ALT 20 U/L (0-31) 05/22/20 10:05 Alkaline Phosphatase 84 U/L (39-117) 05/22/20 10:05 Lactate Dehydrogenase 167 U/L (122-220) 04/11/20 12:17 Total Protein 6.6 g/dL (6.5-8.0) 05/22/20 10:05 Albumin 4.0 g/dL (3.5-5.0) 05/22/20 10:05 Carcinoembryonic Ag 3.70 mg/mL D 05/06/20 10:50 TSH 0.38 mIU/mL (0.32-4.0) 05/06/20 10:50 Progress Note: A/P (1) Small cell lung cancer Status: Acute - Time Spent With Patient Total time spent is greater than 50% in coordination of care (as documented) at patient's floor/unit and/or counseling patient:
[2020-05-28 09:28] LABS: Alanine Aminotransferase 20 U/L (0-31); Albumin Level 3.9 g/dL (3.5-5.0); Alkaline Phosphatase 72 U/L (39-117); Anion Gap 14 (12-20); Aspartate Amino Transferase 22 U/L (5-31); Bilirubin Total 0.4 mg/dL (0.0-1.0); Blood Urea Nitrogen 14 mg/dL (9-16); Carbon Dioxide 28 mmol/L (22-29); Chloride 100 mmol/L (96-108); Creatinine Clr Calc Pharmacy 71.1; Estimated Glomerular Filt Rate 55; Glucose Random 94 mg/dL (60-115); Potassium 3.9 mmol/l (3.3-5.1); Sodium 138 mmol/L (135-145); Total Protein 6.4 g/dL (6.5-8.0)
--- NOTE | 2020-05-28 09:37 | MHC.HEMONC ---
Telephone call to Dr. Casey's office. Requested 6 minute walk for Maria Antonia. C/O SOB and weakness especially on exertion. Magui Varner Resp. Therapist will come to Oncology now to perform/evaluate O2 via 6 min. walk.
--- NOTE | 2020-05-28 09:48 | MHC.HEMONC ---
Addendum entered by Kathryn Crouch RN 05/28/20 16:27: Pt was educated on Home O2 use. This RN demonstrated how to turn O2 to 2L, how to position the nasal cannula with the nasal prongs facing upward and curved toward the face. Insert the two nasal prongs into the nostrils. Use a clean damp cloth to wipe off the nasal prongs and headset tubing. Home O2 safety discussed and education handout provided to pt. Original Note: 6 min walk performed. Per Magui RT from Dr. Casey's office, pt qualifies for continuous O2 @ 2L. Sats dropped to mid 80's. Magui will have Dr. Casey send orders to [facility] for set-up, and she will supply an O2 tank for pt to bring home after her chemo treatment here. Pt was connected to 2L NC here in the Oncology Dept while she receives her chemotherapy.
[2020-05-28] MEDS: dexAMETHasone sod phosphate/NS 12 MG/50 ML PIGGYBACK 200 MG IV (11:29)
[2020-05-28] MEDS: diphenhydrAMINE HCL 25 MG TABLET PO (11:29)
[2020-05-28] MEDS: Famotidine/PF 20 MG/2 ML VIAL IVPUSH (11:29)
[2020-05-28] MEDS: ondansetron HCL/NS 16 MG/50 ML PIGGYBACK 200 MG IV (12:07)
[2020-05-28] MEDS: Fosaprepitant Dimeglumine 150 MG in 0.9 % Sodium Chloride 145 ML 300 MG IV (12:25)
[2020-05-28] MEDS: Atezolizumab 1,200 MG in 0.9 % Sodium Chloride 250 ML 540 MG IV (13:00)
[2020-05-28] MEDS: CARBOplatin 480 MG in 0.9 % Sodium Chloride 250 ML 596 MG IV (13:37)
--- NOTE | 2020-05-28 17:06 | MHC.HEMONC ---
Cycle 2 Day 1: Atezolizumab/Carbo/Etoppside well tolerated No blood return with port- flushing without difficulty. Dr. Saunders aware and ok to continue scheduled chemotherapy. Labs obtained peripherally. Patient c/o of ongoing SOB with minimal exertion. Patient did qualify today for oxygen. Patient reports improvement in her symptoms with use of oxygen. Educated on oxygen safety, lungs clear- no respiratory distress noted. Port remains accessed per request of patient, patient to return for Day 2 tomorrow.
[2020-05-29 10:56] VITALS: BMI 46.2
[2020-05-29 10:58] VITALS: BP 164/81; PULSE 83; RESP 20; TEMP 36.6; O2SAT 100
[2020-05-29] MEDS: dexAMETHasone sod phosphate/NS 12 MG/50 ML PIGGYBACK 200 MG IV (11:47)
[2020-05-29] MEDS: ondansetron HCL/NS 16 MG/50 ML PIGGYBACK 200 MG IV (12:13)
[2020-05-30 11:00] VITALS: BP 188/90; PULSE 78; RESP 20; TEMP 36.6; O2SAT 98; BMI 46.5
[2020-05-30] MEDS: ondansetron HCL/NS 16 MG/50 ML PIGGYBACK 200 MG IV (11:28)
[2020-05-30 11:30] VITALS: BP 136/68
[2020-05-30] MEDS: dexAMETHasone sod phosphate/NS 12 MG/50 ML PIGGYBACK 200 MG IV (11:54)
[2020-05-30] MEDS: Pegfilgrastim Onpro 6 MG/0.6 ML SYR.W..INJ SUBCUT (14:35)
[2020-05-30] MEDS: Heparin Sodium,Porcine Flush 500 UNIT/5 ML SYRINGE IVFLUSH (14:35)
--- NOTE | 2020-05-30 15:19 | MHC.HEMONC ---
Cycle 2: Day 3 of Etoposide well tolerated. No complaints at this time. No blood return with port- Dr. Saunders aware, ok to treat. Port flushes without difficulty. Neulasta on Pro to left upper arm. Dr. Saunders states no need for labs in between cycles unless patient does not feel well. Patient verbalizes understanding.
--- NOTE | 2020-06-16 15:12 | HO.HEMONCTE1 ---
[facility] Telehealth - Telehealth Location of Provider rendering services: Office Location of Patient: Home Telehealth Method: Telephone Patient verbally consented to treatment: Yes Medical Summary - Medical Summary Date of Service: 06/16/20 Chief complaint: Abdominal pain, recently discharged from hospital Medical Summary: Diagnosis: Small cell carcinoma of lung February 2019. Course: Admitted in February 2019 with shortness of breath and cough. CT chest showed left suprahilar mass measuring 5.5 x 6.1 x 8.5 cm, medial aspect of left upper lobe. This encircles and occludes the superior bronchus and lingular bronchus. Invades the mediastinum with slight mass effect. Peripherally, interstitial thickening postobstructive atelectasis versus lymphangitic carcinomatosis. Underwent bronchoscopy/biopsy on 02/27/2019, left upper lung mass pathology small cell carcinoma. IHC positive for cytokeratin, synaptophysin, chromogranin, TTF 1 rare cells and negative for CK 7, P40, Napsin, CD 20 and CD 45. Ki 67 markedly increased proliferation rate. PET scan performed at [facility] on 03/08/2019 showed intensely FDG avid left upperlobe/suprahilar mass measuring 7.7 x 8.1 x 10.3 cm, SUV 20.4 with direct invasion of the mediastinum compatible with malignancy. Mild FDG uptake with irregular ground-glass and consolidative opacity in the left upper lobe peripheral to the mass likely obstructive pneumonia. No evidence of FDG avid malignancy outside of the left chest. Left vocal cord paralysis. 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 Staging brain MRI with and without contrast showed scattered small vessel ischemic changes. No evidence of metastasis. Therapy: Carbo etoposide started 03/17/2019 Hospitalized with sepsis/neutropenia after cycle 2. E coli bacteremia that resolved with antibiotics. She completed 4 cycles. Received adjuvant radiation therapy from 05/14/2019 to 07/23/19. There were a few treatment delays with radiation because of poor performance status and side effects of treatment. Patient started systemic therapy with carboplatin/etoposide from 03/06/2019. Received concurrent adjuvant radiation therapy from 05/14/2019 to 07/23/19. There were a few treatment delays withr adiation because of poor performance status and side effects of treatment. She received 2 cycles of chemotherapy without radiation, 2 cycles during radiation. PET scan performed on 10/22/2019 at [facility] reported as: dramatic improvement in small cell carcinoma involving left upper lobe. Size of lesion decreased to 3.4 compared to 7.8 cm and SUV presently 4.5, previously 20.4. No new lesion or metastatic disease. She underwent prophylactic brain radiation at [facility], completed 11/26/2019. CT chest with contrast in February 2020 revealed new consolidation in the left upper lobe measuring 7.4 x 2.8 cm abutting aortic arch and extending into left superior pulmonary hilum. PET scan performed at [facility] on 04/01/2020 revealed hypermetabolic mass in the left upper lobe measuring 5.5 x 3.7 cm, SUV 11.7, increased size and hypermetabolism of 3 AP window lymph nodes measuring 1.1 cm, SUV 7.4 and 4.4, 5.2. No pleural effusion. No FDG avid malignancy outside the chest. Interval History Interval history: This is tele visit for patient based on COVID-19 pandemic guidelines. She was recently admitted for neutropenic bacteremia/colitis. She is now home and is on oral antibiotics. She denies any complaints such as fever or chills. Her abdominal pain is getting better. She has mucusy stools but no diarrhea, hematochezia or melena. She denies chest pain or cough. She is willing to come to the office this week for blood work. Oncology Screenings - ECOG Performance Status ECOG Performance Status: 2 Home Medications and Allergies Current Medications: Current Medications Generic Name Dose Route Start Last Admin Trade Name Freq PRN Reason Stop Dose Admin Ondansetron HCl 16 mg in 50 mls @ 200 mls/hr 05/09/20 12:45 05/09/20 13:37 Zofran IV Infused ONCE SAM Infusion Ondansetron HCl 16 mg in 50 mls @ 200 mls/hr 05/29/20 11:45 05/29/20 12:28 Zofran IV Infused ONCE SAM Infusion Ondansetron HCl 16 mg in 50 mls @ 200 mls/hr 05/30/20 11:00 05/30/20 11:47 Zofran IV Infused ONCE SAM Infusion Home Medications Medication Instructions Recorded Confirmed Type Calcium + Vitamin D 250 mg PO DAILY 04/10/20 06/09/20 History albuterol sulfate 1.25 mg INHALATION Q4-6H PRN 04/10/20 06/09/20 History atenolol 25 mg PO DAILY 04/10/20 06/09/20 History budesonide-formoterol 2 puff INHALATION BID 04/10/20 06/09/20 History bupropion HCl 200 mg PO DAILY 04/10/20 06/09/20 History docusate sodium [Stool Softener] 100 mg PO DAILY 04/10/20 06/09/20 History duloxetine 30 mg PO DAILY 04/10/20 06/09/20 History levothyroxine 137 mcg PO DAILY 04/10/20 06/09/20 History levothyroxine 274 mcg PO DAILY 04/10/20 06/09/20 History meloxicam 15 mg PO BEDTIME 04/10/20 06/09/20 History multivitamin with minerals 1 tab PO DAILY 04/10/20 06/09/20 History nortriptyline 20 mg PO BEDTIME 04/10/20 06/09/20 History ondansetron 8 mg PO Q6H PRN 04/10/20 06/09/20 History tiotropium bromide 1 cap INHALATION DAILY 04/10/20 06/09/20 History omeprazole 20 mg PO DAILY 05/01/20 06/09/20 History olodaterol 2 inh INHALATION Q24H 06/09/20 06/09/20 History Allergies Allergy/AdvReac Type Severity Reaction Status Date / Time iodine [IODINE] Allergy Unknown ANAPHYLAXIS Verified 06/02/20 10:59 penicillin V Allergy Unknown Unknown Verified 06/02/20 10:59 Penicillins [PCN] Allergy Unknown HIVES Verified 06/02/20 10:59 shellfish derived Allergy Unknown UNKNOWN Verified 06/02/20 10:59 [SHELLFISH DERIVED] Exam Vital signs: Vital Signs Temp 97.6 F 05/28/20 08:42 Pulse 65 05/28/20 08:42 Resp 18 05/28/20 08:42 BP 141/84 H 05/28/20 08:42 Pulse Ox 96 05/28/20 08:42 Intake & Output 05/27/20 05/28/20 05/28/20 18:59 06:59 18:59 Other: Weight 124 kg 121.4 kg Weight 121.4 kg Body Mass Index 45.9 - Constitutional Present: no acute distress - Routine HEENT Exam Head: Present: normal inspection - Routine Neck Exam Present: full ROM - Routine Respiratory Exam Present: CTAB - Routine Cardiovascular Exam Cardiovascular: Present: RRR, S1, S2 - Routine Abdominal Exam Present: normal bowel sounds - Routine Extremities Exam Present: full ROM Data - Labs CBC & Chem 7: 05/28/20 08:56 05/28/20 08:56 Labs: 04/10/20 10:44 Heparin Sodium,Porcine Flush 500 unit 0.9 % Sodium Chloride Flush [NS Flush] 5 ml IVFLUSH ONCE 04/10/20 11:07 Heparin Sodium,Porcine Flush 500 unit IVFLUSH .STK-MED ONE 04/10/20 12:16 Alteplase Cath Clear [Cathflo Activase] 2 mg INTRACATH ONCE ONE 04/11/20 11:37 Alteplase Cath Clear [Cathflo Activase] 2 mg INTRACATH ONCE PRN 04/11/20 12:17 Carcinoembryonic Antigen Routine Complete Blood Count Auto Diff Routine Comprehensive Met. Panel Routine LDH [Lactate Dehydrogenase] Routine 05/06/20 10:27 Alteplase Cath Clear [Cathflo Activase] 2 mg INTRACATH ONCE ONE 05/06/20 10:50 Carcinoembryonic Antigen Routine Complete Blood Count Auto Diff Routine Comprehensive Met. Panel Routine Thyroid Stimulating Hormone Routine 05/06/20 12:13 Add Laboratory Test Stat 05/07/20 00:00 Acetaminophen [Tylenol] 650 mg PO ONCE Atezolizumab [Tecentriq] 1,200 mg 0.9 % Sodium Chloride [Ns] 250 ml IV ONCE CARBOplatin [Paraplatin] 530 mg 0.9 % Sodium Chloride 250 ml IV ONCE Etoposide [Vepesid] 236 mg 0.9 % Sodium Chloride [Ns] 1,000 ml IV ONCE Famotidine/PF [Pepcid/PF] 20 mg IVPUSH ONCE Fosaprepitant Dimeglumine [Emend] 150 mg 0.9 % Sodium Chloride [Ns] 145 ml IV ONCE Heparin Sodium,Porcine Flush 500 unit IVFLUSH ONCE dexAMETHasone sod phosphate/NS [Decadron] 12 mg in 50 ml IV ONCE diphenhydrAMINE HCL [Benadryl] 25 mg PO ONCE ondansetron HCL/NS [Zofran] 16 mg in 50 ml IV ONCE 05/07/20 09:36 Alteplase Cath Clear [Cathflo Activase] 2 mg INTRACATH ONCE ONE 05/08/20 00:00 Etoposide [Vepesid] 236 mg 0.9 % Sodium Chloride [Ns] 1,000 ml IV ONCE Heparin Sodium,Porcine Flush 500 unit IVFLUSH ONCE 05/08/20 11:07 Complete Blood Count Auto Diff Routine Comprehensive Met. Panel Routine Magnesium Routine SLIDE REVIEW Routine 05/08/20 12:45 dexAMETHasone sod phosphate/NS [Decadron] 12 mg in 50 ml IV ONCE ondansetron HCL/NS [Zofran] 16 mg in 50 ml IV ONCE 05/09/20 00:00 Etoposide [Vepesid] 236 mg 0.9 % Sodium Chloride PVC Free [NS PVC Free] 1,000 ml IV ONCE Heparin Sodium,Porcine Flush 500 unit IVFLUSH ONCE 05/09/20 12:35 ondansetron HCL [Zofran] 16 mg IVPUSH ONCE ONE 05/09/20 12:37 Pegfilgrastim Onpro [Neulasta Onpro] 6 mg SUBCUT ONCE ONE 05/09/20 12:45 dexAMETHasone sod phosphate/NS [Decadron] 12 mg in 50 ml IV ONCE 05/09/20 15:09 Heparin Sodium,Porcine Flush 500 unit 0.9 % Sodium Chloride Flush [NS Flush] 5 ml IVFLUSH ONCE 05/22/20 10:05 Complete Blood Count Auto Diff Routine Profile w/ Glucose [place] [Comprehensive Met. Panel] Routine SLIDE REVIEW Routine 05/28/20 00:00 Atezolizumab [Tecentriq] 1,200 mg 0.9 % Sodium Chloride [Ns] 250 ml IV ONCE CARBOplatin [Paraplatin] 480 mg 0.9 % Sodium Chloride 250 ml IV ONCE Etoposide [Vepesid] 230 mg 0.9 % Sodium Chloride PVC Free [NS PVC Free] 500 ml IV ONCE Famotidine/PF [Pepcid/PF] 20 mg IVPUSH ONCE Fosaprepitant Dimeglumine [Emend] 150 mg 0.9 % Sodium Chloride [Ns] 145 ml IV ONCE Heparin Sodium,Porcine Flush 500 unit IVFLUSH ONCE dexAMETHasone sod phosphate/NS [Decadron] 12 mg in 50 ml IV ONCE diphenhydrAMINE HCL [Benadryl] 25 mg PO ONCE ondansetron HCL/NS [Zofran] 16 mg in 50 ml IV ONCE 05/28/20 08:56 Complete Blood Count Auto Diff Routine Comprehensive Met. Panel Routine 05/28/20 12:00 Etoposide [Vepesid] 230 mg 0.9 % Sodium Chloride [Ns] 1,000 ml IV ONCE 05/29/20 00:00 Etoposide [Vepesid] 230 mg 0.9 % Sodium Chloride [Ns] 1,000 ml IV ONCE Heparin Sodium,Porcine Flush 500 unit IVFLUSH ONCE 05/29/20 11:45 dexAMETHasone sod phosphate/NS [Decadron] 12 mg in 50 ml IV ONCE 05/30/20 00:00 Etoposide [Vepesid] 230 mg 0.9 % Sodium Chloride [Ns] 1,000 ml IV ONCE Heparin Sodium,Porcine Flush 500 unit IVFLUSH ONCE 05/30/20 10:53 Pegfilgrastim Onpro [Neulasta Onpro] 6 mg SUBCUT ONCE ONE 05/30/20 11:00 dexAMETHasone sod phosphate/NS [Decadron] 12 mg in 50 ml IV ONCE 05/30/20 12:00 dexAMETHasone sod phosphate/NS [Decadron] 12 mg in 50 ml IV ONCE Laboratory Last Values WBC 3.4 X10*3/uL (4.8-10.8) L 05/28/20 08:56 RBC 3.29 X10*6/uL (4.20-5.50) L 05/28/20 08:56 Hgb 10.8 g/dl (12.0-16.0) L 05/28/20 08:56 Hct 31.9 % (37-47) L 05/28/20 08:56 MCV 97.0 fL (80-98) 05/28/20 08:56 MCH 32.8 pg (27.0-33.0) 05/28/20 08:56 MCHC 33.9 g/dl (31.0-35.0) 05/28/20 08:56 RDW 11.4 % (11.0-16.0) 05/28/20 08:56 Plt Count 175 X10*3/uL (160-400) D 05/28/20 08:56 MPV 10.0 fL (9.4-12.3) 05/28/20 08:56 Immature Gran % (Auto) 1.2 % (0.0-0.4) H 05/28/20 08:56 Neut % (Auto) 46.3 % (45-73) 05/28/20 08:56 Lymph % (Auto) 39.4 % (20-40) 05/28/20 08:56 [place] % (Auto) 12.5 % (2-11) H 05/28/20 08:56 Eos % (Auto) 0.0 % (0-4) 05/28/20 08:56 Baso % (Auto) 0.6 % (0-2) 05/28/20 08:56 Neut # (Auto) 3.6 X10*3/uL (2.0-8.3) 04/11/20 12:17 Lymph # (Auto) 1.4 X10*3/uL (1.2-4.9) 05/28/20 08:56 [place] # (Auto) 0.4 X10*3/uL (0.1-1.2) 05/28/20 08:56 Eos # (Auto) 0.0 X10*3/uL (0.0-0.4) 05/28/20 08:56 Baso # (Auto) 0.0 X10*3/uL (0.0-0.2) 05/28/20 08:56 Abs Immat Gran (auto) 0.04 X10*3/uL (0.00-0.03) H 05/28/20 08:56 Absolute Neuts (auto) 1.6 X10*3/uL (2.0-8.3) L 05/28/20 08:56 Absolute Nucleated RBC 0.020 X10*3/uL (0.0-0.012) H 05/28/20 08:56 Nucleated RBC % (auto) 0.6 /100WBC (0.0-0.2) H 05/28/20 08:56 Smear Tech's Comments VERIFIED 05/22/20 10:05 Sodium 138 mmol/L (135-145) 05/28/20 08:56 Potassium 3.9 mmol/l (3.3-5.1) 05/28/20 08:56 Chloride 100 mmol/L (96-108) 05/28/20 08:56 Carbon Dioxide 28 mmol/L (22-29) 05/28/20 08:56 Anion Gap 14 (12-20) 05/28/20 08:56 BUN 14 mg/dL (9-16) 05/28/20 08:56 Creatinine 1.00 mg/dL (0.5-1.4) 05/28/20 08:56 Estim Creat Clear Calc 71.1 05/28/20 08:56 Estimated GFR 55 05/28/20 08:56 Random Glucose 94 mg/dL (60-115) 05/28/20 08:56 Calcium 9.0 mg/dL (8.4-10.2) 05/28/20 08:56 Magnesium 2.1 mg/dL (1.6-2.6) 05/08/20 11:07 Total Bilirubin 0.4 mg/dL (0.0-1.0) 05/28/20 08:56 AST 22 U/L (5-31) 05/28/20 08:56 ALT 20 U/L (0-31) 05/28/20 08:56 Alkaline Phosphatase 72 U/L (39-117) 05/28/20 08:56 Lactate Dehydrogenase 167 U/L (122-220) 04/11/20 12:17 Total Protein 6.4 g/dL (6.5-8.0) L 05/28/20 08:56 Albumin 3.9 g/dL (3.5-5.0) 05/28/20 08:56 Carcinoembryonic Ag 3.70 mg/mL D 05/06/20 10:50 TSH 0.38 mIU/mL (0.32-4.0) 05/06/20 10:50 Progress Note: A/P (1) Small cell lung cancer Status: Acute Assessment and plan: 1. This is a 65-year-old woman with Small cell lung Cancer originating in the left upper lobe. Clinical stage T4 N0 M0, limited stage small cell cancer of the left upper lobe. Patient started systemic therapy with carboplatin/etoposide from 03/06/2019. Received concurrent adjuvant radiation therapy from 05/14/2019 to 07/23/19. She underwent prophylactic brain radiation at [facility]. She has had local recurrence as evidenced by PET-CT and subsequent bronchoscopy/biopsy. On 05/01/2020 biopsy revealed positive for small cell carcinoma on lymph node station 7. Left mainstem bronchial nodule biopsy, no malignancy identified. Patient started chemotherapy with carboplatin/etoposide and atezolizumab with Neulasta support from 05/07/2020. She was admitted after cycle 2 with neutropenic bacteremia, Clostridium septicum on 06/08/2020. She was treated with IV antibiotics followed by oral antibiotics with cefuroxime and Flagyl which she is currently taking. Chemotherapy will be postponed this week. She was asked to come in for labs on Tuesday. She is feeling better overall. - Time Spent With Patient Total time spent is greater than 50% in coordination of care (as documented) at patient's floor/unit and/or counseling patient: less than 15 minutes
[2020-06-18 10:43] LABS: MANUAL DIFF FLAG NO
[2020-06-18 10:47] LABS: Basophils Percent Auto 0.2 % (0-2); Hematocrit 24.9 % (37-47); Hemoglobin 8.3 g/dl (12.0-16.0); Imm Gran Abs Auto 0.19 X10*3/uL (0.00-0.03); Imm Gran Pct Auto 3.1 % (0.0-0.4); Lymphocytes Absolute Auto 1.1 X10*3/uL (1.2-4.9); Lymphocytes Percent Auto 18.4 % (20-40); Mean Corpuscular HGB Conc 33.3 g/dl (31.0-35.0); Mean Corpuscular Hemoglobin 32.9 pg (27.0-33.0); Mean Corpuscular Volume 98.8 fL (80-98); Mean Platelet Volume 10.9 fL (9.4-12.3); Monocytes Absolute Auto 0.9 X10*3/uL (0.1-1.2); Monocytes Percent Auto 14.3 % (2-11); NRBC Pct Auto 0.5 /100WBC (0.0-0.2); Neutrophils Absolute Auto 3.9 X10*3/uL (2.0-8.3); Platelet Count 110 X10*3/uL (160-400); Red Blood Count 2.52 X10*6/uL (4.20-5.50); Red Cell Distribution Width 12.8 % (11.0-16.0); White Blood Count 6.1 X10*3/uL (4.8-10.8)
[2020-06-18 11:23] LABS: Alanine Aminotransferase 18 U/L (0-31); Albumin Level 3.3 g/dL (3.5-5.0); Alkaline Phosphatase 65 U/L (39-117); Anion Gap 13 (12-20); Aspartate Amino Transferase 20 U/L (5-31); Blood Urea Nitrogen 14 mg/dL (9-16); Calcium 8.5 mg/dL (8.4-10.2); Carbon Dioxide 30 mmol/L (22-29); Chloride 100 mmol/L (96-108); Creatinine Clr Calc Pharmacy 89.5; Estimated Glomerular Filt Rate > 60; Glucose Random 125 mg/dL (60-115); Potassium 4.3 mmol/l (3.3-5.1); Sodium 139 mmol/L (135-145); Total Protein 5.7 g/dL (6.5-8.0)
[2020-06-18 11:39] LABS: Bilirubin Total 0.2 mg/dL (0.0-1.0)
--- NOTE | 2020-06-18 13:27 | MHC.HEMONCSW ---
MET WITH PT AND HER SISTER. PATIENT REPORTS COPING WELL, BUT IS SICK OF BEING SICK. ENJOYED THE RECENT HOLIDAY ALONE WITH DAUGHTER BRINGING HER FOOD. DENIES STRESS AND ANY COMPLAINTS AT THIS TIME. EDUCATION AND SUPPORT PROVIDED.
--- NOTE | 2020-06-18 14:44 | MHC.HEMONC ---
Pt here for lab draw. Pt recently was inpt. States still not feeling great. Has been trying to rest, drinking lots of fluids. Lab results reviewed by Dr Saunders. Plan is for pt to have a port study done prior to next chemo treatment. Will schedule and call pt with date and time.
--- NOTE | 2020-06-24 08:55 | MHC.HEMONC ---
Port study completed 06/23; awaiting official report. Per Dr. Saunders follow 06/25 for labs and possible trt with chemo with dose reduction. Patient called and made aware.
--- NOTE | 2020-06-25 10:50 | MHC.HEMONCSW ---
MET WITH PATIENT WHO OFFERS NO COMPLAINTS. SHE IS AWARE OF MY AVAILABILITY.
[2020-06-25 13:46] LABS: MANUAL DIFF FLAG NO
[2020-06-25 13:56] LABS: Basophils Percent Auto 0.3 % (0-2); Hematocrit 29.4 % (37-47); Hemoglobin 9.4 g/dl (12.0-16.0); Imm Gran Abs Auto 0.14 X10*3/uL (0.00-0.03); Imm Gran Pct Auto 2.4 % (0.0-0.4); Lymphocytes Absolute Auto 1.2 X10*3/uL (1.2-4.9); Lymphocytes Percent Auto 21.1 % (20-40); Mean Corpuscular Hemoglobin 33.3 pg (27.0-33.0); Mean Corpuscular Volume 104.3 fL (80-98); Mean Platelet Volume 10.1 fL (9.4-12.3); Monocytes Absolute Auto 0.9 X10*3/uL (0.1-1.2); Monocytes Percent Auto 15.7 % (2-11); NRBC Pct Auto 0.3 /100WBC (0.0-0.2); Neutrophils Absolute Auto 3.5 X10*3/uL (2.0-8.3); Neutrophils Percent Auto 60.5 % (45-73); Platelet Count 380 X10*3/uL (160-400); Red Blood Count 2.82 X10*6/uL (4.20-5.50); Red Cell Distribution Width 17.1 % (11.0-16.0); White Blood Count 5.8 X10*3/uL (4.8-10.8)
[2020-06-25 14:13] LABS: Iron 93 mcg/dL (30-160); Percent Iron Saturation 49 % (15-50); Total Iron Binding Capacity 191 mcg/dL (228-428); Unsaturated Iron Binding 98 ug/dL
[2020-07-01 09:13] VITALS: BP 133/66; PULSE 88; RESP 18; TEMP 36.2; O2SAT 99; BMI 45.1
[2020-07-01 09:37] LABS: Basophils Percent Auto 0.4 % (0-2); Hemoglobin 10.4 g/dl (12.0-16.0); Imm Gran Abs Auto 0.14 X10*3/uL (0.00-0.03); Imm Gran Pct Auto 1.9 % (0.0-0.4); Lymphocytes Absolute Auto 1.7 X10*3/uL (1.2-4.9); Lymphocytes Percent Auto 22.9 % (20-40); Mean Corpuscular HGB Conc 32.5 g/dl (31.0-35.0); Mean Corpuscular Hemoglobin 33.7 pg (27.0-33.0); Mean Corpuscular Volume 103.6 fL (80-98); Mean Platelet Volume 9.2 fL (9.4-12.3); Monocytes Percent Auto 13.8 % (2-11); NRBC Pct Auto 0.3 /100WBC (0.0-0.2); Neutrophils Absolute Auto 4.4 X10*3/uL (2.0-8.3); Platelet Count 362 X10*3/uL (160-400); Red Blood Count 3.09 X10*6/uL (4.20-5.50); Red Cell Distribution Width 17.2 % (11.0-16.0); White Blood Count 7.2 X10*3/uL (4.8-10.8)
[2020-07-01 09:38] LABS: MANUAL DIFF FLAG NO
[2020-07-01 10:13] LABS: Alanine Aminotransferase 14 U/L (0-31); Albumin Level 3.9 g/dL (3.5-5.0); Alkaline Phosphatase 65 U/L (39-117); Anion Gap 13 (12-20); Aspartate Amino Transferase 19 U/L (5-31); Bilirubin Total 0.4 mg/dL (0.0-1.0); Blood Urea Nitrogen 16 mg/dL (9-16); Calcium 9.3 mg/dL (8.4-10.2); Carbon Dioxide 28 mmol/L (22-29); Chloride 102 mmol/L (96-108); Creatinine Clr Calc Pharmacy 79.1; Estimated Glomerular Filt Rate > 60; Glucose Random 115 mg/dL (60-115); Potassium 4.8 mmol/l (3.3-5.1); Sodium 138 mmol/L (135-145); Total Protein 6.6 g/dL (6.5-8.0)
[2020-07-01] MEDS: dexAMETHasone sod phosphate/NS 12 MG/50 ML PIGGYBACK 200 MG IV (10:59)
[2020-07-01] MEDS: diphenhydrAMINE HCL 25 MG TABLET PO (10:59)
[2020-07-01] MEDS: Famotidine/PF 20 MG/2 ML VIAL IVPUSH (10:59)
[2020-07-01] MEDS: ondansetron HCL/NS 16 MG/50 ML PIGGYBACK 200 MG IV (11:20)
[2020-07-01] MEDS: Fosaprepitant Dimeglumine 150 MG in 0.9 % Sodium Chloride 145 ML 300 MG IV (11:37)
[2020-07-01] MEDS: Atezolizumab 1,200 MG in 0.9 % Sodium Chloride 250 ML 540 MG IV (12:17)
[2020-07-02 11:13] VITALS: BP 134/77; PULSE 85; RESP 20; TEMP 36.4; O2SAT 98; BMI 45.7
[2020-07-02] MEDS: ondansetron HCL/NS 16 MG/50 ML PIGGYBACK 200 MG IV (12:36)
[2020-07-03 11:00] VITALS: BP 118/64; PULSE 87; RESP 20; TEMP 36.2; O2SAT 96; BMI 45.8
[2020-07-03] MEDS: dexAMETHasone sod phosphate/NS 12 MG/50 ML PIGGYBACK 200 MG IV (11:05)
[2020-07-03] MEDS: ondansetron HCL/NS 16 MG/50 ML PIGGYBACK 200 MG IV (11:39)
[2020-07-03] MEDS: Pegfilgrastim Onpro 6 MG/0.6 ML SYR.W..INJ SUBCUT (13:45)
[2020-07-03] MEDS: Heparin Sodium,Porcine Flush 500 UNIT/5 ML SYRINGE IVFLUSH (13:46)
--- NOTE | 2020-07-03 15:07 | MHC.HEMONC ---
C3 day 3 Etoposide well tolerated. No continued blood return with port, Dr. Saunders aware. Port flushing without difficulty. Patient had recent port study in radiology. Neulasta on Pro administered. Patient to return for weekly labs prior to next cycle. Patient instructed to call office with any signs or symptoms of infection.
[2020-07-09 10:04] LABS: MANUAL DIFF FLAG NO
[2020-07-09 10:08] LABS: Basophils Percent Auto 0.9 % (0-2); Eosinophils Percent Auto 0.2 % (0-4); Hematocrit 29.6 % (37-47); Hemoglobin 9.7 g/dl (12.0-16.0); Imm Gran Abs Auto 0.05 X10*3/uL (0.00-0.03); Imm Gran Pct Auto 1.2 % (0.0-0.4); Lymphocytes Absolute Auto 1.1 X10*3/uL (1.2-4.9); Lymphocytes Percent Auto 25.5 % (20-40); Mean Corpuscular HGB Conc 32.8 g/dl (31.0-35.0); Mean Corpuscular Hemoglobin 33.3 pg (27.0-33.0); Mean Corpuscular Volume 101.7 fL (80-98); Mean Platelet Volume 9.5 fL (9.4-12.3); Monocytes Absolute Auto 0.2 X10*3/uL (0.1-1.2); Monocytes Percent Auto 5.3 % (2-11); Neutrophils Absolute Auto 2.9 X10*3/uL (2.0-8.3); Neutrophils Percent Auto 66.9 % (45-73); Platelet Count 207 X10*3/uL (160-400); Red Blood Count 2.91 X10*6/uL (4.20-5.50); Red Cell Distribution Width 15.7 % (11.0-16.0); White Blood Count 4.3 X10*3/uL (4.8-10.8)
[2020-07-09 10:36] LABS: Alanine Aminotransferase 20 U/L (0-31); Alkaline Phosphatase 77 U/L (39-117); Anion Gap 11 (12-20); Aspartate Amino Transferase 18 U/L (5-31); Bilirubin Total 0.7 mg/dL (0.0-1.0); Blood Urea Nitrogen 22 mg/dL (9-16); Calcium 9.2 mg/dL (8.4-10.2); Carbon Dioxide 30 mmol/L (22-29); Chloride 103 mmol/L (96-108); Creatinine Clr Calc Pharmacy 86.5; Estimated Glomerular Filt Rate > 60; Glucose Random 120 mg/dL (60-115); Potassium 4.4 mmol/l (3.3-5.1); Sodium 140 mmol/L (135-145); Total Protein 6.5 g/dL (6.5-8.0)
--- NOTE | 2020-07-09 16:11 | MHC.HEMONC ---
Labs reviewed. Dr. Saunders updated. Plan for patient to return next week for repeat labs and possible Granix. (patient states Neulasta on Pro did not deliver medication) Per Carrie Humphreys states unlimited amount of visits.
--- NOTE | 2020-07-10 11:11 | MHC.HEMONCSW ---
AUTHORIZATIONS ARE 99 FROM SH[facility] AT [facility]. A# [id number] 02/29/20 TO 02/29/24. UNLIMITED VISITS.
--- NOTE | 2020-07-10 16:08 | MHC.HEMONCSW ---
NEW AUTH INFO FROM SH[facility] AT [facility]...... A# [id number] 04/29/20 TO10/28/20
--- NOTE | 2020-07-14 13:27 | MHC.HEMONC ---
Cell Number Change - Pt called and asked me to update her new cell number. Her new # is [phone], this was updated and saved in demographics. Her old number of, , she states the phone is frozen and she can not take calls. She has an appointment tomorrow and states she will also supply us w her home number, b/c she can't remember it at this time.
[2020-07-15 10:11] LABS: MANUAL DIFF FLAG NO
[2020-07-15 10:15] LABS: Basophils Percent Auto 0.4 % (0-2); Eosinophils Percent Auto 0.4 % (0-4); Hemoglobin 8.8 g/dl (12.0-16.0); Imm Gran Abs Auto 0.01 X10*3/uL (0.00-0.03); Imm Gran Pct Auto 0.4 % (0.0-0.4); Lymphocytes Absolute Auto 1.1 X10*3/uL (1.2-4.9); Lymphocytes Percent Auto 39.6 % (20-40); Mean Corpuscular HGB Conc 33.8 g/dl (31.0-35.0); Mean Corpuscular Hemoglobin 34.9 pg (27.0-33.0); Mean Corpuscular Volume 103.2 fL (80-98); Mean Platelet Volume 9.9 fL (9.4-12.3); Monocytes Absolute Auto 0.4 X10*3/uL (0.1-1.2); Monocytes Percent Auto 14.1 % (2-11); Neutrophils Absolute Auto 1.2 X10*3/uL (2.0-8.3); Neutrophils Percent Auto 45.1 % (45-73); Platelet Count 118 X10*3/uL (160-400); Red Blood Count 2.52 X10*6/uL (4.20-5.50); Red Cell Distribution Width 16.6 % (11.0-16.0); White Blood Count 2.7 X10*3/uL (4.8-10.8)
[2020-07-15 10:51] LABS: Alanine Aminotransferase 17 U/L (0-31); Albumin Level 3.7 g/dL (3.5-5.0); Alkaline Phosphatase 72 U/L (39-117); Anion Gap 11 (12-20); Aspartate Amino Transferase 15 U/L (5-31); Bilirubin Total 0.3 mg/dL (0.0-1.0); Blood Urea Nitrogen 13 mg/dL (9-16); Carbon Dioxide 31 mmol/L (22-29); Chloride 103 mmol/L (96-108); Creatinine Clr Calc Pharmacy 85.5; Estimated Glomerular Filt Rate > 60; Glucose Random 147 mg/dL (60-115); Potassium 4.2 mmol/l (3.3-5.1); Sodium 141 mmol/L (135-145)
[2020-07-15 11:23] VITALS: BP 129/63; PULSE 86; RESP 20; TEMP 35.8; O2SAT 99; BMI 45.8
[2020-07-15 11:25] LABS: Calcium 8.8 mg/dL (8.4-10.2)
--- NOTE | 2020-07-15 17:31 | MHC.HEMONC ---
Addendum entered by Jessica Egan RN 07/15/20 17:33: pt anc is 1200 Original Note: Pt here for labs. ANC 1100. Per Dr Saunders pt to get Granix today and next two days. Pt is aware.
[2020-07-16 11:03] VITALS: BP 114/58; PULSE 83; RESP 18; TEMP 36.7; O2SAT 98; BMI 45.8
[2020-07-17 10:59] VITALS: BP 136/65; PULSE 76; RESP 20; TEMP 36.4; O2SAT 96; BMI 45.4
--- NOTE | 2020-07-17 15:20 | MHC.HEMONCSW ---
PATIENT HAS BEEN COMING FOR GRANIX THE LAST THREE DAYS. FEELS FRUSTRATED AND DISCOURAGED AT TIMES. SUPPORT SYSTEM REMAINS GOOD. OFFERS NO COMPLAINTS AT THIS TIME. PATIENT IS AWARE OF MY AVAILABILITY.
[2020-07-22 09:05] VITALS: BP 134/73; PULSE 73; RESP 20; TEMP 36.3; O2SAT 99
[2020-07-22 09:08] VITALS: BMI 46.3
[2020-07-22 09:13] LABS: Hematocrit 27.5 % (37-47); Hemoglobin 9.1 g/dl (12.0-16.0); Mean Corpuscular HGB Conc 33.1 g/dl (31.0-35.0); Mean Corpuscular Hemoglobin 35.3 pg (27.0-33.0); Mean Corpuscular Volume 106.6 fL (80-98); Mean Platelet Volume 9.8 fL (9.4-12.3); Platelet Count 143 X10*3/uL (160-400); Red Blood Count 2.58 X10*6/uL (4.20-5.50); Red Cell Distribution Width 17.6 % (11.0-16.0); White Blood Count 3.6 X10*3/uL (4.8-10.8)
[2020-07-22 09:42] LABS: Band Neutrophils Percent 5 % (3-5); Lymphocytes Absolute Manual 0.9 X10*3/uL (0.6-4.8); Lymphocytes Percent Manual 26 % (20-40)
[2020-07-22 09:46] LABS: Alanine Aminotransferase 17 U/L (0-31); Albumin Level 3.7 g/dL (3.5-5.0); Alkaline Phosphatase 83 U/L (39-117); Anion Gap 12 (12-20); Aspartate Amino Transferase 16 U/L (5-31); Bilirubin Total 0.3 mg/dL (0.0-1.0); Blood Urea Nitrogen 14 mg/dL (9-16); Calcium 8.9 mg/dL (8.4-10.2); Carbon Dioxide 31 mmol/L (22-29); Chloride 103 mmol/L (96-108); Creatinine Clr Calc Pharmacy 90.4; Estimated Glomerular Filt Rate > 60; Glucose Random 99 mg/dL (60-115); Potassium 4.2 mmol/l (3.3-5.1); RBC Morphology NOTED; Sodium 142 mmol/L (135-145); Total Protein 6.1 g/dL (6.5-8.0)
[2020-07-22 09:47] LABS: Macrocytosis 1+
[2020-07-22 09:48] LABS: Tear Drop Cells 1+
[2020-07-22 09:49] LABS: Hypochromasia 1+; Platelet Estimate SLIGHTLY DECREASED (NORMAL); Platelet Morphology Comment NORMAL; Polychromasia 1+
[2020-07-22 09:50] LABS: Monocytes Absolute Manual 0.5 X10*3/uL (0.0-1.2); Monocytes Percent Manual 15 % (2-11); Neutrophils Absolute Manual 2.1 X10*3/uL (2.2-7.9); Neutrophils Percent Manual 54 % (45-73)
[2020-07-22 09:51] LABS: Nucleated Red Blood Cells 1 /100WBC (0-0)
[2020-07-22] MEDS: Famotidine/PF 20 MG/2 ML VIAL IVPUSH (10:41)
[2020-07-22] MEDS: ondansetron HCL/NS 16 MG/50 ML PIGGYBACK 200 MG IV (10:46)
[2020-07-22] MEDS: diphenhydrAMINE HCL 25 MG TABLET PO (10:50)
--- NOTE | 2020-07-22 10:57 | MHC.HEMONC ---
Carboplatin dose totaling 580mg with a 70% dose reduction to total 406mg, 365mg ordered. Clarified with Dr. Saunders carboplatin dose of 365mg ordered and to be administered per MD given patients ongoing neutropenia Elijah in pharmacy aware and primary Nata Marx aware.
[2020-07-22] MEDS: dexAMETHasone sod phosphate/NS 12 MG/50 ML PIGGYBACK 200 MG IV (11:07)
[2020-07-22] MEDS: Fosaprepitant Dimeglumine 150 MG in 0.9 % Sodium Chloride 145 ML 300 MG IV (11:30)
[2020-07-22] MEDS: Atezolizumab 1,200 MG in 0.9 % Sodium Chloride 250 ML 540 MG IV (12:28)
--- NOTE | 2020-07-22 15:50 | MHC.HEMONC ---
Pt here for her chemo infusion. Labs drawn and reviewed. Port accessed with no blood return noted, but flushes well. States feels ok since last treatment, just nauseous at times and very tired. Chemo infused and pt tolerated well. Will return tomorrow for day 2 infusion.
[2020-07-23 10:57] VITALS: BP 124/56; PULSE 68; RESP 18; TEMP 36.2; O2SAT 99; BMI 46.2
[2020-07-23] MEDS: ondansetron HCL/NS 16 MG/50 ML PIGGYBACK 200 MG IV (12:31)
[2020-07-23] MEDS: dexAMETHasone sod phosphate/NS 12 MG/50 ML PIGGYBACK 200 MG IV (12:53)
--- NOTE | 2020-07-23 15:26 | MHC.HEMONC ---
Pt here for her 2nd day of treatment. Port flushes well, without blood return. Pt states feels very well today. Chemo infusion done and pt tolerated well. Scheduled to return 07/24 for treatment.
[2020-07-24 10:58] VITALS: BP 137/70; PULSE 78; RESP 18; TEMP 36.4; O2SAT 99; BMI 46.3
[2020-07-24] MEDS: ondansetron HCL/NS 16 MG/50 ML PIGGYBACK 200 MG IV (11:13)
[2020-07-24] MEDS: dexAMETHasone sod phosphate/NS 12 MG/50 ML PIGGYBACK 200 MG IV (11:36)
[2020-07-24] MEDS: Heparin Sodium,Porcine Flush 500 UNIT/5 ML SYRINGE IVFLUSH (13:17)
--- NOTE | 2020-07-24 14:15 | MHC.HEMONC ---
Pt here for chemo infusion. Port flushed. Feeling good today. Chemo infusion done and pt tolerated well. To return 07/25 for neulasta
[2020-07-25 14:08] VITALS: BP 114/65; PULSE 63; RESP 18; TEMP 36.8; O2SAT 98; BMI 46.3
--- NOTE | 2020-08-04 13:25 | MHC.HEMONCSW ---
PET SCAN ORDERED. WAITING FOR THERESA CONTE TO CALL ME WITH AUTH#.
--- NOTE | 2020-08-05 10:53 | MHC.HEMONCSW ---
DAVONTE SANFORD IS IN NETWORK WITH THE [facility] PER [facility]KE [facility]. ORDER/CLINICALS FAXED TO [facility]RE[facility]. AUTH# [id number] 04/29/20 TO 10/28/20.
--- NOTE | 2020-08-05 10:59 | MHC.HEMONCSW ---
phoned, informed patient that sheilds pet will call her with date/time of scan.
[2020-08-05 11:52] VITALS: BMI 46.3
[2020-08-15 13:04] LABS: MANUAL DIFF FLAG NO
[2020-08-15 13:24] VITALS: BP 119/65; PULSE 65; RESP 20; TEMP 37; O2SAT 97; BMI 44.3
[2020-08-15 13:24] LABS: Basophils Percent Auto 0.3 % (0-2); Hematocrit 28.6 % (37-47); Hemoglobin 9.5 g/dl (12.0-16.0); Imm Gran Abs Auto 0.02 X10*3/uL (0.00-0.03); Imm Gran Pct Auto 0.3 % (0.0-0.4); Lymphocytes Absolute Auto 1.9 X10*3/uL (1.2-4.9); Lymphocytes Percent Auto 32.4 % (20-40); Mean Corpuscular HGB Conc 33.2 g/dl (31.0-35.0); Mean Corpuscular Hemoglobin 36.3 pg (27.0-33.0); Mean Corpuscular Volume 109.2 fL (80-98); Monocytes Absolute Auto 0.9 X10*3/uL (0.1-1.2); Monocytes Percent Auto 15.3 % (2-11); Neutrophils Absolute Auto 3.1 X10*3/uL (2.0-8.3); Neutrophils Percent Auto 51.7 % (45-73); Platelet Count 271 X10*3/uL (160-400); Red Blood Count 2.62 X10*6/uL (4.20-5.50); Red Cell Distribution Width 17.3 % (11.0-16.0); White Blood Count 5.9 X10*3/uL (4.8-10.8)
[2020-08-15 13:58] LABS: Alanine Aminotransferase 13 U/L (0-31); Albumin Level 4.2 g/dL (3.5-5.0); Alkaline Phosphatase 76 U/L (39-117); Anion Gap 16 (12-20); Aspartate Amino Transferase 18 U/L (5-31); Bilirubin Total 0.4 mg/dL (0.0-1.0); Blood Urea Nitrogen 12 mg/dL (9-16); Calcium 9.3 mg/dL (8.4-10.2); Carbon Dioxide 26 mmol/L (22-29); Chloride 104 mmol/L (96-108); Creatinine Clr Calc Pharmacy 85.9; Estimated Glomerular Filt Rate > 60; Glucose Random 111 mg/dL (60-115); Potassium 4.6 mmol/L (3.3-5.1); Sodium 141 mmol/L (135-145); Total Protein 6.7 g/dL (6.5-8.0)
[2020-08-15] MEDS: ondansetron HCL/NS 16 MG/50 ML PIGGYBACK 200 MG IV (14:19)
[2020-08-15] MEDS: Famotidine/PF 20 MG/2 ML VIAL IVPUSH (14:19)
[2020-08-15] MEDS: Heparin Sodium,Porcine Flush 500 UNIT/5 ML SYRINGE IVFLUSH (14:19)
[2020-08-15] MEDS: Atezolizumab 1,200 MG in 0.9 % Sodium Chloride 250 ML 540 MG IV (14:57)
--- NOTE | 2020-08-15 15:47 | MHC.HEMONC ---
Atezolizumab maintenance well tolerated. Patient complains of ongoing dizziness with falls. Dr. Saunders updated. Order to start Physical Therapy. Appt made on 08/28/20 at 11am. Order faxed to [facility], confirmation received. Patient aware.
[2020-09-05 13:18] VITALS: BP 128/78; PULSE 76; RESP 12; TEMP 36.8; O2SAT 99; BMI 45.0
[2020-09-05 13:39] LABS: MANUAL DIFF FLAG NO
[2020-09-05 13:43] LABS: Basophils Percent Auto 0.5 % (0-2); Eosinophils Percent Auto 0.5 % (0-4); Hematocrit 31.9 % (37-47); Hemoglobin 10.6 g/dl (12.0-16.0); Imm Gran Abs Auto 0.01 X10*3/uL (0.00-0.03); Imm Gran Pct Auto 0.2 % (0.0-0.4); Lymphocytes Absolute Auto 1.6 X10*3/uL (1.2-4.9); Lymphocytes Percent Auto 27.2 % (20-40); Mean Corpuscular HGB Conc 33.2 g/dl (31.0-35.0); Mean Corpuscular Hemoglobin 35.1 pg (27.0-33.0); Mean Corpuscular Volume 105.6 fL (80-98); Mean Platelet Volume 9.1 fL (9.4-12.3); Monocytes Absolute Auto 0.6 X10*3/uL (0.1-1.2); Monocytes Percent Auto 9.2 % (2-11); Neutrophils Absolute Auto 3.7 X10*3/uL (2.0-8.3); Neutrophils Percent Auto 62.4 % (45-73); Platelet Count 229 X10*3/uL (160-400); Red Blood Count 3.02 X10*6/uL (4.20-5.50)
[2020-09-05 14:06] LABS: Alanine Aminotransferase 11 U/L (0-31); Albumin Level 3.9 g/dL (3.5-5.0); Alkaline Phosphatase 68 U/L (39-117); Anion Gap 11 (12-20); Aspartate Amino Transferase 15 U/L (5-31); Bilirubin Total 0.5 mg/dL (0.0-1.0); Blood Urea Nitrogen 18 mg/dL (9-16); Calcium 9.1 mg/dL (8.4-10.2); Carbon Dioxide 29 mmol/L (22-29); Chloride 103 mmol/L (96-108); Creatinine Clr Calc Pharmacy 87.8; Estimated Glomerular Filt Rate > 60; Glucose Fasting 94 mg/dL (60-99); Sodium 139 mmol/L (135-145); Total Protein 6.2 g/dL (6.5-8.0)
--- NOTE | 2020-09-05 14:10 | P.PNHO_ITS ---
Medical Summary - Medical Summary Date of Service: 09/05/20 Chief complaint: Dizziness and falls Medical Summary: Diagnosis: Small cell carcinoma of lung February 2019. Course: Admitted in February 2019 with shortness of breath and cough. CT chest showed left suprahilar mass measuring 5.5 x 6.1 x 8.5 cm, medial aspect of left upper lobe. This encircles and occludes the superior bronchus and lingular bronchus. Invades the mediastinum with slight mass effect. Peripherally, interstitial thickening postobstructive atelectasis versus lymphangitic carcinomatosis. Underwent bronchoscopy/biopsy on 02/27/2019, left upper lung mass pathology small cell carcinoma. IHC positive for cytokeratin, synaptophysin, chromogranin, TTF 1 rare cells and negative for CK 7, P40, Napsin, CD 20 and CD 45. Ki 67 markedly increased proliferation rate. PET scan performed at [facility] on 03/08/2019 showed intensely FDG avid left upperlobe/suprahilar mass measuring 7.7 x 8.1 x 10.3 cm, SUV 20.4 with direct invasion of the mediastinum compatible with malignancy. Mild FDG uptake with irregular ground-glass and consolidative opacity in the left upper lobe peripheral to the mass likely obstructive pneumonia. No evidence of FDG avid malignancy outside of the left chest. Left vocal cord paralysis. 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 Staging brain MRI with and without contrast showed scattered small vessel ischemic changes. No evidence of metastasis. Therapy: Carbo etoposide started 03/17/2019 Hospitalized with sepsis/neutropenia after cycle 2. E coli bacteremia that resolved with antibiotics. She completed 4 cycles. Received adjuvant radiation therapy from 05/14/2019 to 07/23/19. There were a few treatment delays with radiation because of poor performance status and side effects of treatment. Patient started systemic therapy with carboplatin/etoposide from 03/06/2019. Received concurrent adjuvant radiation therapy from 05/14/2019 to 07/23/19. There were a few treatment delays withr adiation because of poor performance status and side effects of treatment. She received 2 cycles of chemotherapy without radiation, 2 cycles during radiation. PET scan performed on 10/22/2019 at [facility] reported as: dramatic improvement in small cell carcinoma involving left upper lobe. Size of lesion decreased to 3.4 compared to 7.8 cm and SUV presently 4.5, previously 20.4. No new lesion or metastatic disease. She underwent prophylactic brain radiation at [facility], completed 11/26/2019. CT chest with contrast in February 2020 revealed new consolidation in the left upper lobe measuring 7.4 x 2.8 cm abutting aortic arch and extending into left superior pulmonary hilum. PET scan performed at [facility] on 04/01/2020 revealed hypermetabolic mass in the left upper lobe measuring 5.5 x 3.7 cm, SUV 11.7, increased size and hypermetabolism of 3 AP window lymph nodes measuring 1.1 cm, SUV 7.4 and 4.4, 5.2. No pleural effusion. No FDG avid malignancy outside the chest. Interval History Interval history: Patient is here in follow-up as well as scheduled treatment. She is doing okay but reports persistent dizziness and frequent falls. She does not feel this is her usual clumsiness which is different and does not cause this much falls. She feels the room spinning, no associated nausea but occasional headaches. She can barely walk across the room without support. She denies blurry vision, no numbness or tingling in her feet. No focal weakness. Review of Systems - Constitutional Reports as per HPI, Reports no additional constitutional complaints, Denies malaise, Denies night sweats, Denies poor appetite - Cardiovascular Reports no additional cardiovascular complaints - Respiratory Reports no additional respiratory complaints [facility] Medical History: Medical History (Last Updated 06/11/20 @ 14:54 by Bobby Phan MD) Arthritis COPD (chronic obstructive pulmonary disease) Depression Diverticulitis Encounter for colonoscopy due to history of colonic polyp History of diverticulitis of colon History of hepatitis Hypertension Hypothyroidism Traumatic brain injury Surgical History: Surgical History (Last Reviewed 06/09/20 @ 16:02 by Shantel Garrett MD) H/O section Hx of breast reduction, elective S/P bronchoscopy with biopsy Social History: Social History (Last Reviewed 06/09/20 @ 16:02 by Shantel Garrett MD) Living Situation History: Household Members: Other Housing: House Alcohol History: Alcohol intake: never Alcohol History Details: Alcohol intake frequency: former alcohol drinker Tobacco History: Smoking Status: Former smoker Packs Per Day: 1 Years Smoked: 53 Second Hand Smoke Exposure: No Substance Use History: Use of substances other than those prescribed or required for medical reasons : Yes Substance Use Type Other:: edibles Substance Use Frequency: Daily Domestic Abuse History: Have you been hit, kicked, punched, or otherwise hurt by someone within the past year? If so, by whom?: No Do you feel safe in your current relationship?: Yes Advance Directives: Advance Directives: Yes Advance Directives on File: Advance Directives on File comment: [id number] Advance Directives Date on File: 05/01/20 Nutrition Assessment: Recently lost weight without trying: No Nutrition Risks: No Nutritional Risk Patient : No : No Poor oral hygiene: No Occupation Assessmet: service: Yes Current occupational status: retired Smoking status: Former smoker Oncology Screenings - ECOG Performance Status ECOG Performance Status: 2 Home Medications and Allergies Current Medications: Current Medications Generic Name Dose Route Start Last Admin Trade Name Freq PRN Reason Stop Dose Admin Famotidine 20 mg 09/05/20 00:00 Famotidine/Pf 20 Mg/2 Ml Vial IVPUSH 09/05/20 23:59 ONCE SAM Heparin Sodium (Porcine) 500 unit 09/05/20 00:00 Heparin Sodium,Porcine Flush 500 Unit/5 Ml Syringe IVFLUSH 09/05/20 23:59 ONCE SAM Ondansetron HCl 16 mg in 50 mls @ 200 mls/hr 07/23/20 12:00 07/23/20 12:46 Zofran IV Infused ONCE SAM Infusion Ondansetron HCl 16 mg in 50 mls @ 200 mls/hr 07/24/20 08:30 07/24/20 11:34 Zofran IV Infused ONCE SAM Infusion Ondansetron HCl 16 mg in 50 mls @ 200 mls/hr 09/05/20 00:00 Zofran IV 09/05/20 23:59 ONCE SAM Home Medications Medication Instructions Recorded Confirmed Type albuterol sulfate 1.25 mg INHALATION Q4-6H PRN 04/10/20 08/15/20 History atenolol 25 mg PO DAILY 04/10/20 08/15/20 History budesonide-formoterol 2 puff INHALATION BID 04/10/20 08/15/20 History bupropion HCl 200 mg PO DAILY 04/10/20 08/15/20 History docusate sodium [Stool Softener] 100 mg PO DAILY 04/10/20 08/15/20 History duloxetine 30 mg PO DAILY 04/10/20 08/15/20 History levothyroxine 137 mcg PO DAILY 04/10/20 08/15/20 History levothyroxine 274 mcg PO DAILY 04/10/20 08/15/20 History meloxicam 15 mg PO BEDTIME 04/10/20 08/15/20 History multivitamin with minerals 1 tab PO DAILY 04/10/20 08/15/20 History nortriptyline 20 mg PO BEDTIME 04/10/20 08/15/20 History ondansetron 8 mg PO Q6H PRN 04/10/20 08/15/20 History tiotropium bromide 1 cap INHALATION DAILY 04/10/20 08/15/20 History omeprazole 20 mg PO DAILY 05/01/20 08/15/20 History olodaterol 2 inh INHALATION Q24H 06/09/20 08/15/20 History Allergies Allergy/AdvReac Type Severity Reaction Status Date / Time iodine [IODINE] Allergy Unknown ANAPHYLAXIS Verified 06/02/20 10:59 penicillin V Allergy Unknown Unknown Verified 06/02/20 10:59 Penicillins [PCN] Allergy Unknown HIVES Verified 06/02/20 10:59 shellfish derived Allergy Unknown UNKNOWN Verified 06/02/20 10:59 [SHELLFISH DERIVED] Exam Vital signs: Vital Signs Temp 98.2 F 09/05/20 13:18 Pulse 76 09/05/20 13:18 Resp 12 09/05/20 13:18 BP 128/78 09/05/20 13:18 Pulse Ox 99 09/05/20 13:18 Intake & Output 09/04/20 09/05/20 09/05/20 18:59 06:59 18:59 Other: Weight 119 kg [place] Weight in Grams [id number] Weight 119 kg Body Mass Index 45.0 - Constitutional Present: no acute distress - Routine HEENT Exam Head: Present: normal inspection - Routine Neck Exam Present: full ROM - Routine Respiratory Exam Present: CTAB - Routine Cardiovascular Exam Cardiovascular: Present: RRR, S1, S2 - Routine Abdominal Exam Present: normal bowel sounds - Routine Extremities Exam Present: full ROM Data - Labs CBC & Chem 7: 09/05/20 13:37 09/05/20 13:37 Labs: 04/10/20 10:44 Heparin Sodium,Porcine Flush 500 unit 0.9 % Sodium Chloride Flush [NS Flush] 5 ml IVFLUSH ONCE 04/10/20 11:07 Heparin Sodium,Porcine Flush 500 unit IVFLUSH .[facility] ONE 04/10/20 12:16 Alteplase Cath Clear [Cathflo Activase] 2 mg INTRACATH ONCE ONE 04/11/20 11:37 Alteplase Cath Clear [Cathflo Activase] 2 mg INTRACATH ONCE PRN 04/11/20 12:17 Carcinoembryonic Antigen Routine Complete Blood Count Auto Diff Routine Comprehensive Met. Panel Routine LDH [Lactate Dehydrogenase] Routine 05/06/20 10:27 Alteplase Cath Clear [Cathflo Activase] 2 mg INTRACATH ONCE ONE 05/06/20 10:50 Carcinoembryonic Antigen Routine Complete Blood Count Auto Diff Routine Comprehensive Met. Panel Routine Thyroid Stimulating Hormone Routine 05/06/20 12:13 Add Laboratory Test Stat 05/07/20 00:00 Acetaminophen [Tylenol] 650 mg PO ONCE Atezolizumab [Tecentriq] 1,200 mg 0.9 % Sodium Chloride [Ns] 250 ml IV ONCE CARBOplatin [Paraplatin] 530 mg 0.9 % Sodium Chloride 250 ml IV ONCE Etoposide [Toposar] 236 mg 0.9 % Sodium Chloride [Ns] 1,000 ml IV ONCE Famotidine/PF [Pepcid/PF] 20 mg IVPUSH ONCE Fosaprepitant Dimeglumine [Emend] 150 mg 0.9 % Sodium Chloride [Ns] 145 ml IV ONCE Heparin Sodium,Porcine Flush 500 unit IVFLUSH ONCE dexAMETHasone sod phosphate/NS [Decadron] 12 mg in 50 ml IV ONCE diphenhydrAMINE HCL [Benadryl] 25 mg PO ONCE ondansetron HCL/NS [Zofran] 16 mg in 50 ml IV ONCE 05/07/20 09:36 Alteplase Cath Clear [Cathflo Activase] 2 mg INTRACATH ONCE ONE 05/08/20 00:00 Etoposide [Toposar] 236 mg 0.9 % Sodium Chloride [Ns] 1,000 ml IV ONCE Heparin Sodium,Porcine Flush 500 unit IVFLUSH ONCE 05/08/20 11:07 Complete Blood Count Auto Diff Routine Comprehensive Met. Panel Routine Magnesium Routine SLIDE REVIEW Routine 05/08/20 12:45 dexAMETHasone sod phosphate/NS [Decadron] 12 mg in 50 ml IV ONCE ondansetron HCL/NS [Zofran] 16 mg in 50 ml IV ONCE 05/09/20 00:00 Etoposide [Toposar] 236 mg 0.9 % Sodium Chloride PVC Free [NS PVC Free] 1,000 ml IV ONCE Heparin Sodium,Porcine Flush 500 unit IVFLUSH ONCE 05/09/20 12:35 ondansetron HCL [Zofran] 16 mg IVPUSH ONCE ONE 05/09/20 12:37 Pegfilgrastim Onpro [Neulasta Onpro] 6 mg SUBCUT ONCE ONE 05/09/20 12:45 dexAMETHasone sod phosphate/NS [Decadron] 12 mg in 50 ml IV ONCE ondansetron HCL/NS [Zofran] 16 mg in 50 ml IV ONCE 05/09/20 15:09 Heparin Sodium,Porcine Flush 500 unit 0.9 % Sodium Chloride Flush [NS Flush] 5 ml IVFLUSH ONCE 05/22/20 10:05 Complete Blood Count Auto Diff Routine Profile w/ Glucose [place] [Comprehensive Met. Panel] Routine SLIDE REVIEW Routine 05/28/20 00:00 Atezolizumab [Tecentriq] 1,200 mg 0.9 % Sodium Chloride [Ns] 250 ml IV ONCE CARBOplatin [Paraplatin] 480 mg 0.9 % Sodium Chloride 250 ml IV ONCE Etoposide [Toposar] 230 mg 0.9 % Sodium Chloride PVC Free [NS PVC Free] 500 ml IV ONCE Famotidine/PF [Pepcid/PF] 20 mg IVPUSH ONCE Fosaprepitant Dimeglumine [Emend] 150 mg 0.9 % Sodium Chloride [Ns] 145 ml IV ONCE Heparin Sodium,Porcine Flush 500 unit IVFLUSH ONCE dexAMETHasone sod phosphate/NS [Decadron] 12 mg in 50 ml IV ONCE diphenhydrAMINE HCL [Benadryl] 25 mg PO ONCE ondansetron HCL/NS [Zofran] 16 mg in 50 ml IV ONCE 05/28/20 08:56 Complete Blood Count Auto Diff Routine Comprehensive Met. Panel Routine 05/28/20 12:00 Etoposide [Toposar] 230 mg 0.9 % Sodium Chloride [Ns] 1,000 ml IV ONCE 05/29/20 00:00 Etoposide [Toposar] 230 mg 0.9 % Sodium Chloride [Ns] 1,000 ml IV ONCE Heparin Sodium,Porcine Flush 500 unit IVFLUSH ONCE 05/29/20 11:45 dexAMETHasone sod phosphate/NS [Decadron] 12 mg in 50 ml IV ONCE ondansetron HCL/NS [Zofran] 16 mg in 50 ml IV ONCE 05/30/20 00:00 Etoposide [Toposar] 230 mg 0.9 % Sodium Chloride [Ns] 1,000 ml IV ONCE Heparin Sodium,Porcine Flush 500 unit IVFLUSH ONCE 05/30/20 10:53 Pegfilgrastim Onpro [Neulasta Onpro] 6 mg SUBCUT ONCE ONE 05/30/20 11:00 dexAMETHasone sod phosphate/NS [Decadron] 12 mg in 50 ml IV ONCE ondansetron HCL/NS [Zofran] 16 mg in 50 ml IV ONCE 05/30/20 12:00 dexAMETHasone sod phosphate/NS [Decadron] 12 mg in 50 ml IV ONCE 06/18/20 10:35 Type and Screen Routine Complete Blood Count Auto Diff Routine Comprehensive Met. Panel Routine 06/25/20 13:43 Complete Blood Count Auto Diff Routine IRON PROFILE Routine 07/01/20 00:00 Atezolizumab [Tecentriq] 1,200 mg 0.9 % Sodium Chloride [Ns] 250 ml IV ONCE CARBOplatin [Paraplatin] 300 mg 0.9 % Sodium Chloride 250 ml IV ONCE CARBOplatin [Paraplatin] 365 mg 0.9 % Sodium Chloride 250 ml IV ONCE Etoposide [Toposar] 164 mg 0.9 % Sodium Chloride PVC Free [NS PVC Free] 500 ml IV ONCE Famotidine/PF [Pepcid/PF] 20 mg IVPUSH ONCE Fosaprepitant Dimeglumine [Emend] 150 mg 0.9 % Sodium Chloride [Ns] 145 ml IV ONCE Heparin Sodium,Porcine Flush 500 unit IVFLUSH ONCE dexAMETHasone sod phosphate/NS [Decadron] 12 mg in 50 ml IV ONCE diphenhydrAMINE HCL [Benadryl] 25 mg PO ONCE ondansetron HCL/NS [Zofran] 16 mg in 50 ml IV ONCE 07/01/20 09:28 Complete Blood Count Auto Diff Routine Comprehensive Met. Panel Routine 07/02/20 00:00 Etoposide [Toposar] 164 mg 0.9 % Sodium Chloride PVC Free [NS PVC Free] 500 ml IV ONCE Heparin Sodium,Porcine Flush 500 unit IVFLUSH ONCE 07/02/20 12:00 ondansetron HCL/NS [Zofran] 16 mg in 50 ml IV ONCE 07/02/20 12:09 dexAMETHasone sod phosphate/PF [Decadron] 12 mg IV ONCE ONE 07/02/20 12:45 dexAMETHasone sod phosphate/NS [Decadron] 12 mg in 50 ml IV ONCE 07/03/20 00:00 Etoposide [Toposar] 164 mg 0.9 % Sodium Chloride PVC Free [NS PVC Free] 500 ml IV ONCE Heparin Sodium,Porcine Flush 500 unit IVFLUSH ONCE 07/03/20 08:45 dexAMETHasone sod phosphate/NS [Decadron] 12 mg in 50 ml IV ONCE ondansetron HCL/NS [Zofran] 16 mg in 50 ml IV ONCE 07/03/20 13:23 Pegfilgrastim Onpro [Neulasta Onpro] 6 mg SUBCUT ONCE ONE 07/09/20 09:55 Complete Blood Count Auto Diff Routine Comprehensive Met. Panel Routine 07/15/20 09:56 Tbo-Filgrastim [Granix] 480 mcg SUBCUT ONCE ONE 07/15/20 10:05 Complete Blood Count Auto Diff Routine Comprehensive Met. Panel Routine 07/16/20 10:46 Tbo-Filgrastim [Granix] 480 mcg SUBCUT ONCE ONE 07/17/20 08:39 Tbo-Filgrastim [Granix] 480 mcg SUBCUT ONCE ONE 07/22/20 00:00 Atezolizumab [Tecentriq] 1,200 mg 0.9 % Sodium Chloride [Ns] 250 ml IV ONCE CARBOplatin [Paraplatin] 365 mg 0.9 % Sodium Chloride 250 ml IV ONCE Etoposide [Toposar] 164 mg 0.9 % Sodium Chloride PVC Free [NS PVC Free] 500 ml IV ONCE Famotidine/PF [Pepcid/PF] 20 mg IVPUSH ONCE Fosaprepitant Dimeglumine [Emend] 150 mg 0.9 % Sodium Chloride [Ns] 145 ml IV ONCE Heparin Sodium,Porcine Flush 500 unit IVFLUSH ONCE dexAMETHasone sod phosphate/NS [Decadron] 12 mg in 50 ml IV ONCE diphenhydrAMINE HCL [Benadryl] 25 mg PO ONCE ondansetron HCL/NS [Zofran] 16 mg in 50 ml IV ONCE 07/22/20 09:09 Complete Blood Count Man Dif Routine Comprehensive Met. Panel Routine 07/23/20 00:00 Etoposide [Toposar] 164 mg 0.9 % Sodium Chloride PVC Free [NS PVC Free] 500 ml IV ONCE Heparin Sodium,Porcine Flush 500 unit IVFLUSH ONCE 07/23/20 12:00 dexAMETHasone sod phosphate/PF [Decadron] 12 mg 0.9 % Sodium Chloride [Ns] 50 ml IV ONCE 07/23/20 13:00 dexAMETHasone sod phosphate/NS [Decadron] 12 mg in 50 ml IV ONCE 07/24/20 00:00 Etoposide [Toposar] 164 mg 0.9 % Sodium Chloride PVC Free [NS PVC Free] 500 ml IV ONCE Heparin Sodium,Porcine Flush 500 unit IVFLUSH ONCE 07/24/20 08:30 dexAMETHasone sod phosphate/NS [Decadron] 12 mg in 50 ml IV ONCE 07/24/20 11:30 dexAMETHasone sod phosphate/NS [Decadron] 12 mg in 50 ml IV ONCE 07/25/20 13:29 Pegfilgrastim [Neulasta] 6 mg SUBCUT ONCE ONE 08/15/20 00:00 Atezolizumab [Tecentriq] 1,200 mg 0.9 % Sodium Chloride [Ns] 250 ml IV ONCE Famotidine/PF [Pepcid/PF] 20 mg IVPUSH ONCE Heparin Sodium,Porcine Flush 500 unit IVFLUSH ONCE ondansetron HCL/NS [Zofran] 16 mg in 50 ml IV ONCE 08/15/20 13:02 Complete Blood Count Auto Diff Routine Comprehensive Met. Panel Routine 09/05/20 13:37 Complete Blood Count Auto Diff Routine Laboratory Last Values WBC 6.0 X10*3/uL (4.8-10.8) 09/05/20 13:37 RBC 3.02 X10*6/uL (4.20-5.50) L 09/05/20 13:37 Hgb 10.6 g/dl (12.0-16.0) L 09/05/20 13:37 Hct 31.9 % (37-47) L 09/05/20 13:37 MCV 105.6 fL (80-98) H 09/05/20 13:37 MCH 35.1 pg (27.0-33.0) H 09/05/20 13:37 MCHC 33.2 g/dl (31.0-35.0) 09/05/20 13:37 RDW 13.0 % (11.0-16.0) 09/05/20 13:37 Plt Count 229 X10*3/uL (160-400) 09/05/20 13:37 MPV 9.1 fL (9.4-12.3) L 09/05/20 13:37 Immature Gran % (Auto) 0.2 % (0.0-0.4) 09/05/20 13:37 Neut % (Auto) 62.4 % (45-73) 09/05/20 13:37 Lymph % (Auto) 27.2 % (20-40) 09/05/20 13:37 Dent % (Auto) 9.2 % (2-11) 09/05/20 13:37 Eos % (Auto) 0.5 % (0-4) 09/05/20 13:37 Baso % (Auto) 0.5 % (0-2) 09/05/20 13:37 Neut # (Auto) 3.6 X10*3/uL (2.0-8.3) 04/11/20 12:17 Lymph # (Auto) 1.6 X10*3/uL (1.2-4.9) 09/05/20 13:37 Dent # (Auto) 0.6 X10*3/uL (0.1-1.2) 09/05/20 13:37 Eos # (Auto) 0.0 X10*3/uL (0.0-0.4) 09/05/20 13:37 Baso # (Auto) 0.0 X10*3/uL (0.0-0.2) 09/05/20 13:37 Abs Immat Gran (auto) 0.01 X10*3/uL (0.00-0.03) 09/05/20 13:37 Absolute Neuts (auto) 3.7 X10*3/uL (2.0-8.3) 09/05/20 13:37 Absolute Nucleated RBC 0.000 X10*3/uL (0.0-0.012) 09/05/20 13:37 Nucleated RBC % (auto) 0.0 /100WBC (0.0-0.2) 09/05/20 13:37 Neutrophils % (Manual) 54 % (45-73) 07/22/20 09:09 Band Neutrophils % 5 % (3-5) 07/22/20 09:09 Lymphocytes % (Manual) 26 % (20-40) 07/22/20 09:09 Monocytes % (Manual) 15 % (2-11) H 07/22/20 09:09 Abs Neuts (Manual) 2.1 X10*3/uL (2.2-7.9) L 07/22/20 09:09 Lymphocytes # (Manual) 0.9 X10*3/uL (0.6-4.8) 07/22/20 09:09 Monocytes # (Manual) 0.5 X10*3/uL (0.0-1.2) 07/22/20 09:09 Nucleated RBCs 1 /100WBC (0-0) H 07/22/20 09:09 Platelet Estimate SLIGHTLY DECREASED (NORMAL) 07/22/20 09:09 Plt Morphology Comment NORMAL 07/22/20 09:09 RBC Morphology NOTED 07/22/20 09:09 Polychromasia 1+ 07/22/20 09:09 Hypochromasia 1+ 07/22/20 09:09 Macrocytosis 1+ 07/22/20 09:09 Tear Drop Cells 1+ 07/22/20 09:09 Smear Tech's Comments VERIFIED 05/22/20 10:05 Sodium 139 mmol/L (135-145) 09/05/20 13:37 Potassium 4.0 mmol/L (3.3-5.1) 09/05/20 13:37 Chloride 103 mmol/L (96-108) 09/05/20 13:37 Carbon Dioxide 29 mmol/L (22-29) 09/05/20 13:37 Anion Gap 11 (12-20) L 09/05/20 13:37 BUN 18 mg/dL (9-16) H 09/05/20 13:37 Creatinine 0.80 mg/dL (0.5-1.4) 09/05/20 13:37 Estim Creat Clear Calc 87.8 09/05/20 13:37 Estimated GFR > 60 09/05/20 13:37 Random Glucose 111 mg/dL (60-115) 08/15/20 13:02 Fasting Glucose 94 mg/dL (60-99) 09/05/20 13:37 Calcium 9.1 mg/dL (8.4-10.2) 09/05/20 13:37 Magnesium 2.1 mg/dL (1.6-2.6) 05/08/20 11:07 Iron 93 mcg/dL (30-160) 06/25/20 13:43 TIBC 191 mcg/dL (228-428) L 06/25/20 13:43 % Saturation 49 % (15-50) 06/25/20 13:43 Unsat Iron Binding 98 ug/dL 06/25/20 13:43 Total Bilirubin 0.5 mg/dL (0.0-1.0) 09/05/20 13:37 AST 15 U/L (5-31) 09/05/20 13:37 ALT 11 U/L (0-31) 09/05/20 13:37 Alkaline Phosphatase 68 U/L (39-117) 09/05/20 13:37 Lactate Dehydrogenase 167 U/L (122-220) 04/11/20 12:17 Total Protein 6.2 g/dL (6.5-8.0) L 09/05/20 13:37 Albumin 3.9 g/dL (3.5-5.0) 09/05/20 13:37 Carcinoembryonic Ag 3.70 mg/mL D 05/06/20 10:50 TSH 0.38 mIU/mL (0.32-4.0) 05/06/20 10:50 Blood Type O Positive 06/18/20 10:35 Antibody Screen NEGATIVE 06/18/20 10:35 Progress Note: A/P (1) Small cell lung cancer Status: Acute Assessment and plan: 1. This is a 65-year-old woman with Small cell lung Cancer originating in the left upper lobe. Clinical stage T4 N0 M0, limited stage small cell cancer of the left upper lobe. Patient started systemic therapy with carboplatin/etoposide from 03/06/2019. Received concurrent adjuvant radiation therapy from 05/14/2019 to 07/23/19. She underwent prophylactic brain radiation at [facility]. She has had local recurrence as evidenced by PET-CT and subsequent bronchoscopy/biopsy. On 05/01/2020 biopsy revealed positive for small cell carcinoma on lymph node station 7. Left mainstem bronchial nodule biopsy, no malignancy identified. Patient started chemotherapy with carboplatin/etoposide and atezolizumab with Neulasta support from 05/07/2020. She was admitted after cycle 2 with neutropenic bacteremia, Clostridium septicum on 06/08/2020. She completed 4 cycles of treatment with chemotherapy. She started atezolizumab maintenance from 09/05/20. 2. Persistent dizziness, frequent falls. I have ordered brain MRI scan. Met astasis from small cell lung cancer is a high possibility. I reviewed PET scan findings with patient, performed at [facility] on 08/25/2020 showed interval decrease in size and FDG avidity of left upper lobe mass. Now measuring 3.8 x 2.3 cm, previously 7.3 x 4 cm. SUV previously 11.7, now 4.92. Mediastinal adenopathy has resolved. No signs of distal metastatic disease. Follow-up in 3 weeks. - Time Spent With Patient Total time spent is greater than 50% in coordination of care (as documented) at patient's floor/unit and/or counseling patient: 25 - 35 minutes
[2020-09-05 14:25] LABS: Thyroid Stimulating Hormone 0.02 uIU/mL (0.32-4.0)
[2020-09-05] MEDS: ondansetron HCL/NS 16 MG/50 ML PIGGYBACK 200 MG IV (14:26)
[2020-09-05] MEDS: Famotidine/PF 20 MG/2 ML VIAL IVPUSH (14:26)
[2020-09-05] MEDS: Atezolizumab 1,200 MG in 0.9 % Sodium Chloride 250 ML 540 MG IV (14:56)
[2020-09-05] MEDS: Heparin Sodium,Porcine Flush 500 UNIT/5 ML SYRINGE IVFLUSH (15:36)
--- NOTE | 2020-09-05 15:58 | MHC.HEMONC ---
Pt here for cycle 6 day 1 of Atezolizumab IV. Peripheral blood draw by phlebotomy. Port accessed, flushes easily with no blood return. Dr Saunders aware. Dr Saunders into see pt. Lab results reviewed. Pre medicated with zofran 16mg IV and pepcid 20mg IV. Pt states she has fallen at home with no injuries pt, moves all extremities currently, alert and orientated. Atezolizumab IV infused without difficulty. Port flushed with heparin and de accessed. Follow up appointment made. Order for MRI given to Carrie Crews.
--- NOTE | 2020-09-08 09:01 | HO.HEMONCPA ---
DAVONTE DORANTES [id number]
--- NOTE | 2020-09-08 09:04 | MHC.HEMONCSW ---
[facility] MRI ORDER FAXED WITH [facility]. MRI OF BRAIN W$WO C.
--- NOTE | 2020-09-10 08:58 | MHC.HEMONCSW ---
[facility] brain mri is on 09/13/20 at 12:40pm
--- NOTE | 2020-09-12 15:49 | MHC.HEMONCSW ---
SHAD CONTE RN AT [facility]...[phone]. PHONED, INFORMED HER THAT JON AT [facility] REFUSES TO DO BRAIN MRI WITH AUTH I PROVIDED. SHAD WILL CALL JON AT [phone]
--- NOTE | 2020-09-23 14:56 | MHC.HEMONCSW ---
MRI AT [facility] IS STILL NOT DONE EVEN WITH SHAD CONTE AT [facility].....STATES SHE SPOKE WITH TAISHA/DA[facility]ON[facility] AND IT WAS ALL SET. PATIENT WAS GIVEN APPOINTMENT BUT TURNED AWAY AT THE DOOR. PHONED, L/M FOR TAISHA AT [phone]
[2020-09-26 10:58] VITALS: BP 130/72; PULSE 86; RESP 18; TEMP 36.4; O2SAT 95; BMI 44.7
[2020-09-26 11:26] LABS: MANUAL DIFF FLAG NO
[2020-09-26 11:35] LABS: Basophils Percent Auto 0.4 % (0-2); Eosinophils Percent Auto 0.1 % (0-4); Hematocrit 36.8 % (37-47); Hemoglobin 12.1 g/dl (12.0-16.0); Imm Gran Abs Auto 0.03 X10*3/uL (0.00-0.03); Imm Gran Pct Auto 0.4 % (0.0-0.4); Lymphocytes Absolute Auto 1.5 X10*3/uL (1.2-4.9); Lymphocytes Percent Auto 22.4 % (20-40); Mean Corpuscular HGB Conc 32.9 g/dl (31.0-35.0); Mean Corpuscular Hemoglobin 33.3 pg (27.0-33.0); Mean Corpuscular Volume 101.4 fL (80-98); Mean Platelet Volume 9.5 fL (9.4-12.3); Monocytes Absolute Auto 0.5 X10*3/uL (0.1-1.2); Monocytes Percent Auto 6.9 % (2-11); Neutrophils Absolute Auto 4.8 X10*3/uL (2.0-8.3); Neutrophils Percent Auto 69.8 % (45-73); Platelet Count 229 X10*3/uL (160-400); Red Blood Count 3.63 X10*6/uL (4.20-5.50); Red Cell Distribution Width 12.5 % (11.0-16.0); White Blood Count 6.8 X10*3/uL (4.8-10.8)
[2020-09-26 11:59] LABS: Alanine Aminotransferase 12 U/L (0-31); Alkaline Phosphatase 75 U/L (39-117); Anion Gap 13 (12-20); Aspartate Amino Transferase 16 U/L (5-31); Bilirubin Total 0.5 mg/dL (0.0-1.0); Blood Urea Nitrogen 19 mg/dL (9-16); Calcium 9.4 mg/dL (8.4-10.2); Carbon Dioxide 30 mmol/L (22-29); Chloride 100 mmol/L (96-108); Creatinine Clr Calc Pharmacy 85.3; Estimated Glomerular Filt Rate > 60; Glucose Random 106 mg/dL (60-115); Potassium 4.5 mmol/L (3.3-5.1); Sodium 138 mmol/L (135-145); Total Protein 6.5 g/dL (6.5-8.0)
[2020-09-26] MEDS: Famotidine/PF 20 MG/2 ML VIAL IVPUSH (12:16)
[2020-09-26] MEDS: ondansetron HCL/NS 16 MG/50 ML PIGGYBACK 200 MG IV (12:19)
[2020-09-26 12:20] LABS: Thyroid Stimulating Hormone 0.04 uIU/mL (0.32-4.0)
[2020-09-26] MEDS: Atezolizumab 1,200 MG in 0.9 % Sodium Chloride 250 ML 540 MG IV (13:06)
[2020-09-26] MEDS: Heparin Sodium,Porcine Flush 500 UNIT/5 ML SYRINGE IVFLUSH (13:44)
--- NOTE | 2020-09-26 14:45 | MHC.HEMONC ---
Pt here for cycle 6 day 1 of Atezolizumab IV. Peripheral labs drawn by phlebotomy and sent to lab. Port accessed, flushes easily with normal saline with no blood return. Dr Saunders notified of no blood return from port-verbal okay to use port per Dr Saunders. Lab results reviewed, TSH 0.[address] Saunders-pt instructed to take 137mcg synthroid orally every day per Dr Saunders. Pt verbalizes understanding. Pre medicated with 16mg zofran IV, 20mg pepcid IV. Atezolizumab IV given as ordered. Port flushed with heparin and de accessed. Follow up appointment given
[2020-10-17 10:37] VITALS: BP 142/81; PULSE 75; RESP 18; TEMP 36.2; O2SAT 97; BMI 44.6
--- NOTE | 2020-10-17 10:58 | P.PNHO_ITS ---
Medical Summary - Medical Summary Date of Service: 10/17/20 Chief complaint: Follow-up and treatment Medical Summary: Diagnosis: Small cell carcinoma of lung February 2019. Course: Admitted in February 2019 with shortness of breath and cough. CT chest showed left suprahilar mass measuring 5.5 x 6.1 x 8.5 cm, medial aspect of left upper lobe. This encircles and occludes the superior bronchus and lingular bronchus. Invades the mediastinum with slight mass effect. Peripherally, interstitial thickening postobstructive atelectasis versus lymphangitic carcinomatosis. Underwent bronchoscopy/biopsy on 02/27/2019, left upper lung mass pathology small cell carcinoma. IHC positive for cytokeratin, synaptophysin, chromogranin, TTF 1 rare cells and negative for CK 7, P40, Napsin, CD 20 and CD 45. Ki 67 markedly increased proliferation rate. PET scan performed at [facility] on 03/08/2019 showed intensely FDG avid left upperlobe/suprahilar mass measuring 7.7 x 8.1 x 10.3 cm, SUV 20.4 with direct invasion of the mediastinum compatible with malignancy. Mild FDG uptake with irregular ground-glass and consolidative opacity in the left upper lobe peripheral to the mass likely obstructive pneumonia. No evidence of FDG avid malignancy outside of the left chest. Left vocal cord paralysis. 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 Staging brain MRI with and without contrast showed scattered small vessel ischemic changes. No evidence of metastasis. Therapy: Carbo etoposide started 03/17/2019 Hospitalized with sepsis/neutropenia after cycle 2. E coli bacteremia that resolved with antibiotics. She completed 4 cycles. Received adjuvant radiation therapy from 05/14/2019 to 07/23/19. There were a few treatment delays with radiation because of poor performance status and side effects of treatment. Patient started systemic therapy with carboplatin/etoposide from 03/06/2019. Received concurrent adjuvant radiation therapy from 05/14/2019 to 07/23/19. There were a few treatment delays withr adiation because of poor performance status and side effects of treatment. She received 2 cycles of chemotherapy without radiation, 2 cycles during radiation. PET scan performed on 10/22/2019 at [facility] reported as: dramatic improvement in small cell carcinoma involving left upper lobe. Size of lesion decreased to 3.4 compared to 7.8 cm and SUV presently 4.5, previously 20.4. No new lesion or metastatic disease. She underwent prophylactic brain radiation at [facility], completed 11/26/2019. CT chest with contrast in February 2020 revealed new consolidation in the left upper lobe measuring 7.4 x 2.8 cm abutting aortic arch and extending into left superior pulmonary hilum. PET scan performed at [facility] on 04/01/2020 revealed hypermetabolic mass in the left upper lobe measuring 5.5 x 3.7 cm, SUV 11.7, increased size and hypermetabolism of 3 AP window lymph nodes measuring 1.1 cm, SUV 7.4 and 4.4, 5.2. No pleural effusion. No FDG avid malignancy outside the chest. PET scan, [facility] on 08/25/2020 showed interval decrease in size and FDG avidity of left upper lobe mass. Now measuring 3.8 x 2.3 cm, previously 7.3 x 4 cm. SUV previously 11.7, now 4.92. Mediastinal adenopathy has resolved. No signs of distal metastatic disease. Interval History Interval history: Patient is here in follow-up and scheduled treatment. Overall she is feeling better. She continues to have her dizzy spells and balance problems. She is st ill waiting for brain MRI. Her appetite is better, she denies weight loss, cough, shortness of breath, fever or chills. She denies diarrhea or nausea and tolerating treatment quite well. Review of Systems - Constitutional Reports as per HPI, Reports no additional constitutional complaints - Cardiovascular Reports no additional cardiovascular complaints - Respiratory Reports no additional respiratory complaints - Gastrointestinal Reports no additional gastrointestinal complaints [facility] Medical History: Medical History (Last Reviewed 09/11/20 @ 02:24 by Richy Sams MD) Arthritis COPD (chronic obstructive pulmonary disease) Depression Diverticulitis Encounter for colonoscopy due to history of colonic polyp History of diverticulitis of colon History of hepatitis Hypertension Hypothyroidism Traumatic brain injury Family History: Family History (Last Reviewed 09/11/20 @ 02:24 by Richy Sams MD) Brother Diabetes Father Surgical History: Surgical History (Last Reviewed 09/11/20 @ 02:24 by Richy Sams MD) H/O section Hx of breast reduction, elective S/P bronchoscopy with biopsy Social History: Social History (Last Reviewed 09/11/20 @ 02:24 by Richy Sams MD) Living Situation History: Household Members: Other Housing: House Alcohol History: Alcohol intake: never Alcohol History Details: Alcohol intake frequency: former alcohol drinker Tobacco History: Smoking Status: Former smoker Packs Per Day: 1 Years Smoked: 53 Second Hand Smoke Exposure: No Substance Use History: Use of substances other than those prescribed or required for medical reasons : Yes Substance Use Type Other:: edibles Substance Use Frequency: Daily Domestic Abuse History: Have you been hit, kicked, punched, or otherwise hurt by someone within the past year? If so, by whom?: No Do you feel safe in your current relationship?: Yes Advance Directives: Advance Directives: Yes Advance Directives on File: Advance Directives on File comment: [id number] Advance Directives Date on File: 05/01/20 Nutrition Assessment: Recently lost weight without trying: No Nutrition Risks: No Nutritional Risk Patient : No : No Poor oral hygiene: No Occupation Assessmet: service: Yes Current occupational status: retired Smoking status: Former smoker Home Medications and Allergies Current Medications: Current Medications Generic Name Dose Route Start Last Admin Trade Name Freq PRN Reason Stop Dose Admin Famotidine 20 mg 10/17/20 00:00 Famotidine/Pf 20 Mg/2 Ml Vial IVPUSH 10/17/20 23:59 ONCE SAM Heparin Sodium (Porcine) 500 unit 10/17/20 00:00 Heparin Sodium,Porcine Flush 500 Unit/5 Ml Syringe IVFLUSH 10/17/20 23:59 ONCE SAM Ondansetron HCl 16 mg in 50 mls @ 200 mls/hr 07/23/20 12:00 07/23/20 12:46 Zofran IV Infused ONCE SAM Infusion Ondansetron HCl 16 mg in 50 mls @ 200 mls/hr 07/24/20 08:30 07/24/20 11:34 Zofran IV Infused ONCE SAM Infusion Ondansetron HCl 16 mg in 50 mls @ 200 mls/hr 10/17/20 00:00 Zofran IV 10/17/20 23:59 ONCE SAM Home Medications Medication Instructions Recorded Confirmed Type albuterol sulfate 1.25 mg INHALATION Q4-6H PRN 04/10/20 09/05/20 History atenolol 25 mg PO DAILY 04/10/20 09/05/20 History budesonide-formoterol 2 puff INHALATION BID 04/10/20 09/05/20 History bupropion HCl 200 mg PO DAILY 04/10/20 09/05/20 History docusate sodium [Stool Softener] 100 mg PO DAILY 04/10/20 09/05/20 History duloxetine 30 mg PO DAILY 04/10/20 09/05/20 History levothyroxine 137 mcg PO DAILY 04/10/20 09/05/20 History levothyroxine 274 mcg PO DAILY 04/10/20 09/05/20 History meloxicam 15 mg PO BEDTIME 04/10/20 09/05/20 History multivitamin with minerals 1 tab PO DAILY 04/10/20 09/05/20 History nortriptyline 20 mg PO BEDTIME 04/10/20 09/05/20 History ondansetron 8 mg PO Q6H PRN 04/10/20 09/05/20 History tiotropium bromide 1 cap INHALATION DAILY 04/10/20 09/05/20 History omeprazole 20 mg PO DAILY 05/01/20 09/05/20 History olodaterol 2 inh INHALATION Q24H 06/09/20 09/05/20 History budesonide-formoterol [Symbicort] INHALATION 09/26/20 History tiotropium bromide [Spiriva INHALATION 09/26/20 09/26/20 History Respimat] Allergies Allergy/AdvReac Type Severity Reaction Status Date / Time penicillin V Allergy Unknown Unknown Verified 06/02/20 10:59 Penicillins [PCN] Allergy Unknown HIVES Verified 06/02/20 10:59 shellfish derived Allergy Unknown UNKNOWN Verified 06/02/20 10:59 [SHELLFISH DERIVED] Exam Vital signs: Vital Signs Temp 97.2 F 10/17/20 10:37 Pulse 75 10/17/20 10:37 Resp 18 10/17/20 10:37 BP 142/81 H 10/17/20 10:37 Pulse Ox 97 10/17/20 10:37 Intake & Output 10/16/20 10/17/20 10/17/20 18:59 06:59 18:59 Other: Weight 117.9 kg [place] Weight in Grams [id number] Weight 117.9 kg Body Mass Index 44.6 - Constitutional Present: no acute distress - Routine HEENT Exam Head: Present: normal inspection - Routine Neck Exam Present: full ROM - Routine Respiratory Exam Present: CTAB - Routine Cardiovascular Exam Cardiovascular: Present: RRR, S1, S2 - Routine Abdominal Exam Present: normal bowel sounds - Routine Extremities Exam Absent: pedal edema Data - Labs CBC & Chem 7: 10/17/20 11:10 10/17/20 11:10 Labs: 04/10/20 10:44 Heparin Sodium,Porcine Flush 500 unit 0.9 % Sodium Chloride Flush [NS Flush] 5 ml IVFLUSH ONCE 04/10/20 11:07 Heparin Sodium,Porcine Flush 500 unit IVFLUSH .STK-MED ONE 04/10/20 12:16 Alteplase Cath Clear [Cathflo Activase] 2 mg INTRACATH ONCE ONE 04/11/20 11:37 Alteplase Cath Clear [Cathflo Activase] 2 mg INTRACATH ONCE PRN 04/11/20 12:17 Carcinoembryonic Antigen Routine Complete Blood Count Auto Diff Routine Comprehensive Met. Panel Routine LDH [Lactate Dehydrogenase] Routine 05/06/20 10:27 Alteplase Cath Clear [Cathflo Activase] 2 mg INTRACATH ONCE ONE 05/06/20 10:50 Carcinoembryonic Antigen Routine Complete Blood Count Auto Diff Routine Comprehensive Met. Panel Routine Thyroid Stimulating Hormone Routine 05/06/20 12:13 Add Laboratory Test Stat 05/07/20 00:00 Acetaminophen [Tylenol] 650 mg PO ONCE Atezolizumab [Tecentriq] 1,200 mg 0.9 % Sodium Chloride [Ns] 250 ml IV ONCE CARBOplatin [Paraplatin] 530 mg 0.9 % Sodium Chloride 250 ml IV ONCE Etoposide [Toposar] 236 mg 0.9 % Sodium Chloride [Ns] 1,000 ml IV ONCE Famotidine/PF [Pepcid/PF] 20 mg IVPUSH ONCE Fosaprepitant Dimeglumine [Emend] 150 mg 0.9 % Sodium Chloride [Ns] 145 ml IV ONCE Heparin Sodium,Porcine Flush 500 unit IVFLUSH ONCE dexAMETHasone sod phosphate/NS [Decadron] 12 mg in 50 ml IV ONCE diphenhydrAMINE HCL [Benadryl] 25 mg PO ONCE ondansetron HCL/NS [Zofran] 16 mg in 50 ml IV ONCE 05/07/20 09:36 Alteplase Cath Clear [Cathflo Activase] 2 mg INTRACATH ONCE ONE 05/08/20 00:00 Etoposide [Toposar] 236 mg 0.9 % Sodium Chloride [Ns] 1,000 ml IV ONCE Heparin Sodium,Porcine Flush 500 unit IVFLUSH ONCE 05/08/20 11:07 Complete Blood Count Auto Diff Routine Comprehensive Met. Panel Routine Magnesium Routine SLIDE REVIEW Routine 05/08/20 12:45 dexAMETHasone sod phosphate/NS [Decadron] 12 mg in 50 ml IV ONCE ondansetron HCL/NS [Zofran] 16 mg in 50 ml IV ONCE 05/09/20 00:00 Etoposide [Toposar] 236 mg 0.9 % Sodium Chloride PVC Free [NS PVC Free] 1,000 ml IV ONCE Heparin Sodium,Porcine Flush 500 unit IVFLUSH ONCE 05/09/20 12:35 ondansetron HCL [Zofran] 16 mg IVPUSH ONCE ONE 05/09/20 12:37 Pegfilgrastim Onpro [Neulasta Onpro] 6 mg SUBCUT ONCE ONE 05/09/20 12:45 dexAMETHasone sod phosphate/NS [Decadron] 12 mg in 50 ml IV ONCE ondansetron HCL/NS [Zofran] 16 mg in 50 ml IV ONCE 05/09/20 15:09 Heparin Sodium,Porcine Flush 500 unit 0.9 % Sodium Chloride Flush [NS Flush] 5 ml IVFLUSH ONCE 05/22/20 10:05 Complete Blood Count Auto Diff Routine Profile w/ Glucose [place] [Comprehensive Met. Panel] Routine SLIDE REVIEW Routine 05/28/20 00:00 Atezolizumab [Tecentriq] 1,200 mg 0.9 % Sodium Chloride [Ns] 250 ml IV ONCE CARBOplatin [Paraplatin] 480 mg 0.9 % Sodium Chloride 250 ml IV ONCE Etoposide [Toposar] 230 mg 0.9 % Sodium Chloride PVC Free [NS PVC Free] 500 ml IV ONCE Famotidine/PF [Pepcid/PF] 20 mg IVPUSH ONCE Fosaprepitant Dimeglumine [Emend] 150 mg 0.9 % Sodium Chloride [Ns] 145 ml IV ONCE Heparin Sodium,Porcine Flush 500 unit IVFLUSH ONCE dexAMETHasone sod phosphate/NS [Decadron] 12 mg in 50 ml IV ONCE diphenhydrAMINE HCL [Benadryl] 25 mg PO ONCE ondansetron HCL/NS [Zofran] 16 mg in 50 ml IV ONCE 05/28/20 08:56 Complete Blood Count Auto Diff Routine Comprehensive Met. Panel Routine 05/28/20 12:00 Etoposide [Toposar] 230 mg 0.9 % Sodium Chloride [Ns] 1,000 ml IV ONCE 05/29/20 00:00 Etoposide [Toposar] 230 mg 0.9 % Sodium Chloride [Ns] 1,000 ml IV ONCE Heparin Sodium,Porcine Flush 500 unit IVFLUSH ONCE 05/29/20 11:45 dexAMETHasone sod phosphate/NS [Decadron] 12 mg in 50 ml IV ONCE ondansetron HCL/NS [Zofran] 16 mg in 50 ml IV ONCE 05/30/20 00:00 Etoposide [Toposar] 230 mg 0.9 % Sodium Chloride [Ns] 1,000 ml IV ONCE Heparin Sodium,Porcine Flush 500 unit IVFLUSH ONCE 05/30/20 10:53 Pegfilgrastim Onpro [Neulasta Onpro] 6 mg SUBCUT ONCE ONE 05/30/20 11:00 dexAMETHasone sod phosphate/NS [Decadron] 12 mg in 50 ml IV ONCE ondansetron HCL/NS [Zofran] 16 mg in 50 ml IV ONCE 05/30/20 12:00 dexAMETHasone sod phosphate/NS [Decadron] 12 mg in 50 ml IV ONCE 06/18/20 10:35 Type and Screen Routine Complete Blood Count Auto Diff Routine Comprehensive Met. Panel Routine 06/25/20 13:43 Complete Blood Count Auto Diff Routine IRON PROFILE Routine 07/01/20 00:00 Atezolizumab [Tecentriq] 1,200 mg 0.9 % Sodium Chloride [Ns] 250 ml IV ONCE CARBOplatin [Paraplatin] 300 mg 0.9 % Sodium Chloride 250 ml IV ONCE CARBOplatin [Paraplatin] 365 mg 0.9 % Sodium Chloride 250 ml IV ONCE Etoposide [Toposar] 164 mg 0.9 % Sodium Chloride PVC Free [NS PVC Free] 500 ml IV ONCE Famotidine/PF [Pepcid/PF] 20 mg IVPUSH ONCE Fosaprepitant Dimeglumine [Emend] 150 mg 0.9 % Sodium Chloride [Ns] 145 ml IV ONCE Heparin Sodium,Porcine Flush 500 unit IVFLUSH ONCE dexAMETHasone sod phosphate/NS [Decadron] 12 mg in 50 ml IV ONCE diphenhydrAMINE HCL [Benadryl] 25 mg PO ONCE ondansetron HCL/NS [Zofran] 16 mg in 50 ml IV ONCE 07/01/20 09:28 Complete Blood Count Auto Diff Routine Comprehensive Met. Panel Routine 07/02/20 00:00 Etoposide [Toposar] 164 mg 0.9 % Sodium Chloride PVC Free [NS PVC Free] 500 ml IV ONCE Heparin Sodium,Porcine Flush 500 unit IVFLUSH ONCE 07/02/20 12:00 ondansetron HCL/NS [Zofran] 16 mg in 50 ml IV ONCE 07/02/20 12:09 dexAMETHasone sod phosphate/PF [Decadron] 12 mg IV ONCE ONE 07/02/20 12:45 dexAMETHasone sod phosphate/NS [Decadron] 12 mg in 50 ml IV ONCE 07/03/20 00:00 Etoposide [Toposar] 164 mg 0.9 % Sodium Chloride PVC Free [NS PVC Free] 500 ml IV ONCE Heparin Sodium,Porcine Flush 500 unit IVFLUSH ONCE 07/03/20 08:45 dexAMETHasone sod phosphate/NS [Decadron] 12 mg in 50 ml IV ONCE ondansetron HCL/NS [Zofran] 16 mg in 50 ml IV ONCE 07/03/20 13:23 Pegfilgrastim Onpro [Neulasta Onpro] 6 mg SUBCUT ONCE ONE 07/09/20 09:55 Complete Blood Count Auto Diff Routine Comprehensive Met. Panel Routine 07/15/20 09:56 Tbo-Filgrastim [Granix] 480 mcg SUBCUT ONCE ONE 07/15/20 10:05 Complete Blood Count Auto Diff Routine Comprehensive Met. Panel Routine 07/16/20 10:46 Tbo-Filgrastim [Granix] 480 mcg SUBCUT ONCE ONE 07/17/20 08:39 Tbo-Filgrastim [Granix] 480 mcg SUBCUT ONCE ONE 07/22/20 00:00 Atezolizumab [Tecentriq] 1,200 mg 0.9 % Sodium Chloride [Ns] 250 ml IV ONCE CARBOplatin [Paraplatin] 365 mg 0.9 % Sodium Chloride 250 ml IV ONCE Etoposide [Toposar] 164 mg 0.9 % Sodium Chloride PVC Free [NS PVC Free] 500 ml IV ONCE Famotidine/PF [Pepcid/PF] 20 mg IVPUSH ONCE Fosaprepitant Dimeglumine [Emend] 150 mg 0.9 % Sodium Chloride [Ns] 145 ml IV ONCE Heparin Sodium,Porcine Flush 500 unit IVFLUSH ONCE dexAMETHasone sod phosphate/NS [Decadron] 12 mg in 50 ml IV ONCE diphenhydrAMINE HCL [Benadryl] 25 mg PO ONCE ondansetron HCL/NS [Zofran] 16 mg in 50 ml IV ONCE 07/22/20 09:09 Complete Blood Count Man Dif Routine Comprehensive Met. Panel Routine 07/23/20 00:00 Etoposide [Toposar] 164 mg 0.9 % Sodium Chloride PVC Free [NS PVC Free] 500 ml IV ONCE Heparin Sodium,Porcine Flush 500 unit IVFLUSH ONCE 07/23/20 12:00 dexAMETHasone sod phosphate/PF [Decadron] 12 mg 0.9 % Sodium Chloride [Ns] 50 ml IV ONCE 07/23/20 13:00 dexAMETHasone sod phosphate/NS [Decadron] 12 mg in 50 ml IV ONCE 07/24/20 00:00 Etoposide [Toposar] 164 mg 0.9 % Sodium Chloride PVC Free [NS PVC Free] 500 ml IV ONCE Heparin Sodium,Porcine Flush 500 unit IVFLUSH ONCE 07/24/20 08:30 dexAMETHasone sod phosphate/NS [Decadron] 12 mg in 50 ml IV ONCE 07/24/20 11:30 dexAMETHasone sod phosphate/NS [Decadron] 12 mg in 50 ml IV ONCE 07/25/20 13:29 Pegfilgrastim [Neulasta] 6 mg SUBCUT ONCE ONE 08/15/20 00:00 Atezolizumab [Tecentriq] 1,200 mg 0.9 % Sodium Chloride [Ns] 250 ml IV ONCE Famotidine/PF [Pepcid/PF] 20 mg IVPUSH ONCE Heparin Sodium,Porcine Flush 500 unit IVFLUSH ONCE ondansetron HCL/NS [Zofran] 16 mg in 50 ml IV ONCE 08/15/20 13:02 Complete Blood Count Auto Diff Routine Comprehensive Met. Panel Routine 09/05/20 13:37 Complete Blood Count Auto Diff Routine Laboratory Last Values WBC 6.0 X10*3/uL (4.8-10.8) 09/05/20 13:37 RBC 3.02 X10*6/uL (4.20-5.50) L 09/05/20 13:37 Hgb 10.6 g/dl (12.0-16.0) L 09/05/20 13:37 Hct 31.9 % (37-47) L 09/05/20 13:37 MCV 105.6 fL (80-98) H 09/05/20 13:37 MCH 35.1 pg (27.0-33.0) H 09/05/20 13:37 MCHC 33.2 g/dl (31.0-35.0) 09/05/20 13:37 RDW 13.0 % (11.0-16.0) 09/05/20 13:37 Plt Count 229 X10*3/uL (160-400) 09/05/20 13:37 MPV 9.1 fL (9.4-12.3) L 09/05/20 13:37 Immature Gran % (Auto) 0.2 % (0.0-0.4) 09/05/20 13:37 Neut % (Auto) 62.4 % (45-73) 09/05/20 13:37 Lymph % (Auto) 27.2 % (20-40) 09/05/20 13:37 Ross % (Auto) 9.2 % (2-11) 09/05/20 13:37 Eos % (Auto) 0.5 % (0-4) 09/05/20 13:37 Baso % (Auto) 0.5 % (0-2) 09/05/20 13:37 Neut # (Auto) 3.6 X10*3/uL (2.0-8.3) 04/11/20 12:17 Lymph # (Auto) 1.6 X10*3/uL (1.2-4.9) 09/05/20 13:37 Ross # (Auto) 0.6 X10*3/uL (0.1-1.2) 09/05/20 13:37 Eos # (Auto) 0.0 X10*3/uL (0.0-0.4) 09/05/20 13:37 Baso # (Auto) 0.0 X10*3/uL (0.0-0.2) 09/05/20 13:37 Abs Immat Gran (auto) 0.01 X10*3/uL (0.00-0.03) 09/05/20 13:37 Absolute Neuts (auto) 3.7 X10*3/uL (2.0-8.3) 09/05/20 13:37 Absolute Nucleated RBC 0.000 X10*3/uL (0.0-0.012) 09/05/20 13:37 Nucleated RBC % (auto) 0.0 /100WBC (0.0-0.2) 09/05/20 13:37 Neutrophils % (Manual) 54 % (45-73) 07/22/20 09:09 Band Neutrophils % 5 % (3-5) 07/22/20 09:09 Lymphocytes % (Manual) 26 % (20-40) 07/22/20 09:09 Monocytes % (Manual) 15 % (2-11) H 07/22/20 09:09 Abs Neuts (Manual) 2.1 X10*3/uL (2.2-7.9) L 07/22/20 09:09 Lymphocytes # (Manual) 0.9 X10*3/uL (0.6-4.8) 07/22/20 09:09 Monocytes # (Manual) 0.5 X10*3/uL (0.0-1.2) 07/22/20 09:09 Nucleated RBCs 1 /100WBC (0-0) H 07/22/20 09:09 Platelet Estimate SLIGHTLY DECREASED (NORMAL) 07/22/20 09:09 Plt Morphology Comment NORMAL 07/22/20 09:09 RBC Morphology NOTED 07/22/20 09:09 Polychromasia 1+ 07/22/20 09:09 Hypochromasia 1+ 07/22/20 09:09 Macrocytosis 1+ 07/22/20 09:09 Tear Drop Cells 1+ 07/22/20 09:09 Smear Tech's Comments VERIFIED 05/22/20 10:05 Sodium 139 mmol/L (135-145) 09/05/20 13:37 Potassium 4.0 mmol/L (3.3-5.1) 09/05/20 13:37 Chloride 103 mmol/L (96-108) 09/05/20 13:37 Carbon Dioxide 29 mmol/L (22-29) 09/05/20 13:37 Anion Gap 11 (12-20) L 09/05/20 13:37 BUN 18 mg/dL (9-16) H 09/05/20 13:37 Creatinine 0.80 mg/dL (0.5-1.4) 09/05/20 13:37 Estim Creat Clear Calc 87.8 09/05/20 13:37 Estimated GFR > 60 09/05/20 13:37 Random Glucose 111 mg/dL (60-115) 08/15/20 13:02 Fasting Glucose 94 mg/dL (60-99) 09/05/20 13:37 Calcium 9.1 mg/dL (8.4-10.2) 09/05/20 13:37 Magnesium 2.1 mg/dL (1.6-2.6) 05/08/20 11:07 Iron 93 mcg/dL (30-160) 06/25/20 13:43 TIBC 191 mcg/dL (228-428) L 06/25/20 13:43 % Saturation 49 % (15-50) 06/25/20 13:43 Unsat Iron Binding 98 ug/dL 06/25/20 13:43 Total Bilirubin 0.5 mg/dL (0.0-1.0) 09/05/20 13:37 AST 15 U/L (5-31) 09/05/20 13:37 ALT 11 U/L (0-31) 09/05/20 13:37 Alkaline Phosphatase 68 U/L (39-117) 09/05/20 13:37 Lactate Dehydrogenase 167 U/L (122-220) 04/11/20 12:17 Total Protein 6.2 g/dL (6.5-8.0) L 09/05/20 13:37 Albumin 3.9 g/dL (3.5-5.0) 09/05/20 13:37 Carcinoembryonic Ag 3.70 mg/mL D 05/06/20 10:50 TSH 0.38 mIU/mL (0.32-4.0) 05/06/20 10:50 Blood Type O Positive 06/18/20 10:35 Antibody Screen NEGATIVE 06/18/20 10:35 Progress Note: A/P (1) Small cell lung cancer Status: Chronic Assessment and plan: 1. This is a 65-year-old woman with Small cell lung Cancer originating in the left upper lobe. Clinical stage T4 N0 M0, limited stage small cell cancer of the left upper lobe. Patient started systemic therapy with carboplatin/etoposide from 03/06/2019. Received concurrent adjuvant radiation therapy from 05/14/2019 to 07/23/19. She underwent prophylactic brain radiation at [facility]. She has had local recurrence as evidenced by PET-CT and subsequent [facility] hoscopy/biopsy. On 05/01/2020 biopsy revealed positive for small cell carcinoma on lymph node station 7. Left mainstem bronchial nodule biopsy, no malignancy identified. Patient started chemotherapy with carboplatin/etoposide and atezolizumab with Neulasta support from 05/07/2020. She was admitted after cycle 2 with neutropenic bacteremia, Clostridium septicum on 06/08/2020. She completed 4 cycles of treatment with chemotherapy. She started atezolizumab maintenance from 09/05/20. Proceed with treatment today, labs look good. 2. Persistent dizziness, frequent falls. I have ordered brain MRI scan. Metastasis from small cell lung cancer is a possibility. Follow-up in 6 weeks. - Time Spent With Patient Total time spent is greater than 50% in coordination of care (as documented) at patient's floor/unit and/or counseling patient: 15 - 24 minutes
[2020-10-17 11:14] LABS: MANUAL DIFF FLAG NO
[2020-10-17 11:21] LABS: Basophils Percent Auto 0.3 % (0-2); Eosinophils Percent Auto 0.2 % (0-4); Hematocrit 35.7 % (37-47); Hemoglobin 11.8 g/dl (12.0-16.0); Imm Gran Abs Auto 0.02 X10*3/uL (0.00-0.03); Imm Gran Pct Auto 0.3 % (0.0-0.4); Lymphocytes Absolute Auto 1.6 X10*3/uL (1.2-4.9); Lymphocytes Percent Auto 27.1 % (20-40); Mean Corpuscular HGB Conc 33.1 g/dl (31.0-35.0); Mean Corpuscular Hemoglobin 32.7 pg (27.0-33.0); Mean Corpuscular Volume 98.9 fL (80-98); Mean Platelet Volume 9.5 fL (9.4-12.3); Monocytes Absolute Auto 0.5 X10*3/uL (0.1-1.2); Monocytes Percent Auto 8.9 % (2-11); Neutrophils Absolute Auto 3.8 X10*3/uL (2.0-8.3); Neutrophils Percent Auto 63.2 % (45-73); Platelet Count 240 X10*3/uL (160-400); Red Blood Count 3.61 X10*6/uL (4.20-5.50); Red Cell Distribution Width 12.8 % (11.0-16.0); White Blood Count 6.1 X10*3/uL (4.8-10.8)
[2020-10-17 11:39] LABS: Alanine Aminotransferase 11 U/L (0-31); Albumin Level 3.9 g/dL (3.5-5.0); Alkaline Phosphatase 70 U/L (39-117); Anion Gap 10 (12-20); Aspartate Amino Transferase 13 U/L (5-31); Bilirubin Total 0.4 mg/dL (0.0-1.0); Blood Urea Nitrogen 19 mg/dL (9-16); Calcium 9.1 mg/dL (8.4-10.2); Carbon Dioxide 32 mmol/L (22-29); Chloride 102 mmol/L (96-108); Creatinine Clr Calc Pharmacy 84.2; Estimated Glomerular Filt Rate > 60; Glucose Fasting 93 mg/dL (60-99); Potassium 4.4 mmol/L (3.3-5.1); Sodium 140 mmol/L (135-145); Total Protein 6.3 g/dL (6.5-8.0)
[2020-10-17 11:59] LABS: Thyroid Stimulating Hormone 0.17 uIU/mL (0.32-4.0)
[2020-10-17] MEDS: ondansetron HCL/NS 16 MG/50 ML PIGGYBACK 200 MG IV (12:26)
[2020-10-17] MEDS: Heparin Sodium,Porcine Flush 500 UNIT/5 ML SYRINGE IVFLUSH (12:26)
[2020-10-17] MEDS: Famotidine/PF 20 MG/2 ML VIAL IVPUSH (12:26)
[2020-10-17] MEDS: Atezolizumab 1,200 MG in 0.9 % Sodium Chloride 250 ML 540 MG IV (13:05)
--- NOTE | 2020-10-29 13:10 | MHC.HEMONCSW ---
PROBLEM.......MRI HEAD NOT YET DONE ALTHOUGH ORDERED ONE MONTH AGO. ATTEMPTED TO REACH SHAD DG BUT SHE WON'T BE AVAILABLE UNTIL NEXT WEEK BUT, UNFORTUNATELY I WILL BE ON VACATION. PHONED JON AT [facility]...ALL SHE NEEDS IS AUTH TO SAY [facility] AUTH NOT...[facility]. I WILL ATTEMPT TO REACH ANOTHER STAFF AT THE [facility]...IF UNSUCCESSFUL I WILL ASK KENZIE BOWENS. PLUMBING DESIGNER TO WORK ON THIS NEXT WEEK.
--- NOTE | 2020-11-06 08:40 | MHC.HEMONCSW ---
[facility] VISITS FOR ATEZOLIZUMAB
[2020-11-06 09:55] VITALS: BP 138/84; PULSE 78; RESP 18; TEMP 36.3; O2SAT 97; BMI 43.9
[2020-11-06 10:22] LABS: MANUAL DIFF FLAG NO
[2020-11-06 10:30] LABS: Basophils Percent Auto 0.4 % (0-2); Hematocrit 36.6 % (37-47); Hemoglobin 12.4 g/dl (12.0-16.0); Imm Gran Abs Auto 0.03 X10*3/uL (0.00-0.03); Imm Gran Pct Auto 0.6 % (0.0-0.4); Lymphocytes Absolute Auto 1.4 X10*3/uL (1.2-4.9); Lymphocytes Percent Auto 26.9 % (20-40); Mean Corpuscular HGB Conc 33.9 g/dl (31.0-35.0); Mean Corpuscular Hemoglobin 32.7 pg (27.0-33.0); Mean Corpuscular Volume 96.6 fL (80-98); Mean Platelet Volume 9.2 fL (9.4-12.3); Monocytes Absolute Auto 0.5 X10*3/uL (0.1-1.2); Monocytes Percent Auto 9.4 % (2-11); Neutrophils Absolute Auto 3.2 X10*3/uL (2.0-8.3); Neutrophils Percent Auto 62.7 % (45-73); Platelet Count 248 X10*3/uL (160-400); Red Blood Count 3.79 X10*6/uL (4.20-5.50); White Blood Count 5.1 X10*3/uL (4.8-10.8)
[2020-11-06 10:59] LABS: Alanine Aminotransferase 9 U/L (0-31); Albumin Level 4.1 g/dL (3.5-5.0); Alkaline Phosphatase 82 U/L (39-117); Anion Gap 12 (12-20); Aspartate Amino Transferase 17 U/L (5-31); Bilirubin Total 0.4 mg/dL (0.0-1.0); Blood Urea Nitrogen 20 mg/dL (9-16); Calcium 9.5 mg/dL (8.4-10.2); Carbon Dioxide 30 mmol/L (22-29); Chloride 101 mmol/L (96-108); Creatinine Clr Calc Pharmacy 84.5; Estimated Glomerular Filt Rate > 60; Glucose Random 87 mg/dL (60-115); Potassium 4.3 mmol/L (3.3-5.1); Sodium 139 mmol/L (135-145); Total Protein 6.6 g/dL (6.5-8.0)
[2020-11-06] MEDS: Famotidine/PF 20 MG/2 ML VIAL IVPUSH (11:31)
[2020-11-06] MEDS: ondansetron HCL/NS 16 MG/50 ML PIGGYBACK 200 MG IV (11:36)
[2020-11-06] MEDS: Atezolizumab 1,200 MG in 0.9 % Sodium Chloride 250 ML 540 MG IV (12:10)
[2020-11-06] MEDS: Heparin Sodium,Porcine Flush 500 UNIT/5 ML SYRINGE IVFLUSH (12:50)
--- NOTE | 2020-11-06 14:40 | MHC.HEMONC ---
Pt here for Cycle 9 Day 1 of Atezolizmab IV. Labs drawn peripherally by phlebotomist lab assistant and sent to lab. Port accessed with no blood return, flushes easily with 0.9% NS. Dr Snell notified. Pt states she has not had a blood return from port in a very long time. States Dr Saunders is aware of no blood return in the past. 0.9% NS infusing. Pt states she feels well, continues with fatigue. States she is taking a probiotic which is helping with GI distress and constipation. Lab work reviewed. Pre medicated with Pepcid 20mg IV and Zofran 16mg IV. C/o nausea prior to start of Zofran, nausea was brief in duration with no vomitus. Atezolizumab IV given a ordered. Port flushed with 0.9% NS and Heparin. Port de accessed. Follow up appointment made. Declines discharge packet and post chemo care paperwork. Discharged home
--- NOTE | 2020-11-07 14:19 | MHC.HEMONCSW ---
SHAD/[facility] WORKER REMINDED OF MRI NEED AT [facility]. SHE WILL GET BACK TO ME OR KENZIE
--- NOTE | 2020-11-07 16:08 | MHC.HEMONCSW ---
SPOKE WITH SHAD/THERESA, REPORTS PATIENT IS CLEARED FOR AUTH AT [facility]. I PHONED, SPOKE WITH PATIENT, ADVISED SHE CALL [facility] AT [phone] TO BOOK APPOINTMENT...ALSO, SHE HAD HER FIRST COVID SHOT TODAY!!!!!
--- NOTE | 2020-11-24 13:30 | MHC.HEMONC ---
X[facility]ELTO rx faxed to [facility] and I verified receipt with them. Also faxed supporting documentation which they also received. Pt is aware.
--- NOTE | 2020-11-25 15:02 | MHC.HEMONCSW ---
SPOKE WITH PATIENT VIA PHONE. INFORMED DR. GUEVARA THAT THE [place] IS SHIPPING BLOOD THINNERS VIA UPS TO HER AND THAT SHE HAS A TELEVISIT WITH DR. MORA TOMORROW. PATIENT REPORTS COPING FAIRLY WELL, GOOD SUPPORTS IN PLACE. REASSURANCE, ENCOURAGEMENT PROVIDED.
--- NOTE | 2020-11-27 13:10 | MHC.HEMONC ---
Physical therapy initial evaluation and treatment was cancelled. Pt called Centralized scheduling on 11/27/20 to follow up appointment scheduling. Patient stated that she not interested in therapy at this time due to her cancer returning
--- NOTE | 2020-12-09 16:43 | MHC.HEMONC ---
Patient called to report chest cold x1 week. No fevers, nonproductive cough. Voice hoarse. Dr. Saunders aware. Order for Zithromax faxed to PCP at [place] Dr. Nohemy Matt at [phone]. Confirmation received. 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 Patient will call if symptoms do not improve. Radiation start date on 12-16
[2021-01-13 11:23] VITALS: PULSE 84; RESP 14; TEMP 36.7; O2SAT 98; BMI 46.4
[2021-01-13 11:34] VITALS: BP 130/92
--- NOTE | 2021-01-13 11:49 | PM.HEMONCPN ---
Medical Summary - Medical Summary Date of Service: 01/13/21 Chief complaint: follow-up Medical Summary: Diagnosis: Small cell carcinoma of lung February 2019. Course: Admitted in February 2019 with shortness of breath and cough. CT chest showed left suprahilar mass measuring 5.5 x 6.1 x 8.5 cm, medial aspect of left upper lobe. This encircles and occludes the superior bronchus and lingular bronchus. Invades the mediastinum with slight mass effect. Peripherally, interstitial thickening postobstructive atelectasis versus lymphangitic carcinomatosis. Underwent bronchoscopy/biopsy on 02/27/2019, left upper lung mass pathology small cell carcinoma. IHC positive for cytokeratin, synaptophysin, chromogranin, TTF 1 rare cells and negative for CK 7, P40, Napsin, CD 20 and CD 45. Ki 67 markedly increased proliferation rate. PET scan performed at [facility] on 03/08/2019 showed intensely FDG avid left upperlobe/suprahilar mass measuring 7.7 x 8.1 x 10.3 cm, SUV 20.4 with direct invasion of the mediastinum compatible with malignancy. Mild FDG uptake with irregular ground-glass and consolidative opacity in the left upper lobe peripheral to the mass likely obstructive pneumonia. No evidence of FDG avid malignancy outside of the left chest. Left vocal cord paralysis. 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 Staging brain MRI with and without contrast showed scattered small vessel ischemic changes. No evidence of metastasis. Therapy: Carbo etoposide started 03/17/2019 Hospitalized with sepsis/neutropenia after cycle 2. E coli bacteremia that resolved with antibiotics. She completed 4 cycles. Received adjuvant radiation therapy from 05/14/2019 to 07/23/19. There were a few treatment delays with radiation because of poor performance status and side effects of treatment. Patient started systemic therapy with carboplatin/etoposide from 03/06/2019. Received concurrent adjuvant radiation therapy from 05/14/2019 to 07/23/19. There were a few treatment delays withr adiation because of poor performance status and side effects of treatment. She received 2 cycles of chemotherapy without radiation, 2 cycles during radiation. PET scan performed on 10/22/2019 at [facility] reported as: dramatic improvement in small cell carcinoma involving left upper lobe. Size of lesion decreased to 3.4 compared to 7.8 cm and SUV presently 4.5, previously 20.4. No new lesion or metastatic disease. She underwent prophylactic brain radiation at [facility], completed 11/26/2019. CT chest with contrast in February 2020 revealed new consolidation in the left upper lobe measuring 7.4 x 2.8 cm abutting aortic arch and extending into left superior pulmonary hilum. PET scan performed at [facility] on 04/01/2020 revealed hypermetabolic mass in the left upper lobe measuring 5.5 x 3.7 cm, SUV 11.7, increased size and hypermetabolism of 3 AP window lymph nodes measuring 1.1 cm, SUV 7.4 and 4.4, 5.2. No pleural effusion. No FDG avid malignancy outside the chest. PET scan, [facility] on 08/25/2020 showed interval decrease in size and FDG avidity of left upper lobe mass. Now measuring 3.8 x 2.3 cm, previously 7.3 x 4 cm. SUV previously 11.7, now 4.92. Mediastinal adenopathy has resolved. No signs of distal metastatic disease. Interval History Interval history: patient is here in follow-up. She just completed brain radiation therapy last week. Her dizziness has improved but she still feels quite weak. She has limited ambulation. Her daughter and granddaughter are taking care of her, they live next door to her. She is now willing to accept visiting nurse services. she denies any headache, nausea, chest pain or shortness of breath. Her appetite is poor and she has had weight loss. Review of Systems - Constitutional Reports no additional constitutional complaints - Cardiovascular Reports no additional cardiovascular complaints - Respiratory Reports no additional respiratory complaints - Gastrointestinal Reports no additional gastrointestinal complaints [facility] Medical History: Medical History (Last Reviewed 01/13/21 @ 11:37 by Shyann Paiz) Arthritis COPD (chronic obstructive pulmonary disease) Depression Diverticulitis Encounter for colonoscopy due to history of colonic polyp History of diverticulitis of colon History of hepatitis Hypertension Hypothyroidism Traumatic brain injury Family History: Family History (Last Reviewed 01/13/21 @ 11:37 by Shyann Paiz) Brother Diabetes Father Surgical History: Surgical History (Last Reviewed 01/13/21 @ 11:37 by Shyann Paiz) H/O section Hx of breast reduction, elective S/P bronchoscopy with biopsy Social History: Social History (Last Reviewed 01/13/21 @ 11:38 by Shyann Paiz) Living Situation History: Household Members: None Housing: Apartment Do you presently have visiting nurse or other home services: No Alcohol History: Alcohol intake: never Alcohol History Details: Alcohol intake frequency: does not drink Tobacco History: Cigarette Packs Per Day: 1 Years Smoked: 53 Second Hand Smoke Exposure: No Substance Use History: Use of substances other than those prescribed or required for medical reasons: Yes Substance Use Type: Marijuana Substance Use Type Other:: edibles Substance Use Frequency: Daily Domestic Abuse History: Have you been hit, kicked, punched, or otherwise hurt by someone within the past year? If so, by whom?: No Do you feel safe in your current relationship?: Yes Advance Directives: Advance Directives: Yes Advance Directives on File: Advance Directives on File comment: [id number] Advance Directives Date on File: 05/01/20 Nutrition Assessment: Recently lost weight without trying: No Nutrition Risks: No Nutritional Risk Patient : No : No Poor oral hygiene: No Occupation Assessmet: service: Yes Current occupational status: retired Home Medications and Allergies Current Medications: Current Medications Generic Name Dose Route Start Last Admin Trade Name Freq PRN Reason Stop Dose Admin Ondansetron HCl 16 mg in 50 mls @ 200 mls/hr 11/06/20 11:30 11/06/20 11:51 Zofran IV Infused ONCE [facility] Infusion Home Medications Medication Instructions Recorded Confirmed Type budesonide-formoterol 2 puff INHALATION BID 04/10/20 11/20/20 History bupropion HCl 200 mg PO DAILY 04/10/20 11/20/20 History docusate sodium [Stool Softener] 100 mg PO DAILY 04/10/20 11/20/20 History levothyroxine 137 mcg PO DAILY 04/10/20 11/20/20 History nortriptyline 20 mg PO BEDTIME 04/10/20 11/20/20 History omeprazole 20 mg PO DAILY 05/01/20 11/20/20 History Centrum Chewables 2 tab PO DAILY 11/20/20 01/13/21 History Spiriva Respimat 2 puff INHALATION DAILY 11/20/20 01/13/21 History albuterol sulfate 2 puff INHALATION Q6H PRN 11/20/20 01/13/21 History atenolol 25 mg PO DAILY 11/20/20 01/13/21 History duloxetine 30 mg PO DAILY 11/20/20 01/13/21 History Allergies Allergy/AdvReac Type Severity Reaction Status Date / Time penicillin V Allergy Unknown Unknown Verified 11/06/20 10:11 Penicillins [PCN] Allergy Unknown HIVES Verified 11/06/20 10:11 shellfish derived Allergy Unknown UNKNOWN Verified 11/06/20 10:11 [SHELLFISH DERIVED] Exam Vital signs: Vital Signs Temp 98.1 F 01/13/21 11:23 Pulse 84 01/13/21 11:23 Resp 14 01/13/21 11:23 BP 130/92 H 01/13/21 11:34 Pulse Ox 98 01/13/21 11:23 Intake & Output 01/12/21 01/13/21 01/13/21 18:59 06:59 18:59 Other: Weight 122.7 kg [place] Weight in Grams [id number] Weight 122.7 kg Body Mass Index 46.4 - Constitutional Present: no acute distress - Routine HEENT Exam Head: Present: normal inspection - Routine Neck Exam Present: full ROM - Routine Respiratory Exam Present: CTAB - Routine Cardiovascular Exam Cardiovascular: Present: RRR, S1, S2 - Routine Abdominal Exam Present: normal bowel sounds - Routine Extremities Exam Absent: pedal edema Data - Labs CBC & Chem 7: 01/13/21 12:14 01/13/21 12:14 Labs: 04/10/20 10:44 Heparin Sodium,Porcine Flush 500 unit 0.9 % Sodium Chloride Flush [NS Flush] 5 ml IVFLUSH ONCE 04/10/20 11:07 Heparin Sodium,Porcine Flush 500 unit IVFLUSH .STK-MED ONE 04/10/20 12:16 Alteplase Cath Clear [Cathflo Activase] 2 mg INTRACATH ONCE ONE 04/11/20 11:37 Alteplase Cath Clear [Cathflo Activase] 2 mg INTRACATH ONCE PRN 04/11/20 12:17 Carcinoembryonic Antigen Routine Complete Blood Count Auto Diff Routine Comprehensive Met. Panel Routine LDH [Lactate Dehydrogenase] Routine 05/06/20 10:27 Alteplase Cath Clear [Cathflo Activase] 2 mg INTRACATH ONCE ONE 05/06/20 10:50 Carcinoembryonic Antigen Routine Complete Blood Count Auto Diff Routine Comprehensive Met. Panel Routine Thyroid Stimulating Hormone Routine 05/06/20 12:13 Add Laboratory Test Stat 05/07/20 00:00 Acetaminophen [Tylenol] 650 mg PO ONCE Atezolizumab [Tecentriq] 1,200 mg 0.9 % Sodium Chloride [Ns] 250 ml IV ONCE CARBOplatin [Paraplatin] 530 mg 0.9 % Sodium Chloride 250 ml IV ONCE Etoposide [Toposar] 236 mg 0.9 % Sodium Chloride [Ns] 1,000 ml IV ONCE Famotidine/PF [Pepcid/PF] 20 mg IVPUSH ONCE Fosaprepitant Dimeglumine [Emend] 150 mg 0.9 % Sodium Chloride [Ns] 145 ml IV ONCE Heparin Sodium,Porcine Flush 500 unit IVFLUSH ONCE dexAMETHasone sod phosphate/NS [Decadron] 12 mg in 50 ml IV ONCE diphenhydrAMINE HCL [Benadryl] 25 mg PO ONCE ondansetron HCL/NS [Zofran] 16 mg in 50 ml IV ONCE 05/07/20 09:36 Alteplase Cath Clear [Cathflo Activase] 2 mg INTRACATH ONCE ONE 05/08/20 00:00 Etoposide [Toposar] 236 mg 0.9 % Sodium Chloride [Ns] 1,000 ml IV ONCE Heparin Sodium,Porcine Flush 500 unit IVFLUSH ONCE 05/08/20 11:07 Complete Blood Count Auto Diff Routine Comprehensive Met. Panel Routine Magnesium Routine SLIDE REVIEW Routine 05/08/20 12:45 dexAMETHasone sod phosphate/NS [Decadron] 12 mg in 50 ml IV ONCE ondansetron HCL/NS [Zofran] 16 mg in 50 ml IV ONCE 05/09/20 00:00 Etoposide [Toposar] 236 mg 0.9 % Sodium Chloride PVC Free [NS PVC Free] 1,000 ml IV ONCE Heparin Sodium,Porcine Flush 500 unit IVFLUSH ONCE 05/09/20 12:35 ondansetron HCL [Zofran] 16 mg IVPUSH ONCE ONE 05/09/20 12:37 Pegfilgrastim Onpro [Neulasta Onpro] 6 mg SUBCUT ONCE ONE 05/09/20 12:45 dexAMETHasone sod phosphate/NS [Decadron] 12 mg in 50 ml IV ONCE ondansetron HCL/NS [Zofran] 16 mg in 50 ml IV ONCE 05/09/20 15:09 Heparin Sodium,Porcine Flush 500 unit 0.9 % Sodium Chloride Flush [NS Flush] 5 ml IVFLUSH ONCE 05/22/20 10:05 Complete Blood Count Auto Diff Routine Profile w/ Glucose [place] [Comprehensive Met. Panel] Routine SLIDE REVIEW Routine 05/28/20 00:00 Atezolizumab [Tecentriq] 1,200 mg 0.9 % Sodium Chloride [Ns] 250 ml IV ONCE CARBOplatin [Paraplatin] 480 mg 0.9 % Sodium Chloride 250 ml IV ONCE Etoposide [Toposar] 230 mg 0.9 % Sodium Chloride PVC Free [NS PVC Free] 500 ml IV ONCE Famotidine/PF [Pepcid/PF] 20 mg IVPUSH ONCE Fosaprepitant Dimeglumine [Emend] 150 mg 0.9 % Sodium Chloride [Ns] 145 ml IV ONCE Heparin Sodium,Porcine Flush 500 unit IVFLUSH ONCE dexAMETHasone sod phosphate/NS [Decadron] 12 mg in 50 ml IV ONCE diphenhydrAMINE HCL [Benadryl] 25 mg PO ONCE ondansetron HCL/NS [Zofran] 16 mg in 50 ml IV ONCE 05/28/20 08:56 Complete Blood Count Auto Diff Routine Comprehensive Met. Panel Routine 05/28/20 12:00 Etoposide [Toposar] 230 mg 0.9 % Sodium Chloride [Ns] 1,000 ml IV ONCE 05/29/20 00:00 Etoposide [Toposar] 230 mg 0.9 % Sodium Chloride [Ns] 1,000 ml IV ONCE Heparin Sodium,Porcine Flush 500 unit IVFLUSH ONCE 05/29/20 11:45 dexAMETHasone sod phosphate/NS [Decadron] 12 mg in 50 ml IV ONCE ondansetron HCL/NS [Zofran] 16 mg in 50 ml IV ONCE 05/30/20 00:00 Etoposide [Toposar] 230 mg 0.9 % Sodium Chloride [Ns] 1,000 ml IV ONCE Heparin Sodium,Porcine Flush 500 unit IVFLUSH ONCE 05/30/20 10:53 Pegfilgrastim Onpro [Neulasta Onpro] 6 mg SUBCUT ONCE ONE 05/30/20 11:00 dexAMETHasone sod phosphate/NS [Decadron] 12 mg in 50 ml IV ONCE ondansetron HCL/NS [Zofran] 16 mg in 50 ml IV ONCE 05/30/20 12:00 dexAMETHasone sod phosphate/NS [Decadron] 12 mg in 50 ml IV ONCE 06/18/20 10:35 Type and Screen Routine Complete Blood Count Auto Diff Routine Comprehensive Met. Panel Routine 06/25/20 13:43 Complete Blood Count Auto Diff Routine IRON PROFILE Routine 07/01/20 00:00 Atezolizumab [Tecentriq] 1,200 mg 0.9 % Sodium Chloride [Ns] 250 ml IV ONCE CARBOplatin [Paraplatin] 300 mg 0.9 % Sodium Chloride 250 ml IV ONCE CARBOplatin [Paraplatin] 365 mg 0.9 % Sodium Chloride 250 ml IV ONCE Etoposide [Toposar] 164 mg 0.9 % Sodium Chloride PVC Free [NS PVC Free] 500 ml IV ONCE Famotidine/PF [Pepcid/PF] 20 mg IVPUSH ONCE Fosaprepitant Dimeglumine [Emend] 150 mg 0.9 % Sodium Chloride [Ns] 145 ml IV ONCE Heparin Sodium,Porcine Flush 500 unit IVFLUSH ONCE dexAMETHasone sod phosphate/NS [Decadron] 12 mg in 50 ml IV ONCE diphenhydrAMINE HCL [Benadryl] 25 mg PO ONCE ondansetron HCL/NS [Zofran] 16 mg in 50 ml IV ONCE 07/01/20 09:28 Complete Blood Count Auto Diff Routine Comprehensive Met. Panel Routine 07/02/20 00:00 Etoposide [Toposar] 164 mg 0.9 % Sodium Chloride PVC Free [NS PVC Free] 500 ml IV ONCE Heparin Sodium,Porcine Flush 500 unit IVFLUSH ONCE 07/02/20 12:00 ondansetron HCL/NS [Zofran] 16 mg in 50 ml IV ONCE 07/02/20 12:09 dexAMETHasone sod phosphate/PF [Decadron] 12 mg IV ONCE ONE 07/02/20 12:45 dexAMETHasone sod phosphate/NS [Decadron] 12 mg in 50 ml IV ONCE 07/03/20 00:00 Etoposide [Toposar] 164 mg 0.9 % Sodium Chloride PVC Free [NS PVC Free] 500 ml IV ONCE Heparin Sodium,Porcine Flush 500 unit IVFLUSH ONCE 07/03/20 08:45 dexAMETHasone sod phosphate/NS [Decadron] 12 mg in 50 ml IV ONCE ondansetron HCL/NS [Zofran] 16 mg in 50 ml IV ONCE 07/03/20 13:23 Pegfilgrastim Onpro [Neulasta Onpro] 6 mg SUBCUT ONCE ONE 07/09/20 09:55 Complete Blood Count Auto Diff Routine Comprehensive Met. Panel Routine 07/15/20 09:56 Tbo-Filgrastim [Granix] 480 mcg SUBCUT ONCE ONE 07/15/20 10:05 Complete Blood Count Auto Diff Routine Comprehensive Met. Panel Routine 07/16/20 10:46 Tbo-Filgrastim [Granix] 480 mcg SUBCUT ONCE ONE 07/17/20 08:39 Tbo-Filgrastim [Granix] 480 mcg SUBCUT ONCE ONE 07/22/20 00:00 Atezolizumab [Tecentriq] 1,200 mg 0.9 % Sodium Chloride [Ns] 250 ml IV ONCE CARBOplatin [Paraplatin] 365 mg 0.9 % Sodium Chloride 250 ml IV ONCE Etoposide [Toposar] 164 mg 0.9 % Sodium Chloride PVC Free [NS PVC Free] 500 ml IV ONCE Famotidine/PF [Pepcid/PF] 20 mg IVPUSH ONCE Fosaprepitant Dimeglumine [Emend] 150 mg 0.9 % Sodium Chloride [Ns] 145 ml IV ONCE Heparin Sodium,Porcine Flush 500 unit IVFLUSH ONCE dexAMETHasone sod phosphate/NS [Decadron] 12 mg in 50 ml IV ONCE diphenhydrAMINE HCL [Benadryl] 25 mg PO ONCE ondansetron HCL/NS [Zofran] 16 mg in 50 ml IV ONCE 07/22/20 09:09 Complete Blood Count Man Dif Routine Comprehensive Met. Panel Routine 07/23/20 00:00 Etoposide [Toposar] 164 mg 0.9 % Sodium Chloride PVC Free [NS PVC Free] 500 ml IV ONCE Heparin Sodium,Porcine Flush 500 unit IVFLUSH ONCE 07/23/20 12:00 dexAMETHasone sod phosphate/PF [Decadron] 12 mg 0.9 % Sodium Chloride [Ns] 50 ml IV ONCE 07/23/20 13:00 dexAMETHasone sod phosphate/NS [Decadron] 12 mg in 50 ml IV ONCE 07/24/20 00:00 Etoposide [Toposar] 164 mg 0.9 % Sodium Chloride PVC Free [NS PVC Free] 500 ml IV ONCE Heparin Sodium,Porcine Flush 500 unit IVFLUSH ONCE 07/24/20 08:30 dexAMETHasone sod phosphate/NS [Decadron] 12 mg in 50 ml IV ONCE 07/24/20 11:30 dexAMETHasone sod phosphate/NS [Decadron] 12 mg in 50 ml IV ONCE 07/25/20 13:29 Pegfilgrastim [Neulasta] 6 mg SUBCUT ONCE ONE 08/15/20 00:00 Atezolizumab [Tecentriq] 1,200 mg 0.9 % Sodium Chloride [Ns] 250 ml IV ONCE Famotidine/PF [Pepcid/PF] 20 mg IVPUSH ONCE Heparin Sodium,Porcine Flush 500 unit IVFLUSH ONCE ondansetron HCL/NS [Zofran] 16 mg in 50 ml IV ONCE 08/15/20 13:02 Complete Blood Count Auto Diff Routine Comprehensive Met. Panel Routine 09/05/20 13:37 Complete Blood Count Auto Diff Routine Laboratory Last Values WBC 6.0 X10*3/uL (4.8-10.8) 09/05/20 13:37 RBC 3.02 X10*6/uL (4.20-5.50) L 09/05/20 13:37 Hgb 10.6 g/dl (12.0-16.0) L 09/05/20 13:37 Hct 31.9 % (37-47) L 09/05/20 13:37 MCV 105.6 fL (80-98) H 09/05/20 13:37 MCH 35.1 pg (27.0-33.0) H 09/05/20 13:37 MCHC 33.2 g/dl (31.0-35.0) 09/05/20 13:37 RDW 13.0 % (11.0-16.0) 09/05/20 13:37 Plt Count 229 X10*3/uL (160-400) 09/05/20 13:37 MPV 9.1 fL (9.4-12.3) L 09/05/20 13:37 Immature Gran % (Auto) 0.2 % (0.0-0.4) 09/05/20 13:37 Neut % (Auto) 62.4 % (45-73) 09/05/20 13:37 Lymph % (Auto) 27.2 % (20-40) 09/05/20 13:37 [place] % (Auto) 9.2 % (2-11) 09/05/20 13:37 Eos % (Auto) 0.5 % (0-4) 09/05/20 13:37 Baso % (Auto) 0.5 % (0-2) 09/05/20 13:37 Neut # (Auto) 3.6 X10*3/uL (2.0-8.3) 04/11/20 12:17 Lymph # (Auto) 1.6 X10*3/uL (1.2-4.9) 09/05/20 13:37 [place] # (Auto) 0.6 X10*3/uL (0.1-1.2) 09/05/20 13:37 Eos # (Auto) 0.0 X10*3/uL (0.0-0.4) 09/05/20 13:37 Baso # (Auto) 0.0 X10*3/uL (0.0-0.2) 09/05/20 13:37 Abs Immat Gran (auto) 0.01 X10*3/uL (0.00-0.03) 09/05/20 13:37 Absolute Neuts (auto) 3.7 X10*3/uL (2.0-8.3) 09/05/20 13:37 Absolute Nucleated RBC 0.000 X10*3/uL (0.0-0.012) 09/05/20 13:37 Nucleated RBC % (auto) 0.0 /100WBC (0.0-0.2) 09/05/20 13:37 Neutrophils % (Manual) 54 % (45-73) 07/22/20 09:09 Band Neutrophils % 5 % (3-5) 07/22/20 09:09 Lymphocytes % (Manual) 26 % (20-40) 07/22/20 09:09 Monocytes % (Manual) 15 % (2-11) H 07/22/20 09:09 Abs Neuts (Manual) 2.1 X10*3/uL (2.2-7.9) L 07/22/20 09:09 Lymphocytes # (Manual) 0.9 X10*3/uL (0.6-4.8) 07/22/20 09:09 Monocytes # (Manual) 0.5 X10*3/uL (0.0-1.2) 07/22/20 09:09 Nucleated RBCs 1 /100WBC (0-0) H 07/22/20 09:09 Platelet Estimate SLIGHTLY DECREASED (NORMAL) 07/22/20 09:09 Plt Morphology Comment NORMAL 07/22/20 09:09 RBC Morphology NOTED 07/22/20 09:09 Polychromasia 1+ 07/22/20 09:09 Hypochromasia 1+ 07/22/20 09:09 Macrocytosis 1+ 07/22/20 09:09 Tear Drop Cells 1+ 07/22/20 09:09 Smear Tech's Comments VERIFIED 05/22/20 10:05 Sodium 139 mmol/L (135-145) 09/05/20 13:37 Potassium 4.0 mmol/L (3.3-5.1) 09/05/20 13:37 Chloride 103 mmol/L (96-108) 09/05/20 13:37 Carbon Dioxide 29 mmol/L (22-29) 09/05/20 13:37 Anion Gap 11 (12-20) L 09/05/20 13:37 BUN 18 mg/dL (9-16) H 09/05/20 13:37 Creatinine 0.80 mg/dL (0.5-1.4) 09/05/20 13:37 Estim Creat Clear Calc 87.8 09/05/20 13:37 Estimated GFR > 60 09/05/20 13:37 Random Glucose 111 mg/dL (60-115) 08/15/20 13:02 Fasting Glucose 94 mg/dL (60-99) 09/05/20 13:37 Calcium 9.1 mg/dL (8.4-10.2) 09/05/20 13:37 Magnesium 2.1 mg/dL (1.6-2.6) 05/08/20 11:07 Iron 93 mcg/dL (30-160) 06/25/20 13:43 TIBC 191 mcg/dL (228-428) L 06/25/20 13:43 % Saturation 49 % (15-50) 06/25/20 13:43 Unsat Iron Binding 98 ug/dL 06/25/20 13:43 Total Bilirubin 0.5 mg/dL (0.0-1.0) 09/05/20 13:37 AST 15 U/L (5-31) 09/05/20 13:37 ALT 11 U/L (0-31) 09/05/20 13:37 Alkaline Phosphatase 68 U/L (39-117) 09/05/20 13:37 Lactate Dehydrogenase 167 U/L (122-220) 04/11/20 12:17 Total Protein 6.2 g/dL (6.5-8.0) L 09/05/20 13:37 Albumin 3.9 g/dL (3.5-5.0) 09/05/20 13:37 Carcinoembryonic Ag 3.70 mg/mL D 05/06/20 10:50 TSH 0.38 mIU/mL (0.32-4.0) 05/06/20 10:50 Blood Type O Positive 06/18/20 10:35 Antibody Screen NEGATIVE 06/18/20 10:35 Progress Note: A/P (1) Small cell lung cancer Status: Chronic Assessment and plan: 1. This is a 65-year-old woman with Metastatic lung cancer, Small cell lung Cancer originating in the left upper lobe. Initially diagnosed in 2018 Clinical stage T4 N0 M0, limited stage small cell cancer of the left upper lobe. Patient started systemic therapy with carboplatin/etoposide from 03/06/2019. Received concurrent adjuvant radiation therapy from 05/14/2019 to 07/23/19. She underwent prophylactic brain radiation at [facility]. She has had local recurrence as evidenced by PET-CT and subsequent bronchoscopy/biopsy in 05/01/2020 biopsy revealed positive for small cell carcinoma. Patient started chemotherapy with carboplatin/etoposide and atezolizumab with Neulasta support from 05/07/2020. She completed 4 cycles of treatment with chemotherapy. She started atezolizumab maintenance from 09/05/20. Unfortunately she developed brain metastasis, imaging in November 2020 showed new solitary brain metastasis in the left anterior frontal lobe measuring 3 x 1.9 x 1.[address] chest /abdomen and pelvis on 11/21/2020 showed; Large left upper lobe para mediastinal mass with direct extension to the mediastinum involving the left hilum.. Moderate narrowing of upper lobe branch left pulmonary artery, new large lymphadenopathy in the right pretracheal space,subcarinal space and infrahilar region. Mild filling defect in the left brachiocephalic vein suspicious of small thrombus. adrenal metastasis. She completed radiation therapy to the solitary brain metastasis at [facility]. For progressive disease I discussed starting her on topotecan 1.9 mg/ meter sq day 1-5 Q 21 days given orally. Possible side effects such as neutropenia, diarrhea both and risk of infection/sepsis was discussed. She wants to try treatment. She is now willing to reinstitute VNA services which she canceled previously. Follow-up in 2 weeks. - Time Spent With Patient 25 - 35 minutes
[2021-01-13 12:16] LABS: MANUAL DIFF FLAG NO
[2021-01-13 12:23] LABS: Basophils Percent Auto 0.2 % (0-2); Eosinophils Percent Auto 0.2 % (0-4); Hematocrit 34.9 % (37-47); Hemoglobin 11.8 g/dl (12.0-16.0); Imm Gran Abs Auto 0.03 X10*3/uL (0.00-0.03); Imm Gran Pct Auto 0.5 % (0.0-0.4); Lymphocytes Absolute Auto 1.4 X10*3/uL (1.2-4.9); Lymphocytes Percent Auto 21.2 % (20-40); Mean Corpuscular HGB Conc 33.8 g/dl (31.0-35.0); Mean Corpuscular Hemoglobin 32.9 pg (27.0-33.0); Mean Corpuscular Volume 97.2 fL (80-98); Mean Platelet Volume 9.3 fL (9.4-12.3); Monocytes Absolute Auto 0.6 X10*3/uL (0.1-1.2); Monocytes Percent Auto 9.9 % (2-11); Neutrophils Absolute Auto 4.3 X10*3/uL (2.0-8.3); Platelet Count 275 X10*3/uL (160-400); Red Blood Count 3.59 X10*6/uL (4.20-5.50); White Blood Count 6.4 X10*3/uL (4.8-10.8)
[2021-01-13 12:50] LABS: Alanine Aminotransferase 10 U/L (0-31); Alkaline Phosphatase 72 U/L (39-117); Anion Gap 13 (12-20); Aspartate Amino Transferase 22 U/L (5-31); Bilirubin Total 0.5 mg/dL (0.0-1.0); Blood Urea Nitrogen 9 mg/dL (9-16); Calcium 9.7 mg/dL (8.4-10.2); Carbon Dioxide 30 mmol/L (22-29); Chloride 102 mmol/L (96-108); Creatinine Clr Calc Pharmacy 86.2; Estimated Glomerular Filt Rate > 60; Glucose Random 124 mg/dL (60-115); Potassium 4.2 mmol/L (3.3-5.1); Sodium 141 mmol/L (135-145); Total Protein 6.4 g/dL (6.5-8.0)
--- NOTE | 2021-01-13 15:58 | MHC.HEMONCMA ---
Patient came in for a follow up today, states she is doing ok. Clinical summary was reviewed and updated. Patient had labs and will return in 1 month for a follow up.
--- NOTE | 2021-01-14 10:18 | MHC.HEMONC ---
pt in for appt with Dr Saunders. They discussed some treatment with chemo as she has completed RT. They discussed oral chemo with Topotecan. I gave her pt handout and discussed common side effects of nausea and lowered blood counts. She will need weekly labs and Neulasta on day#5. Pt will call u8s when delivery from [place] is at her home. (Order for rx faxed to [place])
--- NOTE | 2021-01-16 13:17 | HO.HEMONCPA ---
JAYNA FOR NEULASTA ONPRO NOT REQUIRED UNDER BUY& BILL. PER [place] [facility] REP FACILITY PURCHASES THE DRUG, THEN SUBMIT THE [facility] TO [facility] REP. SHAWN REF#[id number] [employer] [phone]
--- NOTE | 2021-01-16 16:28 | MHC.HEMONC ---
pt received Topotecan pills. Per Dr Saunders - pt to start tomorrow after breakfast. She will take 4 (1mg) tablets Tue-Tue and then come in for Neulasta. Pt understands this and was able to verbalize directions.
[2021-01-22 14:31] LABS: Basophils Percent Auto 0.2 % (0-2); Hematocrit 32.8 % (37-47); Hemoglobin 10.8 g/dl (12.0-16.0); Imm Gran Abs Auto 0.03 X10*3/uL (0.00-0.03); Imm Gran Pct Auto 0.6 % (0.0-0.4); Lymphocytes Absolute Auto 1.3 X10*3/uL (1.2-4.9); Lymphocytes Percent Auto 25.7 % (20-40); MANUAL DIFF FLAG SCAN; Mean Corpuscular HGB Conc 32.9 g/dl (31.0-35.0); Mean Corpuscular Hemoglobin 32.1 pg (27.0-33.0); Mean Corpuscular Volume 97.6 fL (80-98); Mean Platelet Volume 8.9 fL (9.4-12.3); Monocytes Absolute Auto 0.1 X10*3/uL (0.1-1.2); Neutrophils Absolute Auto 3.6 X10*3/uL (2.0-8.3); Neutrophils Percent Auto 71.5 % (45-73); Platelet Count 211 X10*3/uL (160-400); Red Blood Count 3.36 X10*6/uL (4.20-5.50); Red Cell Distribution Width 13.1 % (11.0-16.0); SCAN SMEAR FLAG 1; White Blood Count 5.1 X10*3/uL (4.8-10.8)
[2021-01-22 14:32] VITALS: BP 128/72; PULSE 84; RESP 22; TEMP 35.9; O2SAT 94; BMI 42.5
[2021-01-22 14:51] LABS: Alanine Aminotransferase 13 U/L (0-31); Albumin Level 3.8 g/dL (3.5-5.0); Alkaline Phosphatase 63 U/L (39-117); Anion Gap 11 (12-20); Aspartate Amino Transferase 33 U/L (5-31); Bilirubin Total 0.8 mg/dL (0.0-1.0); Blood Urea Nitrogen 13 mg/dL (9-16); Calcium 9.5 mg/dL (8.4-10.2); Carbon Dioxide 31 mmol/L (22-29); Chloride 99 mmol/L (96-108); Creatinine Clr Calc Pharmacy 84.8; Estimated Glomerular Filt Rate > 60; Glucose Random 115 mg/dL (60-115); Potassium 4.4 mmol/L (3.3-5.1); Sodium 137 mmol/L (135-145); Total Protein 6.2 g/dL (6.5-8.0)
[2021-01-22 14:52] LABS: SLIDE REVIEW VERIFIED
--- NOTE | 2021-01-22 15:09 | MHC.HEMONC ---
Pt here for Neulast injection. Blood work drawn by senior data mining analyst-specimen to lab. Pt states she is doing well with oral meds which she started on Tuesday and finished yesterday (Tuesday) States continues with nausea-zofran helps per pt. C/O fatigue and dyspnea and a congested non productive cough. Uses oxygen continuously now at 2 L via [place]. States she is not sleeping well-requesting something to help with sleep-states she has tried ambien in the past with effect. Labs reviewed WBC 5.[address] Saunders. Сергей to receive Neulasta today. Neulasta given SC in arm-tolerated fairly well. Follow up appointment scheduled. Discharge packet given. Discharged home.
--- NOTE | 2021-01-29 12:34 | MHC.HEMONC ---
Pt called department stating she fell at home injuring knee. States she is a pt on the 4th floor currently. Pt states she will be receiving platelets today. States she requires help at home before she can be discharged home. Instructed to contact Case management to help facilitate assistance at home.
[2021-02-24 10:59] VITALS: BP 98/56; PULSE 77; RESP 14; TEMP 36.2; O2SAT 98; BMI 41.6
[2021-02-24 11:47] LABS: Hematocrit 31.3 % (37-47); Hemoglobin 10.4 g/dl (12.0-16.0); Mean Corpuscular HGB Conc 33.2 g/dl (31.0-35.0); Mean Corpuscular Hemoglobin 32.7 pg (27.0-33.0); Mean Corpuscular Volume 98.4 fL (80-98); Mean Platelet Volume 9.3 fL (9.4-12.3); Red Blood Count 3.18 X10*6/uL (4.20-5.50); Red Cell Distribution Width 16.7 % (11.0-16.0)
[2021-02-24 11:53] LABS: Platelet Count 368 X10*3/uL (160-400)
[2021-02-24 12:08] LABS: Alanine Aminotransferase 11 U/L (0-31); Albumin Level 4.1 g/dL (3.5-5.0); Alkaline Phosphatase 69 U/L (39-117); Anion Gap 13 (12-20); Aspartate Amino Transferase 19 U/L (5-31); Bilirubin Total 0.5 mg/dL (0.0-1.0); Blood Urea Nitrogen 8 mg/dL (9-16); Calcium 9.5 mg/dL (8.4-10.2); Carbon Dioxide 32 mmol/L (22-29); Chloride 101 mmol/L (96-108); Creatinine Clr Calc Pharmacy 83.8; Estimated Glomerular Filt Rate > 60; Glucose Random 117 mg/dL (60-115); Potassium 4.7 mmol/L (3.3-5.1); Sodium 141 mmol/L (135-145); Total Protein 6.5 g/dL (6.5-8.0)
--- NOTE | 2021-02-24 12:12 | PM.HEMONCPN ---
Medical Summary - Medical Summary Date of Service: 02/24/21 Chief complaint: Generalized weakness Medical Summary: Diagnosis: Small cell carcinoma of lung February 2019. Course: Admitted in February 2019 with shortness of breath and cough. CT chest showed left suprahilar mass measuring 5.5 x 6.1 x 8.5 cm, medial aspect of left upper lobe. This encircles and occludes the superior bronchus and lingular bronchus. Invades the mediastinum with slight mass effect. Peripherally, interstitial thickening postobstructive atelectasis versus lymphangitic carcinomatosis. Underwent bronchoscopy/biopsy on 02/27/2019, left upper lung mass pathology small cell carcinoma. IHC positive for cytokeratin, synaptophysin, chromogranin, TTF 1 rare cells and negative for CK 7, P40, Napsin, CD 20 and CD 45. Ki 67 markedly increased proliferation rate. PET scan performed at [facility] on 03/08/2019 showed intensely FDG avid left upperlobe/suprahilar mass measuring 7.7 x 8.1 x 10.3 cm, SUV 20.4 with direct invasion of the mediastinum compatible with malignancy. Mild FDG uptake with irregular ground-glass and consolidative opacity in the left upper lobe peripheral to the mass likely obstructive pneumonia. No evidence of FDG avid malignancy outside of the left chest. Left vocal cord paralysis. 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 Staging brain MRI with and without contrast showed scattered small vessel ischemic changes. No evidence of metastasis. Therapy: Carbo etoposide started 03/17/2019 Hospitalized with sepsis/neutropenia after cycle 2. E coli bacteremia that resolved with antibiotics. She completed 4 cycles. Received adjuvant radiation therapy from 05/14/2019 to 07/23/19. There were a few treatment delays with radiation because of poor performance status and side effects of treatment. Patient started systemic therapy with carboplatin/etoposide from 03/06/2019. Received concurrent adjuvant radiation therapy from 05/14/2019 to 07/23/19. There were a few treatment delays withr adiation because of poor performance status and side effects of treatment. She received 2 cycles of chemotherapy without radiation, 2 cycles during radiation. PET scan performed on 10/22/2019 at [facility] reported as: dramatic improvement in small cell carcinoma involving left upper lobe. Size of lesion decreased to 3.4 compared to 7.8 cm and SUV presently 4.5, previously 20.4. No new lesion or metastatic disease. She underwent prophylactic brain radiation at [facility], completed 11/26/2019. CT chest with contrast in February 2020 revealed new consolidation in the left upper lobe measuring 7.4 x 2.8 cm abutting aortic arch and extending into left superior pulmonary hilum. PET scan performed at [facility] on 04/01/2020 revealed hypermetabolic mass in the left upper lobe measuring 5.5 x 3.7 cm, SUV 11.7, increased size and hypermetabolism of 3 AP window lymph nodes measuring 1.1 cm, SUV 7.4 and 4.4, 5.2. No pleural effusion. No FDG avid malignancy outside the chest. PET scan, [facility] on 08/25/2020 showed interval decrease in size and FDG avidity of left upper lobe mass. Now measuring 3.8 x 2.3 cm, previously 7.3 x 4 cm. SUV previously 11.7, now 4.92. Mediastinal adenopathy has resolved. No signs of distal metastatic disease. Interval History Interval history: Patient is here in follow-up, she is accompanied by her daughter today. She was discharged from retirement and is now living at home. Her daughter lives next door and is taking care of her, she quit her job. Patient still feels quite weak and is mostly chair bound. She needs assistance for activities of daily living. She gets quite short of breath even walking short distances. She has pain in her left lower chest wall which response to oxycodone that she takes now and then. She denies any fever or chills. Her appetite is very poor. She denies nausea or emesis. No diarrhea or constipation. Review of Systems - Constitutional Reports as per HPI, Reports fatigue, Reports lack of energy, Reports malaise, Reports poor appetite, Reports weight loss PMFSH Medical History: Medical History (Last Reviewed 02/24/21 @ 11:05 by Shyann Paiz) Arthritis COPD (chronic obstructive pulmonary disease) Depression Diverticulitis Encounter for colonoscopy due to history of colonic polyp History of diverticulitis of colon History of hepatitis Hypertension Hypothyroidism Traumatic brain injury Family History: Family History (Last Reviewed 02/24/21 @ 11:05 by Shyann Paiz) Brother Diabetes Father Surgical History: Surgical History (Last Reviewed 02/24/21 @ 11:05 by Shyann Paiz) H/O section Hx of breast reduction, elective S/P bronchoscopy with biopsy Social History: Social History (Last Reviewed 02/24/21 @ 11:05 by Shyann Paiz) Living Situation History: Household Members: None Housing: Apartment Do you presently have visiting nurse or other home services: No Do you presently have visiting nurse or other home services comment: would like to have visiting services to help with house keeping/adl Alcohol History: Alcohol intake: never Alcohol History Details: Alcohol intake frequency: does not drink Tobacco History: Patient Tobacco Use Status: Former Tobacco user Tobacco use type: Cigarette Cigarette Packs Per Day: 1 Years Smoked: 53 Smoke Quit Date: 4 years ago Second Hand Smoke Exposure: No Substance Use History: Use of substances other than those prescribed or required for medical reasons: Yes Substance Use Type: Marijuana Substance Use Type Other:: edibles Substance Use Frequency: Daily Domestic Abuse History: Have you been hit, kicked, punched, or otherwise hurt by someone within the past year? If so, by whom?: No Do you feel safe in your current relationship?: Yes Advance Directives: Advance Directives: Yes Advance Directives on File: Advance Directives on File comment: [id number] Advance Directives Date on File: 05/01/20 Nutrition Assessment: Recently lost weight without trying: No Nutrition Risks: No Nutritional Risk Patient : No : No Poor oral hygiene: No Occupation Assessmet: service: Yes Current occupational status: disabled Oncology Screenings - ECOG Performance Status ECOG Performance Status: 3 Home Medications and Allergies Home Medications Medication Instructions Recorded Confirmed Type budesonide-formoterol HFA 160 2 puff INHALATION BID 04/10/20 02/24/21 History mcg-4.5 mcg/actuation aerosol inhaler bupropion HCl 200 mg tablet,12 hr 200 mg PO DAILY 04/10/20 02/24/21 History sustained-release docusate sodium 100 mg capsule 100 mg PO DAILY 04/10/20 02/24/21 History (Stool Softener) levothyroxine 137 mcg tablet 137 mcg PO DAILY 04/10/20 02/24/21 History nortriptyline 10 mg capsule 20 mg PO BEDTIME 04/10/20 02/24/21 History omeprazole 20 mg capsule,delayed 20 mg PO DAILY 05/01/20 02/24/21 History release albuterol sulfate 90 mcg/actuation 2 puff INHALATION Q6H PRN 11/20/20 02/24/21 History aerosol inhaler atenolol 25 mg tablet 25 mg PO DAILY 11/20/20 02/24/21 History duloxetine 30 mg capsule,delayed 30 mg PO DAILY 11/20/20 02/24/21 History release culqubrr-ozhfsnqi-iikp 8 mg-folic 2 tab PO DAILY 11/20/20 02/24/21 History ac 400 mcg-vit K 10 mcg chew tablet (Centrum Chewables) tiotropium bromide 2.5 2 puff INHALATION DAILY 11/20/20 02/24/21 History mcg/actuation mist for inhalation (Spiriva Respimat) Allergies Allergy/AdvReac Type Severity Reaction Status Date / Time penicillin V Allergy Unknown Unknown Verified 01/25/21 19:56 Penicillins [PCN] Allergy Unknown HIVES Verified 01/25/21 19:56 shellfish derived Allergy Unknown UNKNOWN Verified 01/25/21 19:56 [SHELLFISH DERIVED] Exam Vital signs: Vital Signs Temp 97.1 F 02/24/21 10:59 Pulse 77 02/24/21 10:59 Resp 14 02/24/21 10:59 BP 98/56 L 02/24/21 10:59 Pulse Ox 98 02/24/21 10:59 Intake & Output 02/23/21 02/24/21 02/24/21 18:59 06:59 18:59 Other: Weight 110 kg Weight in Grams [id number] Weight 110 kg Body Mass Index 41.6 - Constitutional Present: mild distress, chronically ill appearing - Routine HEENT Exam Head: Present: normal inspection - Routine Neck Exam Present: full ROM - Routine Respiratory Exam Present: decreased breath sounds, prolonged expiratory phase, wheezes - Routine Cardiovascular Exam Cardiovascular: Present: RRR, S1, S2 - Routine Abdominal Exam Present: normal bowel sounds - Routine Extremities Exam Absent: pedal edema Data - Labs CBC & Chem 7: 02/24/21 11:39 02/24/21 11:39 Labs: 04/10/20 10:44 Heparin Sodium,Porcine Flush 500 unit 0.9 % Sodium Chloride Flush [NS Flush] 5 ml IVFLUSH ONCE 04/10/20 11:07 Heparin Sodium,Porcine Flush 500 unit IVFLUSH .STK-MED ONE 04/10/20 12:16 Alteplase Cath Clear [Cathflo Activase] 2 mg INTRACATH ONCE ONE 04/11/20 11:37 Alteplase Cath Clear [Cathflo Activase] 2 mg INTRACATH ONCE PRN 04/11/20 12:17 Carcinoembryonic Antigen Routine Complete Blood Count Auto Diff Routine Comprehensive Met. Panel Routine LDH [Lactate Dehydrogenase] Routine 05/06/20 10:27 Alteplase Cath Clear [Cathflo Activase] 2 mg INTRACATH ONCE ONE 05/06/20 10:50 Carcinoembryonic Antigen Routine Complete Blood Count Auto Diff Routine Comprehensive Met. Panel Routine Thyroid Stimulating Hormone Routine 05/06/20 12:13 Add Laboratory Test Stat 05/07/20 00:00 Acetaminophen [Tylenol] 650 mg PO ONCE Atezolizumab [Tecentriq] 1,200 mg 0.9 % Sodium Chloride [Ns] 250 ml IV ONCE CARBOplatin [Paraplatin] 530 mg 0.9 % Sodium Chloride 250 ml IV ONCE Etoposide [Toposar] 236 mg 0.9 % Sodium Chloride [Ns] 1,000 ml IV ONCE Famotidine/PF [Pepcid/PF] 20 mg IVPUSH ONCE Fosaprepitant Dimeglumine [Emend] 150 mg 0.9 % Sodium Chloride [Ns] 145 ml IV ONCE Heparin Sodium,Porcine Flush 500 unit IVFLUSH ONCE dexAMETHasone sod phosphate/NS [Decadron] 12 mg in 50 ml IV ONCE diphenhydrAMINE HCL [Benadryl] 25 mg PO ONCE ondansetron HCL/NS [Zofran] 16 mg in 50 ml IV ONCE 05/07/20 09:36 Alteplase Cath Clear [Cathflo Activase] 2 mg INTRACATH ONCE ONE 05/08/20 00:00 Etoposide [Toposar] 236 mg 0.9 % Sodium Chloride [Ns] 1,000 ml IV ONCE Heparin Sodium,Porcine Flush 500 unit IVFLUSH ONCE 05/08/20 11:07 Complete Blood Count Auto Diff Routine Comprehensive Met. Panel Routine Magnesium Routine SLIDE REVIEW Routine 05/08/20 12:45 dexAMETHasone sod phosphate/NS [Decadron] 12 mg in 50 ml IV ONCE ondansetron HCL/NS [Zofran] 16 mg in 50 ml IV ONCE 05/09/20 00:00 Etoposide [Toposar] 236 mg 0.9 % Sodium Chloride PVC Free [NS PVC Free] 1,000 ml IV ONCE Heparin Sodium,Porcine Flush 500 unit IVFLUSH ONCE 05/09/20 12:35 ondansetron HCL [Zofran] 16 mg IVPUSH ONCE ONE 05/09/20 12:37 Pegfilgrastim Onpro [Neulasta Onpro] 6 mg SUBCUT ONCE ONE 05/09/20 12:45 dexAMETHasone sod phosphate/NS [Decadron] 12 mg in 50 ml IV ONCE ondansetron HCL/NS [Zofran] 16 mg in 50 ml IV ONCE 05/09/20 15:09 Heparin Sodium,Porcine Flush 500 unit 0.9 % Sodium Chloride Flush [NS Flush] 5 ml IVFLUSH ONCE 05/22/20 10:05 Complete Blood Count Auto Diff Routine Profile w/ Glucose [place] [Comprehensive Met. Panel] Routine SLIDE REVIEW Routine 05/28/20 00:00 Atezolizumab [Tecentriq] 1,200 mg 0.9 % Sodium Chloride [Ns] 250 ml IV ONCE CARBOplatin [Paraplatin] 480 mg 0.9 % Sodium Chloride 250 ml IV ONCE Etoposide [Toposar] 230 mg 0.9 % Sodium Chloride PVC Free [NS PVC Free] 500 ml IV ONCE Famotidine/PF [Pepcid/PF] 20 mg IVPUSH ONCE Fosaprepitant Dimeglumine [Emend] 150 mg 0.9 % Sodium Chloride [Ns] 145 ml IV ONCE Heparin Sodium,Porcine Flush 500 unit IVFLUSH ONCE dexAMETHasone sod phosphate/NS [Decadron] 12 mg in 50 ml IV ONCE diphenhydrAMINE HCL [Benadryl] 25 mg PO ONCE ondansetron HCL/NS [Zofran] 16 mg in 50 ml IV ONCE 05/28/20 08:56 Complete Blood Count Auto Diff Routine Comprehensive Met. Panel Routine 05/28/20 12:00 Etoposide [Toposar] 230 mg 0.9 % Sodium Chloride [Ns] 1,000 ml IV ONCE 05/29/20 00:00 Etoposide [Toposar] 230 mg 0.9 % Sodium Chloride [Ns] 1,000 ml IV ONCE Heparin Sodium,Porcine Flush 500 unit IVFLUSH ONCE 05/29/20 11:45 dexAMETHasone sod phosphate/NS [Decadron] 12 mg in 50 ml IV ONCE ondansetron HCL/NS [Zofran] 16 mg in 50 ml IV ONCE 05/30/20 00:00 Etoposide [Toposar] 230 mg 0.9 % Sodium Chloride [Ns] 1,000 ml IV ONCE Heparin Sodium,Porcine Flush 500 unit IVFLUSH ONCE 05/30/20 10:53 Pegfilgrastim Onpro [Neulasta Onpro] 6 mg SUBCUT ONCE ONE 05/30/20 11:00 dexAMETHasone sod phosphate/NS [Decadron] 12 mg in 50 ml IV ONCE ondansetron HCL/NS [Zofran] 16 mg in 50 ml IV ONCE 05/30/20 12:00 dexAMETHasone sod phosphate/NS [Decadron] 12 mg in 50 ml IV ONCE 06/18/20 10:35 Type and Screen Routine Complete Blood Count Auto Diff Routine Comprehensive Met. Panel Routine 06/25/20 13:43 Complete Blood Count Auto Diff Routine IRON PROFILE Routine 07/01/20 00:00 Atezolizumab [Tecentriq] 1,200 mg 0.9 % Sodium Chloride [Ns] 250 ml IV ONCE CARBOplatin [Paraplatin] 300 mg 0.9 % Sodium Chloride 250 ml IV ONCE CARBOplatin [Paraplatin] 365 mg 0.9 % Sodium Chloride 250 ml IV ONCE Etoposide [Toposar] 164 mg 0.9 % Sodium Chloride PVC Free [NS PVC Free] 500 ml IV ONCE Famotidine/PF [Pepcid/PF] 20 mg IVPUSH ONCE Fosaprepitant Dimeglumine [Emend] 150 mg 0.9 % Sodium Chloride [Ns] 145 ml IV ONCE Heparin Sodium,Porcine Flush 500 unit IVFLUSH ONCE dexAMETHasone sod phosphate/NS [Decadron] 12 mg in 50 ml IV ONCE diphenhydrAMINE HCL [Benadryl] 25 mg PO ONCE ondansetron HCL/NS [Zofran] 16 mg in 50 ml IV ONCE 07/01/20 09:28 Complete Blood Count Auto Diff Routine Comprehensive Met. Panel Routine 07/02/20 00:00 Etoposide [Toposar] 164 mg 0.9 % Sodium Chloride PVC Free [NS PVC Free] 500 ml IV ONCE Heparin Sodium,Porcine Flush 500 unit IVFLUSH ONCE 07/02/20 12:00 ondansetron HCL/NS [Zofran] 16 mg in 50 ml IV ONCE 07/02/20 12:09 dexAMETHasone sod phosphate/PF [Decadron] 12 mg IV ONCE ONE 07/02/20 12:45 dexAMETHasone sod phosphate/NS [Decadron] 12 mg in 50 ml IV ONCE 07/03/20 00:00 Etoposide [Toposar] 164 mg 0.9 % Sodium Chloride PVC Free [NS PVC Free] 500 ml IV ONCE Heparin Sodium,Porcine Flush 500 unit IVFLUSH ONCE 07/03/20 08:45 dexAMETHasone sod phosphate/NS [Decadron] 12 mg in 50 ml IV ONCE ondansetron HCL/NS [Zofran] 16 mg in 50 ml IV ONCE 07/03/20 13:23 Pegfilgrastim Onpro [Neulasta Onpro] 6 mg SUBCUT ONCE ONE 07/09/20 09:55 Complete Blood Count Auto Diff Routine Comprehensive Met. Panel Routine 07/15/20 09:56 Tbo-Filgrastim [Granix] 480 mcg SUBCUT ONCE ONE 07/15/20 10:05 Complete Blood Count Auto Diff Routine Comprehensive Met. Panel Routine 07/16/20 10:46 Tbo-Filgrastim [Granix] 480 mcg SUBCUT ONCE ONE 07/17/20 08:39 Tbo-Filgrastim [Granix] 480 mcg SUBCUT ONCE ONE 07/22/20 00:00 Atezolizumab [Tecentriq] 1,200 mg 0.9 % Sodium Chloride [Ns] 250 ml IV ONCE CARBOplatin [Paraplatin] 365 mg 0.9 % Sodium Chloride 250 ml IV ONCE Etoposide [Toposar] 164 mg 0.9 % Sodium Chloride PVC Free [NS PVC Free] 500 ml IV ONCE Famotidine/PF [Pepcid/PF] 20 mg IVPUSH ONCE Fosaprepitant Dimeglumine [Emend] 150 mg 0.9 % Sodium Chloride [Ns] 145 ml IV ONCE Heparin Sodium,Porcine Flush 500 unit IVFLUSH ONCE dexAMETHasone sod phosphate/NS [Decadron] 12 mg in 50 ml IV ONCE diphenhydrAMINE HCL [Benadryl] 25 mg PO ONCE ondansetron HCL/NS [Zofran] 16 mg in 50 ml IV ONCE 07/22/20 09:09 Complete Blood Count Man Dif Routine Comprehensive Met. Panel Routine 07/23/20 00:00 Etoposide [Toposar] 164 mg 0.9 % Sodium Chloride PVC Free [NS PVC Free] 500 ml IV ONCE Heparin Sodium,Porcine Flush 500 unit IVFLUSH ONCE 07/23/20 12:00 dexAMETHasone sod phosphate/PF [Decadron] 12 mg 0.9 % Sodium Chloride [Ns] 50 ml IV ONCE 07/23/20 13:00 dexAMETHasone sod phosphate/NS [Decadron] 12 mg in 50 ml IV ONCE 07/24/20 00:00 Etoposide [Toposar] 164 mg 0.9 % Sodium Chloride PVC Free [NS PVC Free] 500 ml IV ONCE Heparin Sodium,Porcine Flush 500 unit IVFLUSH ONCE 07/24/20 08:30 dexAMETHasone sod phosphate/NS [Decadron] 12 mg in 50 ml IV ONCE 07/24/20 11:30 dexAMETHasone sod phosphate/NS [Decadron] 12 mg in 50 ml IV ONCE 07/25/20 13:29 Pegfilgrastim [Neulasta] 6 mg SUBCUT ONCE ONE 08/15/20 00:00 Atezolizumab [Tecentriq] 1,200 mg 0.9 % Sodium Chloride [Ns] 250 ml IV ONCE Famotidine/PF [Pepcid/PF] 20 mg IVPUSH ONCE Heparin Sodium,Porcine Flush 500 unit IVFLUSH ONCE ondansetron HCL/NS [Zofran] 16 mg in 50 ml IV ONCE 08/15/20 13:02 Complete Blood Count Auto Diff Routine Comprehensive Met. Panel Routine 09/05/20 13:37 Complete Blood Count Auto Diff Routine Laboratory Last Values WBC 6.0 X10*3/uL (4.8-10.8) 09/05/20 13:37 RBC 3.02 X10*6/uL (4.20-5.50) L 09/05/20 13:37 Hgb 10.6 g/dl (12.0-16.0) L 09/05/20 13:37 Hct 31.9 % (37-47) L 09/05/20 13:37 MCV 105.6 fL (80-98) H 09/05/20 13:37 MCH 35.1 pg (27.0-33.0) H 09/05/20 13:37 MCHC 33.2 g/dl (31.0-35.0) 09/05/20 13:37 RDW 13.0 % (11.0-16.0) 09/05/20 13:37 Plt Count 229 X10*3/uL (160-400) 09/05/20 13:37 MPV 9.1 fL (9.4-12.3) L 09/05/20 13:37 Immature Gran % (Auto) 0.2 % (0.0-0.4) 09/05/20 13:37 Neut % (Auto) 62.4 % (45-73) 09/05/20 13:37 Lymph % (Auto) 27.2 % (20-40) 09/05/20 13:37 [place] % (Auto) 9.2 % (2-11) 09/05/20 13:37 Eos % (Auto) 0.5 % (0-4) 09/05/20 13:37 Baso % (Auto) 0.5 % (0-2) 09/05/20 13:37 Neut # (Auto) 3.6 X10*3/uL (2.0-8.3) 04/11/20 12:17 Lymph # (Auto) 1.6 X10*3/uL (1.2-4.9) 09/05/20 13:37 [place] # (Auto) 0.6 X10*3/uL (0.1-1.2) 09/05/20 13:37 Eos # (Auto) 0.0 X10*3/uL (0.0-0.4) 09/05/20 13:37 Baso # (Auto) 0.0 X10*3/uL (0.0-0.2) 09/05/20 13:37 Abs Immat Gran (auto) 0.01 X10*3/uL (0.00-0.03) 09/05/20 13:37 Absolute Neuts (auto) 3.7 X10*3/uL (2.0-8.3) 09/05/20 13:37 Absolute Nucleated RBC 0.000 X10*3/uL (0.0-0.012) 09/05/20 13:37 Nucleated RBC % (auto) 0.0 /100WBC (0.0-0.2) 09/05/20 13:37 Neutrophils % (Manual) 54 % (45-73) 07/22/20 09:09 Band Neutrophils % 5 % (3-5) 07/22/20 09:09 Lymphocytes % (Manual) 26 % (20-40) 07/22/20 09:09 Monocytes % (Manual) 15 % (2-11) H 07/22/20 09:09 Abs Neuts (Manual) 2.1 X10*3/uL (2.2-7.9) L 07/22/20 09:09 Lymphocytes # (Manual) 0.9 X10*3/uL (0.6-4.8) 07/22/20 09:09 Monocytes # (Manual) 0.5 X10*3/uL (0.0-1.2) 07/22/20 09:09 Nucleated RBCs 1 /100WBC (0-0) H 07/22/20 09:09 Platelet Estimate SLIGHTLY DECREASED (NORMAL) 07/22/20 09:09 Plt Morphology Comment NORMAL 07/22/20 09:09 RBC Morphology NOTED 07/22/20 09:09 Polychromasia 1+ 07/22/20 09:09 Hypochromasia 1+ 07/22/20 09:09 Macrocytosis 1+ 07/22/20 09:09 Tear Drop Cells 1+ 07/22/20 09:09 Smear Tech's Comments VERIFIED 05/22/20 10:05 Sodium 139 mmol/L (135-145) 09/05/20 13:37 Potassium 4.0 mmol/L (3.3-5.1) 09/05/20 13:37 Chloride 103 mmol/L (96-108) 09/05/20 13:37 Carbon Dioxide 29 mmol/L (22-29) 09/05/20 13:37 Anion Gap 11 (12-20) L 09/05/20 13:37 BUN 18 mg/dL (9-16) H 09/05/20 13:37 Creatinine 0.80 mg/dL (0.5-1.4) 09/05/20 13:37 Estim Creat Clear Calc 87.8 09/05/20 13:37 Estimated GFR > 60 09/05/20 13:37 Random Glucose 111 mg/dL (60-115) 08/15/20 13:02 Fasting Glucose 94 mg/dL (60-99) 09/05/20 13:37 Calcium 9.1 mg/dL (8.4-10.2) 09/05/20 13:37 Magnesium 2.1 mg/dL (1.6-2.6) 05/08/20 11:07 Iron 93 mcg/dL (30-160) 06/25/20 13:43 TIBC 191 mcg/dL (228-428) L 06/25/20 13:43 % Saturation 49 % (15-50) 06/25/20 13:43 Unsat Iron Binding 98 ug/dL 06/25/20 13:43 Total Bilirubin 0.5 mg/dL (0.0-1.0) 09/05/20 13:37 AST 15 U/L (5-31) 09/05/20 13:37 ALT 11 U/L (0-31) 09/05/20 13:37 Alkaline Phosphatase 68 U/L (39-117) 09/05/20 13:37 Lactate Dehydrogenase 167 U/L (122-220) 04/11/20 12:17 Total Protein 6.2 g/dL (6.5-8.0) L 09/05/20 13:37 Albumin 3.9 g/dL (3.5-5.0) 09/05/20 13:37 Carcinoembryonic Ag 3.70 mg/mL D 05/06/20 10:50 TSH 0.38 mIU/mL (0.32-4.0) 05/06/20 10:50 Blood Type O Positive 06/18/20 10:35 Antibody Screen NEGATIVE 06/18/20 10:35 Progress Note: A/P (1) Small cell lung cancer Status: Chronic Assessment and plan: 1. This is a 65-year-old woman with Metastatic lung cancer, Small cell lung Cancer originating in the left upper lobe. Initially diagnosed in 2019 Clinical stage T4 N0 M0, limited stage small cell cancer of the left upper lobe. Patient started systemic therapy with carboplatin/etoposide from 03/06/2019. Received concurrent adjuvant radiation therapy from 05/14/2019 to 07/23/19. She underwent prophylactic brain radiation at [facility]. She has had local recurrence as evidenced by PET-CT and subsequent bronchoscopy/biopsy in 05/01/2020 biopsy revealed positive for small cell carcinoma. Patient started chemotherapy with carboplatin/etoposide and atezolizumab with Neulasta support from 05/07/2020. She completed 4 cycles of treatment with chemotherapy. She started atezolizumab maintenance from 09/05/20. Unfortunately she developed brain metastasis, imaging in November 2020 showed new solitary brain metastasis in the left anterior frontal lobe measuring 3 x 1.9 x 1.[address] chest /abdomen and pelvis on 11/21/2020 showed; Large left upper lobe para mediastinal mass with direct extension to the mediastinum involving the left hilum.. Moderate narrowing of upper lobe branch left pulmonary artery, new large lymphadenopathy in the right pretracheal space,subcarinal space and infrahilar region. Mild filling defect in the left brachiocephalic vein suspicious of small thrombus. adrenal metastasis. She completed radiation therapy to the solitary brain metastasis at [facility]. For progressive disease, she received 1 cycle of topotecan 1.9 mg/ meter sq day 1-5 Q 21 days given orally. A week later she was admitted to the hospital with severe cytopenias requiring both blood and platelet transfusion. She was neutropenic in spite of receiving Neulasta. She was treated with IV antibiotics for pneumonia. At this time her counts have recovered but she is quite deconditioned and very weak. Today we discussed goals of care, treatment at this time might incur more serious side effects and affect her remaining quality of life. We discussed best supportive care as a reasonable option since her cancer is incurable at this time. She is willing for this, she does not want to be intubated but would like transferred to hospital for acute symptoms. [facility]NA through [employer] [facility] will be called. Follow-up in 1 month. - Time Spent With Patient Time Spent with Patient (in minutes): 30
--- NOTE | 2021-02-24 15:12 | MHC.HEMONC ---
pt here for f/u with Dr Saunders. Labs reviewed. Pt and her dtr filled out MOLST form after discussing with Dr Saunders no more treatment. [facility]. She does not want Hospice yet as she still wants some medical interventions.
--- NOTE | 2021-02-24 15:35 | MHC.HEMONCMA ---
Patient came in for a follow up today, accompanied by her daughter. She states she is not feeling well, especially the last 2 days. Her bp was low today 98/56 manually, automatic machine could not read her pressure. Clinical summary was reviewed and updated. Patient had labs and will return in 2 weeks for a follow up.
== END | disposition home or self-care (01) ==
LOC: HO.ONC 04-10 10:52
PROVIDERS: PCP Nurse Practitioner Family; Visit Provider Internal Medicine
DX: C34.12 Malignant neoplasm of upper lobe, left bronchus or lung (principal); C79.31 Secondary malignant neoplasm of brain; R53.1 Weakness; Z92.21 Personal history of antineoplastic chemotherapy; Z92.3 Personal history of irradiation
CPT/HCPCS: 36415; 36593; 80053; 82378; 83540; 83615; 83735; 84443; 85007; 85025; 85027; 86850; 86900; 86901; 96366; 96367; 96372; 96375; 96377; 96413; 96415; 96417; 99212; 99213; 99214; J1100; J1447; J1453; J1642; J2405; J2505; J2997; J9022; J9045; J9181; Q0163